=== PATIENT | male | born 1945 | race Caucasian/White ===

== ENCOUNTER → 2017-03-15 | Outpatient (CLI) | payer MEDICARE ==
--- NOTE | 2017-03-16 09:29 | XR ---
EXAMINATION TYPE: XR knee complete LT DATE OF EXAM: 03/15/2017 4:53 PM CLINICAL HISTORY: pain TECHNIQUE: Three views of the left knee are obtained. COMPARISON: None. FINDINGS: There is no acute fracture/dislocation. The tri-compartment joint spaces appear mildly na rrowed particularly at the medial tibiofemoral joint space. The overlying soft tissue appears unremar kable. Small suprapatellar joint effusion is noted. IMPRESSION: There is no acute fracture or dislocation ICD 10 NO FRACTURE, INITIAL EVALUATION
== END | disposition home or self-care (01) ==
LOC: RADXRYALE 16:40
PROVIDERS: ATTEND Family Medicine
DX: M25.562 Pain in left knee (principal)

== ENCOUNTER → 2018-03-17 | Outpatient (CLI) | payer MEDICARE ==
--- NOTE | 2018-03-18 10:58 | ECHOF ---
Referral Reason:R06.02 Shortness of breath, I48.2 Chronic Afib MEASUREMENTS -------- HEIGHT: 337.8 cm WEIGHT: 41.7 kg BP: 132/92 RVIDd: 3.0 cm (< 3.3) IVSd: 1.2 cm (0.6 - 1.1) LVIDd: 4.9 cm (3.9 - 5.3) LVPWd: 1.2 cm (0.6 - 1.1) IVSs: 1.4 cm LVIDs: 3.3 cm LVPWs: 1.9 cm LA Diam: 3.8 cm (2.7 - 3.8) LAESV Index (A-L): 29.66 ml/m Ao Diam: 3.5 cm (2.0 - 3.7) AV Cusp: 2.2 cm (1.5 - 2.6) MV EXCURSION: 16.312 mm (> 18.000) MV EF SLOPE: 104 mm/s (70 - 150) EPSS: 0.8 cm RAP: 5.00 mmHg RVSP: 25.10 mmHg FINDINGS -------- Atrial fibrillation. This was a technically difficult study with suboptimal apical views. The left ventricular size is normal. There is borderline concentric left ventricular hypertrophy. Overall left ventricular systolic function is mildly impaired with, an EF between 45 - 50 %. The right ventricle is normal in size. LA is midly dilated 29-33ml/m2. The right atrium is normal in size. 5 ml of Lumason was utilized for enhancement of images. There is mild aortic valve sclerosis. Mild mitral annular calcification present. Trace tricuspid regurgitation present. Right ventricular systolic pressure is normal at < 35 mmHg. The pulmonic valve was not well visualized. The aortic root size is normal. Normal inferior vena cava with normal inspiratory collapse consistent with estimated right atrial pre ssure of 5 mmHg. There is a trivial pericardial effusion present. CONCLUSIONS -------- 1. Atrial fibrillation. 2. This was a technically difficult study with suboptimal apical views. 3. The left ventricular size is normal. 4. There is borderline concentric left ventricular hypertrophy. 5. Overall left ventricular systolic function is mildly impaired with, an EF between 45 - 50 %. 6. The right ventricle is normal in size. 7. LA is midly dilated 29-33ml/m2. 8. The right atrium is normal in size. 9. 5 ml of Lumason was utilized for enhancement of images. 10. There is mild aortic valve sclerosis. 11. Mild mitral annular calcification present. 12. Trace tricuspid regurgitation present. 13. Right ventricular systolic pressure is normal at < 35 mmHg. 14. The pulmonic valve was not well visualized. 15. The aortic root size is normal. 16. Normal inferior vena cava with normal inspiratory collapse consistent with estimated right atrial pressure of 5 mmHg. 17. There is a trivial pericardial effusion present. EMAIL PRODUCTION CONSULTANT: Eliana York RDCS
== END | disposition home or self-care (01) ==
LOC: RADECHMAIN 14:14
PROVIDERS: ATTEND Family Medicine
DX: I48.2 Chronic atrial fibrillation (principal); I31.3 Pericardial effusion (noninflammatory); I51.7 Cardiomegaly; I35.8 Other nonrheumatic aortic valve disorders; I50.42 Chronic combined systolic (congestive) and diastolic (congestive) heart failure
CPT/HCPCS: C8929; Q9950; 93306

== ENCOUNTER → 2018-03-17 | Outpatient (CLI) | payer MEDICARE ==
[2018-03-17 14:02] LABS: HGB 14.9 gm/dL (13.0-17.5); Hypochromasia Slight; MCH 28.6 pg (25.0-35.0); MCHC 30.9 g/dL (31.0-37.0); MCV 92.3 fL (80.0-100.0); Mean Platelet Volume 7.1; Platelet Count 270 k/uL (150-450); WBC 11.4 k/uL (3.8-10.6)
[2018-03-17 14:19] LABS: Anion Gap 11 mmol/L; Blood Urea Nitrogen 21 mg/dL (9-20); Carbon Dioxide 35 mmol/L (22-30); Chloride 100 mmol/L (98-107); Potassium 4.3 mmol/L (3.5-5.1); Sodium 146 mmol/L (137-145)
--- NOTE | 2018-03-17 14:24 | XR ---
EXAMINATION TYPE: XR chest 2V DATE OF EXAM: 03/17/2018 COMPARISON: NONE HISTORY: Presurgical testing. TECHNIQUE: Frontal and lateral views of the chest are obtained. FINDINGS: Linear right basilar airspace disease is favored to represent atelectasis. There is no pulm onary vascular congestion, pleural effusion, or pneumothorax seen. The cardiac silhouette size is wi thin normal limits. The osseous structures are intact. There is slight pulmonary hyperinflation and biapical lucency. Heart is mildly enlarged. Minimal degenerative changes of the thoracic spine and o sseous demineralization are noted. IMPRESSION: Linear right basilar atelectasis is favored to represent atelectasis. Biapical lucency m ay be on the basis of COPD. Correlate with pulmonary function tests.
== END | disposition home or self-care (01) ==
LOC: LABWHC1 13:32
PROVIDERS: ATTEND Internal Medicine Cardiovascular Disease
DX: Z01.818 Encounter for other preprocedural examination (principal); Z01.812 Encounter for preprocedural laboratory examination; I48.2 Chronic atrial fibrillation
CPT/HCPCS: 36415; 71046; 80051; 82565; 83880; 84443; 84520; 85027

== ENCOUNTER → 2018-04-28 | Outpatient (CLI) | payer MEDICARE ==
[2018-04-28 17:32] LABS: HCT 48.6 % (39.0-53.0); HGB 15.5 gm/dL (13.0-17.5); Hypochromasia Slight; MCH 29.7 pg (25.0-35.0); MCHC 31.9 g/dL (31.0-37.0); MCV 93.1 fL (80.0-100.0); Mean Platelet Volume 6.7; Platelet Count 177 k/uL (150-450); RBC 5.21 m/uL (4.30-5.90); RDW 15.2 % (11.5-15.5)
[2018-04-28 17:37] LABS: Anion Gap 9 mmol/L; Blood Urea Nitrogen 24 mg/dL (9-20); Carbon Dioxide 33 mmol/L (22-30); Chloride 99 mmol/L (98-107); Potassium 4.5 mmol/L (3.5-5.1); Sodium 141 mmol/L (137-145)
== END | disposition home or self-care (01) ==
LOC: LABPAT 16:50
PROVIDERS: ATTEND Internal Medicine Cardiovascular Disease
DX: Z01.812 Encounter for preprocedural laboratory examination (principal); I48.1 Persistent atrial fibrillation
CPT/HCPCS: 80051; 82565; 84520; 85027

== ENCOUNTER → 2018-05-17 | Day surgery (SDC) | payer MEDICARE ==
[2018-05-11 14:23] VITALS: BMI 36.6
[~2018-05-17] MED LIST: PROPOFOL 10 MG/ML 20 ML VIAL IV ONE; SODIUM CHLORIDE 0.9% 1,000 ML IV SCH; SODIUM CHLORIDE 0.9% 500 ML IV ONE
[2018-05-17] MEDS: SODIUM CHLORIDE 0.9% 1,000 ML IV SCH ×2 (07:00→07:13)
[2018-05-17 07:12] VITALS: RESP 16
[2018-05-17 08:44] VITALS: TEMP 98
[2018-05-17 09:15] VITALS: BP 122/74; PULSE 68
--- NOTE | 2018-05-17 09:24 | ECHOT ---
TRANSESOPHAGEAL ECHOCARDIOGRAM INDICATION: Chronic atrial fibrillation to rule out intracardiac thrombus. PROCEDURE NOTE: After obtaining informed consent, transesophageal echocardiogram is performed in left lateral position using an Omniplane probe. Local and IV sedation were obtained by the woods superintendent. The patient tolerated the procedure well without any obvious immediate complications. FINDINGS: 1. There is a small echodense lesion within the left atrial appendage suggestive of left atrial appendage thrombus. There is spontaneous echo contrast throughout. 2. Left ventricle appears mildly enlarged with diffuse global hypokinesis with an ejection fraction of 50%. 3. Mitral valve appears anatomically normal. There is mild central mitral regurgitation noted. 4. Aortic valve is a 3-leaflet valve. There is no evidence of aortic stenosis or regurgitation. 5. There is mild tricuspid regurgitation. 6. Interatrial septum: There is no evidence of vtbl-zy-jpdwl shunt by color-flow Doppler, but there is evidence of osxmf-gu-kyll shunt by agitated saline contrast study. 7. Aorta shows mild atherosclerotic changes. CONCLUSIONS: 1. Small size thrombus within the left atrial appendage. 2. Mild diffuse global hypokinesis with mild left ventricular dysfunction. 3. Spontaneous echo contrast. 4. Evidence of pkgjr-ga-omny shunt by agitated saline contrast study across the interatrial septum. MMODL / IJN: [id number] /
== END | disposition home or self-care (01) ==
LOC: CATHCVL 06:27
PROVIDERS: ATTEND Internal Medicine Cardiovascular Disease
DX: I48.2 Chronic atrial fibrillation (principal); I70.0 Atherosclerosis of aorta; I50.22 Chronic systolic (congestive) heart failure; I08.1 Rheumatic disorders of both mitral and tricuspid valves; F17.210 Nicotine dependence, cigarettes, uncomplicated; Z79.82 Long term (current) use of aspirin; Z79.01 Long term (current) use of anticoagulants; Z79.899 Other long term (current) drug therapy; Z82.49 Family history of ischemic heart disease and other diseases of the circulatory system; Z79.51 Long term (current) use of inhaled steroids
CPT/HCPCS: 93312; 93320; 93325; J2704

== ENCOUNTER → 2018-09-07 | Outpatient (CLI) | payer MEDICARE ==
[2018-09-07 17:57] LABS: HCT 43.3 % (39.0-53.0); HGB 13.4 gm/dL (13.0-17.5); Hypochromasia Marked; MCHC 30.9 g/dL (31.0-37.0); MCV 93.9 fL (80.0-100.0); Mean Platelet Volume 7.4; Platelet Count 238 k/uL (150-450); RBC 4.61 m/uL (4.30-5.90); RDW 14.2 % (11.5-15.5)
[2018-09-07 18:43] LABS: Anion Gap 4 mmol/L; Blood Urea Nitrogen 15 mg/dL (9-20); Carbon Dioxide 36 mmol/L (22-30); Chloride 100 mmol/L (98-107); Potassium 4.2 mmol/L (3.5-5.1); Sodium 140 mmol/L (137-145)
== END ==
LOC: LABWHC1 16:57
PROVIDERS: ATTEND Internal Medicine Cardiovascular Disease
DX: Z01.812 Encounter for preprocedural laboratory examination (principal); I48.2 Chronic atrial fibrillation
CPT/HCPCS: 36415; 80051; 82565; 84520; 85027

== ENCOUNTER → 2018-09-20 | Day surgery (SDC) | payer MEDICARE ==
[2018-09-12 11:08] VITALS: BMI 39.7
[~2018-09-20] MED LIST changes: +LACTATED RINGERS 1,000 ML IV SCH; +SODIUM CHLORIDE 0.9% 500 ML 500 ML IV ONE; -SODIUM CHLORIDE 0.9% 500 ML IV ONE
[2018-09-20 08:36] VITALS: TEMP 97.7
[2018-09-20] MEDS: BENZOCAINE SPRAY 1 CAN MUCOUS MEM ONE ×2 (08:50→08:55)
[2018-09-20 08:52] VITALS: RESP 16
--- NOTE | 2018-09-20 10:22 | ECHOT ---
TRANSESOPHAGEAL ECHOCARDIOGRAM INDICATION: Chronic atrial fibrillation. PROCEDURE NOTE: After obtaining informed consent, transesophageal echocardiogram was performed in left lateral position using an Omni plane probe. Local and IV sedation were obtained by the mat making machine tender. Patient tolerated the procedure well without any obvious immediate complications. MIA is being performed to rule out intracardiac thrombus prior to cardioversion. FINDINGS: 1. Left atrial appendage, there is a small echodense lesion within the left atrial appendage, which looks better than it did last time, but there is still seems to be a thrombus. 2. Left ventricle has normal size, shows mild left ventricular dysfunction with an ejection fraction of 45%. 3. Mitral valve shows mild mitral regurgitation. 4. Tricuspid valve appears normal. 5. Left atrium appears enlarged. 6. Right atrium appears enlarged. 7. Interatrial septum, there is no evidence of valu-qv-wlcsd shunt by color-flow Doppler. There is evidence of mezng-ll-nqbm shunt by agitated saline contrast study. 8. There is prominent Chiair network within the right atrium. 9. Aorta shows mild atherosclerotic changes. Aortic valve is a 3-leaflet valve. CONCLUSION: 1. Intracardiac thrombus noted within the left atrial appendage. 2. There is evidence of yirue-na-jobv shunt, probably secondary to a patent foramen ovale. PLAN: Patient will continue with the anticoagulation, cardioversion is canceled. I will increase the dose of Toprol-XL for better heart rate control and continue the amiodarone. MMODL / IJN: [id number] /
[2018-09-20 10:40] VITALS: BP 112/59; PULSE 106
== END ==
LOC: CATHCVL 08:05
PROVIDERS: ATTEND Internal Medicine Cardiovascular Disease
DX: I51.3 Intracardiac thrombosis, not elsewhere classified (principal); I34.0 Nonrheumatic mitral (valve) insufficiency; I51.9 Heart disease, unspecified; I70.0 Atherosclerosis of aorta; I48.2 Chronic atrial fibrillation; E66.01 Morbid (severe) obesity due to excess calories; Z68.39 Body mass index [BMI] 39.0-39.9, adult; Z82.49 Family history of ischemic heart disease and other diseases of the circulatory system; Z72.0 Tobacco use; Z79.01 Long term (current) use of anticoagulants; Z79.82 Long term (current) use of aspirin; Z79.51 Long term (current) use of inhaled steroids; Z79.899 Other long term (current) drug therapy
CPT/HCPCS: 93312; 93320; 93325; J2704; 92960

== ENCOUNTER → 2019-01-04 | Day surgery (SDC) | payer MEDICARE ==
[2018-12-30 15:20] VITALS: BMI 35.2
[~2019-01-04] MED LIST changes: +ALBUTEROL NEBULIZED 2.5 MG/3 ML INHALATION PRN; +AMIODARONE 200 MG TAB PO SCH; +APIXABAN 5 MG TAB PO SCH; +ASPIRIN 81 MG PO SCH; +CALCIUM CARB-VIT D 500MG-200UN 1 EACH TAB PO SCH; +FUROSEMIDE 40 MG TAB PO SCH; +GARLIC PO SCH; +HYDROcodone/APAP 10-325MG 1 EACH TAB PO PRN; +IPRATROPIUM-ALBUTEROL 3 ML NEB INHALATION PRN; -LACTATED RINGERS 1,000 ML IV SCH; +LISINOPRIL 5 MG TAB PO SCH; +MIDAZOLAM 2 MG/2 ML VIAL ONE; +MULTIVITAMINS, THERA 1 EACH TAB PO SCH; +NON-FORMULARY DRUG (Fish Oil/Dha/Epa [Fish Oil 1,200 Mg Fish Oil] 1 EACH) PO SCH; +PANTOPRAZOLE 40 MG TABLET PO SCH; +POTASSIUM CHLORIDE ER 10 MEQ TAB.ER.PRT PO SCH; +SODIUM CHLORIDE 0.9% 1,000 ML IV ONE; -SODIUM CHLORIDE 0.9% 500 ML 500 ML IV ONE; +VITAMIN E (DL,TOCOPHERYL ACET) 400 UNIT CAP PO SCH; +fentaNYL (PF) 50 MCG/ML 2 ML AMP ONE
[2019-01-04 10:47] VITALS: TEMP 97.8
--- NOTE | 2019-01-04 11:25 | ECHOT ---
TRANSESOPHAGEAL ECHOCARDIOGRAM MIA INDICATION: Chronic atrial fibrillation to rule out intracardiac thrombus prior to cardioversion. PROCEDURE NOTE: After obtaining informed consent, transesophageal echocardiogram was performed in left lateral position using an Omniplane probe. Local and IV sedation were obtained by the corrugated box machine operator. The patient became somewhat hypoxic during the procedure, so I had to take the probe out, but we got the information we need. FINDINGS: 1. There is no intracardiac thrombus within the left atrial appendage, left atrium, right atrium, right ventricular or left ventricle. 2. Left ventricle has normal size and systolic function. 3. Left atrium is . 4. Right atrium, right ventricle is within normal limits. 5. There is a prominent eustachian valve within the right atrium. 6. Interatrial septum appears aneurysmally dilated. There is no evidence of left to right shunt by color-flow Doppler or iioxx-xn-czqg shunt by agitated saline contrast study. 7. Aortic valve is a 3-leaflet valve. There is no evidence of aortic stenosis. CONCLUSIONS: 1. No intracardiac thrombus. 2. Normal left ventricular systolic function. 3. Mild mitral regurgitation. PLAN: Patient will undergo cardioversion. MMODL / IJN: [id number] /
--- NOTE | 2019-01-04 11:37 | CE ---
CARDIAC ELECTROPHYSIOLOGY REPORT CARDIOVERSION NOTE INDICATION: Chronic atrial fibrillation. After obtaining informed consent and making sure that the patient does not have intracardiac thrombus and ensuring that the patient is taking long-term anticoagulation, the patient underwent electrical cardioversion with 200 joules of synchronized DC current. The patient was anesthetized by the breed to wean production technician. He converted to sinus rhythm following a single shock and will have a post-conversion EKG upon discharge. He will continue the amiodarone 200 b.i.d., Eliquis 5 mg b.i.d., Prinivil and Lasix. I am going to decrease the dose of Toprol to 25 mg daily. The patient is a smoker. I advised him to quit smoking. MMODL / IJN: [id number] /
[2019-01-04 13:58] VITALS: RESP 13
[2019-01-04 14:00] VITALS: BP 116/63; PULSE 74
== END ==
LOC: CATHCVL 09:00
PROVIDERS: ATTEND Internal Medicine Cardiovascular Disease
DX: I48.2 Chronic atrial fibrillation (principal); Z72.0 Tobacco use; Z82.49 Family history of ischemic heart disease and other diseases of the circulatory system; Z79.01 Long term (current) use of anticoagulants; Z79.82 Long term (current) use of aspirin; Z79.51 Long term (current) use of inhaled steroids; Z79.899 Other long term (current) drug therapy
CPT/HCPCS: 93312; 93320; 93325; 92960; J2250; J3010; J2704

== ENCOUNTER → 2019-08-18 | Outpatient (CLI) | payer MEDICARE ==
--- NOTE | 2019-08-20 13:20 | BD ---
EXAMINATION TYPE: Axial Bone Density DATE OF EXAM: 08/18/2019 COMPARISON: [id number] CLINICAL HISTORY: 74 YR OLD MALE....ICD-10 CODE: M89.9 DISORDER OF BONE Height: 67.5 Weight: 267 FRAX RISK QUESTIONS: 1Current Tobacco Use: STOPPED 2 MOS AGO RISK FACTORS HISTORY OF: Lost more than 2 inches in height since high school: [employer] IN [employer] 6 FOOT Hyperparathyroidism: NO Adrenal Insufficiency: NO MEDICATIONS: Prednisone or other steroids: STEROIDAL, PAC FOR PAIN Additional Medications: REFLUX MED, CALCIUM AND VIT D Additional History: NOTHING TO NOTE PER PATIENT, OSTEOARTHRITIS EXAM MEASUREMENTS: Bone mineral densitometry was performed using the Glooko System. Bone mineral density as measured about the Lumbar spine is: ----- L1-L4(G/cm2): 0.902 T Score Values are as follows: ----- L1: -2.0 ----- L2: -1.9 ----- L3: -3.6 ----- L4: -2.0 ----- L1-L4: -2.3 Bone mineral density has: Decreased -9.5% since study of: 07.11.2016 Bone mineral density about the R hip (g/cm2): 0.920 Bone mineral density about the L hip (g/cm2): 0.944 T Score values are as follows: -----R Neck: -0.5 -----L Neck: 0.0 -----R Total: -0.7 -----L Total: -0.5 Bone mineral density has: Increased 8.8% since study of: 07.11.2016 FRAX%s: THERE IS A 6.4% CHANCE FOR A MAJOR OSTEOPOROTIC FX AND A 1.8% FOR HIP.....PROBABILITY FOR FX IN 10 YRS TIME IMPRESSION: Osteopenia (T Score between -2.5 and -1). There is slightly increased risk of fracture and the patient may be considered for treatment. Re-Screen 2-5 years. NOTE: T-SCORE=SD OF THE YOUNG ADULT MEAN.
== END | disposition home or self-care (01) ==
LOC: RADBDWWP 13:30
PROVIDERS: ATTEND Family Medicine
DX: M85.80 Other specified disorders of bone density and structure, unspecified site (principal)
CPT/HCPCS: 77080

== ENCOUNTER → 2019-09-11 | Outpatient (CLI) | payer MEDICARE ==
--- NOTE | 2019-09-11 15:33 | XR ---
EXAMINATION TYPE: XR shoulder complete RT DATE OF EXAM: 09/11/2019 COMPARISON: NONE HISTORY: 74 year-old male right shoulder pain TECHNIQUE: 3 views FINDINGS: AC joint appears intact. Subacromial space is preserved. Overpenetration limits assessment of the sof t tissues. No acute fracture, subluxation, or dislocation seen. IMPRESSION: No acute osseous abnormality seen.
== END ==
LOC: RADXRYALE 11:46
PROVIDERS: ATTEND Family Medicine
DX: M25.511 Pain in right shoulder (principal)

== ENCOUNTER 2019-12-04 11:07 | Day surgery (SDC) | payer MEDICARE ==
[2019-11-27 16:01] VITALS: BMI 38.0
--- NOTE | 2019-12-03 11:21 | HP ---
HISTORY AND PHYSICAL REASON FOR ADMISSION: Surgery 12/04/2019 Yariel Hancock is a 74-year-old patient seen with progressive right shoulder pain. We discussed options for treatment. He elected to proceed with shoulder arthroscopy. Consent was obtained. Medical clearance was provided by Dr. Knapp. The cardiac clearance was provided by Dr. Langston. PAST MEDICAL HISTORY: Hypertension, atrial fibrillation. PAST SURGICAL HISTORY: Knee arthroscopy. DAILY MEDICATIONS: Aspirin, Lasix, [place], Eliquis, lisinopril, metoprolol, potassium. ALLERGIES: None. SOCIAL HISTORY: Smokes 1 pack cigarettes daily. PHYSICAL EXAMINATION: Evaluation right shoulder, flexion 50 degrees. Abduction is 40 degrees. External rotation 25 degrees. Tenderness along the anterolateral acromion and rotator cuff insertion site. Impingement sign is positive at 70 degrees. Drop-arm sign is positive. Distal neurovascular exam is intact. RADIOGRAPHS: Right shoulder radiographs revealed a type 2 anterior acromion, evidence for acromioclavicular joint osteoarthritis and cystic changes of the greater tuberosity. Right shoulder MRI revealed rotator cuff tendon tear, acromioclavicular joint osteoarthritis. IMPRESSION: 1. Right shoulder impingement with rotator cuff tear. 2. Right shoulder acromioclavicular osteoarthritis. 3. Hypertension. 4. Atrial fibrillation. 5. Tobacco use. PLAN: Right shoulder arthroscopy, subacromial decompression, arthroscopic rotator cuff repair, arthroscopic Heidy procedure and debridement. Surgery 12/04/2019. MMODL / IJN: [id number] /
[~2019-12-04 11:07] MED LIST changes: -ALBUTEROL NEBULIZED 2.5 MG/3 ML INHALATION PRN; -AMIODARONE 200 MG TAB PO SCH; -APIXABAN 5 MG TAB PO SCH; -ASPIRIN 81 MG PO SCH; -CALCIUM CARB-VIT D 500MG-200UN 1 EACH TAB PO SCH; +DEXAMETHASONE SOD PHOSPHATE 10 MG/ML 1 ML VIAL IV ONE; -FUROSEMIDE 40 MG TAB PO SCH; -GARLIC PO SCH; -HYDROcodone/APAP 10-325MG 1 EACH TAB PO PRN; +HYDROmorphone 0.5 MG/0.5 ML SYRINGE IVP PRN; -IPRATROPIUM-ALBUTEROL 3 ML NEB INHALATION PRN; +LIDOCAINE 1% 20 ML VIAL (10MG/ML) FOR IV START INTRADERMA PRN; -LISINOPRIL 5 MG TAB PO SCH; -MIDAZOLAM 2 MG/2 ML VIAL ONE; -MULTIVITAMINS, THERA 1 EACH TAB PO SCH; -NON-FORMULARY DRUG (Fish Oil/Dha/Epa [Fish Oil 1,200 Mg Fish Oil] 1 EACH) PO SCH; +ONDANSETRON 4 MG/2 ML VIAL IVP ONE; -PANTOPRAZOLE 40 MG TABLET PO SCH; -POTASSIUM CHLORIDE ER 10 MEQ TAB.ER.PRT PO SCH; -PROPOFOL 10 MG/ML 20 ML VIAL IV ONE; -SODIUM CHLORIDE 0.9% 1,000 ML IV ONE; -SODIUM CHLORIDE 0.9% 1,000 ML IV SCH; -VITAMIN E (DL,TOCOPHERYL ACET) 400 UNIT CAP PO SCH; +ceFAZolin 3 GM in SODIUM CHLORIDE 0.9% 100 ML IVPB ONE; +fentaNYL (PF) 50 MCG/ML 2 ML AMP IV PRN; -fentaNYL (PF) 50 MCG/ML 2 ML AMP ONE
[2019-12-04] MEDS: LACTATED RINGERS 1,000 ML IV SCH ×3 (11:49→16:38)
[2019-12-04] MEDS ORDERED: fentaNYL (PF) 50 MCG/ML 2 ML AMP IV ONE (12:03)
[2019-12-04] MEDS ORDERED: MIDAZOLAM 2 MG/2 ML VIAL IV ONE (12:03)
--- NOTE | 2019-12-04 12:22 | P.ANPRN ---
Procedure Note - Anesthesia - Nerve Block Performed Right Interscalene Single Time Out Performed: Yes Date of Procedure: 12/04/19 Procedure Start Time: 12:00 Procedure Stop Time: 12:10 Location of Patient: PreOp Indication: Acute Post-Operative Pain, Requested by Surgeon Specifically requested for management of pain by DrKamari: Jose Meng Sedation Type: Sedate with meaningful contact maintained Preparation: Sterile Prep Position: Supine Catheter: None Needle Types: Pajunk Needle Gauge: 21 Ultrasound used to visualize needle placement: Yes Ultrasound used to observe medication spread: Yes Injectate: 0.5% Ropivacaine (see comment for volume) (20 cc) Blood Aspirated: No Pain Paresthesia on Injection Noted: No Resistance on Injection: Normal Image Stored and Saved: Yes Events: Uneventful and Well Tolerated
[2019-12-04] MEDS ORDERED: NEOSTIGMINE 1 MG/ML 10 ML VIAL ONE (13:05)
[2019-12-04] MEDS ORDERED: ROCURONIUM BROMIDE 10 MG/ML 10 ML VIAL IV ONE (13:05)
[2019-12-04] MEDS ORDERED: MIDAZOLAM 2 MG/2 ML VIAL ONE (13:05)
[2019-12-04] MEDS ORDERED: ROPIVACAINE 5 MG/ML 30 ML VIAL ONE (13:05)
[2019-12-04] MEDS ORDERED: fentaNYL (PF) 50 MCG/ML 2 ML AMP ONE (13:05)
[2019-12-04] MEDS ORDERED: PROPOFOL 10 MG/ML 20 ML VIAL IV ONE (13:05)
[2019-12-04] MEDS ORDERED: SUCCINYLCHOLINE CHLORIDE 100 MG/5 ML SYR IV ONE (13:05)
[2019-12-04] MEDS ORDERED: GLYCOPYRROLATE 0.2 MG/ML 2 ML VIAL ONE (13:05)
[2019-12-04] MEDS ORDERED: LIDOCAINE 1% INJ 10MG/ML (20 ML MDV) ONE (13:05)
[2019-12-04 15:03] VITALS: TEMP 97
--- NOTE | 2019-12-04 15:03 | P.OP ---
Date of Procedure: 12/04/19 Preoperative Diagnosis: Right shoulder impingement Postoperative Diagnosis: 1. Right shoulder rotator cuff tear 2. Right shoulder impingement 3. Right shoulder acromioclavicular joint osteoarthritis 4. Right shoulder superior labral tear Procedure(s) Performed: 1. Right shoulder arthroscopic rotator cuff repair 2. Right shoulder arthroscopic subacromial decompression 3. Right shoulder arthroscopic Heidy procedure 4. Right shoulder arthroscopic debridement labral tear Implants: 44.75 Arthrex swivel lock anchors Anesthesia: GETA, regional (Interscalene block) Surgeon: Jose Meng Clasp Machine Operator #1: Pedro Luis Mays Estimated Blood Loss (ml): 10 Pathology: none sent Condition: stable Disposition: PACU Indications for Procedure: 74-year-old patient seen with progressive right shoulder pain. After having tr eatment options discussed, he elected to proceed with arthroscopy. Operative Findings: See description of procedure Description of Procedure: Patient underwent an interscalene block by department of anesthesia for postoperative pain management. The patient was then taken to the operative suite. The patient underwent a general anesthetic by the department of anesthesia. The patient was placed into a lateral position and secured. There was appropriate padding of the bony prominence. Right shoulder was then prepped and draped in normal sterile orthopedic fashion. We placed the extremity in 10 pounds of longitudinal traction. A posterior incision was now made for a posterior working portal site. The trocar and cannula were inserted into the glenohumeral joint. Arthroscopy was initiated. Spinal needle was now inserted anteriorly, to ascertain the anterior working portal site. An incision was now made in that area, a trocar was inserted followed by a probe. There was superficial tearing of the superior labrum. The biceps tendon appeared torn with a residual stump remaining. The glenohumeral joint revealed grade 1 chondromalacia mainly involving the anterior aspect of the glenoid fossa. The remainder labrum was stable. I debrided that superficial labral tear. I debrided the residual biceps stump. Residual labrum was stable. Instruments now removed from glenohumeral joint. Utilizing the posterior working portal site, the trocar and cannula were inserted into the subacromial space. Arthroscopy initiated. I made an incision 2 fingerbreadths lateral to the acromion. I introduced my trocar followed by my ArthroCare ablator. I now began ablating thick subacromial bursal tissue, which exposed the undersurface of the anterior acromion. There was diminished subacromial space. There was a very prominent anterior acromion. A motorized bur was introduced and a subacromial decompression was performed. I also excised some osteophytes off the inferior aspect of the distal clavicle. The AC joint was visualized and noted to be fairly arthritic. The motorized bur was introduced in the anterior portal site and a Heidy procedure was performed without difficulty, decompressing the AC joint nicely. I turned my attention to the rotator cuff. There was a 2.53 cm rotator cuff tear. I debrided the margins getting down to stable tendon tissue. I introduced my motorized bur and abraded the footprint area, getting some petechial bleeding. I now made an accessory portal site off the lateral aspect of the acromion. I punched 2 holes medial for medial row fixation with the assistance of John KOCH carefully tapping the punch with a mallet as I held the punch and the camera. I now introduced both anchors into the pre-punched holes and John KOCH tapped them with the mallet as I held anchors and the camera. John KOCH now screwed the anchors in place a while I held the anchor guide and camera. All 8 limbs of suture were now passed through good bites of rotator cuff tendon. I now punched 2 holes for lateral row fixation again I held the punch and camera while John KOCH used a mallet to tap in the punch. We now passed sutures through both anchors and individually I introduced the anchors into the pre- punch holes I held the anchor guide in position with one hand holding the camera with the other hand while John KOCH tensioned the sutures and screwed in the anchors one at a time. All residual suture limbs were now clipped. We had good compression of the tendon along the entire footprint. I injected 1 mL Renyte intra-articular. Instruments now removed from the portal sites. All portal sites were approximated with nylon suture. Sterile dressings were applied followed by a shoulder immobilizer. Pedro Luis KOCH assisted in this complex case. The patient was awakened, transferred to a bed, and taken to recovery in stable condition.
[2019-12-04 16:27] VITALS: BP 112/79; PULSE 75; RESP 20
== END 2019-12-04 16:50 | disposition home or self-care (01) ==
LOC: OR 11:07
PROVIDERS: ATTEND Orthopaedic Surgery
DX: M19.011 Primary osteoarthritis, right shoulder (principal); M75.41 Impingement syndrome of right shoulder; S43.431A Superior glenoid labrum lesion of right shoulder, initial encounter; M94.211 Chondromalacia, right shoulder; M75.101 Unspecified rotator cuff tear or rupture of right shoulder, not specified as traumatic; I11.0 Hypertensive heart disease with heart failure; I50.42 Chronic combined systolic (congestive) and diastolic (congestive) heart failure; I48.21 Permanent atrial fibrillation; G89.29 Other chronic pain; G47.00 Insomnia, unspecified; G47.33 Obstructive sleep apnea (adult) (pediatric); J44.9 Chronic obstructive pulmonary disease, unspecified; K21.9 Gastro-esophageal reflux disease without esophagitis; Z79.01 Long term (current) use of anticoagulants; Z79.82 Long term (current) use of aspirin; Z79.51 Long term (current) use of inhaled steroids; Z87.891 Personal history of nicotine dependence; Z82.49 Family history of ischemic heart disease and other diseases of the circulatory system; Z79.891 Long term (current) use of opiate analgesic; X58.XXXA Exposure to other specified factors, initial encounter
CPT/HCPCS: 64415; 76942; 29827; 29826; 29824; C1713 ×2; Q4212; J2250; J1100; J2710; J0690; J2405; J2001; J3010; J2795; J0330; J2704

== ENCOUNTER → 2020-10-09 | Outpatient (CLI) | payer MEDICARE ==
--- NOTE | 2020-10-09 12:50 | XR ---
EXAMINATION TYPE: XR Hip Complete LT DATE OF EXAM: 10/09/2020 CLINICAL HISTORY: pain TECHNIQUE: AP and frogleg views of the left hip are obtained. COMPARISON: None. FINDINGS: There is no acute fracture/dislocation evident. The joint space appears within normal li mits. The overlying soft tissue appears unremarkable. IMPRESSION: 1. There is no acute fracture or dislocation.ICD 10 NO FRACTURE, INITIAL EVALUATION
--- NOTE | 2020-10-09 12:51 | XR ---
EXAMINATION TYPE: XR lumbosacral spine min 4V DATE OF EXAM: 10/09/2020 CLINICAL HISTORY: pain COMPARISON: NONE TECHNIQUE: Frontal, lateral, and oblique images of the lumbar spine are obtained. FINDINGS: L4 and L5 anterolisthesis measuring 7.3 mm. Severe facet joint arthropathy. Mild scattered degenerative disc space narrowing and spondylosis. No evidence for compression fracture. IMPRESSION: No acute fracture or dislocation is seen in the lumbar spine.ICD 10 NO FRACTURE, INITIAL EVALUATION
== END | disposition home or self-care (01) ==
LOC: RADXRYALE 11:12
PROVIDERS: ATTEND Family Medicine
DX: M54.5 Low back pain (principal); M46.1 Sacroiliitis, not elsewhere classified; M25.552 Pain in left hip
CPT/HCPCS: 72110; 73502

== ENCOUNTER 2020-10-30 17:31 | Inpatient (IN) | payer MEDICARE ==
--- NOTE | 2020-10-30 18:13 | ED ---
General Adult HPI - General Chief complaint: Shortness of Breath Stated complaint: SOB/syncope Time Seen by Provider: 10/30/20 17:51 Source: patient Mode of arrival: ambulatory Limitations: no limitations - History of Present Illness Initial comments: Dictation was produced using [employer] dictation software. please excuse any grammatical, word or spelling errors. This patient was cared for during a federal and state declared state of emergency secondary to Covid 19 Chief Complaint: 74-year-old male past medical history of hypertension, H fibrillation presents with syncope and dyspnea History of Present Illness: 74-year-old male has multiple comorbidities presents today with syncope and dyspnea. Patient states that at 1 PM today he was in the kitchen making himself some coffee. He started to turn around and reports having an episode of syncope. He is unsure if he had palpitations prior to the episode of syncope. He was at home resting when his noted that he didn't look very well. She called EMS to bring patient to the emergency department. Patient states he feels weak. He states he sometimes has cough and myalgias. Denies any pain complaints. Does feel slightly weak. Patient does feel dyspneic. He wears breathing apparatus when sleeping but does not wear any oxygen throughout the daytime. The ROS documented in this emergency department record has been reviewed and confirmed by me. Those systems with pertinent positive or negative responses have been documented in the HPI. All other systems are other negative and/or noncontributory. PHYSICAL EXAM: General Impression: Alert and oriented x3, mildly dyspneic HEENT: Normocephalic atraumatic, extra-ocular movements intact, pupils equal and reactive to light bilaterally, mucous membranes moist. Cardiovascular: Heart regular rate and rhythm Chest: Able to complete full sentences, no retractions, no tachypnea, lungs clear to auscultation bilaterally Abdomen: abdomen soft, non-tender, non-distended, no organomegaly Musculoskeletal: Pulses present and equal in all extremities, no peripheral edema Motor: no focal deficits noted Neurological: CN II-XII grossly intact, no focal motor or sensory deficits noted Skin: Intact with no visualized rashes Psych: Normal affect and mood ED course: 75-year-old male with past medical history of A. fib, COPD, sleep apnea presents today with syncope and dyspnea. Vital signs upon arrival shows heart rate of 103, 91% on room air, temperature 97.1. Laboratory evaluation obtained. CBC does not show an acute processes. Coag panel is negative. Metabolic panel is findings within acceptable limits. CRP is 75.8. Troponin is negative. Coronavirus is not detected. Chest x-ray shows new masslike infiltrate at the left lung and the left pulmonary hilum. Given the suspicious chest x-ray computed tomography scan of the chest was ordered showing large left upper lobe mass with encasement of the left upper lobe bronchus and left bronchial adenopathy consistent with tumor. Patient reevaluated approximately 7:55 PM B stable medical condition. Agreeable discharge. Notified of his abnormal CT results and will be admitted with consultation to pulmonology and oncology. Case discussed with Dr. Car who is willing to accept patients care. EKG interpretation: Ventricular rate 107, A. fib with RVR, QRS 90, QTc 435. No RI prolongation, no QTC prolongation, no ST or T-wave changes noted. Overall, this EKG is unremarkable - Related Data Home Medications Medication Instructions Recorded Confirmed Fish Oil/Dha/Epa [Fish Oil 1,200 1 each PO DAILY 03/05/15 11/27/19 mg Fish Oil] Furosemide [Lasix] 40 mg PO DAILY 03/05/15 11/27/19 HYDROcodone/APAP 10-325MG [[place] 1 each PO Q6H PRN 03/05/15 11/27/19 10-325] Multivitamins, Thera [Multivitamin 1 each PO DAILY 03/05/15 11/27/19 (formulary)] Potassium Chloride [Klor-Con 10] 10 meq PO DAILY 03/05/15 11/27/19 Vitamin E (Dl,Tocopheryl Acet) 400 unit PO DAILY 03/05/15 11/27/19 [Vitamin E] Apixaban [Eliquis] 5 mg PO BID 05/11/18 12/04/19 Calcium Carbonate/Vitamin D3 1 each PO DAILY 05/11/18 11/27/19 [Calcium 600-Vit D3 200 Tablet] Garlic 1 each PO DAILY 05/11/18 11/27/19 Pantoprazole [Protonix] 40 mg PO DAILY 05/11/18 11/27/19 lisinopriL [Prinivil] 5 mg PO DAILY 05/11/18 11/27/19 Aspirin [Adult Low Dose Aspirin EC] 81 mg PO DAILY 12/30/18 11/27/19 Varenicline Tartrate [Chantix 1 mg PO 1500,2100 11/27/19 12/04/19 Continuing Pack] Previous Rx's Medication Instructions Recorded Metoprolol Succinate (ER) [Toprol 25 mg PO DAILY #90 tab 01/04/19 Xl] traMADol HCl [Ultram] 50 mg PO Q6H PRN #28 tab 12/04/19 Allergies Allergy/AdvReac Type Severity Reaction Status Date / Time No Known Allergies Allergy Verified 10/30/20 17:33 Review of Systems ROS Statement: Those systems with pertinent positive or pertinent negative responses have been documented in the HPI. ROS Other: All systems not noted in ROS Statement are negative. Past Medical History Past Medical History: COPD, GERD/Reflux, Musculoskeletal Disorder, Skin Disorder, Sleep Apnea/CPAP/BIPAP Additional Past Medical History / Comment(s): irregular heart rhythm,SOB,SWELLING IN [place]. ANKLES OFF & ON, SNORES ALOT. LOWER BACK PAIN,generalized sores on skin History of Any Multi-Drug Resistant Organisms: None Reported Past Surgical History: Orthopedic Surgery Additional Past Surgical History / Comment(s): ARTHROSCOPIC RT KNEE 2012 , CTR LEFT WRIST Past Anesthesia/Blood Transfusion Reactions: No Reported Reaction Past Psychological History: No Psychological Hx Reported Smoking Status: Light tobacco smoker Past Alcohol Use History: None Reported Past Drug Use History: None Reported - Past Family History Mother Family Medical History: Congestive Heart Failure (CHF) Father Family Medical History: Coronary Artery Disease (CAD) Additional Family Medical History / Comment(s): CABG Brother(s) Family Medical History: Coronary Artery Disease (CAD) Additional Family Medical History / Comment(s): CABG General Exam Limitations: no limitations Course Vital Signs 10/30/20 10/30/20 17:34 19:30 Temperature 97.1 F L Pulse Rate 103 H 97 Respiratory 20 20 Rate Blood Pressure 106/74 103/68 O2 Sat by Pulse 91 L 97 Oximetry Medical Decision Making - Lab Data Result diagrams: 10/30/20 18:20 10/30/20 18:20 Lab Results 10/30/20 10/30/20 10/30/20 Range/Units 18:20 18:20 18:20 WBC 10.3 (3.8-10.6) k/uL RBC 4.71 (4.30-5.90) m/uL Hgb 13.0 (13.0-17.5) gm/dL Hct 42.3 (39.0-53.0) % MCV 89.7 (80.0-100.0) fL MCH 27.6 (25.0-35.0) pg MCHC 30.8 L (31.0-37.0) g/dL RDW 14.3 (11.5-15.5) % Plt Count 286 (150-450) k/uL MPV 7.8 Neutrophils % 85 % Lymphocytes % 8 % Monocytes % 5 % Eosinophils % 1 % Basophils % 0 % Neutrophils # 8.8 H (1.3-7.7) k/uL Lymphocytes # 0.9 L (1.0-4.8) k/uL Monocytes # 0.5 (0-1.0) k/uL Eosinophils # 0.1 (0-0.7) k/uL Basophils # 0.0 (0-0.2) k/uL Hypochromasia Moderate PT 10.5 (9.0-12.0) sec INR 1.0 (<1.2) APTT 26.1 (22.0-30.0) sec Sodium (137-145) mmol/L Potassium (3.5-5.1) mmol/L Chloride (98-107) mmol/L Carbon Dioxide (22-30) mmol/L Anion Gap mmol/L BUN (9-20) mg/dL Creatinine (0.66-1.25) mg/dL Est GFR (CKD-EPI)AfAm (>60 ml/min/1.73 sqM) Est GFR (CKD-EPI)NonAf (>60 ml/min/1.73 sqM) Glucose (74-99) mg/dL Plasma Lactic Acid Vahe (0.7-2.0) mmol/L Calcium (8.4-10.2) mg/dL Magnesium (1.6-2.3) mg/dL Total Bilirubin (0.2-1.3) mg/dL AST (17-59) U/L ALT (4-49) U/L Alkaline Phosphatase (38-126) U/L Troponin I (0.000-0.034) ng/mL C-Reactive Protein (<10.0) mg/L NT-Pro-B Natriuret Pep pg/mL Total Protein (6.3-8.2) g/dL Albumin (3.5-5.0) g/dL Coronavirus (PCR) Not Detected (Not Detectd) 10/30/20 10/30/20 10/30/20 Range/Units 18:20 18:20 18:20 WBC (3.8-10.6) k/uL RBC (4.30-5.90) m/uL Hgb (13.0-17.5) gm/dL Hct (39.0-53.0) % MCV (80.0-100.0) fL MCH (25.0-35.0) pg MCHC (31.0-37.0) g/dL RDW (11.5-15.5) % Plt Count (150-450) k/uL MPV Neutrophils % % Lymphocytes % % Monocytes % % Eosinophils % % Basophils % % Neutrophils # (1.3-7.7) k/uL Lymphocytes # (1.0-4.8) k/uL Monocytes # (0-1.0) k/uL Eosinophils # (0-0.7) k/uL Basophils # (0-0.2) k/uL Hypochromasia PT (9.0-12.0) sec INR (<1.2) APTT (22.0-30.0) sec Sodium 137 (137-145) mmol/L Potassium 4.7 (3.5-5.1) mmol/L Chloride 99 (98-107) mmol/L Carbon Dioxide 34 H (22-30) mmol/L Anion Gap 4 mmol/L BUN 27 H (9-20) mg/dL Creatinine 0.81 (0.66-1.25) mg/dL Est GFR (CKD-EPI)AfAm >90 (>60 ml/min/1.73 sqM) Est GFR (CKD-EPI)NonAf 88 (>60 ml/min/1.73 sqM) Glucose 143 H (74-99) mg/dL Plasma Lactic Acid Vahe 1.5 (0.7-2.0) mmol/L Calcium 8.9 (8.4-10.2) mg/dL Magnesium 2.1 (1.6-2.3) mg/dL Total Bilirubin 0.6 (0.2-1.3) mg/dL AST 41 (17-59) U/L ALT 37 (4-49) U/L Alkaline Phosphatase 115 (38-126) U/L Troponin I <0.012 (0.000-0.034) ng/mL C-Reactive Protein 75.8 H (<10.0) mg/L NT-Pro-B Natriuret Pep pg/mL Total Protein 5.9 L (6.3-8.2) g/dL Albumin 3.1 L (3.5-5.0) g/dL Coronavirus (PCR) (Not Detectd) 10/30/20 Range/Units 18:20 WBC (3.8-10.6) k/uL RBC (4.30-5.90) m/uL Hgb (13.0-17.5) gm/dL Hct (39.0-53.0) % MCV (80.0-100.0) fL MCH (25.0-35.0) pg MCHC (31.0-37.0) g/dL RDW (11.5-15.5) % Plt Count (150-450) k/uL MPV Neutrophils % % Lymphocytes % % Monocytes % % Eosinophils % % Basophils % % Neutrophils # (1.3-7.7) k/uL Lymphocytes # (1.0-4.8) k/uL Monocytes # (0-1.0) k/uL Eosinophils # (0-0.7) k/uL Basophils # (0-0.2) k/uL Hypochromasia PT (9.0-12.0) sec INR (<1.2) APTT (22.0-30.0) sec Sodium (137-145) mmol/L Potassium (3.5-5.1) mmol/L Chloride (98-107) mmol/L Carbon Dioxide (22-30) mmol/L Anion Gap mmol/L BUN (9-20) mg/dL Creatinine (0.66-1.25) mg/dL Est GFR (CKD-EPI)AfAm (>60 ml/min/1.73 sqM) Est GFR (CKD-EPI)NonAf (>60 ml/min/1.73 sqM) Glucose (74-99) mg/dL Plasma Lactic Acid Vahe (0.7-2.0) mmol/L Calcium (8.4-10.2) mg/dL Magnesium (1.6-2.3) mg/dL Total Bilirubin (0.2-1.3) mg/dL AST (17-59) U/L ALT (4-49) U/L Alkaline Phosphatase (38-126) U/L Troponin I (0.000-0.034) ng/mL C-Reactive Protein (<10.0) mg/L NT-Pro-B Natriuret Pep 158 pg/mL Total Protein (6.3-8.2) g/dL Albumin (3.5-5.0) g/dL Coronavirus (PCR) (Not Detectd) Disposition Clinical Impression: Lung mass, Dyspnea Disposition: ADMITTED IP TO THIS HOSP Condition: Fair Referrals: Guille Knapp DO [Primary Care Provider] - 1-2 days Decision Time: 20:58
--- NOTE | 2020-10-30 18:47 | XR ---
EXAMINATION TYPE: XR chest 1V portable DATE OF EXAM: 10/30/2020 COMPARISON: NONE HISTORY: Short of breath. Syncope. TECHNIQUE: Single view FINDINGS: There is pulmonary interstitial edema. There is 7 cm area of masslike consolidation at the left perihilum. There is slight blunting of the costophrenic angles. There are chest leads. IMPRESSION: There is new masslike infiltrate in the left lung at the left pulmonary hilum. Pulmonary interstitial edema. Follow-up recommended. Mild heart failure is possible.
[2020-10-30 18:53] LABS: Basophils % (A) 0 %; Eosinophils # (A) 0.1 k/uL (0-0.7); Eosinophils % (A) 1 %; HCT 42.3 % (39.0-53.0); Hypochromasia Moderate; Lymphocytes # (A) 0.9 k/uL (1.0-4.8); Lymphocytes % (A) 8 %; MCH 27.6 pg (25.0-35.0); MCHC 30.8 g/dL (31.0-37.0); MCV 89.7 fL (80.0-100.0); Mean Platelet Volume 7.8; Monocytes # (A) 0.5 k/uL (0-1.0); Monocytes % (A) 5 %; Neutrophils # (A) 8.8 k/uL (1.3-7.7); Neutrophils % (A) 85 %; Platelet Count 286 k/uL (150-450); RBC 4.71 m/uL (4.30-5.90); RDW 14.3 % (11.5-15.5); WBC 10.3 k/uL (3.8-10.6)
[2020-10-30 19:03] LABS: Partial Thromboplastin Time 26.1 sec (22.0-30.0); Prothrombin Time 10.5 sec (9.0-12.0)
[2020-10-30 19:15] LABS: ALT 37 U/L (4-49); AST 41 U/L (17-59); African American GFR (CKD) >90 (>60 ml/min/1.73 sqM); Albumin 3.1 g/dL (3.5-5.0); Alkaline Phosphatase 115 U/L (38-126); Anion Gap 4 mmol/L; Blood Urea Nitrogen 27 mg/dL (9-20); C Reactive Protein 75.8 mg/L (<10.0); Calcium 8.9 mg/dL (8.4-10.2); Carbon Dioxide 34 mmol/L (22-30); Chloride 99 mmol/L (98-107); Glucose 143 mg/dL (74-99); Magnesium 2.1 mg/dL (1.6-2.3); Non-African American GFR(CKD) 88 (>60 ml/min/1.73 sqM); Potassium 4.7 mmol/L (3.5-5.1); Sodium 137 mmol/L (137-145); Total Bilirubin 0.6 mg/dL (0.2-1.3); Total Protein 5.9 g/dL (6.3-8.2)
[2020-10-30] MEDS ORDERED: HYDROcodone/APAP 5-325MG 1 EACH TAB PO STA (19:35)
[2020-10-30] MEDS ORDERED: RX INFO: IV CONTRAST WAS GIVEN 1 EACH MISC MISCELLANE PRN (19:38)
--- NOTE | 2020-10-30 20:31 | CT ---
EXAMINATION TYPE: CT chest w con DATE OF EXAM: 10/30/2020 COMPARISON: None HISTORY: Lung mass CT DLP: 854 mGycm Automated exposure control for dose reduction was used. CONTRAST: Performed with IV Contrast, patient injected with 100 ml mL of Isovue 300. Images were obtained from the thoracic inlet to the diaphragm with IV contrast. There is multilobulated 11 x 8 cm mass in the anterior aspect left upper lobe. This involves the left pulmonary hilum and anterior mediastinum. There is narrowing of the left upper lobe bronchus. There is encasement of the left upper lobe bronchus. There is small left pleural effusion. Thoracic aorta i s intact. There is no aneurysm or dissection. I see no filling defects in the pulmonary arteries. There is a 1 cm nodule in the medial aspect of th e right lower lobe superior segment. The right lung base is clear. There is no pleural effusion on th e right side. There are densely calcified granulomata at the posterior right side pericardium. There are a few hypodense foci in the liver with variable size measuring up to 3 cm. Thoracic vertebra show normal alignment. There is degenerative spurring of the endplates. Sternum is intact. There is old healed right sided rib fracture. IMPRESSION: Large left upper lobe mass with encasement of the left upper lobe bronchus and left bronchial adenopa thy consistent with tumor. Left pleural effusion. Mild atelectasis in the left lower lobe adjacent to the pleural fluid. Hypodense liver lesions suspicious for metastatic disease.
[2020-10-30] MEDS ORDERED: NALOXONE 0.4 MG/ML 1 ML VIAL IV PRN (20:55)
[2020-10-30] MEDS ORDERED: ONDANSETRON 4 MG/2 ML VIAL IVP PRN (20:55)
[2020-10-31] MEDS: HYDROcodone/APAP 5-325MG 1 EACH TAB PO PRN ×4 (01:28→21:11)
[2020-10-31] MEDS ORDERED: ALBUTEROL HFA INHALER INHALATION PRN ×2 (07:53→21:29)
[2020-10-31 08:37] LABS: Basophils % (A) 0 %; Eosinophils # (A) 0.1 k/uL (0-0.7); Eosinophils % (A) 1 %; HCT 41.1 % (39.0-53.0); Hypochromasia Moderate; Lymphocytes # (A) 1.4 k/uL (1.0-4.8); Lymphocytes % (A) 13 %; MCH 28.3 pg (25.0-35.0); MCHC 31.6 g/dL (31.0-37.0); MCV 89.6 fL (80.0-100.0); Mean Platelet Volume 7.1; Monocytes # (A) 0.6 k/uL (0-1.0); Monocytes % (A) 5 %; Neutrophils # (A) 8.5 k/uL (1.3-7.7); Neutrophils % (A) 79 %; Platelet Count 269 k/uL (150-450); RBC 4.59 m/uL (4.30-5.90); WBC 10.8 k/uL (3.8-10.6)
[2020-10-31 08:45] LABS: African American GFR (CKD) >90 (>60 ml/min/1.73 sqM); Anion Gap 2 mmol/L; Blood Urea Nitrogen 22 mg/dL (9-20); Calcium 9.1 mg/dL (8.4-10.2); Carbon Dioxide 36 mmol/L (22-30); Chloride 101 mmol/L (98-107); Glucose 137 mg/dL (74-99); Non-African American GFR(CKD) >90 (>60 ml/min/1.73 sqM); Potassium 4.2 mmol/L (3.5-5.1); Sodium 139 mmol/L (137-145)
[2020-10-31] MEDS: CHOLECALCIFEROL 1,000 UNIT TAB PO SCH (09:49)
[2020-10-31] MEDS: lisinopriL 5 MG TAB PO SCH (09:49)
[2020-10-31] MEDS: ASPIRIN 81 MG PO SCH (09:49)
--- NOTE | 2020-10-31 09:49 | US ---
EXAMINATION TYPE: US chest DATE OF EXAM: 10/31/2020 COMPARISON: CT 10/30/2020 CLINICAL HISTORY: Left pleural effusion. TECHNIQUE: Targeted ultrasound of the posterior lower left hemithorax EXAM MEASUREMENTS: Left Pleural Effusion pocket size: 8.8 cm Left skin surface to fluid distance: 4.3 cm Left side marked for possible thoracentesis outside the dept. Pulmonologists are able to review the images in the patient?s EMR. IMPRESSIONS: 1. Bilateral pleural effusions
[2020-10-31] MEDS: METOPROLOL SUCCINATE (ER) 100 MG TAB.ER.24H PO SCH (09:51)
[2020-10-31] MEDS ORDERED: IPRATROPIUM-ALBUTEROL 3 ML NEB INHALATION PRN (09:54)
[2020-10-31] MEDS: FUROSEMIDE 40 MG TAB PO SCH ×2 (09:55→16:32)
[2020-10-31] MEDS: PANTOPRAZOLE 40 MG TABLET PO SCH (09:55)
[2020-10-31] MEDS ORDERED: RX INFO: IV CONTRAST WAS GIVEN 1 EACH MISC MISCELLANE PRN (09:58)
--- NOTE | 2020-10-31 10:00 | P.CNPUL ---
History of Present Illness Consult date: 10/31/20 Reason for consult: lung mass History of present illness: 72-year-old male patient, known history of COPD and chronic atrial fibrillation, came into the hospital because of some increased dyspnea and syncope. Apparently was vacationing was fixing himself coffee. He had an episode of syncope. He came into the emergency department. He was feeling weak. He was having some cough and and myalgias. Further investigation was done in the emerg ency for further with the patient a chest x-ray that showed a masslike opacity in the left suprahilar area. A CAT scan of the chest was done and showed a lobulated mass 11 x 8 cm in the anterior aspect of the left upper lobe. This was involving the left hilum and the anterior mediastinum. There was narrowing of the left upper lobe bronchus. There was encasement of the left upper lobe bronchus. There was a small left-sided pleural effusion. No definite pulmonary embolism. A 1 cm nodule was seen in the right lower lobe superior segment. This is a right lung was clear. CAT scan of the brain has not been done. Review of Systems Constitutional: Reports poor appetite, Reports weakness Eyes: denies as per HPI, denies blurred vision, denies bulging eye, denies decreased vision, denies diplopia, denies discharge, denies dry eye, denies irritation, denies itching, denies pain, denies photophobia, denies loss of peripheral vision, denies loss of vision, denies tunnel vision/blind spots Ears: deny: decreased hearing, ear discharge, earache, tinnitus Ears, nose, mouth and throat: Denies headache, Denies sore throat Breasts: absent: as per HPI, gynecomastia Cardiovascular: Reports syncope Respiratory: Reports as per HPI, Reports cough, Reports dyspnea Gastrointestinal: Reports as per HPI Genitourinary: Reports as per HPI Musculoskeletal: Reports as per HPI Musculoskeletal: absent: ankle pain, ankle stiffness, ankle swelling Integumentary: Reports as per HPI Neurological: Reports syncope, Reports weakness Psychiatric: Reports as per HPI Endocrine: Reports as per HPI Hematologic/Lymphatic: Reports as per HPI Allergic/Immunologic: Reports as per HPI Past Medical History Past Medical History: Atrial Fibrillation, COPD, GERD/Reflux, Musculoskeletal Disorder, Skin Disorder, Sleep Apnea/CPAP/BIPAP Additional Past Medical History / Comment(s): LOWER BACK PAIN,generalized sores on skin History of Any Multi-Drug Resistant Organisms: None Reported Past Surgical History: Orthopedic Surgery Additional Past Surgical History / Comment(s): ARTHROSCOPIC RT KNEE 2013 , CTR LEFT WRIST Past Anesthesia/Blood Transfusion Reactions: No Reported Reaction Past Psychological History: No Psychological Hx Reported Smoking Status: Light tobacco smoker Past Alcohol Use History: None Reported Additional Past Alcohol Use History / Comment(s): SMOKER SINCE AGE 17(1959)- smokes 1-2 cigarettes per day Past Drug Use History: None Reported - Past Family History Mother Family Medical History: Congestive Heart Failure (CHF) Father Family Medical History: Coronary Artery Disease (CAD) Additional Family Medical History / Comment(s): CABG Brother(s) Family Medical History: Coronary Artery Disease (CAD) Additional Family Medical History / Comment(s): CABG Medications and Allergies Home Medications Medication Instructions Recorded Confirmed Type Fish Oil/Dha/Epa [Fish Oil 1,200 1 cap PO DAILY 03/05/15 10/30/20 History mg Fish Oil] Furosemide [Lasix] 40 mg PO BID 03/05/15 10/30/20 History HYDROcodone/APAP 10-325MG [[place] 1 tab PO Q6H PRN 03/05/15 10/30/20 History 10-325] Multivitamins, Thera [Multivitamin 1 tab PO DAILY 03/05/15 10/30/20 History (formulary)] Potassium Chloride [Klor-Con 10] 10 meq PO BID 03/05/15 10/30/20 History Vitamin E (Dl,Tocopheryl Acet) 400 unit PO DAILY 03/05/15 10/30/20 History [Vitamin E] Apixaban [Eliquis] 5 mg PO BID 05/11/18 10/30/20 History Calcium Carbonate/Vitamin D3 1 tab PO QID 05/11/18 10/30/20 History [Calcium 600-Vit D3 200 Tablet] Garlic 1 tab PO DAILY 05/11/18 10/30/20 History Pantoprazole [Protonix] 40 mg PO DAILY 05/11/18 10/30/20 History lisinopriL [Prinivil] 5 mg PO DAILY 05/11/18 10/30/20 History Aspirin [Adult Low Dose Aspirin EC] 81 mg PO DAILY 12/30/18 10/30/20 History Albuterol Sulfate [Ventolin HFA] 1 - 2 puff INHALATION RT-Q6H PRN 10/30/20 10/30/20 History Cholecalciferol [Vitamin D3 (25 1,000 unit PO DAILY 10/30/20 10/30/20 History Mcg = 1000 Iu)] Metoprolol Succinate [Toprol XL] 100 mg PO DAILY 10/30/20 10/30/20 History Allergies Allergy/AdvReac Type Severity Reaction Status Date / Time No Known Allergies Allergy Verified 10/30/20 21:41 Physical Exam Vitals: Vital Signs Temp Pulse Pulse Resp BP BP Pulse Ox 10/31/20 03:46 114 H 20 99/53 94 L 10/31/20 02:00 109 H 19 10/31/20 00:35 98.5 F 103 H 19 104/68 98 10/31/20 00:00 98.5 F 103 H 19 104/68 98 10/30/20 23:20 98.0 F 99 20 105/78 94 L 10/30/20 21:55 86 20 100/74 97 10/30/20 19:30 97 20 103/68 97 10/30/20 17:34 97.1 F L 103 H 20 106/74 91 L Intake and Output 10/30/20 10/31/20 10/31/20 22:59 06:59 14:59 Intake Total 420 Output Total 300 Balance -300 420 Intake: Oral 420 Output: Urine 300 Other: Voiding Method Urinal # Voids 1 Weight 131.542 kg 133.5 kg morbid obesity, comfortable nonacute distress Head exam was generally normal. There was no scleral icterus or corneal arcus. Mucous membranes were moist. Neck was supple and without jugular venous distension, thyromegaly, or carotid bruits. Carotids were easily palpable bilaterally. There was no adenopathy.1) 4 with significant crowding of posterior pharynx Examination of the lungs reveals diminished breath sounds in the left lung base consistent with underlying pleural effusion. Heart sounds are irregular consistent with atrial fibrillation, possible sinus stool. No significant murmurs appreciated. Abdominal exam revealed normal bowel sounds. The abdomen was soft, non-tender, and without masses, organomegaly, or appreciable enlargement of the abdominal aorta. Examination of the extremities revealed easily palpable radial, femoral and pedal pulses. There was no cyanosis, clubbing or edema. Abnormal skin Results - Laboratory Findings CBC and BMP: 10/31/20 07:56 10/31/20 07:56 PT/INR, D-dimer PT 10.5 sec (9.0-12.0) 10/30/20 18:20 INR 1.0 (<1.2) 10/30/20 18:20 Abnormal lab findings: Abnormal Labs 10/30/20 10/30/20 12 18:20 18:20 07:56 WBC 10.8 H MCHC 30.8 L Neutrophils # 8.8 H 8.5 H Lymphocytes # 0.9 L Carbon Dioxide 34 H BUN 27 H Glucose 143 H C-Reactive Protein 75.8 H Total Protein 5.9 L Albumin 3.1 L 10/31/20 07:56 WBC MCHC Neutrophils # Lymphocytes # Carbon Dioxide 36 H BUN 22 H Glucose 137 H C-Reactive Protein Total Protein Albumin - Diagnostic Findings Chest x-ray: image reviewed CT scan - chest: image reviewed Assessment and Plan Plan: 1. Left upper lobe mass measuring 11 x 8 cm in size encasement left upper lobe bronchus and causing some narrowing in addition to a small left-sided pleural effusion. Consider underlying primary bronchogenic carcinoma. There is also a smaller nodule in the right lower lobe. The patient also has a small left-sided pleural effusion probably related to the left upper lobe mass. 2 syncope, unexplained, consider [employer] metastases,, CAT scan of the brain needs to be done 3 generalized weakness 4 chronic atrial fibrillation maintained on Eliquis on outpatient basis which will be based on hold for now 5 obstructive sleep apnea maintained on CPAP therapy on outpatient basis 6 COPD 7 chronic back pain maintained on [place] 8 Obesity 9 60 py smoking Plan Proceed with a CAT scan of the brain, rule out metastases. Keep the patient off Eliquis for now nothing by mouth After midnight Schedule bronchoscopy for tomorrow left-sided pleural effusion is small. It's currently marked. I may consider doing a drainage procedure to later stage for staging purposes should the diagnosis of lung cancer confirmes Resume home medications with exception of Eliquis. neurologic consultation
--- NOTE | 2020-10-31 10:31 | P.HPIM ---
History of Present Illness This is a pleasant 75 years old male with past medical history of COPD, GERD, sleep apnea on CPAP/BiPAP, chronic back pain. He presents because of syncope, patient passed out after he took colposcopy going to his refrigerator, And suddenly with no oral, patient was awake on the floor, he denies seizure-like activity, no tongue biting, no urine or bowel incontinence. No chest pain. Patient to come tenderness to stand up and ask for help. Patient also was been complaining of from dyspnea and coughing for the last 2 days but no chest pain. No change in urine or bowel habits. He used to smoke a lot and he quit 1 year ago but his back using couple cigarettes here and there as per patient. He is been afebrile. Mildly tachycardic at 103, currently his heart rate in the 90s. Blood pressure is stable 105/78, he was saturating 91 on room air, currently at 94% on 4 L oxygen Labs showing WBC within the reference range at 10.3 K, hemoglobin and platelets were normal. INR is normal. BMP is unremarkable. Carbon dioxide is elevated at 34. Creatinine is normal 0.8, liver enzymes not elevated. Lactic acid is normal at 1.5, C-reactive protein is elevated at 75.8, coronavirus not detected Echocardiogram from 2018 showing ejection fraction of 45-50% EKG showing atrial fibrillation's with rapid ventricular rate at 107. CT of the chest with contrast showing large left upper lobe mass with encasement of the left upper lobe bronchus and left bronchial adenopathy consistent with tumor. Left pleural effusion. Mild atelectasis in the left lower lobe adjacent to the pleural effusion. Hypo-dense liver lesions suspicious for metastatic disease oncology and pulmonology teams were consulted from emergency room Review of Systems CONSTITUTIONAL: No fever, no malaise, no fatigue. HEENT: No recent visual problems or hearing problems. Denied any sore throat. CARDIOVASCULAR: No orthopnea, PND, no palpitations, no syncope. PULMONARY: No chest wall tenderness, no hemoptysis. GASTROINTESTINAL: No diarrhea, no nausea, no vomiting, no abdominal pain. Normoactive bowel sounds. NEUROLOGICAL: No headaches, no weakness, no numbness. HEMATOLOGICAL: Denies any bleeding or petechiae. GENITOURINARY: Denies any burning micturition, frequency, or urgency. MUSCULOSKELETAL/RHEUMATOLOGICAL: Denies any joint pain, swelling, or any muscle pain. ENDOCRINE: Denies any polyuria or polydipsia. Past Medical History Past Medical History: COPD, GERD/Reflux, Musculoskeletal Disorder, Skin Disorder, Sleep Apnea/CPAP/BIPAP Additional Past Medical History / Comment(s): irregular heart rhythm,SOB,SWELLING IN [place]. ANKLES OFF & ON, SNORES ALOT. LOWER BACK PAIN,generalized sores on skin History of Any Multi-Drug Resistant Organisms: None Reported Past Surgical History: Orthopedic Surgery Additional Past Surgical History / Comment(s): ARTHROSCOPIC RT KNEE 2012 , CTR LEFT WRIST Past Anesthesia/Blood Transfusion Reactions: No Reported Reaction Past Psychological History: No Psychological Hx Reported Smoking Status: Light tobacco smoker Past Alcohol Use History: None Reported Additional Past Alcohol Use History / Comment(s): SMOKER SINCE AGE 17(1959)- smokes 1-2 cigarettes per day Past Drug Use History: None Reported - Past Family History Mother Family Medical History: Congestive Heart Failure (CHF) Father Family Medical History: Coronary Artery Disease (CAD) Additional Family Medical History / Comment(s): CABG Brother(s) Family Medical History: Coronary Artery Disease (CAD) Additional Family Medical History / Comment(s): CABG Medications and Allergies Home Medications Medication Instructions Recorded Confirmed Type Fish Oil/Dha/Epa [Fish Oil 1,200 1 cap PO DAILY 03/05/15 10/30/20 History mg Fish Oil] Furosemide [Lasix] 40 mg PO BID 03/05/15 10/30/20 History HYDROcodone/APAP 10-325MG [[place] 1 tab PO Q6H PRN 03/05/15 10/30/20 History 10-325] Multivitamins, Thera [Multivitamin 1 tab PO DAILY 03/05/15 10/30/20 History (formulary)] Potassium Chloride [Klor-Con 10] 10 meq PO BID 03/05/15 10/30/20 History Vitamin E (Dl,Tocopheryl Acet) 400 unit PO DAILY 03/05/15 10/30/20 History [Vitamin E] Apixaban [Eliquis] 5 mg PO BID 05/11/18 10/30/20 History Calcium Carbonate/Vitamin D3 1 tab PO QID 05/11/18 10/30/20 History [Calcium 600-Vit D3 200 Tablet] Garlic 1 tab PO DAILY 05/11/18 10/30/20 History Pantoprazole [Protonix] 40 mg PO DAILY 05/11/18 10/30/20 History lisinopriL [Prinivil] 5 mg PO DAILY 05/11/18 10/30/20 History Aspirin [Adult Low Dose Aspirin EC] 81 mg PO DAILY 12/30/18 10/30/20 History Albuterol Sulfate [Ventolin HFA] 1 - 2 puff INHALATION RT-Q6H PRN 10/30/20 10/30/20 History Cholecalciferol [Vitamin D3 (25 1,000 unit PO DAILY 10/30/20 10/30/20 History Mcg = 1000 Iu)] Metoprolol Succinate [Toprol XL] 100 mg PO DAILY 10/30/20 10/30/20 History Allergies Allergy/AdvReac Type Severity Reaction Status Date / Time No Known Allergies Allergy Verified 10/30/20 21:41 Physical Exam Vitals: Vital Signs Temp Pulse Pulse Resp BP BP Pulse Ox 10/31/20 03:46 114 H 20 99/53 94 L 10/31/20 02:00 109 H 19 10/31/20 00:35 98.5 F 103 H 19 104/68 98 10/31/20 00:00 98.5 F 103 H 19 104/68 98 10/30/20 23:20 98.0 F 99 20 105/78 94 L 10/30/20 21:55 86 20 100/74 97 10/30/20 19:30 97 20 103/68 97 10/30/20 17:34 97.1 F L 103 H 20 106/74 91 L Intake and Output 10/30/20 10/31/20 10/31/20 22:59 06:59 14:59 Output Total 300 Balance -300 Output: Urine 300 Other: Voiding Method Urinal # Voids 1 Weight 131.542 kg 133.5 kg -GENERAL: The patient is alert and oriented x3, not in any acute distress. Obesity HEENT: Pupils are round and equally reacting to light. EOMI. No scleral icterus. No conjunctival pallor. Normocephalic, atraumatic. No pharyngeal erythema. No thyromegaly. CARDIOVASCULAR: S1 and S2 present. No murmurs, rubs, or gallops. PULMONARY: Chest is clear to auscultation, no wheezing or crackles. Tachypnea, with decreased breath sounds on the left side ABDOMEN: Soft, nontender, nondistended, normoactive bowel sounds. No palpable organomegaly. MUSCULOSKELETAL: No joint swelling or deformity. -EXTREMITIES: No cyanosis, clubbing, . Bilateral leg edema NEUROLOGICAL: Gross neurological examination did not reveal any focal deficits. SKIN: No rashes. No petechiae Results CBC & Chem 7: 10/31/20 07:56 10/31/20 07:56 Labs: Abnormal Lab Results - Last 24 Hours (Table) 10/30/20 10/30/20 Range/Units 18:20 18:20 MCHC 30.8 L (31.0-37.0) g/dL Neutrophils # 8.8 H (1.3-7.7) k/uL Lymphocytes # 0.9 L (1.0-4.8) k/uL Carbon Dioxide 34 H (22-30) mmol/L BUN 27 H (9-20) mg/dL Glucose 143 H (74-99) mg/dL C-Reactive Protein 75.8 H (<10.0) mg/L Total Protein 5.9 L (6.3-8.2) g/dL Albumin 3.1 L (3.5-5.0) g/dL Thrombosis Risk Factor Assmnt - Choose All That Apply Any of the Below Risk Factors Present?: Yes Each Factor Represents 1 point: Abnormal pulmonary function (COPD), Obesity (BMI >25) Each Risk Factor Represents 2 Points: Age 61-74 years Thrombosis Risk Factor Assessment Total Risk Factor Score: 4 Thrombosis Risk Factor Assessment Level: Moderate Risk Assessment and Plan Assessment: Left upper lobe lung mass with lymphadenopathy, suspicious for tumor. Associated with left pleural effusion Hypodense liver lesion suspicious for metastatic disease Syncope Atrial fibrillation with mild RVR, currently rate is controlled. On Eliquis Lung mass Chronic systolic heart failure with ejection fraction 45-50% COPD, no acute exacerbation History of Gastroesophageal reflux disease Sleep apnea on CPAP/BiPAP Chronic back pain Nicotine dependence Plan: This is a pleasant 75 years old male who presents with lung mass. Continue with breathing treatment and pain management. Monitor vitals closely. Follow- up recommendation by costumed character and oncologist. Check ultrasound of the chest labs and medication were reviewed.. Continue same treatment. Continue with symptomatic treatment. Resume home medication. Monitor lytes and vitals. DVT and GI prophylaxis. Further recommendations depends on the clinical course of the patient DVT prophylaxis: Eliquis, currently on hold for possible bronchoscopy GI Prophylaxis: Ppi Prognosis is guarded
--- NOTE | 2020-10-31 11:28 | P.CNNES ---
History of Present Illness Consult date: 10/31/20 Requesting physician: Gabriela Danielle Reason for Consult: syncope History of Present Illness: This is a 75-year-old gentleman with history of chronic atrial fibrillation, COPD, sleep apnea and tobacco use who presented emergency department on 10/30/2020 because an episode of syncope as well as the dyspnea. Dated that yesterday (10/30/2020) kitchen making his coffee then when he turned around that he passed out. Prior to the episode he did feel lightheaded but was not for sure. He denies any chest pain. The denies any cough or fever He does not know how long the episode lasted for. He stated upon waking up he denies any urinary bowel incontinence. He denies any tongue soreness. He denies any previous episodes similar to this in the past. Denies any history of seizures. Denies any family history of seizures. As a result of the patient's syncope and his along the the pulmonary team consulted neurology to rule out any intracranial process as a result of the syncope especially with a history of a mass. The pulmonary team ordered that CT of the head which is pending Regarding his history: He stated he is not exactly sure but he thinks he is a product of a normal gestation and that there is no complication. He's not sure if it was vaginal or . On the patient history of atrial fibrillation the patient is on Eliquis 5 mg twice a day and has not missed his medication. The patient is also on aspirin 81 mg daily at home. He smokes 1 pack per day. He stopped about 1 year ago but in last on month restarted smoking and 1 pack last 1 week. Workup in the hospital consisted of: Initial vital signs are pressure of 106/74, heart rate of 103, respiratory of 20, temperature of 97.1 Fahrenheit oral and pulse ox of 91 the percent at room air. Chest x-ray is reported as there is new masslike infiltrate in the left long at the left pulmonary hilum. Pulmonary interstitial edema. Follow-up recommended that. Mild heart failure is possible. CT of the chest was reported as a large left upper lobe mass with enhancement of the left upper lobe bronchus and left bronchial ad no path E consisted with the tumor. Left pleural effusion. Mild atelectasis in the left lower lobe adjacent to the pleura would. Hypodense liver lesions suspicious for metastatic disease. EKG is reported as atrial fibrillation with rapid ventricular response. Low voltage QRS. Abnormal EKG. Review of Systems Review of system: The 12 point system was reviewed and apparent positive and negative per HPI. Past Medical History Past Medical History: COPD, GERD/Reflux, Musculoskeletal Disorder, Skin Disorder, Sleep Apnea/CPAP/BIPAP Additional Past Medical History / Comment(s): irregular heart rhyth m,SOB,SWELLING IN [place]. ANKLES OFF & ON, SNORES ALOT. LOWER BACK PAIN,generalized sores on skin History of Any Multi-Drug Resistant Organisms: None Reported Past Surgical History: Orthopedic Surgery Additional Past Surgical History / Comment(s): ARTHROSCOPIC RT KNEE 2012 , CTR LEFT WRIST Past Anesthesia/Blood Transfusion Reactions: No Reported Reaction Past Psychological History: No Psychological Hx Reported Smoking Status: Light tobacco smoker Past Alcohol Use History: None Reported Additional Past Alcohol Use History / Comment(s): SMOKER SINCE AGE 17(1959)- smokes 1-2 cigarettes per day Past Drug Use History: None Reported - Past Family History Mother Family Medical History: Congestive Heart Failure (CHF) Father Family Medical History: Coronary Artery Disease (CAD) Additional Family Medical History / Comment(s): CABG Brother(s) Family Medical History: Coronary Artery Disease (CAD) Additional Family Medical History / Comment(s): CABG Medications and Allergies Home Medications Medication Instructions Recorded Confirmed Type Fish Oil/Dha/Epa [Fish Oil 1,200 1 cap PO DAILY 03/05/15 10/30/20 History mg Fish Oil] Furosemide [Lasix] 40 mg PO BID 03/05/15 10/30/20 History HYDROcodone/APAP 10-325MG [[place] 1 tab PO Q6H PRN 03/05/15 10/30/20 History 10-325] Multivitamins, Thera [Multivitamin 1 tab PO DAILY 03/05/15 10/30/20 History (formulary)] Potassium Chloride [Klor-Con 10] 10 meq PO BID 03/05/15 10/30/20 History Vitamin E (Dl,Tocopheryl Acet) 400 unit PO DAILY 03/05/15 10/30/20 History [Vitamin E] Apixaban [Eliquis] 5 mg PO BID 05/11/18 10/30/20 History Calcium Carbonate/Vitamin D3 1 tab PO QID 05/11/18 10/30/20 History [Calcium 600-Vit D3 200 Tablet] Garlic 1 tab PO DAILY 05/11/18 10/30/20 History Pantoprazole [Protonix] 40 mg PO DAILY 05/11/18 10/30/20 History lisinopriL [Prinivil] 5 mg PO DAILY 05/11/18 10/30/20 History Aspirin [Adult Low Dose Aspirin EC] 81 mg PO DAILY 12/30/18 10/30/20 History Albuterol Sulfate [Ventolin HFA] 1 - 2 puff INHALATION RT-Q6H PRN 10/30/20 10/30/20 History Cholecalciferol [Vitamin D3 (25 1,000 unit PO DAILY 10/30/20 10/30/20 History Mcg = 1000 Iu)] Metoprolol Succinate [Toprol XL] 100 mg PO DAILY 10/30/20 10/30/20 History Allergies Allergy/AdvReac Type Severity Reaction Status Date / Time No Known Allergies Allergy Verified 10/30/20 21:41 Physical Examination - Vital Signs Vital Signs: Vital Signs Temp Pulse Pulse Resp BP BP Pulse Ox 10/31/20 03:46 114 H 20 99/53 94 L 10/31/20 02:00 109 H 19 10/31/20 00:35 98.5 F 103 H 19 104/68 98 10/31/20 00:00 98.5 F 103 H 19 104/68 98 10/30/20 23:20 98.0 F 99 20 105/78 94 L 10/30/20 21:55 86 20 100/74 97 10/30/20 19:30 97 20 103/68 97 10/30/20 17:34 97.1 F L 103 H 20 106/74 91 L Intake and Output 10/30/20 10/31/20 10/31/20 22:59 06:59 14:59 Intake Total 420 Output Total 300 Balance -300 420 Intake: Oral 420 Output: Urine 300 Other: Voiding Method Urinal # Voids 1 Weight 131.542 kg 133.5 kg GENERAL: The patient is lying in bed and seems to be in mild respiratory distress. CHEST: The heart rate is regular rate rhythm. No murmurs to auscultation. LUNG: Clear to auscultation bilaterally no wheezing noted throughout. Not labored breathing. Seems to be somewhat tachypeic. ABDOMEN/GI: Bowel sounds present in all 4 quadrants. No tenderness to palpation throughout. NEUROLOGICAL: Higher mental function: The patient is awake, alert, oriented to self, place and time. Patient is following commands. No aphasia and no neglect. Cranial nerves: The pupils are round, equal and reactive to light and accommodation. Visual cota are full to confrontation throughout. Extraocular movement is intact no nystagmus is noted. Facial sensation is normal to touch throughout. The facial strength is normal throughout. Hearing is normal bilaterally to hand rub. Tongue is midline and moved [id number] without any difficulty. No dysarthria is noted. Shoulder shrug is normal bilaterally. Motor: The strength is 5 over 5 throughout. Normal tone and bulk. Cerebellum: Normal finger to nose bilaterally. Sensation: Sensation is normal to touch throughout. Reflexes (right/left): 2+ throughout. Plantars are downgoing bilaterally. Results Tello virus PCR is nondetected. Coagulation study: PT of 10.5, INR is 1.0 and PTT of 26.1. - Laboratory Findings CBC and BMP: 10/31/20 07:56 10/31/20 07:56 Abnormal Lab Findings: Abnormal Labs 10/30/20 10/30/20 10/31/20 18:20 18:20 07:56 WBC 10.8 H MCHC 30.8 L Neutrophils # 8.8 H 8.5 H Lymphocytes # 0.9 L Carbon Dioxide 34 H BUN 27 H Glucose 143 H C-Reactive Protein 75.8 H Total Protein 5.9 L Albumin 3.1 L 10/31/20 07:56 WBC MCHC Neutrophils # Lymphocytes # Carbon Dioxide 36 H BUN 22 H Glucose 137 H C-Reactive Protein Total Protein Albumin Assessment and Plan Assessment: This is a 75-year-old gentleman that presented to the emergency department on 10/30/2020 for an episode of the syncope Syncope: Because of the brain metastasis (involving the nirav, left occipital and left thalamus) I think this episode was likely a seizure. Brain metastasis (involving the nirav, left occipital and left thalamus CT of the head) Left upper lobe mass with a small left pleural effusion. Consider underlying primary bronchogenic carcinoma. There is a small nodule in the right lower lobe. Chronic atrial fibrillation ---Eliquis on hold. Obstructive sleep apnea on CPAP COPD Tobacco use Plan: I recommend MRI of the brain but I'm not sure if the patient will fit the MRI machine we will try if not then we'll get a CT of the head with and without contrast. Ordered routine EEG. Because this episode was suspicious for seizure especially with the metastasis to multiple regions in the brain I started the patient on Keppra 750 mg twice a day and the reason I started him on a higher dose than 500 is because of his body weight. I am also loading the patient with Keppra 1 g once. I started the patient on 4 mg 4 times a day. If the patient does not have significant vasogenic edema then we can't taper it down to 3 times or even twice a day. I recommend the patient to be evaluated by neurosurgery which we don't have at this facility. Recommend transferring the patient to another facility for neurosurgerical evaluation. Regarding the the patient that chronic atrial fibrillation, HAS been held because a lung mass. He's currently on aspirin 81 mg daily. Regarding the lung mass will defer the management to the pulmonary team and oncology team. Patient is counseled on tobacco cessation. The plan was discussed with the patient's nurse. Thank you for the consultation. Jason Haddad MD Neuro-hospitalist Time with Patient: Greater than 30
--- NOTE | 2020-10-31 12:17 | CT ---
EXAMINATION TYPE: CT brain w con DATE OF EXAM: 10/31/2020 COMPARISON: None HISTORY: Lung mass, syncope CT DLP: 1127.4 mGycm Automated exposure control for dose reduction was used. CONTRAST: CT scan of the head is performed with IV Contrast, patient injected with 100 mL of Isovue 300. FINDINGS: There is a ring-enhancing lesion involving the nirav anteriorly on the right measuring 7.7 mm. There i s a ring in enhancing lesion involving the left occipital lobe measuring 6 mm. There is adjacent vaso genic edema. Within the thalamus on the left there is a 1 cm ring-enhancing lesion. [id number] generalized degenerative change. Periventricular low attenuation on subsequent most typical of remote microvascular ischemia. Punctate enhancement involving the cerebellar vermis noted. Calvarium intact. IMPRESSION: 1.Multiple ring-enhancing lesions compatible with metastases including the involvement of the nirav, l eft occipital lobe and left thalamus. Recommend MRI. 2. Degenerative and nonspecific white matter changes most difficult remote ischemic change.
[2020-10-31] MEDS ORDERED: levETIRAcetam IV 1,000 MG in SALINE 1 100ML.BAG IVPB STA (13:39)
--- NOTE | 2020-10-31 15:05 | EEG ---
ELECTROENCEPHALOGRAM REPORT DATE OF SERVICE: 10/31/2020 CLINICAL HISTORY: This is a 75-year-old gentleman that presented to the Emergency Department on 10/30/2020 for an episode of syncope. The video EEG was obtained to evaluate for seizure and epileptiform activity. RELEVANT MEDICATION: Patient is not on any antiepileptic drug. EEG TYPE: A routine 21 channel EEG was performed with video using the 10-20 electrode placement system. DESCRIPTION: Wakefulness, drowsiness and stage 2 sleep are obtained. During wakefulness, there is a posterior dominant rhythm of low to moderate voltage, reactive, well modulated, of 9-10 hertz activity over the bilateral hemisphere. During drowsiness, there is slowing in attenuation of the background activity. During stage 2 sleep, there are sleep spindles and K complexes. INTERICTAL AND ICTAL: None. ACTIVATION PROCEDURE: Photic stimulation and hyperventilation was not performed. CLINICAL INTERPRETATION: This is a normal routine EEG. There are no focal slowing, epileptiform discharges or seizure seen throughout the study. Clinical correlation is recommended. JUDSON / LADYN: [id number] / LIBRA
[2020-10-31] MEDS: dexAMETHasone 4 MG TAB PO SCH ×3 (16:29→21:14)
[2020-10-31] MEDS: IPRATROPIUM-ALBUTEROL 3 ML NEB INHALATION SCH ×2 (17:04→22:02)
--- NOTE | 2020-10-31 20:15 | P.CONS ---
History of Present Illness - Reason for Consult Consult date: 10/31/20 Lung Mass Requesting physician: Ricci Hollis - Chief Complaint SOB, COugh - History of Present Illness Mr. Hancock is a very pleasant 75 year male patient who presented to the emergency department on 10/30/20 with complaints of shortness of breath, persistent fatigue, and syncopal episode. He has a known history of chronic a- fib, COPD, Sleep Apnea, Tobacco Dependence. It is unknown if he loss consciousness or had seizure. Per his he has had periods of disorientation and confusion, but seems to easily re-orient. Denying any loss of bladder or bowel. On arrival to ER a Chest xreay revealed a Large RUL opacity worrisome for malignancy. CT CHest with contrast ordered and revealed 11x8cm RUL mass. Brain CT performed and unfortunetly reveals picture consistent with metastatic disease in brain. Pulmonology is following, Neurology is following. Anti-epileptics are on board, as well as, Dexamethasone 4mg q6 hours (with PPI). PLan for Bronchoscopy with tissue biopsy is planned for am 11/01/20 MRI of the Brain is scheduled for further detail on metastatic brain lesions, Dr. Sim from radiation oncology has also been notified CT scan abdomen and pelvis and bone scan for full staging. I had a long discussion with patients Angelica and daughter Rosi, they recently loss their son to illness (not cancer) last year and were quite distraught at the news. We reviewed next diagnostics and treatment options after results of path and further imaging. Review of Systems All systems: negative Constitutional: Reports as per HPI Past Medical History Past Medical History: COPD, GERD/Reflux, Musculoskeletal Disorder, Skin Disorder, Sleep Apnea/CPAP/BIPAP Additional Past Medical History / Comment(s): irregular heart rhyt hm,SOB,SWELLING IN [place]. ANKLES OFF & ON, SNORES ALOT. LOWER BACK PAIN,generalized sores on skin History of Any Multi-Drug Resistant Organisms: None Reported Past Surgical History: Orthopedic Surgery Additional Past Surgical History / Comment(s): ARTHROSCOPIC RT KNEE 2012 , CTR LEFT WRIST Past Anesthesia/Blood Transfusion Reactions: No Reported Reaction Past Psychological History: No Psychological Hx Reported Smoking Status: Light tobacco smoker Past Alcohol Use History: None Reported Additional Past Alcohol Use History / Comment(s): SMOKER SINCE AGE 17(1960)- smokes 1-2 cigarettes per day Past Drug Use History: None Reported - Past Family History Mother Family Medical History: Congestive Heart Failure (CHF) Father Family Medical History: Coronary Artery Disease (CAD) Additional Family Medical History / Comment(s): CABG Brother(s) Family Medical History: Coronary Artery Disease (CAD) Additional Family Medical History / Comment(s): CABG Medications and Allergies Home Medications Medication Instructions Recorded Confirmed Type Fish Oil/Dha/Epa [Fish Oil 1,200 1 cap PO DAILY 03/05/15 10/30/20 History mg Fish Oil] Furosemide [Lasix] 40 mg PO BID 03/05/15 10/30/20 History HYDROcodone/APAP 10-325MG [[place] 1 tab PO Q6H PRN 03/05/15 10/30/20 History 10-325] Multivitamins, Thera [Multivitamin 1 tab PO DAILY 03/05/15 10/30/20 History (formulary)] Potassium Chloride [Klor-Con 10] 10 meq PO BID 03/05/15 10/30/20 History Vitamin E (Dl,Tocopheryl Acet) 400 unit PO DAILY 03/05/15 10/30/20 History [Vitamin E] Apixaban [Eliquis] 5 mg PO BID 05/11/18 10/30/20 History Calcium Carbonate/Vitamin D3 1 tab PO QID 05/11/18 10/30/20 History [Calcium 600-Vit D3 200 Tablet] Garlic 1 tab PO DAILY 05/11/18 10/30/20 History Pantoprazole [Protonix] 40 mg PO DAILY 05/11/18 10/30/20 History lisinopriL [Prinivil] 5 mg PO DAILY 05/11/18 10/30/20 History Aspirin [Adult Low Dose Aspirin EC] 81 mg PO DAILY 12/30/18 10/30/20 History Albuterol Sulfate [Ventolin HFA] 1 - 2 puff INHALATION RT-Q6H PRN 10/30/2010/30 History Cholecalciferol [Vitamin D3 (25 1,000 unit PO DAILY 10/30/20 10/30/20 History Mcg = 1000 Iu)] Metoprolol Succinate [Toprol XL] 100 mg PO DAILY 10/30/20 10/30/20 History Allergies Allergy/AdvReac Type Severity Reaction Status Date / Time No Known Allergies Allergy Verified 10/30/20 21:41 Physical Exam Vitals: Vital Signs Temp Pulse Pulse Resp BP BP Pulse Ox 10/31/20 08:00 123 H 20 121/57 94 L 10/31/20 03:46 114 H 20 99/53 94 L 10/31/20 02:00 109 H 19 10/31/20 00:35 98.5 F 103 H 19 104/68 98 10/31/20 00:00 98.5 F 103 H 19 104/68 98 10/30/20 23:20 98.0 F 99 20 105/78 94 L 10/30/20 21:55 86 20 100/74 97 10/30/20 19:30 97 20 103/68 97 10/30/20 17:34 97.1 F L 103 H 20 106/74 91 L Intake and Output 10/30/20 10/31/20 10/31/20 22:59 06:59 14:59 Intake Total 900 Output Total 300 Balance -300 900 Intake: Oral 900 Output: Urine 300 Other: Voiding Method Urinal # Voids 1 1 Weight 131.542 kg 133.5 kg - Constitutional General appearance: cooperative, no acute distress - EENT Eyes: EOMI ENT: hard of hearing, NA/AT - Neck Neck: normal ROM Results CBC & Chem 7: 10/31/20 07:56 10/31/20 07:56 Labs: Abnormal Lab Results - Last 24 Hours (Table) 10/30/20 10/30/20 10/31/20 Range/Units 18:20 18:20 07:56 WBC 10.8 H (3.8-10.6) k/uL MCHC 30.8 L (31.0-37.0) g/dL Neutrophils # 8.8 H 8.5 H (1.3-7.7) k/uL Lymphocytes # 0.9 L (1.0-4.8) k/uL Carbon Dioxide 34 H (22-30) mmol/L BUN 27 H (9-20) mg/dL Glucose 143 H (74-99) mg/dL C-Reactive Protein 75.8 H (<10.0) mg/L Total Protein 5.9 L (6.3-8.2) g/dL Albumin 3.1 L (3.5-5.0) g/dL 10/31/20 Range/Units 07:56 WBC (3.8-10.6) k/uL MCHC (31.0-37.0) g/dL Neutrophils # (1.3-7.7) k/uL Lymphocytes # (1.0-4.8) k/uL Carbon Dioxide 36 H (22-30) mmol/L BUN 22 H (9-20) mg/dL Glucose 137 H (74-99) mg/dL C-Reactive Protein (<10.0) mg/L Total Protein (6.3-8.2) g/dL Albumin (3.5-5.0) g/dL CT scan - chest: report reviewed MRI - head: report reviewed Assessment and Plan (1) Brain metastases Current Visit: Yes Status: Acute Code(s): C79.31 - SECONDARY MALIGNANT NEOPLASM OF BRAIN SNOMED Code(s): 64620961 (2) Lung mass Current Visit: Yes Status: Acute Code(s): R91.8 - OTHER NONSPECIFIC ABNORMAL FINDING OF LUNG FIELD SNOMED Code(s): 923749554 (3) Atrial fibrillation Current Visit: No Status: Acute Code(s): I48.91 - UNSPECIFIED ATRIAL FIBRILLATION SNOMED Code(s): 54813328 Plan: Details within HPI PLan: - MRI of the Brain - Continue dex and PPI - CT abdomen and pelvis/Bone scan - Bronchoscopy and tissue biopsy in am. Family understands next steps and agree, but would like him home and to follow- up as outpatient as soon as reasonable and safe.
[2020-10-31] MEDS ORDERED: APIXABAN 5 MG TAB PO SCH (21:00)
[2020-11-01] MEDS: dexAMETHasone 4 MG TAB PO SCH ×4 (07:55→13:14)
[2020-11-01] MEDS: CHOLECALCIFEROL 1,000 UNIT TAB PO SCH (07:56)
[2020-11-01] MEDS: lisinopriL 5 MG TAB PO SCH (07:57)
[2020-11-01] MEDS: FUROSEMIDE 40 MG TAB PO SCH ×3 (08:01→17:56)
[2020-11-01] MEDS: ASPIRIN 81 MG PO SCH (08:01)
[2020-11-01] MEDS: PANTOPRAZOLE 40 MG TABLET PO SCH (08:06)
[2020-11-01] MEDS: METOPROLOL SUCCINATE (ER) 100 MG TAB.ER.24H PO SCH (08:08)
[2020-11-01] MEDS: HYDROcodone/APAP 5-325MG 1 EACH TAB PO PRN (08:14)
[2020-11-01] MEDS: ALBUTEROL HFA INHALER INHALATION SCH ×4 (10:34→20:37)
[2020-11-01] MEDS: TIOTROPIUM 2.5 MCG INHALER INHALATION SCH (10:36)
[2020-11-01] MEDS ORDERED: fentaNYL (PF) 50 MCG/ML 2 ML AMP ONE (12:06)
[2020-11-01] MEDS ORDERED: SUCCINYLCHOLINE CHLORIDE VIAL 200 MG/10 ML VIAL IV ONE (12:06)
[2020-11-01] MEDS ORDERED: MIDAZOLAM 2 MG/2 ML VIAL ONE (12:06)
[2020-11-01] MEDS ORDERED: PROPOFOL 10 MG/ML 20 ML VIAL IV ONE (12:06)
[2020-11-01] MEDS ORDERED: LIDOCAINE 1% INJ 10MG/ML (20 ML MDV) ONE (12:06)
--- NOTE | 2020-11-01 12:16 | P.PN ---
Subjective Progress Note Date: 11/01/20 On today's evaluation of 11/01/2020, the patient is in the endoscopy suite and the plan is to proceed with a bronchoscopy and transbronchial biopsy of the left upper lobe. Note that the patient had an CAT scan of the brain and the findings were consistent with metastatic lesion to the brain. The patient was found to have multiple ring enhancing lesions compatible with metastases involving the nirav, left occipital lobe and thalamus and the patient was started on Decadron. The EEG of the brain showed no acute abnormalities and there was no evidence of any seizure Objective - Vital Signs Vital signs: Vital Signs Temp 97.4 F L 11/01/20 10:54 Pulse 113 H 11/01/20 10:54 Resp 20 11/01/20 10:54 BP 131/72 11/01/20 10:54 Pulse Ox 94 L 11/01/20 02:55 Intake & Output 10/31/20 11/01/20 11/01/20 18:59 06:59 18:59 Intake Total 900 240 Output Total 650 Balance 900 -410 Weight 135.5 kg Intake: Oral 900 240 Output: Urine 650 Other: Voiding Method Toilet Urinal # Voids 1 1 - Exam morbid obesity, comfortable nonacute distress Head exam was generally normal. There was no scleral icterus or corneal arcus. Mucous membranes were moist. Neck was supple and without jugular venous distension, thyromegaly, or carotid bruits. Carotids were easily palpable bilaterally. There was no adenopathy. Mallampati class IV with significant crowding of the posterior oropharynx Examination of the lungs reveals diminished breath sounds in the left lung base consistent with underlying pleural effusion. Heart sounds are irregular consistent with atrial fibrillation, possible sinus stool. No significant murmurs appreciated. Abdominal exam revealed normal bowel sounds. The abdomen was soft, non-tender, and without masses, organomegaly, or appreciable enlargement of the abdominal aorta. Examination of the extremities revealed easily palpable radial, femoral and pedal pulses. There was no cyanosis, clubbing or edema. Examination of the skin revealed no evidence of significant rashes, suspicious appearing nevi or other concerning lesions. - Labs CBC & Chem 7: 10/31/20 07:56 10/31/20 07:56 Assessment and Plan Plan: 1. Left upper lobe mass measuring 11 x 8 cm in size encasement left upper lobe bronchus and causing some narrowing in addition to a small left-sided pleural effusion. Consider underlying primary bronchogenic carcinoma. There is also a smaller nodule in the right lower lobe. The patient also has a small left-sided pleural effusion probably related to the left upper lobe mass. Consistent with PRESS SUPERVISOR metastases. 2 syncope, unexplained, consider PRESS SUPERVISOR metastases,, CAT scan of the brain noted 3 generalized weakness 4 chronic atrial fibrillation maintained on Eliquis on outpatient basis which will be based on hold for now 5 obstructive sleep apnea maintained on CPAP therapy on outpatient basis 6 COPD 7 chronic back pain maintained on [place] 8 Obesity 9 60 py smoking Plan Bronchoscopy today Keep the patient off Eliquis for now left-sided pleural effusion is small. It's currently marked. I may consider doing a drainage procedure to later stage for staging purposes should the diagnosis of lung cancer confirmes Continue Decadron Radiation oncology and medical oncology consultation Will follow
[2020-11-01] MEDS ORDERED: SODIUM CHLORIDE 0.9% 500 ML 500 ML IV ONE ×2 (12:24→12:47)
--- NOTE | 2020-11-01 12:45 | P.PCN ---
Date of Procedure: 11/01/20 Preoperative Diagnosis: ROBERT mass Postoperative Diagnosis: ROBERT mass Procedure(s) Performed: Flexible bronchoscopy, left upper lobe endobronchial biopsy, and the bronchial brushings and the bronchioloalveolar lavage Anesthesia: MAC Surgeon: Addy Wilson Estimated Blood Loss (ml): 5 Pathology: other Condition: stable Disposition: same day Operative Findings: Flexible bronchoscopy was done and the endoscopist the under general anesthesia. The patient was sedated and then intubated and following that the procedure was not when the patient was being adequately oxygenated and mechanically ventilated. Intubation process was done by [employer] anesthesia service in the bedside. After intubation, and after achieving adequate sedation, the flexible bronchoscope was introduced through the oral tracheal tube was advanced into the lower trachea. Examination of the tracheal bronchial tree was done. Distal trachea was within normal limits. Examination the right side including the right upper lobe bronchus, right mainstem bronchus, right middle lobe bronchus, bronchus intermedius and all of these airways were within normal limits. The bronchoscope was moved to the left side. Left mainstem bronchus was within normal limits. The nikki between the left upper and left lower lobe was seen. The bronchoscope was moved to the left upper lobe and immediately a fungating mass that had a cauliflower appearance was originating in the anterior segment of the left upper lobe and was infiltrating into the left upper lobe bronchus causing some mass effect on the lingular segment. The anterior and apical posterior segments were not visualized because of this fungating tumor. The surface of the tumor was quite vascular. Examination of left lower lobe was within normal limits. Following this, and the bronchial biopsies of the left upper lobe mass was done under direct visualization. A total of 6 biopsies were obtained. There was some minimal amount of bleeding encountered post biopsy that stopped spontaneously. In the bronchial brushings was done. A bro nchioloalveolar lavage of the left upper lobe mass was done with the mass was infused and irrigated by 60 mL of saline and it was suctioned back approximately 18-20 mL in volume. The aspirate was bloody. At the completion of the procedure, typically was suctioning was done. All secretions were removed. Bronchoscope was removed and the patient was left up to anesthesia for extubation. Postextubation, the patient will be sent for recovery. The findings are consistent with CAT scan findings of metastatic bronchogenic carcinoma. Endobronchial biopsies of the left upper lobe mass in addition to brushings and lavage was done.
--- NOTE | 2020-11-01 16:11 | MR ---
EXAMINATION TYPE: MR brain wo/w con DATE OF EXAM: 11/01/2020 COMPARISON: CT brain 10/31/2020 HISTORY: CT brain 10/31/2020 TECHNIQUE: Multiplanar, multisequence images of the brain and brainstem is performed without and with IV contras t, utilizing 11.5 mL intravenous Gadavist . FINDINGS: Diffusion weighted images demonstrate no evidence of a recent infarct. Multiple foci of sig nal abnormality are present to include the left occipital lobe, right cerebellar hemisphere, nirav, th alamus and right frontal lobe towards the convexity as well as left frontal lobe at the convexity. Th wade lesions show ring enhancement, corresponding signal abnormality and inversion recovery T2-weighte d sequences. Largest lesion within the region of the thalamus on the left measures approximately 16 m m in size, right nirav lesion measures 15 mm in size. Too numerous to count areas of scattered and co nfluent hyperintensity are present on inversion recovery T2-weighted sequences within the deep white matter, periventricular and pericallosal white matter subcortical white matter. There are normal vasc ular flow voids. The ventricular system and cisternal spaces are normal in size and appearance. The brain volume is age appropriate number there is cortical atrophy. The craniocervical junction appears within normal limits. The dural venous sinuses appear patent. The visualized sinuses are clear and the globes are intact. IMPRESSION: Metastatic disease. Age-related atrophy and chronic small vessel ischemia.
--- NOTE | 2020-11-01 16:32 | NM ---
EXAMINATION TYPE: NM bone scan whole body DATE OF EXAM: 11/01/2020 COMPARISON: CT 10/30/2020 HISTORY: 75-year-old male initial staging metastatic cancer, low back pain TECHNIQUE: Delayed whole-body scanning was performed following the injection of 25.2 mCi Tc 99m MDP. Images acquired 6 hours post injection. FINDINGS: Foci of increased activity along the right lateral sixth and seventh ribs correspond to bony irregula rity and apparent subacute or chronic incompletely united fracture deformities. This requires clinica l correlation for history of prior injury. Increased activity along the posterior elements of the T6 level on both sides have no apparent CT cor relate. Possible small foci of activity within the left scapula also have no CT correlate. Asymmetric increased activity along the medial left iliac bone. Degenerative tracer activity at the right greater than left knees. IMPRESSION: 1. Equivocal for osseous metastatic disease at this time. 2 foci along the right lateral sixth and se venth ribs correspond to bony irregularity on CT with apparent subacute to chronic incompletely unite d fractures. This requires clinical correlation for history of prior injury and pain here. 2. Activity involving the posterior elements in the mid thoracic spine without CT correlate. Small fo ci within the left scapula also have no clear CT correlate. Early osseous metastatic disease is not e xcluded at this time. 3. Recommend attention on the patient's pending CT abdomen and pelvis to assess the medial left iliac bone for potential osseous metastases as there is asymmetric activity here as well. PET/CT can be co nsidered if findings remain equivocal.
[2020-11-01] MEDS: IOPAMIDOL CONTRAST (ORAL USE) VIAL PO PRN ×2 (17:13→17:59)
[2020-11-01] MEDS: SODIUM CHLORIDE 0.9% 1,000 ML IV SCH (17:33)
--- NOTE | 2020-11-01 18:50 | P.PN ---
Subjective Progress Note Date: 11/01/20 The patient was seen at bedside and he feels about the same today compared to yesterday. He denies any further episodes of passing out. No further seizure- like episodes. Patient denies of any focal weakness, difficulty swallowing, any double vision, any difficulty swallowing, any difficulty getting his words out Per the patient nurse he refuses to tell his about his condition that he has lung mass with the brain metastasis. He said that all this is happening too fast. Objective - Vital Signs Vital signs: Vital Signs Temp 98.7 F 11/01/20 13:00 Pulse 104 H 11/01/20 16:29 Resp 20 11/01/20 16:29 BP 110/71 11/01/20 16:29 Pulse Ox 94 L 11/01/20 16:29 Intake & Output 10/31/20 11/01/20 11/01/20 18:59 06:59 18:59 Intake Total 687 833 0734 Output Total 650 300 Balance 900 -410 1400 Weight 135.5 kg Intake: IV 600 Oral 225 793 5472 Output: Urine 650 300 Other: Voiding Method Toilet Urinal # Voids 1 1 3 - Exam GENERAL: The patient is lying in bed and not in acute respiratory distress. NEUROLOGICAL: Higher mental function: The patient is awake, alert, oriented to self, place and time. Patient is following commands. No aphasia and no neglect. Cranial nerves: The pupils are round, equal and reactive to light and accommodation. Visual cota are full to confrontation throughout. Extraocular movement is intact no nystagmus is noted. Facial sensation is normal to touch throughout. The facial strength is normal throughout. Hearing is normal bilaterally to hand rub. Tongue is midline and moved [id number] without any difficulty. No dysarthria is noted. Shoulder shrug is normal bilaterally. Motor: Gait is deferred. The strength is 5 over 5 throughout. Normal tone and bulk. Cerebellum: Normal finger to nose bilaterally. Sensation: Sensation is normal to touch throughout. Reflexes (right/left): 2+ throughout. Plantars are downgoing bilaterally. - Labs CBC & Chem 7: 10/31/20 07:56 10/31/20 07:56 Assessment and Plan Assessment: This is a 75-year-old gentleman that presented to the emergency department on 10/30/2020 for an episode of the syncope Syncope: Because of the brain metastasis (involving the nirav, left occipital and left thalamus) I think this episode was likely a seizure. Brain metastasis (involving the nirav, left occipital and left thalamus CT of the head) Left upper lobe mass with a small left pleural effusion. Consider underlying primary bronchogenic carcinoma. There is a small nodule in the right lower lobe. Chronic atrial fibrillation ---Eliquis on hold. Obstructive sleep apnea on CPAP COPD Tobacco use Plan: I recommend MRI of the brain w/ and w/o: Which is reported as metastatic disease. Age related atrophy and chronic small vessel ischemia. Personally reviewed that MRI the brain and the patient has scattered the lesion throughout the the brain. One of the lesions is obstructing the ventricular system (lateral and 3rd) with mild hydrocpehalus seen over the posterior horn of lateral ventricles. There is also a lesion over the right nirav. Routine EEG 10/31/2020: Normal study. There are no focal slowing, epileptiform discharges or seizure seen throughout the study. Because this episode was suspicious for seizure especially with metastasis to multiple regions in the brain I started the patient on Keppra 750 mg twice a day (on 10/31/2020). I started the patient on Decadron 4 mg 1 tab 4 times a day. By accident the patient's nurse gave the patient the Decadron 4 mg 4 tablets at one time and that was in the morning. She notified me of the incident. I notified her not to give the remaining a dose for today. If the patient does not have significant vasogenic edema then we can't taper it down to 3 times or even twice a day. I recommend the patient to be evaluated by neurosurgery which we don't have at this facility. Reason for the transfer is patient has some lesions over the ventricular system which is felt causing mild hydrocephalus. The patient is scheduled for bronchoscopy. Regarding the the patient that chronic atrial fibrillation, HAS been held because a lung mass. He's currently on aspirin 81 mg daily. Regarding the lung mass will defer the management to the pulmonary team and oncology team. Patient is counseled on tobacco cessation. The plan was discussed with the patient's nurse and primary team. Jason Haddad MD Neuro-hospitalist Time with Patient: Greater than 30
--- NOTE | 2020-11-01 19:13 | CT ---
EXAMINATION TYPE: CT abdomen pelvis w con DATE OF EXAM: 11/01/2020 COMPARISON: None HISTORY: Initial staging for mets. History of lung cancer. CT DLP: 2423.5 mGycm Automated exposure control for dose reduction was used. CONTRAST: Performed with IV Contrast, patient injected with 100ml mL of Isovue 300. Images were obtained from the diaphragm to the floor the pelvis with oral and IV contrast. There is mild to moderate left pleural effusion. There is left lower lobe airspace consolidation. The re is densely calcified retrocardiac lymph nodes. There is no pericardial effusion. Right lung base i s clear. Stomach is intact. There are at least 3 hypodense lesions in the liver. These measure approximately 2 .5 cm. Margins are indistinct and these are suspicious for metastatic lesions. Spleen is intact. There is no pancreatic mass. The bile ducts are not dilated. Gallbladder appears no rmal. There is no adrenal mass. Kidneys show satisfactory contrast opacification. There is no hydronephrosi s. Ureters are not dilated. There is 3.5 cm cortical cyst lower pole right kidney. There is no eviden ce of solid renal mass. Abdominal aorta is atheromatous. There is no retroperitoneal adenopathy. Bladder is almost empty. There are numerous sigmoid diverticula. There is no sign of diverticulitis. There is no inguinal hernia. There is no free fluid in the pelvis. The appendix is posterior and appe ars normal. There is no mesenteric edema. There is no ascites or free air. There is no sign of a vladimir l obstruction. The lumbar vertebra show mild subluxation deformity at L4-5. There is no spondylolysis. There is no l umbar compression fracture. The bony pelvis is intact. IMPRESSION: Hypodense liver lesions are suspicious for metastatic disease. Left pleural effusion and left lower lobe infiltrate and atelectasis. Sigmoid diverticulosis without diverticulitis.
--- NOTE | 2020-11-01 20:50 | P.PN ---
Subjective Progress Note Date: 11/01/20 Principal diagnosis: Lung mass with Metastatic disease Long discussion with patient's family, neurology, primary team, and radiation oncology. Re-review of the MRI images by neurology and radiation oncology. Neurology feels there is presence of left ventricle mild hydrocephalus and reasonable to refer to neurosurgery at this time. Long discussion with patients family regarding the recommendation for transfer. Tonight we will continue supportive care on steroids, and further discuss with family Wednesday regarding decision. Patient is currently stable, comfortable. No nausea, vomting, vitals stable. Pain continues in left hip. Review of bone scan cannot rule out metastatic disease to this area, he also has pain in right scapula where he complains of pain. CT abdomen and pelvis does reveal likelihood of metastatic disease to liver. Patient and family aware that the current picture is not curative, we will need path to further describe options and goals. Status Post Bronch today Objective - Vital Signs Vital signs: Vital Signs Temp 98.7 F 11/01/20 13:00 Pulse 104 H 11/01/20 16:29 Resp 20 11/01/20 16:29 BP 110/71 11/01/20 16:29 Pulse Ox 94 L 11/01/20 16:29 Intake & Output 11/01/20 11/01/20 11/02/20 06:59 18:59 06:59 Intake Total 240 1700 Output Total 650 300 Balance -410 1400 Weight 135.5 kg Intake: IV 600 Oral 240 1100 Output: Urine 650 300 Other: Voiding Method Toilet Urinal # Voids 1 3 - Constitutional General appearance: Present: cooperative, obese - EENT Eyes: Present: EOMI, dentition normal ENT: Present: NA/AT, normal oropharynx - Respiratory Respiratory: right: wheezing, bilateral: diminished - Cardiovascular Rhythm: irregularly irregular - Gastrointestinal General gastrointestinal: Present: distended, soft - Integumentary Integumentary: Present: pale - Neurologic Neurologic: Present: CNII-XII intact - Musculoskeletal Musculoskeletal: Present: generalized weakness, strength equal bilaterally - Psychiatric Psychiatric: Present: A&O x's 3, appropriate affect, intact judgment & insight - Labs CBC & Chem 7: 10/31/20 07:56 10/31/20 07:56 Assessment and Plan (1) Brain metastases Narrative/Plan: - See HPI - Continue on Dex and PPI - Await family and patient decision regarding transfer to tertiary hospital for neurosurgery evaluation - If they decide to forego recommended transfer, will aim to initiate whole brain radiation on Sunday 11/04 Current Visit: Yes Status: Acute Code(s): C79.31 - SECONDARY MALIGNANT NEOPLASM OF BRAIN SNOMED Code(s): 59264762 (2) Lung mass Narrative/Plan: Suspicious for underlying pulmonary cancer with metastatic disease to brain, liver, and probable bones Current Visit: Yes Status: Acute Code(s): R91.8 - OTHER NONSPECIFIC ABNORMAL FINDING OF LUNG FIELD SNOMED Code(s): 656995548 (3) Atrial fibrillation Narrative/Plan: Patient has been on eliquis, however at this time on hold secondary to diffuse brain masses Current Visit: No Status: Acute Code(s): I48.91 - UNSPECIFIED ATRIAL FIBRILLATION SNOMED Code(s): 66582097 Plan: Details within HPI Review of CT scan and Bone scan with patient and family All questions answered Will hold transfer until family makes a decision as they are overwhelmed and do not want to make a decision till after they discuss further with patient tomorrow. Time with Patient: Greater than 30 (Counseling and cordinating care with other medical teams: Neurology, radiation oncology and primary team)
[2020-11-01 21:36] LABS: Appearance,BF Bloody; Color,BF Red; Nucleated Cells, Body Fluid 689 /uL
[2020-11-01 21:37] LABS: RBC, Body Fluid 41300 /uL
--- NOTE | 2020-11-01 23:18 | P.PN ---
Subjective This is a pleasant 75 years old male with past medical history of COPD, GERD, sleep apnea on CPAP/BiPAP, chronic back pain. He presents because of syncope, patient passed out after he took colposcopy going to his refrigerator, And suddenly with no oral, patient was awake on the floor, he denies seizure-like activity, no tongue biting, no urine or bowel incontinence. No chest pain. Patient to come tenderness to stand up and ask for help. Patient also was been complaining of from dyspnea and coughing for the last 2 days but no chest pain. No change in urine or bowel habits. He used to smoke a lot and he quit 1 year ago but his back using couple cigarettes here and there as per patient. He is been afebrile. Mildly tachycardic at 103, currently his heart rate in the 90s. Blood pressure is stable 105/78, he was saturating 91 on room air, currently at 94% on 4 L oxygen Labs showing WBC within the reference range at 10.3 K, hemoglobin and platelets were normal. INR is normal. BMP is unremarkable. Carbon dioxide is elevated at 34. Creatinine is normal 0.8, liver enzymes not elevated. Lactic acid is normal at 1.5, C-reactive protein is elevated at 75.8, coronavirus not detected Echocardiogram from 2018 showing ejection fraction of 45-50% EKG showing atrial fibrillation's with rapid ventricular rate at 107. CT of the chest with contrast showing large left upper lobe mass with encasement of the left upper lobe bronchus and left bronchial adenopathy consistent with tumor. Left pleural effusion. Mild atelectasis in the left lower lobe adjacent to the pleural effusion. Hypo-dense liver lesions suspicious for metastatic disease oncology and pulmonology teams were consulted from emergency room 11/01/2020 Patient has been evaluated by palpatory team for his left upper lobe mass and he underwent Flexible bronchoscopy, left upper lobe endobronchial biopsy, and the bronchial brushings and the bronchioloalveolar lavage today on 11/01, biopsy result is pending Also neurologist evaluated the patient and CT of the brain showing multiple ring enhancing lesions compatible with metastasis including involvement of the nirav, left occipital lobe, and left thalamus. Recommend MRI. EEG is unremarkable for epileptic discharge. However patient was started on Keppra 750 mg twice daily and dexamethasone. Neurologist recommended the patient to transfer to tertiary care center as he will need evaluation by neurosurgery service Radiation oncology also might be consulted. Oncologist recommended further workup for staging including CT of the abdomen and pelvis and bone scan. Also MRI of the brain. Bone scan was scheduled today. Vital showing mild tachycardia at 106-113, rest of vitals are stable including a stable blood pressure 106/64 and patient is afebrile. Patient is saturating 98% on 4-8 L after the procedure, on admission he has saturation of 91% on room air Labs today showing mild leukocytosis of 10.8 K, so CBC and BMP is unremarkable. Coronavirus not detected. Patient Alexais kept on hold, as he has recent procedure and also has a relative contraindication because of the metastasis to the brain Neurologist Dr. Robles recommended to transfer the patient to tertiary care center where neurosurgery service available because he has metastasis to the brain including the nirav and one of them is close to the fourth or lateral ventricle, I spoke with Kinsey from oncology team and they prefer to keep the patient and continue with radiation therapy as he is not a surgical candidate I talked to the daughter Mrs. Aranda upon patient request as well as with his and told him with recommendation with extensive explanation including risks and benefits are explained, they haven't reached a decision yet and he wanted to discuss it tomorrow with the patient whether to keep the patient and [facility] and continue with radiotherapy or transfer to tertiary center for possible neurosurgical evaluation Before that they were discussed with the transfer center at [place] however Dr. Jameson rejected the case and recommended to keep the patient at [facility] in [place] with radiotherapy Review of Systems CONSTITUTIONAL: No fever, no malaise, no fatigue. HEENT: No recent visual problems or hearing problems. Denied any sore throat. CARDIOVASCULAR: No orthopnea, PND, no palpitations, no syncope. PULMONARY: No chest wall tenderness, no hemoptysis. GASTROINTESTINAL: No diarrhea, no nausea, no vomiting, no abdominal pain. Normoactive bowel sounds. NEUROLOGICAL: No headaches, no weakness, no numbness. Active Medications Generic Name Dose Route Start Last Admin Trade Name Freq PRN Reason Stop Dose Admin Hydrocodone Bitart/Acetaminophen 1 each 10/30/20 20:55 11/01/20 08:14 Hydrocodone/Apap 5-325mg 1 Each Tab PO 1 each Q4HR PRN Administration Moderate Pain Albuterol Sulfate 2 puff 11/01/20 08:00 11/01/20 20:37 Albuterol Hfa Inhaler INHALATION Not Given RT-QID LION Albuterol Sulfate 2 puff 10/31/20 21:29 Albuterol Hfa Inhaler INHALATION RT-Q2H PRN Shortness Of Breath Or Wheezing Aspirin 81 mg 10/31/20 09:00 11/01/20 08:01 Aspirin 81 Mg PO Not Given DAILY LION Cholecalciferol 1,000 unit 10/31/20 09:00 10/31/20 09:49 Cholecalciferol 1,000 Unit Tab PO 1,000 unit DAILY LION Administration Dexamethasone 4 mg 10/31/20 14:00 11/01/20 13:14 Dexamethasone 4 Mg Tab PO Not Given QID LION Furosemide 40 mg 10/31/20 09:00 11/01/20 17:56 Furosemide 40 Mg Tab PO 40 mg BID@0800,1600 LION Administration Sodium Chloride 1,000 mls @ 100 mls/hr 11/01/20 17:30 11/01/20 17:33 Saline 0.9% IV 100 mls/hr .Q10H LION Administration Levetiracetam 750 mg 10/31/20 21:00 11/01/20 21:12 Levetiracetam 750 Mg Tab PO 750 mg Q12HR LION Administration Lisinopril 5 mg 10/31/20 09:00 11/01/20 07:57 Lisinopril 5 Mg Tab PO Not Given DAILY LION Metoprolol Succinate 100 mg 10/31/20 09:00 11/01/20 08:08 Metoprolol Succinate (Er) 100 Mg Tab.Er.24h PO 100 mg DAILY LION Administration Miscellaneous Information 1 each 10/31/20 09:58 Rx Info: Iv Contrast Was Given 1 Each Misc MISCELLANE 11/02/20 09:58 DAILY PRN Per Protocol Naloxone HCl 0.2 mg 10/30/20 20:55 Naloxone 0.4 Mg/Ml 1 Ml Vial IV Q2M PRN Opioid Reversal Ondansetron HCl 4 mg 10/30/20 20:55 Ondansetron 4 Mg/2 Ml Vial IVP Q8HR PRN Nausea And Vomiting Pantoprazole Sodium 40 mg 10/31/20 09:00 11/01/20 08:06 Pantoprazole 40 Mg Tablet PO 40 mg DAILY@0730 LION Administration Tiotropium [place] 2 puff 11/01/20 08:00 11/01/20 10:36 Tiotropium 2.5 Mcg Inhaler INHALATION Not Given RT-DAILY LION Objective - Vital Signs Vital signs: Vital Signs Temp 98.7 F 11/01/20 13:00 Pulse 106 H 11/01/20 13:15 Resp 18 11/01/20 13:15 BP 106/64 11/01/20 13:15 Pulse Ox 98 11/01/20 13:15 Intake & Output 10/31/20 11/01/20 11/01/20 18:59 06:59 18:59 Intake Total 900 240 500 Output Total 650 Balance 900 -410 500 Weight 135.5 kg Intake: IV 500 Oral 900 240 Output: Urine 650 Other: Voiding Method Toilet Urinal # Voids 1 1 - Exam GENERAL: The patient is alert and oriented x3, not in any acute distress. Well developed, well nourished. HEENT: Pupils are round and equally reacting to light. EOMI. No scleral icterus. No conjunctival pallor. Normocephalic, atraumatic. No pharyngeal erythema. No thyromegaly. CARDIOVASCULAR: S1 and S2 present. No murmurs, rubs, or gallops. PULMONARY: Chest is clear to auscultation, no wheezing or crackles. ABDOMEN: Soft, nontender, nondistended, normoactive bowel sounds. No palpable organomegaly. MUSCULOSKELETAL: No joint swelling or deformity. EXTREMITIES: No cyanosis, clubbing, or pedal edema. NEUROLOGICAL: Gross neurological examination did not reveal any focal deficits. SKIN: No rashes. no petechiae. - Labs CBC & Chem 7: 10/31/20 07:56 10/31/20 07:56 Assessment and Plan Assessment: Left upper lobe lung mass with lymphadenopathy, suspicious for tumor. Associated with left pleural effusion. Status post bronchoscopy and results pending Hypodense liver lesion suspicious for metastatic disease multiple metastasis to the brain one of them is in the nirav and close to the fourth and lateral ventricle Syncope, on admission secondary to above Atrial fibrillation with mild RVR, currently rate is controlled. On Eliquis (on hold ) Lung mass Chronic systolic heart failure with ejection fraction 45-50% COPD, no acute exacerbation History of Gastroesophageal reflux disease Sleep apnea on CPAP/BiPAP Chronic back pain Nicotine dependence Plan: This is a pleasant 75 years old male who presents with lung mass. With metastasis to the brain and liver. Status post bronchoscopy and biopsy is pending. Neurologist recommended to transfer the patient for neurosurgery evaluation, discussed with patient and family and they haven't decided to transfer the patient Oncology team on the case and the recommended workup like bone scan and MRI of the brain as well as radiation oncology evaluation labs and medication were reviewed.. Continue same treatment. Continue with symptomatic treatment. Resume home medication. Monitor lytes and vitals. DVT and GI prophylaxis. Further recommendations depends on the clinical course of the patient DVT prophylaxis: Eliquis, currently on hold for possible bronchoscopy and relative contraindication for his brain lesion GI Prophylaxis: Ppi Prognosis is guarded
[2020-11-02] MEDS: HYDROcodone/APAP 5-325MG 1 EACH TAB PO PRN (06:42)
[2020-11-02 07:58] LABS: Basophils % (A) 0 %; Eosinophils % (A) 0 %; HCT 44.2 % (39.0-53.0); HGB 13.3 gm/dL (13.0-17.5); Hypochromasia Moderate; Lymphocytes # (A) 1.4 k/uL (1.0-4.8); Lymphocytes % (A) 11 %; MCH 27.3 pg (25.0-35.0); MCHC 30.1 g/dL (31.0-37.0); MCV 90.9 fL (80.0-100.0); Mean Platelet Volume 7.1; Monocytes # (A) 0.6 k/uL (0-1.0); Monocytes % (A) 5 %; Neutrophils % (A) 83 %; Platelet Count 307 k/uL (150-450); RBC 4.87 m/uL (4.30-5.90); RDW 14.3 % (11.5-15.5); WBC 12.1 k/uL (3.8-10.6)
[2020-11-02] MEDS: ALBUTEROL HFA INHALER INHALATION SCH ×3 (08:27→15:51)
[2020-11-02] MEDS: TIOTROPIUM 2.5 MCG INHALER INHALATION SCH (08:27)
[2020-11-02] MEDS: PANTOPRAZOLE 40 MG TABLET PO SCH (08:52)
[2020-11-02] MEDS: METOPROLOL SUCCINATE (ER) 100 MG TAB.ER.24H PO SCH (08:52)
[2020-11-02] MEDS: FUROSEMIDE 40 MG TAB PO SCH (08:53)
[2020-11-02] MEDS: CHOLECALCIFEROL 1,000 UNIT TAB PO SCH (08:53)
[2020-11-02] MEDS: lisinopriL 5 MG TAB PO SCH (08:53)
[2020-11-02] MEDS: ASPIRIN 81 MG PO SCH (08:53)
[2020-11-02] MEDS: dexAMETHasone 4 MG TAB PO SCH ×2 (08:54→12:43)
--- NOTE | 2020-11-02 10:28 | P.CONS ---
History of Present Illness - Reason for Consult Consult date: 11/01/20 new lung cancer diagnosis, brain mets Requesting physician: Benito Mcintosh - Chief Complaint syncopal episode, dyspnea - History of Present Illness 75 year old male with history of a newly diagnosed likely lung cancer (biopsy pending) with metastatic disease to brain and liver. He has a 60 pack year smoking history having quit recently. He presented on 10/30/20 following a sy ncopal episode. The patient reports that he had been feeling poorly for a few weeks prior to the syncopal episode. He admitted to increased dyspnea and also has had some left sided hip pain for which he was undergoing outpatient work-up. He states that the syncopal episode occurred just after he pushed a button on his racquet maker. He was taken to the ER for evaluation. CT Chest from 10/30/20 showed an 11 cm mass in the left upper lung with involvment of the hilum and mediastinal invasion. A CT of the brain was worrisome for metastatic disease. Subsequently an MRI on 11/01/20 revealed multiple small ring-enhancing lesions - the largest in the thalamus (1.6 cm) and the nirav (1.5 cm). He went for bronchoscopy on 11/01/20 with biopsy. The left upper lobe bronchus revealed a large fungating lesion for which biopsies were performed (Pathology pending). A CT of the abdomen/pelvis revealed 3 hypodense liver lesions suspicious for metastases. Bone scan performed also showed some left iliac uptake and 2 right sided rib lesions (could be chronic fractures based on CT). The patient reports that he has had no recent complaints with headaches, nausea/vomiting, weakness, numbness or tingling of the extremities. No significant bladder or bowel changes (outside of some mild constipation). Review of Systems Constitutional: Denies chills, Denies fever Eyes: denies blurred vision Ears: deny: decreased hearing Ears, nose, mouth and throat: Denies headache Cardiovascular: Reports dyspnea on exertion, Denies chest pain, Denies lightheadedness Respiratory: Reports cough, Reports dyspnea Gastrointestinal: Denies abdominal pain, Denies change in bowel habits Genitourinary: Denies dysuria Musculoskeletal: Denies frequent falls, Denies muscle weakness Integumentary: Denies rash Neurological: Reports syncope, Denies aphasia, Denies ataxia, Denies balance difficulties, Denies confusion, Denies weakness Psychiatric: Denies anxiety Past Medical History Past Medical History: COPD, GERD/Reflux, Musculoskeletal Disorder, Skin Di sorder, Sleep Apnea/CPAP/BIPAP Additional Past Medical History / Comment(s): irregular heart rhythm,SOB,SWELLING IN [place]. ANKLES OFF & ON, SNORES ALOT. LOWER BACK PAIN,generalized sores on skin History of Any Multi-Drug Resistant Organisms: None Reported Past Surgical History: Orthopedic Surgery Additional Past Surgical History / Comment(s): ARTHROSCOPIC RT KNEE 2013 , CTR LEFT WRIST Past Anesthesia/Blood Transfusion Reactions: No Reported Reaction Past Psychological History: No Psychological Hx Reported Smoking Status: Light tobacco smoker Past Alcohol Use History: None Reported Additional Past Alcohol Use History / Comment(s): SMOKER SINCE AGE 17(1959)- smokes 1-2 cigarettes per day Past Drug Use History: None Reported - Past Family History Mother Family Medical History: Congestive Heart Failure (CHF) Father Family Medical History: Coronary Artery Disease (CAD) Additional Family Medical History / Comment(s): CABG Brother(s) Family Medical History: Coronary Artery Disease (CAD) Additional Family Medical History / Comment(s): CABG Medications and Allergies Home Medications Medication Instructions Recorded Confirmed Type Fish Oil/Dha/Epa [Fish Oil 1,200 1 cap PO DAILY 03/05/15 10/30/20 History mg Fish Oil] Furosemide [Lasix] 40 mg PO BID 03/05/15 10/30/20 History HYDROcodone/APAP 10-325MG [[place] 1 tab PO Q6H PRN 03/05/15 10/30/20 History 10-325] Multivitamins, Thera [Multivitamin 1 tab PO DAILY 03/05/15 10/30/20 History (formulary)] Potassium Chloride [Klor-Con 10] 10 meq PO BID 03/05/15 10/30/20 History Vitamin E (Dl,Tocopheryl Acet) 400 unit PO DAILY 03/05/15 10/30/20 History [Vitamin E] Apixaban [Eliquis] 5 mg PO BID 05/11/18 10/30/20 History Calcium Carbonate/Vitamin D3 1 tab PO QID 05/11/18 10/30/20 History [Calcium 600-Vit D3 200 Tablet] Garlic 1 tab PO DAILY 05/11/18 10/30/20 History Pantoprazole [Protonix] 40 mg PO DAILY 05/11/18 10/30/20 History lisinopriL [Prinivil] 5 mg PO DAILY 05/11/18 10/30/20 History Aspirin [Adult Low Dose Aspirin EC] 81 mg PO DAILY 12/30/18 10/30/20 History Albuterol Sulfate [Ventolin HFA] 1 - 2 puff INHALATION RT-Q6H PRN 10/30/20 10/30/20 History Cholecalciferol [Vitamin D3 (25 1,000 unit PO DAILY 10/30/20 10/30/20 History Mcg = 1000 Iu)] Metoprolol Succinate [Toprol XL] 100 mg PO DAILY 10/30/20 10/30/20 History Allergies Allergy/AdvReac Type Severity Reaction Status Date / Time No Known Allergies Allergy Verified 10/30/20 21:41 Physical Exam Vitals: Vital Signs Temp Pulse Resp BP Pulse Ox 11/02/20 08:00 97.7 F 107 H 17 99/60 92 L 11/02/20 01:45 97.4 F L 97 16 102/66 92 L 11/01/20 20:00 100 16 11/01/20 19:05 97.4 F L 81 18 108/67 95 11/01/20 16:29 104 H 20 110/71 94 L 11/01/20 14:25 97 20 120/83 94 L 11/01/20 14:10 91 20 112/78 95 11/01/20 13:45 96 18 103/69 98 11/01/20 13:30 99 18 102/65 98 11/01/20 13:15 106 H 18 106/64 98 11/01/20 13:00 98.7 F 100 18 106/68 98 11/01/20 10:54 97.4 F L 113 H 20 131/72 Intake and Output 11/01/20 11/02/20 11/02/20 22:59 06:59 14:59 Intake Total 1100 1200 Output Total 700 Balance 400 1200 Intake: Intake, IV Titration 1200 Amount Sodium Chloride 0.9% 1, 1200 000 ml @ 100 mls/hr IV . Q10H LION Rx#:[id number] Oral 1100 Output: Urine 700 Other: Voiding Method Toilet Urinal # Voids 3 3 # Bowel Movements 0 Weight 131.4 kg - Constitutional General appearance: no acute distress, obese - EENT Eyes: EOMI, PERRLA ENT: hard of hearing - Neck Neck: no lymphadenopathy - Respiratory Respiratory: right: CTA, left: diminished - Cardiovascular Rhythm: regular - Gastrointestinal General gastrointestinal: no distended - Integumentary Integumentary: no cellulitis, no jaundiced - Neurologic Neurologic: CNII-XII intact - Musculoskeletal Musculoskeletal: strength equal bilaterally - Psychiatric Psychiatric: A&O x's 3, appropriate affect Results CBC & Chem 7: 11/02/20 07:10 10/31/20 07:56 Labs: Abnormal Lab Results - Last 24 Hours (Table) 11/02/20 Range/Units 07:10 WBC 12.1 H (3.8-10.6) k/uL MCHC 30.1 L (31.0-37.0) g/dL Neutrophils # 10.0 H (1.3-7.7) k/uL Microbiology - Last 24 Hours (Table) 11/01/20 12:30 Gram Stain - Preliminary Bronchoalviolar Lavage - Left Bronchial Washings Culture - Preliminary CT scan - abdomen: report reviewed, image reviewed CT scan - chest: report reviewed, image reviewed CT Scan - head: report reviewed, image reviewed MRI - head: report reviewed, image reviewed Assessment and Plan Assessment: 75 year old male with history of a newly diagnosed likely lung cancer (biopsy pending) with metastatic disease to brain and liver. He has a 60 pack year smoking history having quit recently. He presented on 10/30/20 following a syncopal episode. Plan: 1. Brain metastases: Multiple small ring enhancing lesions with mild vasogenic edema. Agree with decadron and GI PPX. Neurology expressed concern regarding a lesion along the thalamus with narrowing of the 3rd ventricle possibly causing left ventricle hydrocephalus. On my review if there is any involving the left lateral ventricle this is mild - radiology did dictate normal ventricular size and morphology in report. Patient not having clear symptoms of hydrocephalus and I feel would be reasonable to treat with steroids conservatively. I am skeptical of any benefit to neurosurgical evaluation. Especially if this turns out to be a radiosensitive pathology such as small-cell lung cancer - would expect fast improvement in any mass effect after therapy initiation. 2. Likely lung cancer: Biopsy pending - very likely lung primary based on imaging. Will await results before final recommendations are done. Prefer pathology be confirmed prior to possible initiation of radiation. 3. Left hip pain: BS suggestive of small left iliac lesion - this may be origin of his recent pain. Certainly would be feasible to do a short course of palliative RT for this. Time with Patient: Greater than 30
[2020-11-02] MEDS: SODIUM CHLORIDE 0.9% 1,000 ML IV SCH ×2 (12:00→12:43)
--- NOTE | 2020-11-02 12:44 | P.PN ---
Subjective Progress Note Date: 11/02/20 On 11/02/2020, the patient is post bronchoscopy. Doing well. No respiratory difficulties. No hemoptysis. No altered mentation. He is on Decadron. The input from radiation oncology has been appreciated. The patient will be starting radiation therapy hopefully by Wednesday. No seizure activity. No loss of consciousness. I think it's reasonable to that this patient be discharged home to be followed up immediately within the next 24-48 hours with radiation oncology. Biopsies were done successfully and got awaiting the final pathology results. Objective - Vital Signs Vital signs: Vital Signs Temp 97.7 F 11/02/20 08:00 Pulse 107 H 11/02/20 08:00 Resp 17 11/02/20 08:00 BP 99/60 11/02/20 08:00 Pulse Ox 92 L 11/02/20 08:00 Intake & Output 11/01/20 11/02/20 11/02/20 18:59 06:59 18:59 Intake Total 1700 1200 Output Total 300 400 Balance 1400 800 Weight 131.4 kg Intake: IV 600 Intake, IV Titration 1200 Amount Sodium Chloride 0.9% 1, 1200 000 ml @ 100 mls/hr IV . Q10H LION Rx#:[id number] Oral 1100 Output: Urine 300 400 Other: Voiding Method Toilet Urinal # Voids 3 3 # Bowel Movements 0 - Exam morbid obesity, comfortable nonacute distress Head exam was generally normal. There was no scleral icterus or corneal arcus. Mucous membranes were moist. Neck was supple and without jugular venous distension, thyromegaly, or carotid bruits. Carotids were easily palpable bilaterally. There was no adenopathy. Mallampati class IV with significant crowding of the posterior oropharynx Examination of the lungs reveals diminished breath sounds in the left lung base consistent with underlying pleural effusion. Heart sounds are irregular consistent with atrial fibrillation, possible sinus stool. No significant murmurs appreciated. Abdominal exam revealed normal bowel sounds. The abdomen was soft, non-tender, and without masses, organomegaly, or appreciable enlargement of the abdominal aorta. Examination of the extremities revealed easily palpable radial, femoral and pedal pulses. There was no cyanosis, clubbing or edema. Examination of the skin revealed no evidence of significant rashes, suspicious appearing nevi or other concerning lesions. - Labs CBC & Chem 7: 11/02/20 07:10 10/31/20 07:56 Labs: Abnormal Lab Results - Last 24 Hours (Table) 11/02/20 Range/Units 07:10 WBC 12.1 H (3.8-10.6) k/uL MCHC 30.1 L (31.0-37.0) g/dL Neutrophils # 10.0 H (1.3-7.7) k/uL Microbiology - Last 24 Hours (Table) 11/01/20 12:30 Gram Stain - Preliminary Bronchoalviolar Lavage - Left Bronchial Washings Culture - Preliminary Assessment and Plan Plan: 1. Left upper lobe mass measuring 11 x 8 cm in size encasement left upper lobe bronchus and causing some narrowing in addition to a small left-sided pleural effusion. Consider underlying primary bronchogenic carcinoma. There is also a smaller nodule in the right lower lobe. The patient also has a small left-sided pleural effusion probably related to the left upper lobe mass. Consistent with ELIGIBILITY MANAGER metastases. Bronchoscopy was done and awaiting final pathologic report. The patient is currently on Decadron. 2 syncope, unexplained, consider ELIGIBILITY MANAGER metastases,, CAT scan of the brain noted 3 generalized weakness 4 chronic atrial fibrillation maintained on Eliquis on outpatient basis which will be based on hold for now 5 obstructive sleep apnea maintained on CPAP therapy on outpatient basis 6 COPD 7 chronic back pain maintained on Seltzer 8 Obesity 9 60 py smoking Plan Bronchoscopy Keep the patient off Eliquis for now left-sided pleural effusion is small. No plans for thoracentesis at this point in time Continue Decadron Radiation oncology and medical oncology consultation has been done. The patient will be starting radiation therapy to his brain by Wednesday. The patient can be discharged home today as long as the other specialists are in agreement including radiation oncology and medical oncology. He'll be maintaine d on Decadron for now. Will follow the patient in the office regarding the results.
[2020-11-02 12:53] LABS: African American GFR (CKD) 108.5 (60.0-200.0); Albumin 3.7 g/dL (3.80-4.90); Albumin/Globulin Ratio 1.85 (1.60-3.17); Anion Gap 7.3 mmol/L (4.00-12.00); Calcium 9.4 mg/dL (8.7-10.3); Carbon Dioxide 31.7 mmol/L (21.6-31.8); Non-African American GFR(CKD) 93.6 (60.0-200.0); Potassium 4.6 mmol/L (3.5-5.5); Total Bilirubin 0.3 mg/dL (0.2-1.2); Total Protein 5.7 g/dL (6.2-8.2)
[2020-11-02 14:09] VITALS: BP 107/74; PULSE 113; RESP 19; TEMP 97.4
--- NOTE | 2020-11-02 15:47 | P.PN ---
Subjective Progress Note Date: 11/02/20 Principal diagnosis: Lung mass with Metastatic disease We have reviewed images with neurosurgery, Dr. Yariel Henry. And at this time he feels that transfer will only delay adjuvant therapies, he will follow along with us as outpatient given serial brain images show any concerns for increased pressure. We will set up outpatient follow-up with Dr. Henry as well. Patient has been cleared by pulmonary and radiation oncology to be discharged today and follow-up Wednesday with radiation oncology to initiate radiotherapy. Objective - Vital Signs Vital signs: Vital Signs Temp 97.4 F L 11/02/20 14:00 Pulse 113 H 11/02/20 14:00 Resp 19 11/02/20 14:00 BP 107/74 11/02/20 14:00 Pulse Ox 91 L 11/02/20 14:00 Intake & Output 11/01/20 11/02/20 11/02/20 18:59 06:59 18:59 Intake Total 1700 1200 Output Total 300 400 Balance 1400 800 Weight 131.4 kg Intake: IV 600 Intake, IV Titration 1200 Amount Sodium Chloride 0.9% 1, 1200 000 ml @ 100 mls/hr IV . Q10H LION Rx#:[id number] Oral 1100 Output: Urine 300 400 Other: Voiding Method Toilet Urinal # Voids 3 3 # Bowel Movements 0 - Constitutional General appearance: Present: cooperative, obese - EENT Eyes: Present: EOMI, PERRLA ENT: Present: hard of hearing, NA/AT, normal oropharynx - Neck Neck: Present: normal ROM - Respiratory Respiratory: right: wheezing - Cardiovascular Rhythm: irregularly irregular - Gastrointestinal General gastrointestinal: Present: distended, normal bowel sounds, soft - Integumentary Integumentary: Present: pale - Neurologic Neurologic: Present: CNII-XII intact - Musculoskeletal Musculoskeletal: Present: gait normal, generalized weakness - Psychiatric Psychiatric: Present: A&O x's 3, appropriate affect, intact judgment & insight - Allied health notes Allied health notes reviewed: PT - Labs CBC & Chem 7: 11/02/20 07:10 11/02/20 07:10 Labs: Abnormal Lab Results - Last 24 Hours (Table) 11/02/20 11/02/20 Range/Units 07:10 07:10 WBC 12.1 H (3.8-10.6) k/uL MCHC 30.1 L (31.0-37.0) g/dL Neutrophils # 10.0 H (1.3-7.7) k/uL BUN/Creatinine Ratio 30.00 H (12.00-20.00) Ratio AST 53 H (14-35) U/L ALT 79 H (10-49) U/L Alkaline Phosphatase 152 H (41-126) U/L Total Protein 5.7 L (6.2-8.2) g/dL Albumin 3.70 L (3.80-4.90) g/dL Microbiology - Last 24 Hours (Table) 11/01/20 12:30 Gram Stain - Preliminary Bronchoalviolar Lavage - Left Bronchial Washings Culture - Preliminary Assessment and Plan (1) Brain metastases Narrative/Plan: Status: Acute Code(s): C79.31 - SECONDARY MALIGNANT NEOPLASM OF BRAIN SNOMED Code(s): 88441999 (2) Lung mass Status: Acute Code(s): R91.8 - OTHER NONSPECIFIC ABNORMAL FINDING OF LUNG FIELD SNOMED Code(s): 696731897 (3) Atrial fibrillation Status: Acute Code(s): I48.91 - UNSPECIFIED ATRIAL FIBRILLATION SNOMED Code(s): 83576124 Plan: Assessment and Plan Brain metastases - Diffuse metastatic disease evident through brain, edema minimal. - There is question of left ventricular hydrocephalus when images further reviewed by neurology, therefore neurosurgery evaluation has been requested. I have discussed case personally with Dr. Yariel Henry (Neurosurgery at [facility]), we reviewed images together as well and at this time he does not feel transfer is needed, as it will delay adjuvant therapy. He will follow along as outpatient given the risk of increased pressures as radiation starts, recommending to remain on dexamethasone and anti-epileptics. - Patient's daughter lives close to [facility] and if transferred is needed this is their preferred hospital. Lung mass, possible liver and bone lesions - Suspicious for underlying pulmonary cancer with metastatic disease to brain, liver, and probable bones Atrial fibrillation - Patient has been on eliquis, however at this time on hold secondary to diffuse brain masses - Continues on Beta leah - Patient and family fully aware of risks of being off or on Eliquis with the extensive presentation of brain mets Plan: Recommend walking pulse ox read for home oxygen and to obtain prior to discharge Review of CT scan and Bone scan with patient and family Review of MRI brain with Neuro-surgery - hold off on tertiary transfer at this time Patient will follow up with Dr. Henry next week with Telemedicine visit. All questions answered Ok for discharge from oncology and neurosurgery standpoint, will follow-up wednesday with radiation oncology. Time with Patient: Greater than 30 (Counseling and cordinating care with other medical teams: Neurosurgery, radiation oncology and primary
--- NOTE | 2020-11-03 02:57 | P.DS ---
Providers Date of admission: 10/30/20 20:55 Attending physician: Danny Car MD Consults: 10/30/20 20:56 Consult Physician Routine Consulting Provider: Addy Wilson Consult Reason/Comments: lung mass Do you want consulting provider notified?: Yes Consult Physician Routine Consulting Provider: Benito Mcintosh Consult Reason/Comments: lung mass Do you want consulting provider notified?: Yes 10/31/20 09:59 Consult Physician Routine Consulting Provider: Jason Haddad Consult Reason/Comments: syncope Do you want consulting provider notified?: Yes Primary care physician: [facility] Course: Diagnoses Left upper lobe lung mass with lymphadenopathy, suspicious for tumor. Associated with left pleural effusion. Status post bronchoscopy and results of biopsy pending Hypodense liver lesion suspicious for metastatic disease multiple metastasis to the brain one of them is in the nirav and close to the third ventricle Syncope, on admission secondary to above Atrial fibrillation with mild RVR, currently rate is controlled. On Eliquis (on hold upon discharge and patient informed) Chronic systolic heart failure with ejection fraction 45-50% COPD, no acute exacerbation History of Gastroesophageal reflux disease Sleep apnea on CPAP/BiPAP Chronic back pain Nicotine dependence Hospital course: This is a pleasant 75 years old male with past medical history of COPD, GERD, sleep apnea on CPAP/BiPAP, chronic back pain. He presents because of syncope, on admission chest x-ray which showed left upper lung tumor,CT of the ch. est with contrast showing large left upper lobe mass with encasement of the left upper lobe bronchus and left bronchial adenopathy consistent with tumor. Left pleural effusion. Mild atelectasis in the left lower lobe adjacent to the pleural effusion. Hypo-dense liver lesions suspicious for metastatic disease CT of the brain showing multiple ring enhancing lesions compatible with metastasis including involvement of the nirav, left occipital lobe, and left thalamus. Brain MRI showing similar metastatic disease involving the left occipital lobe, right cerebellar hemisphere, troponins, thalamus and right frontal lobe . Because these lesions are very close to the third ventricle and what cause obstructive hydrocephalus neurologist recommended transfer the patient to a tertiary care center for neurosurgical evaluation however patient and both of them told me today they don't want to do at surgery the don't want to be transferred and actually wants to go home. Risk, benefits and alternatives are explained Pulmonary team did bronchoscopy for the patient with biopsy of the left upper lung mass is still pending, patient was instructed to follow up with pulmonary and oncology upon discharge for biopsy result and he agrees Oncology team were involved with the case, they recommended to keep the patient and not transfer him for neurosurgery evaluation, because placement of mesh once may delay his cancer treatment for about 3-4 weeks which is critical especially if it is turned out to be small cell lung cancer, or even if any other type of cancer Oncology team and Kinsey discussed the case with neurosurgeon home she knows that this Dr. Henry at [facility] and review the images with him, and has Kinsey told me he recommends not to hold his therapy, and he can follow-up as an outpatient with him in 1 week after he cut radiotherapy Dr. Sim from radiation oncology evaluated the patient and recommended radiotherapy for him As per Kinsey who was in contact with me, the neurosurgeon and the radiotherapist informed me that the patient has an appointment with Dr. Sim on this coming Wednesday however she will try to get him a sooner appointment on Wednesday, patient informed about this and he is aware of this appointment and he is willing to go on one stay or on Wednesday if sooner appointment obtained to get his therapy as instructed Patient had extensive discussion of the case and the plan with the patient, his and his daughter Miss stringer as well as Kinsey from oncology team who is going to follow-up with the patient and he'll be contacted with him and his family this coming Wednesday On the day of discharge patient was fully awake and oriented and he is asymptomatic, he denies headache, no weakness or numbness, no chest pain, no dyspnea, no abdominal pain, no change in urine or bowel habits. No fever. He was slightly tachycardic secondary to hypoxia, home oxygen evaluation is done and his oxygen saturation was dropping to 85% with exertion, prescription for home oxygen is provided to the bedside nurse Vickie prior to discharge and she is aware he will need oxygen on going home that she's going to call to make that arrangement neurologist start him on Keppra prophylactically for protection from seizure, also he was discharged on dexamethasone per recommendation Also per recommendation of the neurologist and oncology team and Kinsey, Eliquis should be kept on hold, patient informed and he agrees. Also he is aware of the risk of holding Eliquis (he states that he takes Eliquis a due to cardiac thrombosis) Problems and management plan were discussed with the patient and he verbalized understanding and acceptance Patient was found stable and can be discharged home however he needs follow-up as an outpatient. Patient was instructed to follow up with PCP within one week and patient agrees. Patient was instructed to follow up with Dr. Sim on this coming Wednesday and to call and confirm the time of appointment. On follow-up with Dr. Millan/Kinsey in one week course going to arrange for his follow-up with his neurosurgeon. Also patient was instructed to follow up with Dr. Wilson the pyrometer operator in 1-2 weeks and he agrees to call and make his appointments Gen: patient is a AAOx3, no distress CVS: S1-S2, RRR, no murmur Lungs: B/L CTA, no wheezing Abdomen: soft, no distention, no tenderness, positive bowel sounds Extremity: no leg edema or induration Time spent more than 35 minutes Patient Condition at Discharge: Fair Plan - Discharge Summary Discharge Rx Participant: Yes New Discharge Prescriptions: New dexAMETHasone [Hexadrol] 4 mg PO QID #120 tab levETIRAcetam [Keppra] 750 mg PO Q12HR #60 tab Continue Vitamin E (Dl,Tocopheryl Acet) [Vitamin E] 400 unit PO DAILY Multivitamins, Thera [Multivitamin (formulary)] 1 tab PO DAILY Fish Oil/Dha/Epa [Fish Oil 1,200 mg Fish Oil] 1 cap PO DAILY Potassium Chloride [Klor-Con 10] 10 meq PO BID Furosemide [Lasix] 40 mg PO BID HYDROcodone/APAP 10-325MG [[place] 10-325] 1 tab PO Q6H PRN PRN Reason: Pain Calcium Carbonate/Vitamin D3 [Calcium 600-Vit D3 200 Tablet] 1 tab PO QID lisinopriL [Prinivil] 5 mg PO DAILY Garlic 1 tab PO DAILY Aspirin [Adult Low Dose Aspirin EC] 81 mg PO DAILY Albuterol Sulfate [Ventolin HFA] 1 - 2 puff INHALATION RT-Q6H PRN PRN Reason: Shortness Of Breath Cholecalciferol [Vitamin D3 (25 Mcg = 1000 Iu)] 1,000 unit PO DAILY Metoprolol Succinate [Toprol XL] 100 mg PO DAILY Pantoprazole [Protonix] 40 mg PO DAILY #30 tab Discontinued Apixaban [Eliquis] 5 mg PO BID Discharge Medication List Fish Oil/Dha/Epa [Fish Oil 1,200 mg Fish Oil] 1 cap PO DAILY 03/05/15 [History] Furosemide [Lasix] 40 mg PO BID 03/05/15 [History] HYDROcodone/APAP 10-325MG [[place] 10-325] 1 tab PO Q6H PRN 03/05/15 [History] Multivitamins, Thera [Multivitamin (formulary)] 1 tab PO DAILY 03/05/15 [History] Potassium Chloride [Klor-Con 10] 10 meq PO BID 03/05/15 [History] Vitamin E (Dl,Tocopheryl Acet) [Vitamin E] 400 unit PO DAILY 03/05/15 [History] Calcium Carbonate/Vitamin D3 [Calcium 600-Vit D3 200 Tablet] 1 tab PO QID 05/11/18 [History] Garlic 1 tab PO DAILY 05/11/18 [History] lisinopriL [Prinivil] 5 mg PO DAILY 05/11/18 [History] Aspirin [Adult Low Dose Aspirin EC] 81 mg PO DAILY 12/30/18 [History] Albuterol Sulfate [Ventolin HFA] 1 - 2 puff INHALATION RT-Q6H PRN 10/30/20 [History] Cholecalciferol [Vitamin D3 (25 Mcg = 1000 Iu)] 1,000 unit PO DAILY 10/30/20 [History] Metoprolol Succinate [Toprol XL] 100 mg PO DAILY 10/30/20 [History] Pantoprazole [Protonix] 40 mg PO DAILY #30 tab 11/02/20 [Rx] dexAMETHasone [Hexadrol] 4 mg PO QID #120 tab 11/02/20 [Rx] levETIRAcetam [Keppra] 750 mg PO Q12HR #60 tab 11/02/20 [Rx] Follow up Appointment(s)/Referral(s): David Sim MD [STAFF PHYSICIAN] - 1 Week (follow up on this coming wednesday for radiotherapy evaluation As per Kinsey from oncology team, you have appointment on this coming Tuesday 11/06, please call to confirm appointment date and time or go at 8:00 in the morning (Oncology team will try to get a sooner appointment on this coming Wednesday)) Kermit Millan MD [STAFF PHYSICIAN] - 1 Week (with INTERNAL COMBUSTION ENGINE SUBASSEMBLER- Kinsey Falukner ) Guille Knapp DO [Primary Care Provider] - 1-2 days Addy Wilson MD [STAFF PHYSICIAN] - 2 Weeks Patient Instructions/Handouts: Lung Cancer (DC) Activity/Diet/Wound Care/Special Instructions: Resume previous diet Activity is restricted until you see your doctors Discharge Disposition: HOME SELF-CARE
[2020-11-03 14:32] LABS: Mononuclear WBC,Body Fluid 13 %; Polynuclear WBC,Body Fluid 87 %
--- NOTE | 2020-11-07 09:58 | CDI ---
Documentation Clarification Form Date: 11/07/2020 09:56:00 AM From: Malika Claudio Phone: Admit Date: 10/30/2020 08:55:00 PM Patient Name: Yariel Hancock Visit Number: [id number] Discharge Date: 11/02/2020 06:20:00 PM ATTENTION: The Clinical Documentation Specialists (CDI) and [facility] Coding Staff appreciate your assistance in clarifying documentation. Please respond to the clarification below the line at the bottom and electronically sign. The CDI & [facility] Coding staff will review the response and follow-up if needed. Please note: Queries are made part of the Legal Health Record. If you have any questions, please contact the author of this message via ITS. Dr. Danny Car, The final diagnosis of the pathology report states: LUNG, LEFT UPPER LOBE, TRANSBRONCHIAL BIOPSY: Small cell carcinoma. Documentation states: ROBERT mass Patient history/risk factors: COPD, GERD, sleep apnea, chronic back pain Clinical Indicators: He had an episode of syncope. He came into the emergency department.He was feeling weak. He was having some cough and and myalgias. Further investigation was done in the emergency for further with the patient a chest x-ray that showed a masslike opacity in the left suprahilar area. Treatment: Flexible bronchoscopy, left upper lobe endobronchial biopsy, and the bronchial brushings and the bronchioloalveolar lavage In your professional opinion, do you agree with the pathology report specifying left upper lobe of lung as small cell carcinoma? Yes No Other (please specify) Unable to determine TRANSBRONCHIAL BIOPSY: Small cell carcinoma pt and family were aware pt mostly had cancer and he has close follow up appointment with radiotherapy and oncology team ( i discussed the case with Kinsey, who was going to follow up with the pt and family , regarding his cancer therapy and regarding insurance coverage for his oxygen) i called daughter Ms Dyson at [phone] twice over 2 days after discharge who confirmed to me oxygen was available at bed side but insurance not covering it , per catalytic case operator pt need to document oxygen at rest and with excersize so insurance can cover it , Kinsey and Daughter Rosi informed and they were going to arrange for such documentation with [facility] and with her primary care doctor ) LIBRA
--- NOTE | 2020-11-18 09:53 | CDI ---
Documentation Clarification Form Date: 11/18/20 From: Malika Claudio Phone: If you have a question about this query, please contact Marily Price Sitecore Developer at [phone] between 8am and 5pm Admit Date: 10/30/2020 08:55:00 PM Patient Name: Yariel Hancock Visit Number: [id number] Discharge Date: 11/02/2020 06:20:00 PM ATTENTION: The Clinical Documentation Specialists (CDI) and [facility] Coding Staff appreciate your assistance in clarifying documentation. Please respond to the clarification below the line at the bottom and electronically sign. The CDI & [facility] Coding staff will review the response and follow-up if needed. Please note: Queries are made part of the Legal Health Record. If you have any questions, please contact the author of this message via ITS. Dr. Addy Wilson, Documentation in the Operative Report included: Flexible bronchoscopy, left upper lobe endobronchial biopsy, and the bronchial brushings and the bronchioloalveolar lavage. History/Risk factors: Left upper lobe lung mass with lymphadenopathy, suspicious for tumor Pre-Operative Diagnosis: ROBERT mass Postoperative Diagnosis: ROBERT mass Clinical Indicators: 11/01 PN states transbronchial biopsy of left upper lobe Treatment: Flexible bronchoscopy, left upper lobe endobronchial biopsy, and the bronchial brushings and the bronchioloalveolar lavage. In order to capture the severity of condition, please specify the following: Transbronchial biopsy of left upper lobe No transbronchial biopsy of left upper lobe Transbronchial biopsy of left upper lobe MTDD
== END 2020-11-02 18:20 | disposition home or self-care (01) | DRG 180 ==
LOC: EC 17:31 → 3SCARD 20:55 → 5NMEDONC 10-31 23:25
PROVIDERS: ADMIT Internal Medicine; ATTEND Internal Medicine
PROC: 0BDG8ZX Extraction of Left Upper Lung Lobe, Via Natural or Artificial Opening Endoscopic, Diagnostic (ICD-10-PCS; principal; 2020-11-01 12:00)
PROC: 0BD88ZX Extraction of Left Upper Lobe Bronchus, Via Natural or Artificial Opening Endoscopic, Diagnostic (ICD-10-PCS; principal; 2020-11-01 12:00)
PROC: 0B988ZX Drainage of Left Upper Lobe Bronchus, Via Natural or Artificial Opening Endoscopic, Diagnostic (ICD-10-PCS; principal; 2020-11-01 12:00)
DX: C34.12 Malignant neoplasm of upper lobe, left bronchus or lung (principal); G93.6 Cerebral edema; G91.1 Obstructive hydrocephalus; I48.20 Chronic atrial fibrillation, unspecified; I50.22 Chronic systolic (congestive) heart failure; C79.31 Secondary malignant neoplasm of brain; C78.7 Secondary malignant neoplasm of liver and intrahepatic bile duct; J98.11 Atelectasis; I11.0 Hypertensive heart disease with heart failure; R56.9 Unspecified convulsions; J44.9 Chronic obstructive pulmonary disease, unspecified; E66.01 Morbid (severe) obesity due to excess calories; Z20.828 Contact with and (suspected) exposure to other viral communicable diseases; G47.33 Obstructive sleep apnea (adult) (pediatric); R59.1 Generalized enlarged lymph nodes; K21.9 Gastro-esophageal reflux disease without esophagitis; G89.29 Other chronic pain; M54.5 Low back pain; M25.552 Pain in left hip; Z68.39 Body mass index [BMI] 39.0-39.9, adult; H91.90 Unspecified hearing loss, unspecified ear; F17.210 Nicotine dependence, cigarettes, uncomplicated; Z71.6 Tobacco abuse counseling; Z79.01 Long term (current) use of anticoagulants; Z79.82 Long term (current) use of aspirin; Z79.899 Other long term (current) drug therapy; Z87.39 Personal history of other diseases of the musculoskeletal system and connective tissue; Z87.2 Personal history of diseases of the skin and subcutaneous tissue; Z98.890 Other specified postprocedural states; Z82.49 Family history of ischemic heart disease and other diseases of the circulatory system
CPT/HCPCS: 31623; 31625; 31628; 36415; 70460; 70553; 71045; 71260; 74177; 76604; 78306; 80048; 80053; 83605; 83735; 83880; 84484; 85025; 85610; 85730; 86140; 87070; 87205; 87635; 88104; 88108; 88305; 88341; 88342; 89050; 93005; 94640; 95819; 99285

== ENCOUNTER 2020-11-30 15:14 | Inpatient (IN) | payer MEDICARE ==
--- NOTE | 2020-11-30 15:26 | ED ---
General Adult HPI - General Chief complaint: Shortness of Breath Stated complaint: BISI Time Seen by Provider: 11/30/20 15:16 Source: patient, EMS Mode of arrival: EMS Limitations: no limitations - History of Present Illness Initial comments: Patient presents the ED by ambulance for evaluation. Patient states that he has had increasing dyspnea over the past 2 days. Patient also states that he feels very weak today. Patient also states that he has been coughing up blood for the past few days. Patient was recently diagnosed with a lung tumor and metastatic disease with brain metastases. Patient states that he has undergone radiation therapy. Patient has a history of atrial fibrillation, and he was recently taken off of his Eliquis secondary to his metastatic disease. Patient admits to having left hip pain, which he states is chronic and unchanged. Patient denies having any other site of pain. Patient denies fever or chills, trauma or i njury, headache, focal numbness/weakness/neuro deficit, visual changes, neck/back pain, chest pain, palpitations, syncope, abdominal pain, nausea/vomiting/diarrhea, bloody or melanotic stool, dysuria or urinary symptoms, decreased urine output, leg or calf swelling or pain, or any other symptoms or complaints. - Related Data Home Medications Medication Instructions Recorded Confirmed Fish Oil/Dha/Epa [Fish Oil 1,200 1 cap PO DAILY 03/05/15 11/30/20 mg Fish Oil] Furosemide [Lasix] 40 mg PO BID 03/05/15 11/30/20 HYDROcodone/APAP 10-325MG [[place] 1 tab PO Q6H PRN 03/05/15 11/30/20 10-325] Multivitamins, Thera [Multivitamin 1 tab PO DAILY 03/05/15 11/30/20 (formulary)] Potassium Chloride [Klor-Con 10] 10 meq PO BID 03/05/15 11/30/20 Vitamin E (Dl,Tocopheryl Acet) 400 unit PO DAILY 03/05/15 11/30/20 [Vitamin E] Calcium Carbonate/Vitamin D3 1 tab PO QID 05/11/18 11/30/20 [Calcium 600-Vit D3 200 Tablet] Garlic 1 tab PO DAILY 05/11/18 11/30/20 lisinopriL [Prinivil] 5 mg PO DAILY 05/11/18 11/30/20 Aspirin [Adult Low Dose Aspirin EC] 81 mg PO DAILY 12/30/18 11/30/20 Albuterol Sulfate [Ventolin HFA] 1 - 2 puff INHALATION RT-Q6H PRN 10/30/20 11/30/20 Cholecalciferol [Vitamin D3 (25 1,000 unit PO DAILY 10/30/20 11/30/20 Mcg = 1000 Iu)] Metoprolol Succinate [Toprol XL] 100 mg PO DAILY 10/30/20 11/30/20 Acetaminophen Tab [Tylenol Tab] 1,000 mg PO Q6HR PRN 11/30/20 11/30/20 Fluticasone Nasal [place] [Flonase 1 spray EA NOSTRIL DAILY PRN 11/30/20 11/30/20 Nasal Silt] LORazepam [Ativan] 0.5 mg PO TID PRN 11/30/20 11/30/20 Nystatin 100,000 Unit/ml Susp 5 ml PO TID PRN 11/30/20 11/30/20 [Mycostatin Oral Susp] Ondansetron HCl [Zofran] 4 - 8 mg PO Q8H PRN 11/30/20 11/30/20 Sucralfate [Carafate] 1 gm PO ACHS 11/30/20 11/30/20 Previous Rx's Medication Instructions Recorded Pantoprazole [Protonix] 40 mg PO DAILY #30 tab 11/02/20 levETIRAcetam [Keppra] 750 mg PO Q12HR #60 tab 11/02/20 Allergies Allergy/AdvReac Type Severity Reaction Status Date / Time No Known Allergies Allergy Verified 10/30/20 21:41 Review of Systems ROS Statement: Those systems with pertinent positive or pertinent negative responses have been documented in the HPI. ROS Other: All systems not noted in ROS Statement are negative. Past Medical History Past Medical History: Cancer, COPD, GERD/Reflux, Musculoskeletal Disorder, Skin Disorder, Sleep Apnea/CPAP/BIPAP Additional Past Medical History / Comment(s): irregular heart rhythm,SOB,SWELLING IN [place]. ANKLES OFF & ON, SNORES ALOT. LOWER BACK PAIN,generalized sores on skin, cancer of the brain History of Any Multi-Drug Resistant Organisms: None Reported Past Surgical History: Orthopedic Surgery Additional Past Surgical History / Comment(s): ARTHROSCOPIC RT KNEE 2012 , CTR LEFT WRIST Past Anesthesia/Blood Transfusion Reactions: No Reported Reaction Past Psychological History: No Psychological Hx Reported Smoking Status: Former smoker Past Alcohol Use History: None Reported Past Drug Use History: None Reported - Past Family History Mother Family Medical History: Congestive Heart Failure (CHF) Father Family Medical History: Coronary Artery Disease (CAD) Additional Family Medical History / Comment(s): CABG Brother(s) Family Medical History: Coronary Artery Disease (CAD) Additional Family Medical History / Comment(s): CABG General Exam Limitations: no limitations General appearance: alert, in no apparent distress Head exam: Present: atraumatic, normocephalic Eye exam: Present: normal appearance, PERRL, EOMI ENT exam: Present: mucous membranes moist Neck exam: Present: other (Trachea is in midline). Absent: tenderness Respiratory exam: Present: normal lung sounds bilaterally. Absent: respiratory distress, wheezes, rales, rhonchi, stridor Cardiovascular Exam: Present: tachycardia, irregular rhythm, normal heart sounds, other (Normal radial pulses bilaterally) GI/Abdominal exam: Present: soft. Absent: tenderness, guarding Extremities exam: Present: other (Negative Homans sign bilaterally). Absent: tenderness, pedal edema, calf tenderness Neurological exam: Present: alert, oriented X3. Absent: motor sensory deficit Psychiatric exam: Present: anxious, other (Tearful) Skin exam: Present: warm, dry, intact, normal color Course Vital Signs 11/30/20 11/30/20 11/30/20 15:16 15:17 15:22 Temperature 98 F Pulse Rate 142 H Respiratory 20 20 Rate Blood Pressure 78/65 O2 Sat by Pulse 89 L 90 L Oximetry 11/30/20 11/30/20 11/30/20 15:30 15:42 16:00 Temperature Pulse Rate 124 H 99 130 H Respiratory 18 18 Rate Blood Pressure 75/49 93/43 90/57 O2 Sat by Pulse 95 96 Oximetry 11/30/20 11/30/20 11/30/20 16:18 16:30 16:36 Temperature Pulse Rate 120 H 67 101 H Respiratory 19 18 Rate Blood Pressure 95/58 95/58 110/65 O2 Sat by Pulse 94 L 95 Oximetry 11/30/20 11/30/20 17:00 17:30 Temperature Pulse Rate 100 106 H Respiratory 20 16 Rate Blood Pressure 97/62 104/61 O2 Sat by Pulse 99 97 Oximetry - Reevaluation(s) Reevaluation #1: 11/30/20 16:46 Patient remains in atrial fibrillation on the telemetry monitor, but his heart rate has now improved to the 90s - 100s. Patient's blood pressure has now improved as well. 11/30/20 17:13 Patient remains in atrial fibrillation the telemetry monitor, and his heart rate remains in the 90s to 100s. Patient remains alert and breathing comfortably. Patient denies development of any new symptoms while in the ED. Patient and are aware the patient's test results, and they both agree with hospital admission at this time. 11/30/20 17:52 Case, H&P, test results and ED management thus far were discussed with Dr. Chen. He accepts hospital admission. He asks to place consultations for cardiology, as well as for Dr. Amos of pulmonology. He has no further recommendations at this time. EKG Findings - EKG Comments: EKG Findings:: Atrial fibrillation with rapid ventricular response, ventricular rate of 127 bpm, normal QRS duration, normal QT interval, normal axis, no ST or T-wave abnormality Medical Decision Making - Medical Decision Making Patient is afebrile and without leukocytosis. Patient has a normal lactic acid level. Patient's chest x-ray shows improvement from prior. Patient's cardiac enzymes are negative. I suspect that the patient's symptoms are likely secondary to rapid atrial fibrillation. Patient's heart rate has improved with ED treatment, and his blood pressure has improved as well. Given the patient's metastatic disease, patient and have agreed with discontinuing the patient's anticoagulation despite his ongoing atrial fibrillation. Will admit the patient to the hospital for cardiac monitoring and further evaluation. - Lab Data Result diagrams: 11/30/20 15:37 11/30/20 15:37 Lab Results 11/30/20 11/30/20 11/30/20 Range/Units 15:37 15:37 15:37 WBC 5.9 (3.8-10.6) k/uL RBC 4.89 (4.30-5.90) m/uL Hgb 13.3 (13.0-17.5) gm/dL Hct 42.8 (39.0-53.0) % MCV 87.5 (80.0-100.0) fL MCH 27.1 (25.0-35.0) pg MCHC 31.0 (31.0-37.0) g/dL RDW 15.0 (11.5-15.5) % Plt Count 212 (150-450) k/uL MPV 7.3 Neutrophils % (Manual) 59 % Band Neuts % (Manual) 7 % Lymphocytes % (Manual) 19 % Monocytes % (Manual) 5 % Eosinophils % (Manual) 1 % Metamyelocytes % 8 % Myelocytes % 3 % Neutrophils # (Manual) 3.80 (1.3-7.7) k/uL Lymphocytes # (Manual) 1.12 (1.0-4.8) k/uL Monocytes # (Manual) 0.30 (0-1.0) k/uL Eosinophils # (Manual) 0.06 (0-0.7) k/uL Metamyelocytes # (Man) 0.47 H (0) k/uL Myelocytes # (Manual) 0.18 H (0) k/uL Nucleated RBCs 0 (0-0) /100 WBC Manual Slide Review Performed Hypochromasia Slight PT (9.0-12.0) sec INR (<1.2) APTT (22.0-30.0) sec Sodium 138 (137-145) mmol/L Potassium 4.0 (3.5-5.1) mmol/L Chloride 97 L (98-107) mmol/L Carbon Dioxide 39 H (22-30) mmol/L Anion Gap 2 mmol/L BUN 23 H (9-20) mg/dL Creatinine 0.86 (0.66-1.25) mg/dL Est GFR (CKD-EPI)AfAm >90 (>60 ml/min/1.73 sqM) Est GFR (CKD-EPI)NonAf 86 (>60 ml/min/1.73 sqM) Glucose 121 H (74-99) mg/dL Plasma Lactic Acid Vahe 1.0 (0.7-2.0) mmol/L Calcium 8.9 (8.4-10.2) mg/dL Magnesium 1.9 (1.6-2.3) mg/dL Total Bilirubin 0.4 (0.2-1.3) mg/dL AST 26 (17-59) U/L ALT 40 (4-49) U/L Alkaline Phosphatase 282 H (38-126) U/L Troponin I (0.000-0.034) ng/mL NT-Pro-B Natriuret Pep pg/mL Total Protein 5.7 L (6.3-8.2) g/dL Albumin 3.2 L (3.5-5.0) g/dL Coronavirus (PCR) (Not Detectd) 11/30/20 11/30/20 11/30/20 Range/Units 15:37 15:37 15:44 WBC (3.8-10.6) k/uL RBC (4.30-5.90) m/uL Hgb (13.0-17.5) gm/dL Hct (39.0-53.0) % MCV (80.0-100.0) fL MCH (25.0-35.0) pg MCHC (31.0-37.0) g/dL RDW (11.5-15.5) % Plt Count (150-450) k/uL MPV Neutrophils % (Manual) % Band Neuts % (Manual) % Lymphocytes % (Manual) % Monocytes % (Manual) % Eosinophils % (Manual) % Metamyelocytes % % Myelocytes % % Neutrophils # (Manual) (1.3-7.7) k/uL Lymphocytes # (Manual) (1.0-4.8) k/uL Monocytes # (Manual) (0-1.0) k/uL Eosinophils # (Manual) (0-0.7) k/uL Metamyelocytes # (Man) (0) k/uL Myelocytes # (Manual) (0) k/uL Nucleated RBCs (0-0) /100 WBC Manual Slide Review Hypochromasia PT (9.0-12.0) sec INR (<1.2) APTT (22.0-30.0) sec Sodium (137-145) mmol/L Potassium (3.5-5.1) mmol/L Chloride (98-107) mmol/L Carbon Dioxide (22-30) mmol/L Anion Gap mmol/L BUN (9-20) mg/dL Creatinine (0.66-1.25) mg/dL Est GFR (CKD-EPI)AfAm (>60 ml/min/1.73 sqM) Est GFR (CKD-EPI)NonAf (>60 ml/min/1.73 sqM) Glucose (74-99) mg/dL Plasma Lactic Acid [place] (0.7-2.0) mmol/L Calcium (8.4-10.2) mg/dL Magnesium (1.6-2.3) mg/dL Total Bilirubin (0.2-1.3) mg/dL AST (17-59) U/L ALT (4-49) U/L Alkaline Phosphatase (38-126) U/L Troponin I <0.012 (0.000-0.034) ng/mL NT-Pro-B Natriuret Pep 369 pg/mL Total Protein (6.3-8.2) g/dL Albumin (3.5-5.0) g/dL Coronavirus (PCR) Not Detected (Not Detectd) 11/30/20 Range/Units 15:58 WBC (3.8-10.6) k/uL RBC (4.30-5.90) m/uL Hgb (13.0-17.5) gm/dL Hct (39.0-53.0) % MCV (80.0-100.0) fL MCH (25.0-35.0) pg MCHC (31.0-37.0) g/dL RDW (11.5-15.5) % Plt Count (150-450) k/uL MPV Neutrophils % (Manual) % Band Neuts % (Manual) % Lymphocytes % (Manual) % Monocytes % (Manual) % Eosinophils % (Manual) % Metamyelocytes % % Myelocytes % % Neutrophils # (Manual) (1.3-7.7) k/uL Lymphocytes # (Manual) (1.0-4.8) k/uL Monocytes # (Manual) (0-1.0) k/uL Eosinophils # (Manual) (0-0.7) k/uL Metamyelocytes # (Man) (0) k/uL Myelocytes # (Manual) (0) k/uL Nucleated RBCs (0-0) /100 WBC Manual Slide Review Hypochromasia PT 10.2 (9.0-12.0) sec INR 0.9 (<1.2) APTT 21.0 L (22.0-30.0) sec Sodium (137-145) mmol/L Potassium (3.5-5.1) mmol/L Chloride (98-107) mmol/L Carbon Dioxide (22-30) mmol/L Anion Gap mmol/L BUN (9-20) mg/dL Creatinine (0.66-1.25) mg/dL Est GFR (CKD-EPI)AfAm (>60 ml/min/1.73 sqM) Est GFR (CKD-EPI)NonAf (>60 ml/min/1.73 sqM) Glucose (74-99) mg/dL Plasma Lactic Acid [place]he (0.7-2.0) mmol/L Calcium (8.4-10.2) mg/dL Magnesium (1.6-2.3) mg/dL Total Bilirubin (0.2-1.3) mg/dL AST (17-59) U/L ALT (4-49) U/L Alkaline Phosphatase (38-126) U/L Troponin I (0.000-0.034) ng/mL NT-Pro-B Natriuret Pep pg/mL Total Protein (6.3-8.2) g/dL Albumin (3.5-5.0) g/dL Coronavirus (PCR) (Not Detectd) - Radiology Data Radiology results: report reviewed (Chest x-ray shows pulmonary fibrotic changes and cardiomegaly, left-sided perihilar infiltrate and consolidation have improved compared to last exam) Disposition Clinical Impression: Atrial fibrillation with rapid ventricular response, Dyspnea Disposition: ADMITTED IP TO THIS HOSP Condition: Stable Is patient prescribed a controlled substance at d/c from ED?: No Referrals: Guille Knapp DO [Primary Care Provider] - 1-2 days Time of Disposition: 17:53
[2020-11-30] MEDS ORDERED: SODIUM CHLORIDE 0.9% 500 ML 500 ML IV STA (15:30)
[2020-11-30] MEDS ORDERED: DILTIAZEM 5 MG/ML 5 ML VIAL IVP STA ×2 (15:34→16:20)
[2020-11-30 16:02] LABS: ALT 40 U/L (4-49); AST 26 U/L (17-59); African American GFR (CKD) >90 (>60 ml/min/1.73 sqM); Albumin 3.2 g/dL (3.5-5.0); Alkaline Phosphatase 282 U/L (38-126); Anion Gap 2 mmol/L; Blood Urea Nitrogen 23 mg/dL (9-20); Calcium 8.9 mg/dL (8.4-10.2); Carbon Dioxide 39 mmol/L (22-30); Chloride 97 mmol/L (98-107); Glucose 121 mg/dL (74-99); Magnesium 1.9 mg/dL (1.6-2.3); Non-African American GFR(CKD) 86 (>60 ml/min/1.73 sqM); Sodium 138 mmol/L (137-145); Total Bilirubin 0.4 mg/dL (0.2-1.3); Total Protein 5.7 g/dL (6.3-8.2)
[2020-11-30 16:09] LABS: HCT 42.8 % (39.0-53.0); HGB 13.3 gm/dL (13.0-17.5); Hypochromasia Slight; MCH 27.1 pg (25.0-35.0); MCV 87.5 fL (80.0-100.0); Mean Platelet Volume 7.3; Platelet Count 212 k/uL (150-450); RBC 4.89 m/uL (4.30-5.90); WBC 5.9 k/uL (3.8-10.6)
--- NOTE | 2020-11-30 16:16 | XR ---
EXAMINATION TYPE: XR chest 1V portable DATE OF EXAM: 11/30/2020 COMPARISON: 10/30/2020 HISTORY: Short of breath. TECHNIQUE: Theresa view FINDINGS: Heart is enlarged. There is some infiltrate and atelectasis around the left pulmonary hilum . This is improved compared to old exam. There is no gross heart failure. There is coarsening of the interstitial markings. There are chest leads. IMPRESSION: Pulmonary fibrotic changes. Cardiomegaly. Left side perihilar infiltrate and consolidatio n improved compared to last exam.
[2020-11-30 16:24] LABS: INR 0.9 (<1.2); Prothrombin Time 10.2 sec (9.0-12.0)
[2020-11-30 16:37] LABS: Band Neutrophils % 7 %; Eosinophils # (M) 0.06 k/uL (0-0.7); Lymphocytes # (M) 1.12 k/uL (1.0-4.8); Metamyelocytes # (M) 0.47 k/uL (0); Metamyelocytes % 8 %; Myelocytes # (M) 0.18 k/uL (0); Myelocytes % 3 %; Neutrophils % (M) 59 %; Nucleated Red Blood Cells 0 /100 WBC (0-0); Total Cells Counted 200
[2020-11-30 18:22] LABS: Appearance,Urine Clear (Clear); Bilirubin,Urine Negative (Negative); Blood,Urine Negative (Negative); Color,Urine Yellow; Glucose,Urine (UA) Negative (Negative); Ketones,Urine Negative (Negative); Leukocyte Esterase,Urine Negative (Negative); Nitrite,Urine Negative (Negative); PH, Urine 7.5 (5.0-8.0); Protein,Urine Negative (Negative); Specific Gravity,Urine 1.012 (1.001-1.035); Urobilinogen,Urine <2.0 mg/dL (<2.0)
[2020-11-30] MEDS ORDERED: ACETAMINOPHEN TAB 500 MG TAB PO PRN (20:42)
[2020-11-30] MEDS: DILTIAZEM 125 MG in SODIUM CHLORIDE 0.9% 100 ML IV SCH (21:21)
[2020-11-30] MEDS: POTASSIUM CHLORIDE ER 10 MEQ TAB.ER.PRT PO SCH (21:31)
[2020-11-30] MEDS: CALCIUM CARB-VIT D 500 MG-5 MCG TAB PO SCH (21:31)
[2020-11-30] MEDS: HYDROcodone/APAP 10-325MG 1 EACH TAB PO PRN (21:32)
[2020-11-30] MEDS: SUCRALFATE 1 GM TAB PO SCH (21:32)
[2020-11-30] MEDS ORDERED: ALBUTEROL NEBULIZED 2.5 MG/3 ML INHALATION PRN (22:00)
[2020-11-30] MEDS ORDERED: ONDANSETRON 4 MG TAB PO PRN (22:00)
[2020-11-30] MEDS: LORazepam 0.5 MG TAB PO PRN (23:42)
[2020-12-01] MEDS: HYDROcodone/APAP 10-325MG 1 EACH TAB PO PRN ×4 (03:28→21:32)
[2020-12-01] MEDS: LORazepam 0.5 MG TAB PO PRN ×2 (05:41→16:16)
[2020-12-01] MEDS: SUCRALFATE 1 GM TAB PO SCH ×4 (06:38→21:09)
[2020-12-01 07:40] LABS: ALT 37 U/L (4-49); African American GFR (CKD) >90 (>60 ml/min/1.73 sqM); Albumin 2.9 g/dL (3.5-5.0); Anion Gap -1 mmol/L; Blood Urea Nitrogen 16 mg/dL (9-20); Calcium 8.6 mg/dL (8.4-10.2); Carbon Dioxide 36 mmol/L (22-30); Chloride 101 mmol/L (98-107); Glucose 112 mg/dL (74-99); Non-African American GFR(CKD) >90 (>60 ml/min/1.73 sqM); Sodium 136 mmol/L (137-145); Total Bilirubin 0.5 mg/dL (0.2-1.3); Total Protein 5.5 g/dL (6.3-8.2)
[2020-12-01 07:48] LABS: HCT 40.2 % (39.0-53.0); HGB 12.7 gm/dL (13.0-17.5); Hypochromasia Slight; MCH 27.6 pg (25.0-35.0); MCHC 31.6 g/dL (31.0-37.0); MCV 87.5 fL (80.0-100.0); Mean Platelet Volume 7.1; Platelet Count 194 k/uL (150-450); RBC 4.59 m/uL (4.30-5.90)
[2020-12-01 08:00] LABS: AST 30 U/L (17-59); Alkaline Phosphatase 264 U/L (38-126); Potassium 4.5 mmol/L (3.5-5.1)
[2020-12-01] MEDS: METOPROLOL SUCCINATE (ER) 100 MG TAB.ER.24H PO SCH (08:56)
[2020-12-01] MEDS: DILTIAZEM 125 MG in SODIUM CHLORIDE 0.9% 100 ML IV SCH ×2 (08:57→19:08)
[2020-12-01] MEDS ORDERED: NON FORMULARY DRUG (Garlic [Garlic] 1 EACH Tablet) PO SCH (09:00)
[2020-12-01] MEDS ORDERED: FLUTICASONE 50MCG/SPRAY NASAL 16GM EA NOSTRIL PRN (09:00)
[2020-12-01] MEDS ORDERED: NON FORMULARY DRUG (Fish Oil/Dha/Epa [Fish Oil 1,200 Mg Fish Oil] 1 EACH Capsule) PO SCH (09:00)
--- NOTE | 2020-12-01 09:02 | CT ---
EXAMINATION TYPE: CT angio chest DATE OF EXAM: 12/01/2020 8:49 AM COMPARISON: 10/30/2020 HISTORY: SOB CT DLP: 840.8 mGycm Automated exposure control for dose reduction was used. CONTRAST: CTA scan of the thorax is performed with IV Contrast, patient injected with 69 mL of Isovue 370, pulm onary embolism protocol. . FINDINGS: LUNGS: There is multilobulated 11 x 8 cm mass in the anterior aspect left upper lobe. This involves t he left pulmonary hilum and anterior mediastinum. There is narrowing of the left upper lobe bronchus. There is encasement of the left upper lobe bronchus. There is small left pleural effusion. MEDIASTINUM: There is satisfactory enhancement of the pulmonary artery and its branches, there is no CT evidence for pulmonary embolism. There are no greater than 1 cm hilar or mediastinal lymph nodes. Tiny pericardial effusion is seen. The heart is enlarged. OTHER: There is multiple chronic appearing rib deformities. Hypertrophic and degenerative changes sp ine.. IMPRESSION: 1. Large left upper lobe mass with encasement of the left upper lobe bronchus and left bronchial lionel opathy consistent with tumor. There are 2 small left pleural effusion. 3. No diagnostic evidence of pulmonary embolism 4. Previously described hepatic lesions are not included in the [id number] on today's exam.
[2020-12-01 10:03] LABS: Band Neutrophils % 7 %; Basophils # (M) 0.06 k/uL (0-0.2); Lymphocytes # (M) 0.96 k/uL (1.0-4.8); Metamyelocytes # (M) 0.12 k/uL (0); Metamyelocytes % 2 %; Monocytes # (M) 0.18 k/uL (0-1.0); Myelocytes # (M) 0.24 k/uL (0); Myelocytes % 4 %; Neutrophils % (M) 69 %; Nucleated Red Blood Cells 0 /100 WBC (0-0); Total Cells Counted 200
[2020-12-01 10:04] LABS: Poikilocytosis (M) Present
[2020-12-01] MEDS ORDERED: MORPHINE SULFATE 4 MG/ML SYRINGE IVP PRN (10:28)
[2020-12-01] MEDS: IPRATROPIUM-ALBUTEROL 3 ML NEB INHALATION SCH ×3 (11:01→19:24)
--- NOTE | 2020-12-01 11:07 | P.HPIM ---
History of Present Illness Patient came in with complaints palpitations or shortness of breath and chest pressure like sensation. Patient states that he has had increasing dyspnea over the past 2 days. Patient also states that he feels very weak today. Patient also states that he has been coughing up blood for the past few days. Patient was recently diagnosed with a lung tumor and metastatic disease with brain metastases. Patient states that he has undergone radiation therapy. Patient has a history of atrial fibrillation, and he was recently taken off of his Eliquis secondary to his metastatic disease. Patient admits to having left hip pain, which he states is chronic and unchanged. Patient denies having any other site of pain. Patient denies fever or chills, trauma or injury, headache, focal numbness/weakness/neuro deficit, visual changes, neck/back pain, chest pain, palpitations, syncope, abdominal pain, nausea/vomiting/diarrhea, bloody or melanotic stool, dysuria or urinary symptoms, decreased urine output, leg or calf swelling or pain, or any other symptoms or complaints. Patient had a mildly decreased EF of around 45%. Patient is presently on Cardizem patient with heart rate came down from 140s to 106 patient continues to be in atrial fibrillation will be evaluated by cardiology. Patient is presently not in heart failure exacerbation of COPD exacerbation patient is presently insisting steroids as well on an oral Lasix at this time. Review of Systems REVIEW OF SYSTEMS: CONSTITUTIONAL: No fever, no malaise, no fatigue. HEENT: No recent visual problems or hearing problems. Denied any sore throat. CARDIOVASCULAR: no syncope. PULMONARY: no cough, no hemoptysis. GASTROINTESTINAL: No diarrhea, no nausea, no vomiting, no abdominal pain. NEUROLOGICAL: No headaches, no weakness, no numbness. HEMATOLOGICAL: Denies any bleeding or petechiae. GENITOURINARY: Denies any burning micturition, frequency, or urgency. MUSCULOSKELETAL/RHEUMATOLOGICAL: Denies any joint pain, swelling, or any muscle pain. ENDOCRINE: Denies any polyuria or polydipsia. The rest of the 14-point review of systems is negative. Past Medical History Past Medical History: Cancer, COPD, GERD/Reflux, Musculoskeletal Disorder, Skin Disorder, Sleep Apnea/CPAP/BIPAP Additional Past Medical History / Comment(s): irregular heart rhythm,SOB,SWEL LING IN [place]. ANKLES OFF & ON, SNORES ALOT. LOWER BACK PAIN,generalized sores on skin, cancer of the brain History of Any Multi-Drug Resistant Organisms: None Reported Past Surgical History: Orthopedic Surgery Additional Past Surgical History / Comment(s): ARTHROSCOPIC RT KNEE 2013 , CTR LEFT WRIST Past Anesthesia/Blood Transfusion Reactions: No Reported Reaction Past Psychological History: No Psychological Hx Reported Smoking Status: Former smoker Past Alcohol Use History: None Reported Additional Past Alcohol Use History / Comment(s): SMOKER SINCE AGE 17(1962)- Past Drug Use History: None Reported - Past Family History Mother Family Medical History: Congestive Heart Failure (CHF) Father Family Medical History: Coronary Artery Disease (CAD) Additional Family Medical History / Comment(s): CABG Brother(s) Family Medical History: Coronary Artery Disease (CAD) Additional Family Medical History / Comment(s): CABG Medications and Allergies Home Medications Medication Instructions Recorded Confirmed Type Fish Oil/Dha/Epa [Fish Oil 1,200 1 cap PO DAILY 03/05/15 11/30/20 History mg Fish Oil] Furosemide [Lasix] 40 mg PO BID 03/05/15 11/30/20 History HYDROcodone/APAP 10-325MG [[place] 1 tab PO Q6H PRN 03/05/15 11/30/20 History 10-325] Multivitamins, Thera [Multivitamin 1 tab PO DAILY 03/05/15 11/30/20 History (formulary)] Potassium Chloride [Klor-Con 10] 10 meq PO BID 03/05/15 11/30/20 History Vitamin E (Dl,Tocopheryl Acet) 400 unit PO DAILY 03/05/15 11/30/20 History [Vitamin E] Calcium Carbonate/Vitamin D3 1 tab PO QID 05/11/18 11/30/20 History [Calcium 600-Vit D3 200 Tablet] Garlic 1 tab PO DAILY 05/11/18 11/30/20 History lisinopriL [Prinivil] 5 mg PO DAILY 05/11/18 11/30/20 History Aspirin [Adult Low Dose Aspirin EC] 81 mg PO DAILY 12/30/18 11/30/20 History Albuterol Sulfate [Ventolin HFA] 1 - 2 puff INHALATION RT-Q6H PRN 10/30/20 11/30/20 History Cholecalciferol [Vitamin D3 (25 1,000 unit PO DAILY 10/30/20 11/30/20 History Mcg = 1000 Iu)] Metoprolol Succinate [Toprol XL] 100 mg PO DAILY 10/30/20 11/30/20 History Pantoprazole [Protonix] 40 mg PO DAILY #30 tab 11/02/20 11/30/20 Rx levETIRAcetam [Keppra] 750 mg PO Q12HR #60 tab 11/02/20 11/30/20 Rx Acetaminophen Tab [Tylenol Tab] 1,000 mg PO Q6HR PRN 11/30/20 11/30/20 History Fluticasone Nasal [place] [Flonase 1 spray EA NOSTRIL DAILY PRN 11/30/20 11/30/20 History Nasal [place]] LORazepam [Ativan] 0.5 mg PO TID PRN 11/30/20 11/30/20 History Nystatin 100,000 Unit/ml Susp 5 ml PO TID PRN 11/30/20 11/30/20 History [Mycostatin Oral Susp] Ondansetron HCl [Zofran] 4 - 8 mg PO Q8H PRN 11/30/20 11/30/20 History Sucralfate [Carafate] 1 gm PO ACHS 11/30/20 11/30/20 History Allergies Allergy/AdvReac Type Severity Reaction Status Date / Time No Known Allergies Allergy Verified 10/30/20 21:41 Physical Exam Vitals: Vital Signs Temp Pulse Pulse Resp BP BP BP 12/01/20 09:00 121 H 22 12/01/20 07:56 98.2 F 121 H 22 117/73 12/01/20 04:15 98.3 F 105 H 24 113/70 12/01/20 03:46 106/79 11/30/20 21:36 97.5 F L 151 H 30 H 110/72 11/30/20 19:01 97.8 F 103 H 16 114/67 11/30/20 18:36 98 F 116 H 16 96/62 11/30/20 17:30 106 H 16 104/61 11/30/20 17:00 100 20 97/62 11/30/20 16:36 101 H 18 110/65 11/30/20 16:30 67 19 95/58 11/30/20 16:18 120 H 95/58 11/30/20 16:00 130 H 18 90/57 11/30/20 15:42 99 93/43 11/30/20 15:30 124 H 18 75/49 11/30/20 15:22 20 11/30/20 15:17 11/30/20 15:16 98 F 142 H 20 78/65 Pulse Ox 12/01/20 09:00 12/01/20 07:56 93 L 12/01/20 04:15 96 12/01/20 03:46 11/30/20 21:36 95 11/30/20 19:01 96 11/30/20 18:36 97 11/30/20 17:30 97 11/30/20 17:00 99 11/30/20 16:36 95 11/30/20 16:30 94 L 11/30/20 16:18 11/30/20 16:00 96 11/30/20 15:42 11/30/20 15:30 95 11/30/20 15:22 11/30/20 15:17 90 L 11/30/20 15:16 89 L Intake and Output 11/30/20 12/01/20 12/01/20 22:59 06:59 14:59 Intake Total 116 Balance 116 Intake: Intake, IV Titration 116 Amount Diltiazem 125 mg In 116 Sodium Chloride 0.9% 100 ml @ 10 MG/HR 10 mls/hr IV .[id number] [facility] Rx#: [id number] Other: Voiding Method Toilet Toilet Toilet # Voids 2 1 Weight 129.274 kg PHYSICAL EXAMINATION: GENERAL: The patient is alert and oriented x3, not in any acute distress. Obese HEENT: Pupils are round and equally reacting to light. EOMI. No scleral icterus. No conjunctival pallor. Normocephalic, atraumatic. No pharyngeal erythema. No thyromegaly. CARDIOVASCULAR: S1 and S2 present. No murmurs, rubs, or gallops. Tachycardic irregularly irregular rhythm PULMONARY: Chest is clear to auscultation, no wheezing or crackles. ABDOMEN: Soft, nontender, nondistended, normoactive bowel sounds. No palpable organomegaly. MUSCULOSKELETAL: No joint swelling or deformity. EXTREMITIES: No cyanosis, clubbing, or pedal edema. NEUROLOGICAL: Gross neurological examination did not reveal any focal deficits. SKIN: No rashes. Results CBC & Chem 7: 12/01/20 07:08 12/01/20 07:08 Labs: Abnormal Lab Results - Last 24 Hours (Table) 11/30/20 11/30/20 11/30/20 Range/Units 15:37 15:37 15:58 Hgb (13.0-17.5) gm/dL Lymphocytes # (Manual) (1.0-4.8) k/uL Metamyelocytes # (Man) 0.47 H (0) k/uL Myelocytes # (Manual) 0.18 H (0) k/uL APTT 21.0 L (22.0-30.0) sec Sodium (137-145) mmol/L Chloride 97 L (98-107) mmol/L Carbon Dioxide 39 H (22-30) mmol/L BUN 23 H (9-20) mg/dL Creatinine (0.66-1.25) mg/dL Glucose 121 H (74-99) mg/dL Alkaline Phosphatase 282 H (38-126) U/L Total Protein 5.7 L (6.3-8.2) g/dL Albumin 3.2 L (3.5-5.0) g/dL 12/01/20 12/01/20 Range/Units 07:08 07:08 Hgb 12.7 L (13.0-17.5) gm/dL Lymphocytes # (Manual) 0.96 L (1.0-4.8) k/uL Metamyelocytes # (Man) 0.12 H (0) k/uL Myelocytes # (Manual) 0.24 H (0) k/uL APTT (22.0-30.0) sec Sodium 136 L (137-145) mmol/L Chloride (98-107) mmol/L Carbon Dioxide 36 H (22-30) mmol/L BUN (9-20) mg/dL Creatinine 0.54 L (0.66-1.25) mg/dL Glucose 112 H (74-99) mg/dL Alkaline Phosphatase 264 H (38-126) U/L Total Protein 5.5 L (6.3-8.2) g/dL Albumin 2.9 L (3.5-5.0) g/dL Thrombosis Risk Factor Assmnt - Choose All That Apply Each Factor Represents 1 point: Obesity (BMI >25) Each Risk Factor Represents 2 Points: Age 61-74 years Thrombosis Risk Factor Assessment Total Risk Factor Score: 3 Thrombosis Risk Factor Assessment Level: Moderate Risk Assessment and Plan Plan: -Atrial fibrillation with rapid ventricular rate: Patient is a is on Cardizem, cardiology will evaluate the patient further management as per them patient is off Eliquis because of brain metastases and the concern for bleeding into the metastases. If diarrhea not using any anticoagulation patient was started on DVT prophylaxis. -Shortness of breath due to atrial fibrillation and 10-COPD without any acute exacerbation -Congestive heart failure chronic systolic dysfunction EF of around 45-50% patient is presently euvolemic at this time -Metastatic lung cancer metastases to brain patient is undergoing every week therapy and radiation that. -Gastroesophageal of his disease next line-sleep apnea obesity uses CPAP machine which she will continue here -Chronic low back pain -Nicotine dependence -Hypertension patient is presently on the hypotensive side because of which I'll hold off on LAI inhibitor next and-mild acute renal failure: Hold off on LAI inhibitor as mentioned above although we'll continue with Lasix monitor kidney function today. -DVT prophylaxis with Lovenox
[2020-12-01] MEDS: CHOLECALCIFEROL 1,000 UNIT TAB PO SCH (11:18)
[2020-12-01] MEDS: ASPIRIN 81 MG PO SCH (11:18)
[2020-12-01] MEDS: VITAMIN E (DL,TOCOPHERYL ACET) 400 UNIT CAP PO SCH (11:18)
[2020-12-01] MEDS: CALCIUM CARB-VIT D 500 MG-5 MCG TAB PO SCH ×4 (11:19→21:09)
[2020-12-01] MEDS: methylPREDNISolone SOD SUCCI 40 MG/ML 1 ML VIAL IV SCH ×2 (11:19→21:10)
[2020-12-01] MEDS: MULTIVITAMINS, THERA 1 EACH TAB PO SCH (11:19)
[2020-12-01] MEDS: POTASSIUM CHLORIDE ER 10 MEQ TAB.ER.PRT PO SCH ×2 (11:19→21:09)
[2020-12-01] MEDS: ENOXAPARIN 40 MG/0.4 ML SYRINGE SQ SCH (11:19)
[2020-12-01] MEDS: FUROSEMIDE 40 MG TAB PO SCH ×2 (11:20→18:21)
[2020-12-01] MEDS: PANTOPRAZOLE 40 MG TABLET PO SCH (11:20)
[2020-12-01] MEDS: lisinopriL 5 MG TAB PO SCH (11:20)
--- NOTE | 2020-12-01 11:37 | P.CRDCN ---
History of Present Illness Consult date: 12/01/20 History of present illness: CHIEF COMPLAINT: A. xi with RVR HISTORY OF PRESENT ILLNESS: This is a 75-year-old male with a past medical history significant for atrial fibrillation, COPD, nicotine dependence, and GERD. Patient follows in the office with Dr. Langston. Patient was recently diagnosed with lung cancer with metastasis to the brain about 3 weeks ago. Patient states he has finished his course of radiation and is currently getting chemotherapy. We have been asked to see the patient in consultation for A. fib with RVR. Patient states he was taking Eliquis but Dr. Sim discontinued it due to his brain mets and risk for bleeding. Patient was started on a Cardizem drip in the emergency room. It is currently infusing at 10 mg an hour. Patient's heart rate currently in the 120s. Patient reports shortness of breath with frequent coughing. DIAGNOSTICS: EKG reveals atrial fibrillation with RVR Chest xray pulmonary fibrotic changes. Cardiomegaly. Left side perihilar infiltrate and consolidation improved compared to last exam. CTA chest: Large left upper lobe mass with encasement of the left upper lobe bronchus and left bronchial adenopathy consistent with tumor. No evidence for pulmonary embolism. Laboratory data: WBC 6.0. Hemoglobin 12.7. Platelet count 194. Sodium 136. Potassium 4.5. BUN 16. Troponin negative 3 Current home cardiac medications include lisinopril 5 mg daily, metoprolol succinate 100 mg daily, Lasix 40 mg twice a day, aspirin 81 mg daily Echocardiogram completed in 2018 revealed ejection fraction 45-50% Patient underwent a MIA with cardioversion with Dr. Langston in 2019 REVIEW OF SYSTEMS: At the time of my exam: CONSTITUTIONAL: Denies fever or chills. HEENT: Denies blurred vision, vision changes, or eye pain. Denies hemoptysis CARDIOVASCULAR: Denies chest pain, orthopnea, PND or palpitations RESPIRATORY: Reports shortness of breath. GASTROINTESTINAL: Denies abdominal pain. Denies nausea or vomiting. HEMATOLOGIC: Denies bleeding disorders. GENITOURINARY: Denies any blood in urine. SKIN: Denies pruitis. Denies rash. PHYSICAL EXAM: VITAL SIGNS: Reviewed. GENERAL: Well-developed in no acute distress. HEENT: Head is normocephalic. Pupils are equal, round. Sclerae anicteric. Mucous membranes of the mouth are moist. Neck supple. No JVD or thyromegaly LUNGS: Respirations even and unlabored. Lungs diminished. HEART: Tachycardic. Irregular rate and rhythm. S1 and S2 heard. ABDOMEN: Soft. Nondistended. Nontender. EXTREMITIES: Normal range of motion. No clubbing or cyanosis. Peripheral pulses intact. No lower extremity edema NEUROLOGIC: Awake and alert. Oriented x 3. ASSESSMENT: Chronic persistent atrial fibrillation with RVR, not on anticoagulation due to brain metastasis and risk of bleeding Metastatic lung cancer Chronic systolic heart failure, EF 45%, currently euvolemic Hypertension GERD Nicotine dependence PLAN: Resume home cardiac medications Continue current dose of metoprolol Continue IV Cardizem Obtain 2-D echo to assess cardiac structure and function Further recommendations pending patient's course Nurse practitioner note has been reviewed by physician. Signing provider agrees with the documented findings, assessment, and plan of care. Past Medical History Past Medical History: Cancer, COPD, GERD/Reflux, Musculoskeletal Disorder, Skin Disorder, Sleep Apnea/CPAP/BIPAP Additional Past Medical History / Comment(s): irregular heart rhythm,SOB,SWELLING IN [place]. ANKLES OFF & ON, SNORES ALOT. LOWER BACK PAIN,generalized sores on skin, cancer of the brain History of Any Multi-Drug Resistant Organisms: None Reported Past Surgical History: Orthopedic Surgery Additional Past Surgical History / Comment(s): ARTHROSCOPIC RT KNEE 2012 , CTR LEFT WRIST Past Anesthesia/Blood Transfusion Reactions: No Reported Reaction Past Psychological History: No Psychological Hx Reported Smoking Status: Former smoker Past Alcohol Use History: None Reported Additional Past Alcohol Use History / Comment(s): SMOKER SINCE AGE 17(1962)- Past Drug Use History: None Reported - Past Family History Mother Family Medical History: Congestive Heart Failure (CHF) Father Family Medical History: Coronary Artery Disease (CAD) Additional Family Medical History / Comment(s): CABG Brother(s) Family Medical History: Coronary Artery Disease (CAD) Additional Family Medical History / Comment(s): CABG Medications and Allergies Home Medications Medication Instructions Recorded Confirmed Type Fish Oil/Dha/Epa [Fish Oil 1,200 1 cap PO DAILY 03/05/15 11/30/20 History mg Fish Oil] Furosemide [Lasix] 40 mg PO BID 03/05/15 11/30/20 History HYDROcodone/APAP 10-325MG [[place] 1 tab PO Q6H PRN 03/05/15 11/30/20 History 10-325] Multivitamins, Thera [Multivitamin 1 tab PO DAILY 03/05/15 11/30/20 History (formulary)] Potassium Chloride [Klor-Con 10] 10 meq PO BID 03/05/15 11/30/20 History Vitamin E (Dl,Tocopheryl Acet) 400 unit PO DAILY 03/05/15 11/30/20 History [Vitamin E] Calcium Carbonate/Vitamin D3 1 tab PO QID 05/11/18 11/30/20 History [Calcium 600-Vit D3 200 Tablet] Garlic 1 tab PO DAILY 05/11/18 11/30/20 History lisinopriL [Prinivil] 5 mg PO DAILY 05/11/18 11/30/20 History Aspirin [Adult Low Dose Aspirin EC] 81 mg PO DAILY 12/30/18 11/30/20 History Albuterol Sulfate [Ventolin HFA] 1 - 2 puff INHALATION RT-Q6H PRN 10/30/20 11/30/20 History Cholecalciferol [Vitamin D3 (25 1,000 unit PO DAILY 10/30/20 11/30/20 History Mcg = 1000 Iu)] Metoprolol Succinate [Toprol XL] 100 mg PO DAILY 10/30/20 11/30/20 History Pantoprazole [Protonix] 40 mg PO DAILY #30 tab 11/02/20 11/30/20 Rx levETIRAcetam [Keppra] 750 mg PO Q12HR #60 tab 11/02/20 11/30/20 Rx Acetaminophen Tab [Tylenol Tab] 1,000 mg PO Q6HR PRN 11/30/20 11/30/20 History Fluticasone Nasal [place] [Flonase 1 spray EA NOSTRIL DAILY PRN 11/30/20 11/30/20 History Nasal [place]] LORazepam [Ativan] 0.5 mg PO TID PRN 11/30/20 11/30/20 History Nystatin 100,000 Unit/ml Susp 5 ml PO TID PRN 11/30/20 11/30/20 History [Mycostatin Oral Susp] Ondansetron HCl [Zofran] 4 - 8 mg PO Q8H PRN 11/30/20 11/30/20 History Sucralfate [Carafate] 1 gm PO ACHS 11/30/20 11/30/20 History Allergies Allergy/AdvReac Type Severity Reaction Status Date / Time No Known Allergies Allergy Verified 10/30/20 21:41 Physical Exam Vitals: Vital Signs Temp Pulse Pulse Resp BP BP BP 12/01/20 11:20 124 H 12/01/20 11:10 124 H 12/01/20 09:00 121 H 22 12/01/20 07:56 98.2 F 121 H 22 117/73 12/01/20 04:15 98.3 F 105 H 24 113/70 12/01/20 03:46 106/79 11/30/20 21:36 97.5 F L 151 H 30 H 110/72 11/30/20 19:01 97.8 F 103 H 16 114/67 11/30/20 18:36 98 F 116 H 16 96/62 11/30/20 17:30 106 H 16 104/61 11/30/20 17:00 100 20 97/62 11/30/20 16:36 101 H 18 110/65 11/30/20 16:30 67 19 95/58 11/30/20 16:18 120 H 95/58 11/30/20 16:00 130 H 18 90/57 11/30/20 15:42 99 93/43 11/30/20 15:30 124 H 18 75/49 11/30/20 15:22 20 11/30/20 15:17 11/30/20 15:16 98 F 142 H 20 78/65 Pulse Ox 12/01/20 11:20 12/01/20 11:10 12/01/20 09:00 12/01/20 07:56 93 L 12/01/20 04:15 96 12/01/20 03:46 11/30/20 21:36 95 11/30/20 19:01 96 11/30/20 18:36 97 11/30/20 17:30 97 11/30/20 17:00 99 11/30/20 16:36 95 11/30/20 16:30 94 L 11/30/20 16:18 11/30/20 16:00 96 11/30/20 15:42 11/30/20 15:30 95 11/30/20 15:22 11/30/20 15:17 90 L 11/30/20 15:16 89 L Intake and Output 11/30/20 12/01/20 12/01/20 22:59 06:59 14:59 Intake Total 116 Balance 116 Intake: Intake, IV Titration 116 Amount Diltiazem 125 mg In 116 Sodium Chloride 0.9% 100 ml @ 10 MG/HR 10 mls/hr IV .[id number] [facility] Rx#: [id number] Other: Voiding Method Toilet Toilet Toilet # Voids 2 1 Weight 129.274 kg Results 12/01/20 07:08 12/01/20 07:08 Cardiac Enzymes 11/30/20 11/30/20 11/30/20 Range/Units 15:37 15:37 18:34 AST 26 (17-59) U/L Troponin I <0.012 <0.012 (0.000-0.034) ng/mL 11/30/20 12/01/20 Range/Units 21:12 07:08 AST 30 (17-59) U/L Troponin I <0.012 (0.000-0.034) ng/mL Coagulation 11/30/20 Range/Units 15:58 PT 10.2 (9.0-12.0) sec APTT 21.0 L (22.0-30.0) sec CBC 11/30/20 12/01/20 Range/Units 15:37 07:08 WBC 5.9 6.0 (3.8-10.6) k/uL RBC 4.89 4.59 (4.30-5.90) m/uL Hgb 13.3 12.7 L (13.0-17.5) gm/dL Hct 42.8 40.2 (39.0-53.0) % Plt Count 212 194 (150-450) k/uL Comprehensive Metabolic Panel 11/30/20 12/01/20 Range/Units 15:37 07:08 Sodium 138 136 L (137-145) mmol/L Potassium 4.0 4.5 (3.5-5.1) mmol/L Chloride 97 L 101 (98-107) mmol/L Carbon Dioxide 39 H 36 H (22-30) mmol/L BUN 23 H 16 (9-20) mg/dL Creatinine 0.86 0.54 L (0.66-1.25) mg/dL Glucose 121 H 112 H (74-99) mg/dL Calcium 8.9 8.6 (8.4-10.2) mg/dL AST 26 30 (17-59) U/L ALT 40 37 (4-49) U/L Alkaline Phosphatase 282 H 264 H (38-126) U/L Total Protein 5.7 L 5.5 L (6.3-8.2) g/dL Albumin 3.2 L 2.9 L (3.5-5.0) g/dL Current Medications Generic Name Dose Route Start Last Admin Trade Name Freq PRN Reason Stop Dose Admin Acetaminophen 1,000 mg 11/30/20 20:42 Acetaminophen Tab 500 Mg Tab PO Q6HR PRN Pain or Fever > 100.5 Hydrocodone Bitart/Acetaminophen 1 each 11/30/20 20:42 12/01/20 07:59 Hydrocodone/Apap 10-325mg 1 Each Tab PO 1 each Q6H PRN Administration Pain Albuterol Sulfate 2.5 mg 11/30/20 22:00 Albuterol Nebulized 2.5 Mg/3 Ml INHALATION RT-Q6H PRN Shortness Of Breath Albuterol/Ipratropium 3 ml 12/01/20 12:00 12/01/20 11:01 Ipratropium-Albuterol 3 Ml Neb INHALATION 3 ml RT-QID LION Administration Aspirin 81 mg 12/01/20 09:00 12/01/20 11:18 Aspirin 81 Mg PO 81 mg DAILY LION Administration Calcium Carbonate 1 each 11/30/20 22:00 12/01/20 11:19 Calcium Carb-Vit D 500mg-200un 1 Each Tab PO 1 each QID LION Administration Cholecalciferol 1,000 unit 12/01/20 09:00 12/01/20 11:18 Cholecalciferol 1,000 Unit Tab PO 1,000 unit DAILY LION Administration Enoxaparin Sodium 40 mg 12/01/20 10:30 12/01/20 11:19 Enoxaparin 40 Mg/0.4 Ml Syringe SQ 40 mg DAILY LION Administration Fluticasone Propionate 1 spray 12/01/20 09:00 Fluticasone 50mcg/[place] Nasal 16gm EA NOSTRIL DAILY PRN Allergy Symptoms Furosemide 40 mg 12/01/20 09:00 12/01/20 11:20 Furosemide 40 Mg Tab PO 40 mg BID@0900,1600 LION Administration Diltiazem HCl 125 mg/ Sodium 125 mls @ 10 mls/hr 11/30/20 21:30 12/01/20 08:57 Chloride IV 10 mg/hr .[id number] LION 10 mls/hr Administration 10 MG/HR Levetiracetam 750 mg 11/30/20 21:00 12/01/20 08:56 Levetiracetam 750 Mg Tab PO 750 mg Q12HR LION Administration Lisinopril 5 mg 12/01/20 09:00 12/01/20 11:20 Lisinopril 5 Mg Tab PO 5 mg DAILY LION Administration Lorazepam 0.5 mg 11/30/20 20:42 12/01/20 05:41 Lorazepam 0.5 Mg Tab PO 0.5 mg TID PRN Administration Anxiety Methylprednisolone Sodium Succinate 40 mg 12/01/20 10:00 12/01/20 11:19 Methylprednisolone Sod Succi 40 Mg/Ml 1 Ml Vial IV 40 mg Q12HR LION Administration Metoprolol Succinate 100 mg 12/01/20 09:00 12/01/20 08:56 Metoprolol Succinate (Er) 100 Mg Tab.Er.24h PO 100 mg DAILY LION Administration Morphine Sulfate 4 mg 12/01/20 10:28 Morphine Sulfate 4 Mg/Ml Syringe IVP Q4HR PRN Pain Multivitamins 1 each 12/01/20 09:00 12/01/20 11:19 Multivitamins, Thera 1 Each Tab PO 1 each DAILY LION Administration Nystatin 500,000 unit 11/30/20 22:00 Nystatin 100,000 Unit/Ml Susp 500,000 Unit/5 Ml Cup PO TID PRN THRUSH Ondansetron HCl 4 mg 11/30/20 22:00 Ondansetron 4 Mg Tab PO Q8H PRN Nausea And Vomiting Pantoprazole Sodium 40 mg 12/01/20 09:00 12/01/20 11:20 Pantoprazole 40 Mg Tablet PO 40 mg DAILY LION Administration Potassium Chloride 10 meq 11/30/20 21:00 12/01/20 11:19 Potassium Chloride Er 10 Meq Tab.Er.Prt PO 10 meq BID LION Administration Sucralfate 1 gm 11/30/20 21:00 12/01/20 11:20 Sucralfate 1 Gm Tab PO 1 gm ACHS LION Administration Vitamin E 400 unit 12/01/20 09:00 12/01/20 11:18 Vitamin E (Dl,Tocopheryl Acet) 400 Unit Cap PO 400 unit DAILY LION Administration Intake and Output 11/30/20 12/01/20 12/01/20 22:59 06:59 14:59 Intake Total 116 Balance 116 Intake: Intake, IV Titration 116 Amount Diltiazem 125 mg In 116 Sodium Chloride 0.9% 100 ml @ 10 MG/HR 10 mls/hr IV .[id number] [facility] Rx#: [id number] Other: Voiding Method Toilet Toilet Toilet # Voids 2 1 Weight 129.274 kg 12/01/20 07:08 12/01/20 07:08
--- NOTE | 2020-12-01 12:02 | P.CNPUL ---
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 Patient was seen by radiation oncology, he was given radiation therapy for his brain metastasis, and he is now receiving chemotherapy by oncology. Patient was diagnosed with small cell lung cancer on 11/01/20, patient had bronchoscopy and endobronchial biopsies done by Dr. Wilson. Considering his presentation of shortness of breath, patient had a CT angiogram of the chest, there was no evidence of pulmonary embolism, however there was evidence of a large left upper lobe mass encasing the left upper lobe bronchus and left bronchial adenopathy consistent with tumor. He was also noted to have small pleural effusion. At any rate patient was found to have atrial fibrillation with RVR on this presentation, and he was admitted for worsening shortness of breath, cough, intermittent blood-tinged sputum, and this consult was initiated. In the meantime the patient is receiving treatment for his atrial fibrillation with RVR, and I went ahead and recommended bronchodilators for his underlying COPD. His shortness of breath is obviously multifactorial, related to his underlying small cell lung cancer, it is involving a significant area of the left lung, underlying COPD, and atrial fibrillation with RVR, all are contributing factors to his shortness of breath. Again no evidence of pulmonary embolism on this admission. Review of Systems Constitutional: Poor appetite and significant weight loss over the last few months. No fever no chills. Eyes: Negative. Ears: Negative. Ears, nose, mouth and throat: Negative Cardiovascular: As noted in HPI. Respiratory: As noted in HPI. Gastrointestinal: Negative. Poor appetite. Genitourinary: Negative. Musculoskeletal: Generalized weakness otherwise negative. Integumentary: Negative Neurological: Negative. Psychiatric: Negative Endocrine: Negative Hematologic/Lymphatic: Negative Allergic/Immunologic: Negative Past Medical History Past Medical History: Cancer, COPD, GERD/Reflux, Musculoskeletal Disorder, Skin Disorder, Sleep Apnea/CPAP/BIPAP Additional Past Medical History / Comment(s): irregular heart rhythm,SOB,SWELLING IN [place]. ANKLES OFF & ON, SNORES ALOT. LOWER BACK PAIN,generalized sores on skin, cancer of the brain History of Any Multi-Drug Resistant Organisms: None Reported Past Surgical History: Orthopedic Surgery Additional Past Surgical History / Comment(s): ARTHROSCOPIC RT KNEE 2013 , CTR LEFT WRIST Past Anesthesia/Blood Transfusion Reactions: No Reported Reaction Past Psychological History: No Psychological Hx Reported Smoking Status: Former smoker Past Alcohol Use History: None Reported Additional Past Alcohol Use History / Comment(s): SMOKER SINCE AGE 17(1962)- Past Drug Use History: None Reported - Past Family History Mother Family Medical History: Congestive Heart Failure (CHF) Father Family Medical History: Coronary Artery Disease (CAD) Additional Family Medical History / Comment(s): CABG Brother(s) Family Medical History: Coronary Artery Disease (CAD) Additional Family Medical History / Comment(s): CABG Medications and Allergies Home Medications Medication Instructions Recorded Confirmed Type Fish Oil/Dha/Epa [Fish Oil 1,200 1 cap PO DAILY 03/05/15 11/30/20 History mg Fish Oil] Furosemide [Lasix] 40 mg PO BID 03/05/15 11/30/20 History HYDROcodone/APAP 10-325MG [[place] 1 tab PO Q6H PRN 03/05/15 11/30/20 History 10-325] Multivitamins, Thera [Multivitamin 1 tab PO DAILY 03/05/15 11/30/20 History (formulary)] Potassium Chloride [Klor-Con 10] 10 meq PO BID 03/05/15 11/30/20 History Vitamin E (Dl,Tocopheryl Acet) 400 unit PO DAILY 03/05/15 11/30/20 History [Vitamin E] Calcium Carbonate/Vitamin D3 1 tab PO QID 05/11/18 11/30/20 History [Calcium 600-Vit D3 200 Tablet] Garlic 1 tab PO DAILY 05/11/18 11/30/20 History lisinopriL [Prinivil] 5 mg PO DAILY 05/11/18 11/30/20 History Aspirin [Adult Low Dose Aspirin EC] 81 mg PO DAILY 12/30/18 11/30/20 History Albuterol Sulfate [Ventolin HFA] 1 - 2 puff INHALATION RT-Q6H PRN 10/30/20 11/30/20 History Cholecalciferol [Vitamin D3 (25 1,000 unit PO DAILY 10/30/20 11/30/20 History Mcg = 1000 Iu)] Metoprolol Succinate [Toprol XL] 100 mg PO DAILY 10/30/20 11/30/20 History Pantoprazole [Protonix] 40 mg PO DAILY #30 tab 11/02/20 11/30/20 Rx levETIRAcetam [Keppra] 750 mg PO Q12HR #60 tab 11/02/20 11/30/20 Rx Acetaminophen Tab [Tylenol Tab] 1,000 mg PO Q6HR PRN 11/30/20 11/30/20 History Fluticasone Nasal [place] [Flonase 1 spray EA NOSTRIL DAILY PRN 11/30/20 11/30/20 History Nasal [place]] LORazepam [Ativan] 0.5 mg PO TID PRN 11/30/20 11/30/20 History Nystatin 100,000 Unit/ml Susp 5 ml PO TID PRN 11/30/20 11/30/20 History [Mycostatin Oral Susp] Ondansetron HCl [Zofran] 4 - 8 mg PO Q8H PRN 11/30/20 11/30/20 History Sucralfate [Carafate] 1 gm PO ACHS 11/30/20 11/30/20 History Allergies Allergy/AdvReac Type Severity Reaction Status Date / Time No Known Allergies Allergy Verified 10/30/20 21:41 Physical Exam Vitals: Vital Signs Temp Pulse Pulse Resp BP BP BP 12/01/20 11:20 124 H 12/01/20 11:10 124 H 12/01/20 09:00 121 H 22 12/01/20 07:56 98.2 F 121 H 22 117/73 12/01/20 04:15 98.3 F 105 H 24 113/70 12/01/20 03:46 106/79 11/30/20 21:36 97.5 F L 151 H 30 H 110/72 11/30/20 19:01 97.8 F 103 H 16 114/67 11/30/20 18:36 98 F 116 H 16 96/62 11/30/20 17:30 106 H 16 104/61 11/30/20 17:00 100 20 97/62 11/30/20 16:36 101 H 18 110/65 11/30/20 16:30 67 19 95/58 11/30/20 16:18 120 H 95/58 11/30/20 16:00 130 H 18 90/57 11/30/20 15:42 99 93/43 11/30/20 15:30 124 H 18 75/49 11/30/20 15:22 20 11/30/20 15:17 11/30/20 15:16 98 F 142 H 20 78/65 Pulse Ox 12/01/20 11:20 12/01/20 11:10 12/01/20 09:00 12/01/20 07:56 93 L 12/01/20 04:15 96 12/01/20 03:46 11/30/20 21:36 95 11/30/20 19:01 96 11/30/20 18:36 97 11/30/20 17:30 97 11/30/20 17:00 99 11/30/20 16:36 95 11/30/20 16:30 94 L 11/30/20 16:18 11/30/20 16:00 96 11/30/20 15:42 11/30/20 15:30 95 11/30/20 15:22 11/30/20 15:17 90 L 11/30/20 15:16 89 L Intake and Output 11/30/20 12/01/20 12/01/20 22:59 06:59 14:59 Intake Total 116 Balance 116 Intake: Intake, IV Titration 116 Amount Diltiazem 125 mg In 116 Sodium Chloride 0.9% 100 ml @ 10 MG/HR 10 mls/hr IV .[id number] [facility] Rx#: [id number] Other: Voiding Method Toilet Toilet Toilet # Voids 2 1 Weight 129.274 kg GENERAL: Revealed a 75-year-old white male, obese, slow, in no distress. HEENT: PERRLA, EOMI, anicteric sclerae, Mallampati class IV. CARDIOVASCULAR: Normal S1 and S2, no S3 gallop, irregular rhythm.. PULMONARY: Diminished breath sounds at the bases crackles at the left base, no rhonchi and no wheezes. ABDOMEN: Obese, soft, nontender, no megaly, no rebound. MUSCULOSKELETAL: No joint swelling or deformity. EXTREMITIES: Trace of bipedal edema. Good pulses bilaterally. NEUROLOGICAL: Alert and oriented 3 focal neurologic deficits. Psychiatric: Normal mood affect and normal mental status examination. SKIN: No rashes. No petechiae Results - Laboratory Findings CBC and BMP: 12/01/20 07:08 12/01/20 07:08 PT/INR, D-dimer PT 10.2 sec (9.0-12.0) 11/30/20 15:58 INR 0.9 (<1.2) 11/30/20 15:58 Abnormal lab findings: Abnormal Labs 11/30/20 11/30/20 11/30/20 15:37 15:37 15:58 Hgb Lymphocytes # (Manual) Metamyelocytes # (Man) 0.47 H Myelocytes # (Manual) 0.18 H APTT 21.0 L Sodium Chloride 97 L Carbon Dioxide 39 H BUN 23 H Creatinine Glucose 121 H Alkaline Phosphatase 282 H Total Protein 5.7 L Albumin 3.2 L 12/01/20 12/01/20 07:08 07:08 Hgb 12.7 L Lymphocytes # (Manual) 0.96 L Metamyelocytes # (Man) 0.12 H Myelocytes # (Manual) 0.24 H APTT Sodium 136 L Chloride Carbon Dioxide 36 H BUN Creatinine 0.54 L Glucose 112 H Alkaline Phosphatase 264 H Total Protein 5.5 L Albumin 2.9 L - Diagnostic Findings CT scan - chest: image reviewed (As noted in HPI.) Assessment and Plan Assessment: Impression: Acute hypoxic respiratory failure and shortness of breath secondary to small cell lung cancer involving significant area of the left lung/left upper lobe and left upper lobe bronchus. Also suspect underlying COPD with acute exacerbation, and secondary to atrial fibrillation with RVR. With small left pleural effusion felt to be malignant unless for otherwise. Atrial fibrillation with RVR. Metastatic small cell lung cancer. Morbid obesity. Nicotine dependence. [id number] smoking history. Benign essential hypertension. Suspect some component of chronic systolic congestive heart failure ejection fraction is 45%. History of obstructive sleep apnea syndrome, on CPAP on outpatient basis. Recommendation: Continue present supportive care measures. Continue management of atrial fibrillation with RVR as per cardiology. Continue bronchodilators. IV Solu-Medrol. Oncology to evaluate the patient and possible radiation oncology to evaluate the patient for his small cell lung cancer. Prognosis is definitely poor and guarded. We'll continue to follow. Time with Patient: Greater than 30
[2020-12-02] MEDS: SUCRALFATE 1 GM TAB PO SCH ×4 (07:09→20:34)
[2020-12-02] MEDS: IPRATROPIUM-ALBUTEROL 3 ML NEB INHALATION SCH ×4 (07:50→20:08)
[2020-12-02 08:03] LABS: Basophils # (A) 0.1 k/uL (0-0.2); Basophils % (A) 1 %; Eosinophils % (A) 0 %; HCT 41.1 % (39.0-53.0); HGB 13.2 gm/dL (13.0-17.5); Hypochromasia Slight; Lymphocytes # (A) 0.6 k/uL (1.0-4.8); Lymphocytes % (A) 7 %; MCH 28.2 pg (25.0-35.0); MCHC 32.1 g/dL (31.0-37.0); Mean Platelet Volume 7.3; Monocytes # (A) 0.2 k/uL (0-1.0); Monocytes % (A) 2 %; Neutrophils # (A) 7.6 k/uL (1.3-7.7); Neutrophils % (A) 89 %; Platelet Count 245 k/uL (150-450); RBC 4.67 m/uL (4.30-5.90); RDW 14.9 % (11.5-15.5); WBC 8.6 k/uL (3.8-10.6)
[2020-12-02 08:20] LABS: African American GFR (CKD) >90 (>60 ml/min/1.73 sqM); Anion Gap 5 mmol/L; Blood Urea Nitrogen 25 mg/dL (9-20); Calcium 9.2 mg/dL (8.4-10.2); Carbon Dioxide 35 mmol/L (22-30); Chloride 97 mmol/L (98-107); Glucose 207 mg/dL (74-99); Non-African American GFR(CKD) >90 (>60 ml/min/1.73 sqM); Potassium 4.7 mmol/L (3.5-5.1); Sodium 137 mmol/L (137-145)
[2020-12-02] MEDS: methylPREDNISolone SOD SUCCI 40 MG/ML 1 ML VIAL IV SCH ×2 (08:28→20:34)
[2020-12-02] MEDS: MULTIVITAMINS, THERA 1 EACH TAB PO SCH (08:29)
[2020-12-02] MEDS: METOPROLOL SUCCINATE (ER) 100 MG TAB.ER.24H PO SCH (08:29)
[2020-12-02] MEDS: FUROSEMIDE 40 MG TAB PO SCH ×2 (08:29→17:22)
[2020-12-02] MEDS: CALCIUM CARB-VIT D 500 MG-5 MCG TAB PO SCH ×4 (08:29→20:34)
[2020-12-02] MEDS: lisinopriL 5 MG TAB PO SCH (08:29)
[2020-12-02] MEDS: ASPIRIN 81 MG PO SCH (08:29)
[2020-12-02] MEDS: PANTOPRAZOLE 40 MG TABLET PO SCH (08:29)
[2020-12-02] MEDS: HYDROcodone/APAP 10-325MG 1 EACH TAB PO PRN ×2 (08:29→23:36)
[2020-12-02] MEDS: CHOLECALCIFEROL 1,000 UNIT TAB PO SCH (08:29)
[2020-12-02] MEDS: VITAMIN E (DL,TOCOPHERYL ACET) 400 UNIT CAP PO SCH (08:30)
[2020-12-02] MEDS: POTASSIUM CHLORIDE ER 10 MEQ TAB.ER.PRT PO SCH ×2 (08:30→20:34)
[2020-12-02] MEDS: ENOXAPARIN 40 MG/0.4 ML SYRINGE SQ SCH (08:30)
--- NOTE | 2020-12-02 08:47 | PN ---
PROGRESS NOTE PULMONARY/CRITICAL CARE PROGRESS NOTE: DATE OF SERVICE: December 02, 2020 This is a 75-year-old male who apparently sees my partner, Dr. Wilson. 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 The patient has undergone some radiation treatments with Dr. David Sim. Also seen one of the oncologists I believe Dr. Millan. He does have a history of chronic atrial fibrillation and COPD and was admitted to the hospital on the 30 of November with a diagnosis of increasing shortness of breath. The shortness of breath according to my partner, Dr. Amos, was multifactorial in part related to underlying atrial fibrillation with RVR, lung cancer, and COPD. A CT angiogram did show significant tumor encasing the left upper lobe bronchus, but there was no pulmonary embolism. The patient seems to be resting relatively comfortably. The patient is on a Cardizem drip at 10 mg an hour. PHYSICAL EXAMINATION: VITAL SIGNS: Current vital signs include a temperature 98, heart rate 83, respiratory rate 20, blood pressure 95/62 with mean 73 and saturation 94%. He is sitting at the bedside. HEENT: Examination is grossly unremarkable. NECK: Supple. CARDIOVASCULAR: Examination reveals irregular rhythm and rate. He is in atrial fibrillation. Heart rate is right around 100 beats per minute, maybe a bit less than that. LUNGS: Reveal mostly clear breath sounds. A few scattered mild rhonchi. No wheezes or crackles. ABDOMEN: Soft. EXTREMITIES: Are intact. No cyanosis, clubbing, or edema. SKIN: Without rash. NEUROLOGIC: Examination is nonfocal. White count 6.0, hemoglobin 12.7, hematocrit 40.2, platelet count 194,000. Sodium 136, potassium 4.5, chloride 101, CO2 of 36. BUN and creatinine were 16 and 0.54. These labs are all from yesterday. TSH 0.606. Urine was negative. Microbiology is negative. Chest x-ray and CT scan are reviewed. CURRENT MEDICATIONS: Current medications include Tylenol, albuterol updrafts, aspirin, calcium with vitamin D, Cardizem drip, vitamin D3, Lovenox, Flonase nasal spray, Lasix, [place], DuoNeb, Keppra, lisinopril, Ativan, Solu-Medrol, metoprolol, morphine, multivitamins, nystatin, Zofran, Protonix, potassium replacement, Carafate vitamin E. ASSESSMENT: 1. Shortness of breath, multifactorial, related to underlying atrial fibrillation with rapid ventricular response, currently on a Cardizem drip, chronic obstructive pulmonary disease exacerbation, and small cell lung cancer with metastasis to the brain. 2. Small left pleural effusion. 3. Atrial fibrillation with rapid ventricular response. 4. Metastatic small-cell lung cancer, currently undergoing chemotherapy and radiation therapy. 5. Morbid obesity. 6. Chronic tobacco use. 7. Benign essential hypertension. 8. Chronic systolic congestive heart failure with ejection fraction of 45%. 9. History of obstructive sleep apnea syndrome, currently on CPAP. PLAN: Currently, he is on appropriate medications. Because he is on DuoNeb, I will discontinue the albuterol updrafts. We will continue to follow along. The patient is currently still in atrial fibrillation. Looking at his outpatient medications, I do not see that he was on any anticoagulants. No additional recommendations are made. Prognosis is guarded. We will continue to follow. MMODL / IJN: [id number] /
--- NOTE | 2020-12-02 11:00 | ECHOF ---
Referral Reason: MEASUREMENTS -------- HEIGHT: 177.8 cm WEIGHT: 129.3 kg BP: RVIDd: 3.0 cm (< 3.3) Ao Diam: 3.0 cm (2.0 - 3.7) AV Cusp: 2.3 cm (1.5 - 2.6) LA Diam: 3.2 cm (2.7 - 3.8) MV EXCURSION: 14.837 mm (> 18.000) MV EF SLOPE: 88 mm/s (70 - 150) EPSS: 0.8 cm MV E Ricardo: 0.95 m/s MV DecT: 183 ms MV A Ricardo: 0.55 m/s MV E/A Ratio: 1.73 RAP: 5.00 mmHg RVSP: 11.95 mmHg FINDINGS -------- This was a technically difficult study with suboptimal views. Unable to comment on EF. The RV was not well visualized. The left atrial size is normal. The right atrium was not well visualized. Lumason used The aortic valve was not well visualized. The mitral valve is normal. There is trace mitral regurgitation. Trace tricuspid regurgitation present. Right ventricular systolic pressure is normal at < 35 mmHg. The pulmonic valve was not well visualized. The aortic root size is normal. IVC Not well visulized. There is no pericardial effusion. CONCLUSIONS -------- 1. This was a technically difficult study with suboptimal views. 2. Unable to comment on EF. 3. There is trace mitral regurgitation. 4. Trace tricuspid regurgitation present. 5. There is no pericardial effusion. REPAIRER MAINTENA[employer]CE BUILDING: Sue Huerta RDCS
[2020-12-02 11:27] LABS: Glucose,Whole Blood 279 mg/dL (75-99)
[2020-12-02] MEDS: INSULIN ASPART (NovoLOG) 100 UNIT/ML VIAL SQ SCH ×3 (12:10→20:33)
--- NOTE | 2020-12-02 14:25 | P.PN ---
Subjective This is a pleasant 75-year-old male past medical history significant for small cell lung cancer with metastasis to the brain status post radiation currently receiving chemotherapy, chronic persistent atrial fibrillation not on skilled nursing anticoagulation secondary to brain metastasis and risk of bleeding s/p cardioversion 04/2019, chronic systolic heart failure, hypertension, COPD and former nicotine dependence. He follows in the office with Dr. Langston. He is seen and examined sitting up in the chair in no acute distress. He states he has been coughing but is unable to clear his sputum for the previous 5 days. He feels as though his breathing is baseline. He denies chest pain, dizziness or palpitations. Current blood pressure 107/65 heart rate fluctuating between 80 and 102. Currently maintained on Cardizem infusion along with Toprol 100 mg daily. He is also on lisinopril 5 mg daily and Lasix 40 mg twice a day. Laboratory data reviewed, CBC unremarkable, sodium 137, potassium 4.7, creatinine 0.74. GENERAL: Well-appearing, well-nourished and in no acute distress. NECK: Supple without JVD or thyromegaly. LUNGS: Scattered rhonchi. Respirations equal and unlabored. No wheezes or rales. HEART: Irregular rate and rhythm without murmurs, rubs or gallops. S1 and S2 heard. EXTREMITIES: Normal range of motion, no edema. No clubbing or cyanosis. Peripheral pulses intact. ASSESSMENT Chronic persistent atrial fibrillation with rapid ventricular rate, improving Acute exacerbation of COPD Small cell lung cancer with brain mets Hypertension Former nicotine dependence PLAN Echocardiogram has been obtained and will be reviewed. Discontinue Cardizem infusion and continue oral beta blockers. Long-term anticoagulation has been discontinued per his radiation/oncology team secondary to risk of bleeding with recent diagnosis of brain metastasis. Continue IV steroids and updraft treatments per pulmonology. Nurse Practitioner note has been reviewed, I agree with a documented findings and plan of care. Patient was seen and examined. Objective - Vital Signs Vital signs: Vital Signs Temp 98.0 F 12/02/20 08:22 Pulse 102 H 12/02/20 08:22 Resp 20 12/02/20 08:22 BP 107/65 12/02/20 08:22 Pulse Ox 94 L 12/02/20 08:22 Intake & Output 12/01/20 12/02/20 12/02/20 18:59 06:59 18:59 Intake Total 816 101.833 Balance 816 101.833 Intake: Intake, IV Titration 116 101.833 Amount Diltiazem 125 mg In 116 101.833 Sodium Chloride 0.9% 100 ml @ 10 MG/HR 10 mls/hr IV .[id number] [facility] Rx#: [id number] Oral 700 Other: Voiding Method Toilet Toilet Toilet # Voids 1 1 - Labs CBC & Chem 7: 12/02/20 07:32 12/02/20 07:32 Labs: Abnormal Lab Results - Last 24 Hours (Table) 12/02/20 12/02/20 Range/Units 07:32 07:32 Lymphocytes # 0.6 L (1.0-4.8) k/uL Chloride 97 L (98-107) mmol/L Carbon Dioxide 35 H (22-30) mmol/L BUN 25 H (9-20) mg/dL Glucose 207 H (74-99) mg/dL
--- NOTE | 2020-12-02 15:59 | P.PN ---
Subjective Progress Note Date: 12/02/20 Principal diagnosis: Chest pain Atrial fibrillation with controlled ventricular rate Acute COPD exacerbation Patient came in with complaints palpitations or shortness of breath and chest pressure like sensation. Patient states that he has had increasing dyspnea over the past 2 days. Patient also states that he feels very weak today. Patient also states that he has been coughing up blood for the past few days. Patient was recently diagnosed with a lung tumor and metastatic disease with brain metastases. Patient states that he has undergone radiation therapy. Patient has a history of atrial fibrillation, and he was recently taken off of his Eliquis secondary to his metastatic disease. Patient admits to having left hip pain, which he states is chronic and unchanged. Patient denies having any other site of pain. Patient denies fever or chills, trauma or injury, headache, focal numbness/weakness/neuro deficit, visual changes, neck/back pain, chest pain, palpitations, syncope, abdominal pain, nausea/vomiting/diarrhea, bloody or melanotic stool, dysuria or urinary symptoms, decreased urine output, leg or calf swelling or pain, or any other symptoms or complaints. Patient had a mildly decreased EF of around 45%. Patient is presently on Cardizem patient w ith heart rate came down from 140s to 106 patient continues to be in atrial fibrillation will be evaluated by cardiology. Patient is presently not in heart failure exacerbation of COPD exacerbation patient is presently insisting steroids as well on an oral Lasix at this time. 12/02/2020 Patient is currently sitting in the chair. Shortness of breath is getting better. Exertional dyspnea. Patient is being continued on IV steroids and breathing treatments. Heart rate is controlled patient remained in atrial fibrillation. 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 2-D echocardiogram showed trace MR and trace TR and no pericardial effusion. Technically difficult study with suboptimal views. Unable [place] ejection fraction. Otherwise patient is afebrile. Tolerating oral diet. No cough or sputum production. Patient is being continued on Lasix 40 mg twice daily Current medications reviewed. Objective - Vital Signs Vital signs: Vital Signs Temp 98.0 F 12/02/20 08:22 Pulse 76 12/02/20 12:00 Resp 20 12/02/20 08:22 BP 107/65 12/02/20 08:22 Pulse Ox 94 L 12/02/20 08:22 Intake & Output 12/01/20 12/02/20 12/02/20 18:59 06:59 18:59 Intake Total 816 101.833 Balance 816 101.833 Intake: Intake, IV Titration 116 101.833 Amount Diltiazem 125 mg In 116 101.833 Sodium Chloride 0.9% 100 ml @ 10 MG/HR 10 mls/hr IV .[id number] [facility] Rx#: [id number] Oral 700 Other: Voiding Method Toilet Toilet Toilet # Voids 1 1 1 - Exam PHYSICAL EXAMINATION: Patient is lying in the bed comfortably, no acute distress, awake alert and oriented. Obese.. HEENT: Normocephalic. Neck is supple. Pupils reactive. Nostrils clear. Oral cavity is moist. Ears reveal no drainage. Neck reveals no JVD, carotid bruits, or thyromegaly. CHEST EXAMINATION: Trachea is central. Symmetrical expansion. Bibasilar diminished air entry and minimal expiratory wheeze.. CARDIAC: Normal S1, S2 with no gallops. No murmurs , irregularly irregular rhythm. ABDOMEN: Soft. Bowel sounds normal. No organomegaly. No abdominal bruits. Extremities: Trace bilateral lower extremity edema. No clubbing or cyanosis Neurologically awake, alert, oriented x3 with well-coordinated movements. No focal deficits noted Skin: No rash or skin lesions. Psychiatric: Coperative. Nonsuicidal Musculoskeletal: No joint swelling or deformity. Normal range of motion. - Labs CBC & Chem 7: 12/02/20 07:32 12/02/20 07:32 Labs: Abnormal Lab Results - Last 24 Hours (Table) 12/02/20 12/02/20 12/02/20 Range/Units 07:32 07:32 11:26 Lymphocytes # 0.6 L (1.0-4.8) k/uL Chloride 97 L (98-107) mmol/L Carbon Dioxide 35 H (22-30) mmol/L BUN 25 H (9-20) mg/dL Glucose 207 H (74-99) mg/dL POC Glucose (mg/dL) 279 H (75-99) mg/dL Assessment and Plan Assessment: Atrial fibrillation with rapid ventricular rate. Off Cardizem drip. Heart rate is controlled now. Chronic persistent atrial fibrillation long-term anticoagulation has been discontinued due to risk of bleeding with brain metastases Acute COPD exacerbation. 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 DVT prophylaxis with Lovenox. Plan: Patient will be continued on methylprednisolone 40 mg every 12 and duo nebs. Continue with metoprolol XL 100 mg daily and Lasix 40 mg twice daily. 2-D echocardiogram was done. Long-term anticoagulation has been held due to risk of bleeding with brain metastases. Pulmonary and cardiology is on board. Continued with pain management with [place] 5 GI and DVT prophylaxis. Further recommendations based on the clinical course. Time with Patient: Greater than 30
[2020-12-02 17:13] LABS: Glucose,Whole Blood 217 mg/dL (75-99)
[2020-12-02 20:26] LABS: Glucose,Whole Blood 217 mg/dL (75-99)
[2020-12-03 06:27] LABS: Glucose,Whole Blood 134 mg/dL (75-99)
[2020-12-03] MEDS: HYDROcodone/APAP 10-325MG 1 EACH TAB PO PRN ×4 (06:30→23:59)
--- NOTE | 2020-12-03 06:30 | P.PN ---
Subjective Progress Note Date: 12/03/20 Principal diagnosis: Permanent atrial fibrillation This is a pleasant 75-year-old gentleman with a past medical history significant for permanent atrial fibrillation as well as small cell lung cancer as well as COPD who was admitted to the hospital with increasing shortness of breath and he was diagnosed with COPD exacerbation as well as uncontrolled atrial fibrillation. The patient was seen this morning. The heart rate is between 100-110 beats per minutes. The pressure has been marginally low. With that being said I'm going to DC the lesser pulled and continue metoprolol and also add digoxin to the current medical regimen. On examination he does have bilateral lower extremities edema mainly in the feet, he is on Lasix by mouth. The edema is mainly because he is sitting in the chair and not getting up and around. From the cardiovascular standpoint of view, the patient possibly can be discharged home later on today. Objective - Vital Signs Vital signs: Vital Signs Temp 97.5 F L 12/03/20 03:20 Pulse 116 H 12/03/20 03:20 Resp 18 12/03/20 03:20 BP 93/65 12/03/20 03:20 Pulse Ox 95 12/03/20 03:20 Intake & Output 12/02/20 12/02/20 12/03/20 06:59 18:59 06:59 Intake Total 101.833 Balance 101.833 Intake: Intake, IV Titration 101.833 Amount Diltiazem 125 mg In 101.833 Sodium Chloride 0.9% 100 ml @ 10 MG/HR 10 mls/hr IV .[id number] [facility] Rx#: [id number] Other: Voiding Method Toilet Toilet Toilet # Voids 1 1 2 # Bowel Movements 1 - Constitutional General appearance: Present: no acute distress - Respiratory Respiratory: bilateral: diminished - Cardiovascular Rhythm: irregularly irregular - Labs CBC & Chem 7: 12/02/20 07:32 12/02/20 07:32 Labs: Abnormal Lab Results - Last 24 Hours (Table) 12/02/20 12/02/20 12/02/20 Range/Units 07:32 07:32 11:26 Lymphocytes # 0.6 L (1.0-4.8) k/uL Chloride 97 L (98-107) mmol/L Carbon Dioxide 35 H (22-30) mmol/L BUN 25 H (9-20) mg/dL Glucose 207 H (74-99) mg/dL POC Glucose (mg/dL) 279 H (75-99) mg/dL 12/02/20 12/02/20 12/03/20 Range/Units 17:09 20:24 06:24 Lymphocytes # (1.0-4.8) k/uL Chloride (98-107) mmol/L Carbon Dioxide (22-30) mmol/L BUN (9-20) mg/dL Glucose (74-99) mg/dL POC Glucose (mg/dL) 217 H 217 H 134 H (75-99) mg/dL Assessment and Plan Assessment: Assessment #1 permanent atrial fibrillation with slightly uncontrolled heart rate #2 history of lung cancer #3 chronic obstructive pulmonary disease #4 marginal a low blood pressure Plan #1 DC lisinopril #2 continue the current dose of metoprolol #3 add digoxin to the current medical regimen #4 the patient can be discharged home
[2020-12-03] MEDS: INSULIN ASPART (NovoLOG) 100 UNIT/ML VIAL SQ SCH ×4 (06:37→20:32)
[2020-12-03] MEDS: SUCRALFATE 1 GM TAB PO SCH ×4 (06:37→20:31)
[2020-12-03] MEDS: SYMBICORT 160-4.5 MCG INHALER INHALATION SCH ×2 (07:56→19:55)
[2020-12-03] MEDS: IPRATROPIUM-ALBUTEROL 3 ML NEB INHALATION SCH ×4 (07:58→19:55)
[2020-12-03] MEDS: POTASSIUM CHLORIDE ER 10 MEQ TAB.ER.PRT PO SCH ×2 (08:38→20:31)
[2020-12-03] MEDS: VITAMIN E (DL,TOCOPHERYL ACET) 400 UNIT CAP PO SCH (08:38)
[2020-12-03] MEDS: CALCIUM CARB-VIT D 500 MG-5 MCG TAB PO SCH ×4 (08:38→20:31)
[2020-12-03] MEDS: MULTIVITAMINS, THERA 1 EACH TAB PO SCH (08:38)
[2020-12-03] MEDS: ENOXAPARIN 40 MG/0.4 ML SYRINGE SQ SCH (08:38)
[2020-12-03] MEDS: METOPROLOL SUCCINATE (ER) 100 MG TAB.ER.24H PO SCH (08:38)
[2020-12-03] MEDS: ASPIRIN 81 MG PO SCH (08:39)
[2020-12-03] MEDS: FUROSEMIDE 40 MG TAB PO SCH ×2 (08:39→16:27)
[2020-12-03] MEDS: CHOLECALCIFEROL 1,000 UNIT TAB PO SCH (08:39)
[2020-12-03] MEDS: PANTOPRAZOLE 40 MG TABLET PO SCH (08:39)
[2020-12-03] MEDS: DIGOXIN 125 MCG TAB PO SCH (08:41)
--- NOTE | 2020-12-03 11:17 | P.PN ---
Subjective Progress Note Date: 12/03/20 Principal diagnosis: Shortness of breath 75-year-old male, admitted on 11/30/2020. The patient has a recent diagnosis of small cell lung cancer, with metastasis to the brain. The patient has had radiation treatments with Dr. David Sim. He is also seen one of the oncologists. In addition, he has a history of chronic atrial fibrillation and COPD. He was admitted with a diagnosis of increasing shortness of breath and lower extremity edema. My partner saw the patient first on Wednesday. The CT angiogram did show a significant tumor encasing the left upper lobe bronchus but there was no pulmonary embolism. From the pulmonary standpoint, the patient is feeling better today. He is on 4 L nasal cannula. Not receiving any IV fluids. He still in atrial fibrillation. His biggest complaint is that his feet are painful and swollen. Objective - Vital Signs Vital signs: Vital Signs Temp 97.7 F 12/03/20 07:59 Pulse 107 H 12/03/20 08:08 Resp 16 12/03/20 08:08 BP 101/64 12/03/20 07:59 Pulse Ox 97 12/03/20 07:59 Intake & Output 12/02/20 12/03/20 12/03/20 18:59 06:59 18:59 Weight 132.27 kg Other: Voiding Method Toilet Toilet Toilet # Voids 1 2 # Bowel Movements 1 - Exam No acute distress, oriented 3. Nasal O2 in place at 4 L. HEENT examination is grossly unremarkable. Mucous membranes are moist. No oral lesions. Neck supple. Full range of motion. No adenopathy thyromegaly or neck vein distention. Cardiovascular examination reveals an irregular rhythm and rate. No murmur is noted. Heart rate about 115-120 bpm. He is clearly in atrial fibrillation. Lungs reveal mild bibasilar crackles. No wheezes. A few scattered rhonchi. Breath sounds are equal bilaterally. Breath sounds are improved. Abdomen soft bowel sounds are heard. No masses or tenderness. Extremities reveal bilateral lower extremity edema. No cyanosis or clubbing. Skin is without rash or lesion. Neurologic examination is brief but nonfocal. - Labs CBC & Chem 7: 12/02/20 07:32 12/02/20 07:32 Labs: Abnormal Lab Results - Last 24 Hours (Table) 01/10/1212/02/20 12/02/20 Range/Units 11:26 17:09 20:24 POC Glucose (mg/dL) 279 H 217 H 217 H (75-99) mg/dL 12/03/20 Range/Units 06:24 POC Glucose (mg/dL) 134 H (75-99) mg/dL Assessment and Plan Assessment: Shortness of breath, multifactorial, related to underlying atrial fibrillation with rapid ventricular response, chronic obstructive pulmonary disease exacerbation, and small cell lung cancer with metastasis to the brain. Small left pleural effusion. Atrial fibrillation with rapid ventricular response. Metastatic small cell lung cancer, currently undergoing chemotherapy and radiati on therapy. Morbid obesity. History of chronic tobacco use. Benign essential hypertension. Chronic systolic congestive heart failure, with an ejection fraction of 45%. History of obstructive sleep apnea syndrome, currently on CPAP. Plan: Plan dated 12/03/2020. We will discontinue the corticosteroids. The patient is improved from the pulmonary standpoint. There was some talk from cardiology apparently discharging the patient today. The patient's atrial fibrillation is still not well controlled. The patient will follow-up with my partner post discharge. He sees Dr. Wilson and my office. Additional recommendations and suggestions are forthcoming. Prognosis is guarded given his diagnosis of metastatic small cell lung cancer. Time with Patient: Less than 30
[2020-12-03 11:32] LABS: Glucose,Whole Blood 125 mg/dL (75-99)
[2020-12-03 17:04] LABS: Glucose,Whole Blood 141 mg/dL (75-99)
[2020-12-03] MEDS: NYSTATIN 100,000 UNIT/ML SUSP 500,000 UNIT/5 ML CUP PO PRN (17:34)
[2020-12-03 20:13] LABS: Glucose,Whole Blood 130 mg/dL (75-99)
[2020-12-03] MEDS: MELATONIN 3 MG TABLET PO SCH (20:31)
[2020-12-03] MEDS: DILTIAZEM 125 MG in SODIUM CHLORIDE 0.9% 100 ML IV SCH (23:02)
[2020-12-04 06:08] LABS: Glucose,Whole Blood 107 mg/dL (75-99)
[2020-12-04] MEDS: INSULIN ASPART (NovoLOG) 100 UNIT/ML VIAL SQ SCH ×4 (06:37→21:15)
[2020-12-04] MEDS: HYDROcodone/APAP 10-325MG 1 EACH TAB PO PRN ×4 (06:42→23:48)
[2020-12-04] MEDS: SUCRALFATE 1 GM TAB PO SCH ×4 (06:43→19:55)
[2020-12-04] MEDS: SYMBICORT 160-4.5 MCG INHALER INHALATION SCH ×2 (08:33→20:01)
[2020-12-04] MEDS: IPRATROPIUM-ALBUTEROL 3 ML NEB INHALATION SCH ×4 (08:33→20:01)
[2020-12-04] MEDS: DIGOXIN 125 MCG TAB PO SCH (08:59)
[2020-12-04] MEDS: CHOLECALCIFEROL 1,000 UNIT TAB PO SCH (08:59)
[2020-12-04] MEDS: FUROSEMIDE 40 MG TAB PO SCH (08:59)
[2020-12-04] MEDS: CALCIUM CARB-VIT D 500 MG-5 MCG TAB PO SCH ×4 (08:59→21:16)
[2020-12-04] MEDS: ASPIRIN 81 MG PO SCH (08:59)
[2020-12-04] MEDS: ENOXAPARIN 40 MG/0.4 ML SYRINGE SQ SCH (08:59)
[2020-12-04] MEDS: METOPROLOL SUCCINATE (ER) 100 MG TAB.ER.24H PO SCH (09:00)
[2020-12-04] MEDS: PANTOPRAZOLE 40 MG TABLET PO SCH (09:00)
[2020-12-04] MEDS: VITAMIN E (DL,TOCOPHERYL ACET) 400 UNIT CAP PO SCH (09:00)
[2020-12-04] MEDS: MULTIVITAMINS, THERA 1 EACH TAB PO SCH (09:00)
[2020-12-04] MEDS: POTASSIUM CHLORIDE ER 10 MEQ TAB.ER.PRT PO SCH ×2 (09:00→19:55)
--- NOTE | 2020-12-04 11:06 | P.PN ---
Subjective Progress Note Date: 12/03/20 Principal diagnosis: Chest pain Atrial fibrillation with controlled ventricular rate Acute COPD exacerbation Patient came in with complaints palpitations or shortness of breath and chest pressure like sensation. Patient states that he has had increasing dyspnea over the past 2 days. Patient also states that he feels very weak today. Patient also states that he has been coughing up blood for the past few days. Patient was recently diagnosed with a lung tumor and metastatic disease with brain metastases. Patient states that he has undergone radiation therapy. Patient has a history of atrial fibrillation, and he was recently taken off of his Eliquis secondary to his metastatic disease. Patient admits to having left hip pain, which he states is chronic and unchanged. Patient denies having any other site of pain. Patient denies fever or chills, trauma or injury, headache, focal numbness/weakness/neuro deficit, visual changes, neck/back pain, chest pain, palpitations, syncope, abdominal pain, nausea/vomiting/diarrhea, bloody or melanotic stool, dysuria or urinary symptoms, decreased urine output, leg or calf swelling or pain, or any other symptoms or complaints. Patient had a mildly decreased EF of around 45%. Patient is presently on Cardizem patient w ith heart rate came down from 140s to 106 patient continues to be in atrial fibrillation will be evaluated by cardiology. Patient is presently not in heart failure exacerbation of COPD exacerbation patient is presently insisting steroids as well on an oral Lasix at this time. 12/02/2020 Patient is currently sitting in the chair. Shortness of breath is getting better. Exertional dyspnea. Patient is being continued on IV steroids and breathing treatments. Heart rate is controlled patient remained in atrial fibrillation. 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 2-D echocardiogram showed trace MR and trace TR and no pericardial effusion. Technically difficult study with suboptimal views. Unable [place] ejection fraction. Otherwise patient is afebrile. Tolerating oral diet. No cough or sputum production. Patient is being continued on Lasix 40 mg twice daily 12/03/2020 Patient is currently sitting the chair comfortably. Breathing status is better. Otherwise heart rate is still elevated. Cardiology has seen the patient and was started on digoxin. IV status will be changed to by mouth. Continue with breathing treatments and follow closely. Anticipate discharge in next 24 hours with better heart rate control. Current medications reviewed. Objective - Vital Signs Vital signs: Vital Signs Temp 97.7 F 12/03/20 07:59 Pulse 108 H 12/03/20 11:48 Resp 18 12/03/20 11:48 BP 101/64 12/03/20 07:59 Pulse Ox 97 12/03/20 07:59 Intake & Output 12/02/20 12/03/20 12/03/20 18:59 06:59 18:59 Weight 132.27 kg Other: Voiding Method Toilet Toilet Toilet # Voids 1 2 # Bowel Movements 1 - Exam PHYSICAL EXAMINATION: Patient is lying in the bed comfortably, no acute distress, awake alert and oriented. Obese.. HEENT: Normocephalic. Neck is supple. Pupils reactive. Nostrils clear. Oral cavity is moist. Ears reveal no drainage. Neck reveals no JVD, carotid bruits, or thyromegaly. CHEST EXAMINATION: Trachea is central. Symmetrical expansion. Bibasilar diminished air entry and minimal expiratory wheeze.. CARDIAC: Normal S1, S2 with no gallops. No murmurs , irregularly irregular rhythm. ABDOMEN: Soft. Bowel sounds normal. No organomegaly. No abdominal bruits. Extremities: Trace bilateral lower extremity edema. No clubbing or cyanosis Neurologically awake, alert, oriented x3 with well-coordinated movements. No focal deficits noted Skin: No rash or skin lesions. Psychiatric: Coperative. Nonsuicidal Musculoskeletal: No joint swelling or deformity. Normal range of motion. - Labs CBC & Chem 7: 12/02/20 07:32 12/02/20 07:32 Labs: Abnormal Lab Results - Last 24 Hours (Table) 12/02/20 12/02/20 12/03/20 Range/Units 17:09 20:24 06:24 POC Glucose (mg/dL) 217 H 217 H 134 H (75-99) mg/dL 12/03/20 Range/Units 11:31 POC Glucose (mg/dL) 125 H (75-99) mg/dL Assessment and Plan Assessment: Atrial fibrillation with rapid ventricular rate. Off Cardizem drip. Heart rate is elevated. Added digoxin. Chronic persistent atrial fibrillation long-term anticoagulation has been discontinued due to risk of bleeding with brain metastases Acute COPD exacerbation. 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 DVT prophylaxis with Lovenox. Plan: Patient will be continued on breathing treatments. Continue with metoprolol XL 100 mg daily and Lasix 40 mg twice daily. 2-D echocardiogram was done. Long-term anticoagulation has been held due to risk of bleeding with brain metastases. Pulmonary and cardiology is on board. Continued with pain management with [place] 5 GI and DVT prophylaxis. Further recommendations based on the clinical course. Time with Patient: Greater than 30
[2020-12-04 11:54] LABS: Glucose,Whole Blood 124 mg/dL (75-99)
[2020-12-04] MEDS ORDERED: DILTIAZEM DRIP BOLUS FROM BAG 1 MG SOLN IV ONE (12:40)
[2020-12-04] MEDS: DILTIAZEM 125 MG in SODIUM CHLORIDE 0.9% 100 ML IV SCH ×2 (12:45→21:16)
[2020-12-04] MEDS: FUROSEMIDE 10 MG/ML 4 ML VIAL IV SCH ×2 (13:26→19:55)
--- NOTE | 2020-12-04 15:06 | P.PN ---
<Latha Davalos Jaquelin - Last Filed: 12/04/20 14:58> Subjective Progress Note Date: 12/04/20 HISTORY OF PRESENT ILLNESS: Patient examined at the bedside. He denies chest pain or pressure. He denies shortness of breath. He denies palpitations. He remains in atrial fibrillation with uncontrolled ventricular rate. Currently on a Cardizem drip at 5 mg an hour. He is also receiving metoprolol and Digoxin. Patient's blood pressure is borderline with a systolic in the 90s. PHYSICAL EXAM: VITAL SIGNS: Reviewed. GENERAL: Well-developed in no acute distress. NECK: Supple. No JVD or thyromegaly LUNGS: Respirations even and unlabored. Lungs diminished. Patient on 3 L nasal cannula HEART: Tachycardic. Irregular rate and rhythm. S1 and S2 heard. EXTREMITIES: Normal range of motion. No clubbing or cyanosis. Peripheral pulses intact. 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 Increase Cardizem drip to 15 mg. Hopefully can transition to oral medications tomorrowPRN Begin IV Lasix 40 mg every 12 hours Daily weight Accurate I&O Monitor kidney function Further recommendations pending patient's course Nurse practitioner note has been reviewed by physician. Signing provider agrees with the documented findings, assessment, and plan of care. Objective - Vital Signs Vital signs: Vital Signs Temp 98.6 F 12/04/20 08:54 Pulse 107 H 12/04/20 13:25 Resp 18 12/04/20 13:08 BP 98/66 12/04/20 13:25 Pulse Ox 95 12/04/20 11:40 Intake & Output 12/03/20 12/04/20 12/04/20 18:59 06:59 18:59 Intake Total 193.583 Output Total 500 Balance -306.417 Weight 132.27 kg 131.7 kg Intake: Intake, IV Titration 68.583 Amount Diltiazem 125 mg In 68.583 Sodium Chloride 0.9% 100 ml @ 15 MG/HR 15 mls/hr IV .Q8H20M [facility] Rx#: [id number] Oral 125 Output: Urine 500 Other: Voiding Method Toilet Toilet Toilet # Voids 1 2 - Labs CBC & Chem 7: 12/02/20 07:32 12/02/20 07:32 Labs: Abnormal Lab Results - Last 24 Hours (Table) 12/03/20 12/03/20 12/04/20 Range/Units 17:02 20:12 06:06 POC Glucose (mg/dL) 141 H 130 H 107 H (75-99) mg/dL 12/04/20 Range/Units 11:52 POC Glucose (mg/dL) 124 H (75-99) mg/dL <Basilio Gar - Last Filed: 12/04/20 16:51> Subjective Patient appears to have significant lower extremity edema which he admits is worse over the last month or so. Although this may be a component of venous in sufficiency and dependent edema, he additionally has some orthopnea and appears volume overloaded. We will attempt IV diuretics and more aggressive Cardizme drip, increase to 15 and monitor BP. Hopeful to change to PO tomorrow if HR's better controlled with hopeful DC next 24-48 hrs. Hold anticoagulation given brain mets. Objective - Vital Signs Vital signs: Vital Signs Temp 97.7 F 12/04/20 16:00 Pulse 100 12/04/20 16:00 Resp 18 12/04/20 16:00 BP 95/67 12/04/20 16:00 Pulse Ox 95 12/04/20 16:00 Intake & Output 12/03/20 12/04/20 12/04/20 18:59 06:59 18:59 Intake Total 193.583 Output Total 500 Balance -306.417 Weight 132.27 kg 131.7 kg 130.3 kg Intake: Intake, IV Titration 68.583 Amount Diltiazem 125 mg In 68.583 Sodium Chloride 0.9% 100 ml @ 15 MG/HR 15 mls/hr IV .Q8H20M [facility] Rx#: [id number] Oral 125 Output: Urine 500 Other: Voiding Method Toilet Toilet Toilet # Voids 1 2 - Labs CBC & Chem 7: 12/02/20 07:32 12/02/20 07:32 Labs: Abnormal Lab Results - Last 24 Hours (Table) 12/03/20 12/03/20 12/04/20 Range/Units 17:02 20:12 06:06 POC Glucose (mg/dL) 141 H 130 H 107 H (75-99) mg/dL 12/04/20 Range/Units 11:52 POC Glucose (mg/dL) 124 H (75-99) mg/dL
--- NOTE | 2020-12-04 15:43 | P.PN ---
Subjective Progress Note Date: 12/04/20 Principal diagnosis: Chest pain, A. fib with RVR, acute COPD exacerbation 75-year-old male, admitted on 11/30/2020. The patient has a recent diagnosis of small cell lung cancer, with metastasis to the brain. The patient has had radiation treatments with Dr. David Sim. He is also seen one of the oncologists. In addition, he has a history of chronic atrial fibrillation and COPD. He was admitted with a diagnosis of increasing shortness of breath and lower extremity edema. My partner saw the patient first on Wednesday. The CT angiogram did show a significant tumor encasing the left upper lobe bronchus but there was no pulmonary embolism. From the pulmonary standpoint, the patient is feeling better today. He is on 4 L nasal cannula. Not receiving any IV fluids. He still in atrial fibrillation. His biggest complaint is that his feet are painful and swollen. On 12/04/2020 patient seen in follow-up on selective care unit, awake and alert, in no acute distress, still remains in A. fib with RVR, with a heart rate between 107-125 BPM. Is on 3 L of oxygen a pulse ox of 95%. Systolic blood pressure between 80s to 90s, and diastolic in 60s, patient has been afebrile. No new chest x-ray today, no, with chest pain, breath sounds are diminished, with no significant wheezing. He is on nebulized bronchodilators, he is on Cardizem infusion for heart rate control, he is on prophylactic dose of Lovenox, is on IV Lasix 40 mg every 12 hours, he is in negative fluid balance over the last 24 hours Objective - Vital Signs Vital signs: Vital Signs Temp 98.6 F 12/04/20 08:54 Pulse 107 H 12/04/20 13:25 Resp 18 12/04/20 13:08 BP 98/66 12/04/20 13:25 Pulse Ox 95 12/04/20 11:40 Intake & Output 12/03/20 12/04/20 12/04/20 18:59 06:59 18:59 Intake Total 193.583 Output Total 500 Balance -306.417 Weight 132.27 kg 131.7 kg Intake: Intake, IV Titration 68.583 Amount Diltiazem 125 mg In 68.583 Sodium Chloride 0.9% 100 ml @ 15 MG/HR 15 mls/hr IV .Q8H20M [facility] Rx#: [id number] Oral 125 Output: Urine 500 Other: Voiding Method Toilet Toilet Toilet # Voids 1 2 - Exam GENERAL EXAM: Alert, very pleasant, 75-year-old white male, sitting up in the recliner, currently in no acute distress, on 3 L of oxygen with a pulse ox 95% comfortable in no apparent distress. HEAD: Normocephalic/atraumatic. EYES: Normal reaction of pupils, equal size. Conjunctiva pink, sclera white. NOSE: Clear with pink turbinates. THROAT: No erythema or exudates. NECK: No masses, no JVD, no thyroid enlargement, no adenopathy. CHEST: No chest wall deformity. Symmetrical expansion. LUNGS: [place] air entry with no crackles, wheeze, rhonchi or dullness. CVS: Irregular rate and rhythm, normal S1 and S2, no gallops, no murmurs, no rubs ABDOMEN: Soft, nontender. No hepatosplenomegaly, normal bowel sounds, no guarding or rigidity. EXTREMITIES: No clubbing, no edema, no cyanosis, 2+ pulses and upper and lower extremities. MUSCULOSKELETAL: Muscle strength and tone normal. SPINE: No scoliosis or deformity SKIN: No rashes CENTRAL NERVOUS SYSTEM: Alert and oriented -3. No focal deficits, tone is normal in all 4 extremities. PSYCHIATRIC: Alert and oriented -3. Appropriate affect. Intact judgment and insight. - Labs CBC & Chem 7: 12/02/20 07:32 12/02/20 07:32 Labs: Abnormal Lab Results - Last 24 Hours (Table) 12/03/20 12/03/20 12/04/20 Range/Units 17:02 20:12 06:06 POC Glucose (mg/dL) 141 H 130 H 107 H (75-99) mg/dL 12/04/20 Range/Units 11:52 POC Glucose (mg/dL) 124 H (75-99) mg/dL Assessment and Plan Plan: Assessment: #1. Shortness of breath, multifactorial, related to underlying atrial fibrilla tion with rapid ventricular response, chronic obstructive pulmonary disease exacerbation, and small cell lung cancer with metastasis to the brain. #2. Small left pleural effusion. #3. Atrial fibrillation with rapid ventricular response. #4. Metastatic small cell lung cancer, currently undergoing chemotherapy and radiation therapy. #5. Morbid obesity. #6. History of chronic tobacco use. #7. Benign essential hypertension. #8. Chronic systolic congestive heart failure, with an ejection fraction of 45%. #9. History of obstructive sleep apnea syndrome, currently on CPAP. Plan: Continue current medical treatment, continue the diuretics, continue bronchodilators, no significant wheezing, his heart rate is still poorly controlled, cardiology is following and adjusting rate control medications, anticoagulation per cardiology. We'll obtain follow-up chest x-ray tomorrow morning. Overall prognosis is extremely guarded. I performed a history & physical examination of the patient and discussed their management with my nurse practitioner, Estefany Calle. I reviewed the nurse practitioner's note and agree with the documented findings and plan of care. Lung sounds are positive for diminished breath sounds. The findings and the impression was discussed with the patient. I attest to the documentation by the nurse practitioner. Time with Patient: Less than 30
[2020-12-04 17:15] LABS: Glucose,Whole Blood 134 mg/dL (75-99)
[2020-12-04] MEDS: MELATONIN 3 MG TABLET PO SCH (19:55)
[2020-12-04 21:03] LABS: Glucose,Whole Blood 175 mg/dL (75-99)
[2020-12-05] MEDS: DILTIAZEM 125 MG in SODIUM CHLORIDE 0.9% 100 ML IV SCH ×2 (05:29→12:31)
[2020-12-05 06:16] LABS: Glucose,Whole Blood 126 mg/dL (75-99)
[2020-12-05] MEDS: SUCRALFATE 1 GM TAB PO SCH ×4 (06:35→20:05)
[2020-12-05] MEDS: HYDROcodone/APAP 10-325MG 1 EACH TAB PO PRN ×3 (06:36→18:00)
--- NOTE | 2020-12-05 06:48 | XR ---
EXAMINATION TYPE: XR chest 1V portable DATE OF EXAM: 12/05/2020 CLINICAL HISTORY: Difficulty breathing progress study. History of lung cancer. TECHNIQUE: Single AP portable frontal view of the chest is obtained. COMPARISON: Chest x-ray from 5 days earlier. CTA chest 4 days earlier. FINDINGS: Background chronic emphysematous change with persistent left suprahilar mass or neoplasm. Persistent small left pleural effusion. Right lung remains clear. Persistent underlying cardiomegaly. Osseous structures are intact. IMPRESSION: Chronic emphysematous change and cardiomegaly with small left pleural effusion, left supr ahilar neoplasm. No significant change from most recent studies.
[2020-12-05 08:30] LABS: African American GFR (CKD) >90 (>60 ml/min/1.73 sqM); Anion Gap 2 mmol/L; Blood Urea Nitrogen 30 mg/dL (9-20); Calcium 8.8 mg/dL (8.4-10.2); Chloride 92 mmol/L (98-107); Glucose 114 mg/dL (74-99); Non-African American GFR(CKD) 90 (>60 ml/min/1.73 sqM); Potassium 4.3 mmol/L (3.5-5.1); Sodium 134 mmol/L (137-145)
[2020-12-05 08:39] LABS: Carbon Dioxide 40 mmol/L (22-30)
[2020-12-05] MEDS: IPRATROPIUM-ALBUTEROL 3 ML NEB INHALATION SCH ×4 (08:59→19:47)
[2020-12-05] MEDS: SYMBICORT 160-4.5 MCG INHALER INHALATION SCH ×2 (08:59→19:47)
[2020-12-05] MEDS: INSULIN ASPART (NovoLOG) 100 UNIT/ML VIAL SQ SCH ×4 (09:31→21:16)
[2020-12-05] MEDS: VITAMIN E (DL,TOCOPHERYL ACET) 400 UNIT CAP PO SCH (09:49)
[2020-12-05] MEDS: CALCIUM CARB-VIT D 500 MG-5 MCG TAB PO SCH ×4 (09:49→21:16)
[2020-12-05] MEDS: ASPIRIN 81 MG PO SCH (09:49)
[2020-12-05] MEDS: METOPROLOL SUCCINATE (ER) 100 MG TAB.ER.24H PO SCH (09:49)
[2020-12-05] MEDS: ENOXAPARIN 40 MG/0.4 ML SYRINGE SQ SCH (09:50)
[2020-12-05] MEDS: CHOLECALCIFEROL 1,000 UNIT TAB PO SCH (09:50)
[2020-12-05] MEDS: FUROSEMIDE 10 MG/ML 4 ML VIAL IV SCH ×2 (09:50→20:04)
[2020-12-05] MEDS: PANTOPRAZOLE 40 MG TABLET PO SCH (09:50)
[2020-12-05] MEDS: DIGOXIN 125 MCG TAB PO SCH (09:50)
[2020-12-05] MEDS: MULTIVITAMINS, THERA 1 EACH TAB PO SCH (09:50)
[2020-12-05] MEDS: POTASSIUM CHLORIDE ER 10 MEQ TAB.ER.PRT PO SCH ×2 (09:50→20:05)
--- NOTE | 2020-12-05 11:06 | P.PN ---
Subjective Progress Note Date: 12/04/20 Principal diagnosis: Chest pain Atrial fibrillation with controlled ventricular rate Acute COPD exacerbation Patient came in with complaints palpitations or shortness of breath and chest pressure like sensation. Patient states that he has had increasing dyspnea over the past 2 days. Patient also states that he feels very weak today. Patient also states that he has been coughing up blood for the past few days. Patient was recently diagnosed with a lung tumor and metastatic disease with brain metastases. Patient states that he has undergone radiation therapy. Patient has a history of atrial fibrillation, and he was recently taken off of his Eliquis secondary to his metastatic disease. Patient admits to having left hip pain, which he states is chronic and unchanged. Patient denies having any other site of pain. Patient denies fever or chills, trauma or injury, headache, focal numbness/weakness/neuro deficit, visual changes, neck/back pain, chest pain, palpitations, syncope, abdominal pain, nausea/vomiting/diarrhea, bloody or melanotic stool, dysuria or urinary symptoms, decreased urine output, leg or calf swelling or pain, or any other symptoms or complaints. Patient had a mildly decreased EF of around 45%. Patient is presently on Cardizem patient w ith heart rate came down from 140s to 106 patient continues to be in atrial fibrillation will be evaluated by cardiology. Patient is presently not in heart failure exacerbation of COPD exacerbation patient is presently insisting steroids as well on an oral Lasix at this time. 12/02/2020 Patient is currently sitting in the chair. Shortness of breath is getting better. Exertional dyspnea. Patient is being continued on IV steroids and breathing treatments. Heart rate is controlled patient remained in atrial fibrillation. 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 2-D echocardiogram showed trace MR and trace TR and no pericardial effusion. Technically difficult study with suboptimal views. Unable [place] ejection fraction. Otherwise patient is afebrile. Tolerating oral diet. No cough or sputum production. Patient is being continued on Lasix 40 mg twice daily 12/03/2020 Patient is currently sitting the chair comfortably. Breathing status is better. Otherwise heart rate is still elevated. Cardiology has seen the patient and was started on digoxin. IV status will be changed to by mouth. Continue with breathing treatments and follow closely. Anticipate discharge in next 24 hours with better heart rate control. 12/04/20 Patient is currently sitting up in the states. Patient otherwise remains in atrial fibrillation with rapid ventricular rate. Cardizem drip has been restarted. Heart rate is in 120s and the patient is also hypotensive. Patient otherwise denied any chest pain or worsening shortness of breath. Continued on bronchodilators. Patient also IV Lasix. Monitor blood pressure closely. Patient has been afebrile. No nausea vomiting. Denied any lightheadedness. Pulmonary and cardiology is on board. Current medications reviewed. Objective - Vital Signs Vital signs: Vital Signs Temp 97.7 F 12/04/20 16:00 Pulse 100 12/04/20 16:00 Resp 18 12/04/20 16:00 BP 95/67 12/04/20 16:00 Pulse Ox 95 12/04/20 16:00 Intake & Output 12/03/20 12/04/20 12/04/20 18:59 06:59 18:59 Intake Total 193.583 Output Total 500 Balance -306.417 Weight 132.27 kg 131.7 kg 130.3 kg Intake: Intake, IV Titration 68.583 Amount Diltiazem 125 mg In 68.583 Sodium Chloride 0.9% 100 ml @ 15 MG/HR 15 mls/hr IV .Q8H20M [facility] Rx#: [id number] Oral 125 Output: Urine 500 Other: Voiding Method Toilet Toilet Toilet # Voids 1 2 - Exam PHYSICAL EXAMINATION: Patient is lying in the bed comfortably, no acute distress, awake alert and oriented. Obese.. HEENT: Normocephalic. Neck is supple. Pupils reactive. Nostrils clear. Oral cavity is moist. Ears reveal no drainage. Neck reveals no JVD, carotid bruits, or thyromegaly. CHEST EXAMINATION: Trachea is central. Symmetrical expansion. Bibasilar diminished air entry and scattere crackles.. CARDIAC: Normal S1, S2 with no gallops. No murmurs , irregularly irregular rhythm. ABDOMEN: Soft. Bowel sounds normal. No organomegaly. No abdominal bruits. Extremities: Trace bilateral lower extremity edema. No clubbing or cyanosis Neurologically awake, alert, oriented x3 with well-coordinated movements. No focal deficits noted Skin: No rash or skin lesions. Psychiatric: Coperative. Nonsuicidal Musculoskeletal: No joint swelling or deformity. Normal range of motion. - Labs CBC & Chem 7: 12/02/20 07:32 12/05/20 07:29 Labs: Abnormal Lab Results - Last 24 Hours (Table) 12/03/20 12/04/20 12/04/20 Range/Units 20:12 06:06 11:52 POC Glucose (mg/dL) 130 H 107 H 124 H (75-99) mg/dL 12/04/20 Range/Units 16:57 POC Glucose (mg/dL) 134 H (75-99) mg/dL Assessment and Plan Assessment: Atrial fibrillation with rapid ventricular rate. Started back on Cardizem drip. Heart rate is elevated. Added digoxin. Chronic persistent atrial fibrillation long-term anticoagulation has been discontinued due to risk of bleeding with brain metastases Acute COPD exacerbation. 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 DVT prophylaxis with Lovenox. Plan: Patient will be continued on breathing treatments. Started back on Cardizem drip. Continue with metoprolol XL 100 mg daily and Lasix 40 mg twice daily. 2-D echocardiogram was done. Long-term anticoagulation has been held due to risk of bleeding with brain metastases. Pulmonary and cardiology is on board. Continued with pain management with [place] 5 GI and DVT prophylaxis. Further recommendations based on the clinical course. Time with Patient: Greater than 30
[2020-12-05 12:17] LABS: Glucose,Whole Blood 162 mg/dL (75-99)
[2020-12-05] MEDS: DILTIAZEM ORAL 30 MG TAB PO SCH ×3 (12:27→21:16)
--- NOTE | 2020-12-05 14:37 | P.PN ---
Subjective Progress Note Date: 12/05/20 HISTORY OF PRESENT ILLNESS: 12/04/2020 Patient examined at the bedside. He denies chest pain or pressure. He denies shortness of breath. He denies palpitations. He remains in atrial fibrillation with uncontrolled ventricular rate. Currently on a Cardizem drip at 5 mg an hour. He is also receiving metoprolol and Digoxin. Patient's blood pressure is borderline with a systolic in the 90s. 12/05/2020 Patient examined this morning at the bedside. Patient remains in afib with u ncontrolled ventricular rate. He is on a cardizem drip at 15mg/hr. he denies shortness of breath or chest pain. He remains on IV Lasix. Patient states he is urinating frequently. Blood pressure 98/55. PHYSICAL EXAM: VITAL SIGNS: Reviewed. GENERAL: Well-developed in no acute distress. NECK: Supple. No JVD or thyromegaly LUNGS: Respirations even and unlabored. Lungs diminished. Patient on 3 L nasal cannula HEART: Tachycardic. Irregular rate and rhythm. S1 and S2 heard. EXTREMITIES: Normal range of motion. No clubbing or cyanosis. Peripheral pulses intact. 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 Wean Cardizem drip as tolerated Continue IV Lasix Daily weight Accurate I&O Monitor kidney function Further recommendations pending patient's course Nurse practitioner note has been reviewed by physician. Signing provider agrees with the documented findings, assessment, and plan of care. Objective - Vital Signs Vital signs: Vital Signs Temp 98.6 F 12/05/20 12:21 Pulse 105 H 12/05/20 12:55 Resp 16 12/05/20 12:21 BP 98/55 12/05/20 12:21 Pulse Ox 93 L 12/05/20 12:21 Intake & Output 12/04/20 12/05/20 12/05/20 18:59 06:59 18:59 Intake Total 193.583 248.25 315.5 Output Total 500 400 Balance -306.417 248.25 -84.5 Weight 130.3 kg 130 kg Intake: IV 10 Invasive Line 3 10 Intake, IV Titration 68.583 248.25 105.5 Amount Diltiazem 125 mg In 68.583 248.25 105.5 Sodium Chloride 0.9% 100 ml @ 15 MG/HR 15 mls/hr IV .Q8H20M [facility] Rx#: [id number] Oral 125 200 Output: Urine 500 400 Other: Voiding Method Toilet Toilet # Voids 1 - Labs CBC & Chem 7: 12/02/20 07:32 12/05/20 07:29 Labs: Abnormal Lab Results - Last 24 Hours (Table) 12/04/20 12/04/20 12/05/20 Range/Units 16:57 21:01 06:15 Sodium (137-145) mmol/L Chloride (98-107) mmol/L Carbon Dioxide (22-30) mmol/L BUN (9-20) mg/dL Glucose (74-99) mg/dL POC Glucose (mg/dL) 134 H 175 H 126 H (75-99) mg/dL 12/05/20 12/05/20 Range/Units 07:29 12:01 Sodium 134 L (137-145) mmol/L Chloride 92 L (98-107) mmol/L Carbon Dioxide 40 H (22-30) mmol/L BUN 30 H (9-20) mg/dL Glucose 114 H (74-99) mg/dL POC Glucose (mg/dL) 162 H (75-99) mg/dL
--- NOTE | 2020-12-05 16:08 | P.PN ---
Subjective Progress Note Date: 12/05/20 Principal diagnosis: Chest pain, A. fib with RVR, acute COPD exacerbation 75-year-old male, admitted on 11/30/2020. The patient has a recent diagnosis of small cell lung cancer, with metastasis to the brain. The patient has had radiation treatments with Dr. David Sim. He is also seen one of the oncologists. In addition, he has a history of chronic atrial fibrillation and COPD. He was admitted with a diagnosis of increasing shortness of breath and lower extremity edema. My partner saw the patient first on Wednesday. The CT angiogram did show a significant tumor encasing the left upper lobe bronchus but there was no pulmonary embolism. From the pulmonary standpoint, the patient is feeling better today. He is on 4 L nasal cannula. Not receiving any IV fluids. He still in atrial fibrillation. His biggest complaint is that his feet are painful and swollen. On 12/04/2020 patient seen in follow-up on selective care unit, awake and alert, in no acute distress, still remains in A. fib with RVR, with a heart rate between 107-125 BPM. Is on 3 L of oxygen a pulse ox of 95%. Systolic blood pressure between 80s to 90s, and diastolic in 60s, patient has been afebrile. No new chest x-ray today, no, with chest pain, breath sounds are diminished, with no significant wheezing. He is on nebulized bronchodilators, he is on Cardizem infusion for heart rate control, he is on prophylactic dose of Lovenox, is on IV Lasix 40 mg every 12 hours, he is in negative fluid balance over the last 24 hours The patient is seen today 12/05/2020 in follow-up on the selective care unit. He is awake and alert in no acute distress. Currently sitting up in a chair at the bedside. States he is breathing easier today compared to yesterday. Denies any chest pain or palpitations currently. Maintaining O2 saturations in the 90s on 3 L/m per nasal cannula. Heart rate 100-111. He remains on a Cardizem drip at 5 mg per hour. He is afebrile. No tachypnea. Blood pressure stable. Sodium 134. Potassium 4.3. Creatinine 0.78. Chest x-ray reveals chronic emphysematous changes and cardiomegaly with small left pleural effusion, left suprahilar neoplasm. No significant change compared to previous. He remains on Symbicort, DuoNeb inhalations, IV diuretics. Lovenox for DVT prophylaxis. Objective - Vital Signs Vital signs: Vital Signs Temp 98.6 F 12/05/20 12:21 Pulse 100 12/05/20 15:54 Resp 16 12/05/20 14:30 BP 98/55 12/05/20 12:21 Pulse Ox 93 L 12/05/20 12:21 Intake & Output 12/04/20 12/05/20 12/05/20 18:59 06:59 18:59 Intake Total 193.583 248.25 471.333 Output Total 500 400 Balance -306.417 248.25 71.333 Weight 130.3 kg 130 kg Intake: IV 20 Invasive Line 3 20 Intake, IV Titration 68.583 248.25 126.333 Amount Diltiazem 125 mg In 68.583 248.25 126.333 Sodium Chloride 0.9% 100 ml @ 15 MG/HR 15 mls/hr IV .Q8H20M [facility] Rx#: [id number] Oral 125 325 Output: Urine 500 400 Other: Voiding Method Toilet Toilet # Voids 1 - Exam GENERAL EXAM: Alert, very pleasant, 75-year-old male patient, sitting up in the recliner, currently in no acute distress, on 3 L of oxygen with a pulse ox 93% comfortable in no apparent distress. HEAD: Normocephalic/atraumatic. EYES: Normal reaction of pupils, equal size. Conjunctiva pink, sclera white. NOSE: Clear with pink turbinates. THROAT: No erythema or exudates. NECK: No masses, no JVD, no thyroid enlargement, no adenopathy. CHEST: No chest wall deformity. Symmetrical expansion. LUNGS: Irrqual air entry with bibasilar crackles CVS: Irregular rate and rhythm, normal S1 and S2, no gallops, no murmurs, no rubs ABDOMEN: Soft, nontender. No hepatosplenomegaly, normal bowel sounds, no guarding or rigidity. EXTREMITIES: No clubbing, no edema, no cyanosis, 2+ pulses and upper and lower extremities. MUSCULOSKELETAL: Muscle strength and tone normal. SPINE: No scoliosis or deformity SKIN: No rashes CENTRAL NERVOUS SYSTEM: No focal deficits, tone is normal in all 4 extremities. PSYCHIATRIC: Alert and oriented -3. Appropriate affect. Intact judgment and insight. - Labs CBC & Chem 7: 12/02/20 07:32 12/05/20 07:29 Labs: Abnormal Lab Results - Last 24 Hours (Table) 12/04/20 12/04/20 12/05/20 Range/Units 16:57 21:01 06:15 Sodium (137-145) mmol/L Chloride (98-107) mmol/L Carbon Dioxide (22-30) mmol/L BUN (9-20) mg/dL Glucose (74-99) mg/dL POC Glucose (mg/dL) 134 H 175 H 126 H (75-99) mg/dL 12/05/20 12/05/20 Range/Units 07:29 12:01 Sodium 134 L (137-145) mmol/L Chloride 92 L (98-107) mmol/L Carbon Dioxide 40 H (22-30) mmol/L BUN 30 H (9-20) mg/dL Glucose 114 H (74-99) mg/dL POC Glucose (mg/dL) 162 H (75-99) mg/dL Assessment and Plan Assessment: 1. Acute on chronic hypoxic respiratory failure secondary to underlying atrial fibrillation with rapid ventricular response, chronic obstructive pulmonary disease exacerbation, and small cell lung cancer with metastasis to the brain. 2. Small left pleural effusion. 3. Atrial fibrillation with rapid ventricular response. Currently on a Cardizem drip at 5 mg per hour 4. Metastatic small cell lung cancer, currently undergoing chemotherapy and radiation therapy. 5. Morbid obesity. 6. History of chronic tobacco use. 7. Benign essential hypertension. 8. Chronic systolic congestive heart failure, with an ejection fraction of 45%. 9. History of obstructive sleep apnea syndrome, currently on CPAP. Plan: The patient was seen and evaluated by Dr. Haddad Chest x-ray and labs reviewed We will continue the current treatment plan The prognosis remains guarded We'll continue to follow and make further recommendations based on his clinical status I, the cosigning physician, performed a history & physical examination of the patient. Lungs sounds with bibasilar crackles, diminished. Maintaining good O2 saturations in the 90s on 3 L/m per nasal cannula. I discussed the assessment a nd plan of care with my nurse practitioner, Gabriela Danielle. I attest to the above note as dictated by her.
[2020-12-05 17:12] LABS: Glucose,Whole Blood 114 mg/dL (75-99)
[2020-12-05] MEDS: MELATONIN 3 MG TABLET PO SCH (20:04)
[2020-12-05 21:02] LABS: Glucose,Whole Blood 200 mg/dL (75-99)
[2020-12-06] MEDS: HYDROcodone/APAP 10-325MG 1 EACH TAB PO PRN ×5 (00:12→23:32)
[2020-12-06] MEDS: DILTIAZEM 125 MG in SODIUM CHLORIDE 0.9% 100 ML IV SCH (05:18)
[2020-12-06 06:35] LABS: Glucose,Whole Blood 111 mg/dL (75-99)
[2020-12-06] MEDS: SUCRALFATE 1 GM TAB PO SCH ×4 (06:35→21:04)
[2020-12-06] MEDS: INSULIN ASPART (NovoLOG) 100 UNIT/ML VIAL SQ SCH ×4 (06:53→21:04)
[2020-12-06] MEDS: POTASSIUM CHLORIDE ER 10 MEQ TAB.ER.PRT PO SCH ×2 (08:29→21:04)
[2020-12-06] MEDS: ASPIRIN 81 MG PO SCH (08:29)
[2020-12-06] MEDS: MULTIVITAMINS, THERA 1 EACH TAB PO SCH (08:29)
[2020-12-06] MEDS: CHOLECALCIFEROL 1,000 UNIT TAB PO SCH (08:29)
[2020-12-06] MEDS: DIGOXIN 125 MCG TAB PO SCH (08:29)
[2020-12-06] MEDS: PANTOPRAZOLE 40 MG TABLET PO SCH (08:29)
[2020-12-06] MEDS: CALCIUM CARB-VIT D 500 MG-5 MCG TAB PO SCH ×4 (08:29→21:04)
[2020-12-06] MEDS: FUROSEMIDE 10 MG/ML 4 ML VIAL IV SCH ×2 (08:29→21:04)
[2020-12-06] MEDS: DILTIAZEM ORAL 30 MG TAB PO SCH ×2 (08:29→12:29)
[2020-12-06] MEDS: VITAMIN E (DL,TOCOPHERYL ACET) 400 UNIT CAP PO SCH (08:29)
[2020-12-06] MEDS: METOPROLOL SUCCINATE (ER) 100 MG TAB.ER.24H PO SCH (08:29)
[2020-12-06] MEDS: ENOXAPARIN 40 MG/0.4 ML SYRINGE SQ SCH (08:30)
[2020-12-06 09:12] LABS: African American GFR (CKD) >90 (>60 ml/min/1.73 sqM); Anion Gap 3 mmol/L; Blood Urea Nitrogen 24 mg/dL (9-20); Calcium 8.8 mg/dL (8.4-10.2); Carbon Dioxide 39 mmol/L (22-30); Chloride 91 mmol/L (98-107); Glucose 131 mg/dL (74-99); Non-African American GFR(CKD) >90 (>60 ml/min/1.73 sqM); Potassium 3.6 mmol/L (3.5-5.1); Sodium 133 mmol/L (137-145)
[2020-12-06] MEDS: IPRATROPIUM-ALBUTEROL 3 ML NEB INHALATION SCH ×4 (09:57→20:17)
[2020-12-06] MEDS: SYMBICORT 160-4.5 MCG INHALER INHALATION SCH ×2 (09:57→20:16)
[2020-12-06 12:35] LABS: Glucose,Whole Blood 129 mg/dL (75-99)
--- NOTE | 2020-12-06 15:16 | P.PN ---
Subjective Progress Note Date: 12/06/20 Principal diagnosis: Chest pain, A. fib with RVR, acute COPD exacerbation 75-year-old male, admitted on 11/30/2020. The patient has a recent diagnosis of small cell lung cancer, with metastasis to the brain. The patient has had radiation treatments with Dr. David Sim. He is also seen one of the oncologists. In addition, he has a history of chronic atrial fibrillation and COPD. He was admitted with a diagnosis of increasing shortness of breath and lower extremity edema. My partner saw the patient first on Wednesday. The CT angiogram did show a significant tumor encasing the left upper lobe bronchus but there was no pulmonary embolism. From the pulmonary standpoint, the patient is feeling better today. He is on 4 L nasal cannula. Not receiving any IV fluids. He still in atrial fibrillation. His biggest complaint is that his feet are painful and swollen. On 12/04/2020 patient seen in follow-up on selective care unit, awake and alert, in no acute distress, still remains in A. fib with RVR, with a heart rate between 107-125 BPM. Is on 3 L of oxygen a pulse ox of 95%. Systolic blood pressure between 80s to 90s, and diastolic in 60s, patient has been afebrile. No new chest x-ray today, no, with chest pain, breath sounds are diminished, with no significant wheezing. He is on nebulized bronchodilators, he is on Cardizem infusion for heart rate control, he is on prophylactic dose of Lovenox, is on IV Lasix 40 mg every 12 hours, he is in negative fluid balance over the last 24 hours On 12/06/2020 patient seen in follow-up on selective care unit, he is calm and comfortable, sitting up in the recliner, he states he is breathing much easier, lung sounds significantly improved since admission, revealing just minimal crackles at bilateral bases, no rhonchi no wheezing, no crackles or chest pain, no hemoptysis, he states overall she is feeling much better since admission, he isn't currently on 3 L of oxygen with a pulse ox of 94%, his last chest x-ray yesterday showing chronic emphysematous changes and cardiomegaly with small left pleural effusion, and left suprahilar neoplasm. He remains in A. fib with a rate of 104 BPM, Cardizem drip has been discontinued but she has been transitioned over to oral Cardizem. Remains on IV Lasix 40 mg every 12 hours he is in -1.1 L net fluid balance over the last 24 hours. Objective - Vital Signs Vital signs: Vital Signs Temp 97.6 F 12/06/20 15:00 Pulse 104 H 12/06/20 15:00 Resp 18 12/06/20 15:00 BP 93/62 12/06/20 15:00 Pulse Ox 94 L 12/06/20 15:00 Intake & Output 12/05/20 12/06/20 12/06/20 18:59 06:59 18:59 Intake Total 711.333 794.667 320 Output Total 900 1750 1275 Balance -188.667 -955.333 -955 Weight 129.8 kg Intake: IV 20 20 20 Invasive Line 3 20 20 20 Intake, IV Titration 126.333 24.667 Amount Diltiazem 125 mg In 126.333 24.667 Sodium Chloride 0.9% 100 ml @ 5 MG/HR 5 mls/hr IV .Q24H [facility] Rx#:[id number] Oral 565 750 300 Output: Urine 900 1750 1275 Other: Voiding Method Toilet # Voids 1 - Exam GENERAL EXAM: Alert, very pleasant, 75-year-old white male, sitting up in the recliner, currently in no acute distress, on 3 L of oxygen with a pulse ox 94% comfortable in no apparent distress. HEAD: Normocephalic/atraumatic. EYES: Normal reaction of pupils, equal size. Conjunctiva pink, sclera white. NOSE: Clear with pink turbinates. THROAT: No erythema or exudates. NECK: No masses, no JVD, no thyroid enlargement, no adenopathy. CHEST: No chest wall deformity. Symmetrical expansion. LUNGS: Irrqual air entry with no crackles, wheeze, rhonchi or dullness. CVS: Irregular rate and rhythm, normal S1 and S2, no gallops, no murmurs, no rubs ABDOMEN: Soft, nontender. No hepatosplenomegaly, normal bowel sounds, no guarding or rigidity. EXTREMITIES: No clubbing, no edema, no cyanosis, 2+ pulses and upper and lower extremities. MUSCULOSKELETAL: Muscle strength and tone normal. SPINE: No scoliosis or deformity SKIN: No rashes CENTRAL NERVOUS SYSTEM: Alert and oriented -3. No focal deficits, tone is normal in all 4 extremities. PSYCHIATRIC: Alert and oriented -3. Appropriate affect. Intact judgment and insight. - Labs CBC & Chem 7: 12/02/20 07:32 12/06/20 08:13 Labs: Abnormal Lab Results - Last 24 Hours (Table) 12/05/20 12/05/20 12/06/20 Range/Units 16:58 20:54 06:12 Sodium (137-145) mmol/L Chloride (98-107) mmol/L Carbon Dioxide (22-30) mmol/L BUN (9-20) mg/dL Glucose (74-99) mg/dL POC Glucose (mg/dL) 114 H 200 H 111 H (75-99) mg/dL 12/06/20 12/06/20 Range/Units 08:13 12:16 Sodium 133 L (137-145) mmol/L Chloride 91 L (98-107) mmol/L Carbon Dioxide 39 H (22-30) mmol/L BUN 24 H (9-20) mg/dL Glucose 131 H (74-99) mg/dL POC Glucose (mg/dL) 129 H (75-99) mg/dL Assessment and Plan Plan: Assessment: #1. Shortness of breath, multifactorial, related to underlying atrial fibrillation with rapid ventricular response, chronic obstructive pulmonary disease exacerbation, and small cell lung cancer with metastasis to the brain. #2. Small left pleural effusion. #3. Atrial fibrillation with rapid ventricular response. #4. Metastatic small cell lung cancer, currently undergoing chemotherapy and radiation therapy. #5. Morbid obesity. #6. History of chronic tobacco use. #7. Benign essential hypertension. #8. Chronic systolic congestive heart failure, with an ejection fraction of 45%. #9. History of obstructive sleep apnea syndrome, currently on CPAP. Plan: Obtain follow-up chest x-ray today, patient is maintaining negative balance, he is breathing easier, no acute distress, wean FiO2, continue diuretics, antico agulation and rate control medications per cardiology, continue nebulized bronchodilators, continue to follow, from pulmonary perspective patient could probably be considered for discharge home within the next day or 2 as long as his been cleared by cardiology I performed a history & physical examination of the patient and discussed their management with my nurse practitioner, Estefany Calle. I reviewed the nurse practitioner's note and agree with the documented findings and plan of care. Maria Del Rosario ng sounds are positive for diminished breath sounds. The findings and the impression was discussed with the patient. I attest to the documentation by the nurse practitioner. Time with Patient: Less than 30
--- NOTE | 2020-12-06 15:44 | P.PN ---
<Latha Davalos Jaquelin - Last Filed: 12/06/20 15:41> Subjective Progress Note Date: 12/06/20 HISTORY OF PRESENT ILLNESS: 12/04/2020 Patient examined at the bedside. He denies chest pain or pressure. He denies shortness of breath. He denies palpitations. He remains in atrial fibrillation with uncontrolled ventricular rate. Currently on a Cardizem drip at 5 mg an hour. He is also receiving metoprolol and Digoxin. Patient's blood pressure is borderline with a systolic in the 90s. 12/05/2020 Patient examined this morning at the bedside. Patient remains in afib with uncontrolled ventricular rate. He is on a cardizem drip at 15mg/hr. he denies shortness of breath or chest pain. He remains on IV Lasix. Patient states he is urinating frequently. Blood pressure 98/55. 12/06/2020 Patient examined at the bedside. Patient currently denies shortness of breath. He continues to report a cough. He denies chest pain or pressure. His Cardizem drip has been weaned off. He remains in atrial fibrillation with controlled ventricular rate. He continues to have lower extremity edema, although it appears improved from yesterday. Patient sitting in the chair with his legs down. Encouraged patient to elevate lower extremities while in the chair. PHYSICAL EXAM: VITAL SIGNS: Reviewed. GENERAL: Well-developed in no acute distress. NECK: Supple. No JVD or thyromegaly LUNGS: Respirations even and unlabored. Lungs diminished. Patient on 3 L nasal cannula HEART: Tachycardic. Irregular rate and rhythm. S1 and S2 heard. EXTREMITIES: Normal range of motion. No clubbing or cyanosis. Peripheral pulses intact. 2-3+ bilateral lower extremity edema ASSESSMENT: Chronic persistent atrial fibrillation with rapid ventricular rate, not on anticoagulation due to brain metastasis and risk of bleeding Borderline hypotension, improving Acute exacerbation of chronic systolic congestive heart failure, ejection fraction 45% Small cell lung cancer with brain metastases Chronic obstructive pulmonary disease Hypertension Former nicotine dependence PLAN: Continue current cardiac medications Continue IV Lasix Daily weight Accurate I&O Monitor kidney function Further recommendations pending patient's course Possible discharge in the next 24-48 hours Nurse practitioner note has been reviewed by physician. Signing provider agrees with the documented findings, assessment, and plan of care. Objective - Vital Signs Vital signs: Vital Signs Temp 97.6 F 12/06/20 15:00 Pulse 104 H 12/06/20 15:00 Resp 18 12/06/20 15:00 BP 93/62 12/06/20 15:00 Pulse Ox 94 L 12/06/20 15:00 Intake & Output 12/05/20 12/06/20 12/06/20 18:59 06:59 18:59 Intake Total 711.333 794.667 320 Output Total 900 1750 1275 Balance -188.667 -955.333 -955 Weight 129.8 kg Intake: IV 20 20 20 Invasive Line 3 20 20 20 Intake, IV Titration 126.333 24.667 Amount Diltiazem 125 mg In 126.333 24.667 Sodium Chloride 0.9% 100 ml @ 5 MG/HR 5 mls/hr IV .Q24H [facility] Rx#:[id number] Oral 565 750 300 Output: Urine 900 1750 1275 Other: Voiding Method Toilet # Voids 1 - Labs CBC & Chem 7: 12/02/20 07:32 12/06/20 08:13 Labs: Abnormal Lab Results - Last 24 Hours (Table) 12/05/20 12/05/20 12/06/20 Range/Units 16:58 20:54 06:12 Sodium (137-145) mmol/L Chloride (98-107) mmol/L Carbon Dioxide (22-30) mmol/L BUN (9-20) mg/dL Glucose (74-99) mg/dL POC Glucose (mg/dL) 114 H 200 H 111 H (75-99) mg/dL 12/06/20 12/06/20 Range/Units 08:13 12:16 Sodium 133 L (137-145) mmol/L Chloride 91 L (98-107) mmol/L Carbon Dioxide 39 H (22-30) mmol/L BUN 24 H (9-20) mg/dL Glucose 131 H (74-99) mg/dL POC Glucose (mg/dL) 129 H (75-99) mg/dL <Basilio Gar - Last Filed: 12/06/20 16:34> Subjective Pt's HR's are better controlled with addition of Cardizem. We will transition to longer acting Cardizem. Continue with IV diuresis, patient admits his SOB and LE edema mildly improved. Suspect LE edema multifactorial from chronic venous insufficiency but also heart failure and he has been having some improvement. Likely discharge home tomorrow on home oral lasix. Basilio Gar DO Objective - Vital Signs Vital signs: Vital Signs Temp 97.6 F 12/06/20 15:00 Pulse 104 H 12/06/20 15:00 Resp 18 12/06/20 15:00 BP 93/62 12/06/20 15:00 Pulse Ox 94 L 12/06/20 15:00 Intake & Output 12/05/20 12/06/20 12/06/20 18:59 06:59 18:59 Intake Total 711.333 794.667 320 Output Total 900 1750 1275 Balance -188.667 -955.333 -955 Weight 129.8 kg Intake: IV 20 20 20 Invasive Line 3 20 20 20 Intake, IV Titration 126.333 24.667 Amount Diltiazem 125 mg In 126.333 24.667 Sodium Chloride 0.9% 100 ml @ 5 MG/HR 5 mls/hr IV .Q24H [facility] Rx#:[id number] Oral 565 750 300 Output: Urine 900 1750 1275 Other: Voiding Method Toilet # Voids 1 - Labs CBC & Chem 7: 12/02/20 07:32 12/06/20 08:13 Labs: Abnormal Lab Results - Last 24 Hours (Table) 12/05/20 12/05/20 12/06/20 Range/Units 16:58 20:54 06:12 Sodium (137-145) mmol/L Chloride (98-107) mmol/L Carbon Dioxide (22-30) mmol/L BUN (9-20) mg/dL Glucose (74-99) mg/dL POC Glucose (mg/dL) 114 H 200 H 111 H (75-99) mg/dL 12/06/20 12/06/20 Range/Units 08:13 12:16 Sodium 133 L (137-145) mmol/L Chloride 91 L (98-107) mmol/L Carbon Dioxide 39 H (22-30) mmol/L BUN 24 H (9-20) mg/dL Glucose 131 H (74-99) mg/dL POC Glucose (mg/dL) 129 H (75-99) mg/dL
[2020-12-06 17:03] LABS: Glucose,Whole Blood 160 mg/dL (75-99)
[2020-12-06] MEDS: DILTIAZEM CD 180 MG CAP.ER.24H PO SCH (17:25)
--- NOTE | 2020-12-06 17:35 | XR ---
EXAMINATION TYPE: XR chest 1V portable DATE OF EXAM: 12/06/2020 COMPARISON: NONE HISTORY: Shortness of breath. TECHNIQUE: Single frontal view of the chest is obtained. FINDINGS: There is moderate left perihilar opacity. There are additional bibasilar opacities with sm all left pleural effusion. No pneumothorax seen. The cardiac silhouette size is enlarged. The osse ous structures are intact. IMPRESSION: Left perihilar and bibasilar opacities may relate to dependent edema/atelectasis. Superimposed infilt rate is not excluded. Small left pleural effusion.
[2020-12-06 20:58] LABS: Glucose,Whole Blood 161 mg/dL (75-99)
[2020-12-06] MEDS: MELATONIN 3 MG TABLET PO SCH (21:04)
[2020-12-07] MEDS: LORazepam 0.5 MG TAB PO PRN (05:32)
[2020-12-07] MEDS: HYDROcodone/APAP 10-325MG 1 EACH TAB PO PRN ×3 (05:32→19:43)
[2020-12-07 06:11] LABS: Glucose,Whole Blood 144 mg/dL (75-99)
[2020-12-07] MEDS: INSULIN ASPART (NovoLOG) 100 UNIT/ML VIAL SQ SCH ×4 (06:26→21:24)
[2020-12-07] MEDS: SUCRALFATE 1 GM TAB PO SCH ×4 (06:26→19:44)
[2020-12-07] MEDS: IPRATROPIUM-ALBUTEROL 3 ML NEB INHALATION SCH ×4 (07:58→21:15)
[2020-12-07] MEDS: SYMBICORT 160-4.5 MCG INHALER INHALATION SCH ×2 (07:58→21:15)
[2020-12-07 08:30] LABS: African American GFR (CKD) >90 (>60 ml/min/1.73 sqM); Blood Urea Nitrogen 22 mg/dL (9-20); Calcium 8.7 mg/dL (8.4-10.2); Chloride 89 mmol/L (98-107); Glucose 125 mg/dL (74-99); Non-African American GFR(CKD) >90 (>60 ml/min/1.73 sqM); Potassium 3.5 mmol/L (3.5-5.1); Sodium 132 mmol/L (137-145)
[2020-12-07 08:36] LABS: Anion Gap 4 mmol/L; Basophils # (A) 0.1 k/uL (0-0.2); Basophils % (A) 0 %; Carbon Dioxide 39 mmol/L (22-30); Eosinophils % (A) 0 %; HGB 12.5 gm/dL (13.0-17.5); Lymphocytes % (A) 7 %; MCH 27.8 pg (25.0-35.0); MCHC 32.1 g/dL (31.0-37.0); MCV 86.7 fL (80.0-100.0); Mean Platelet Volume 7.8; Monocytes # (A) 0.6 k/uL (0-1.0); Monocytes % (A) 4 %; Neutrophils % (A) 87 %; Platelet Count 238 k/uL (150-450); RBC 4.49 m/uL (4.30-5.90); RDW 15.3 % (11.5-15.5); WBC 13.7 k/uL (3.8-10.6)
[2020-12-07] MEDS: DILTIAZEM CD 180 MG CAP.ER.24H PO SCH (08:42)
[2020-12-07] MEDS: VITAMIN E (DL,TOCOPHERYL ACET) 400 UNIT CAP PO SCH (08:42)
[2020-12-07] MEDS: ASPIRIN 81 MG PO SCH (08:42)
[2020-12-07] MEDS: MULTIVITAMINS, THERA 1 EACH TAB PO SCH (08:42)
[2020-12-07] MEDS: METOPROLOL SUCCINATE (ER) 100 MG TAB.ER.24H PO SCH (08:42)
[2020-12-07] MEDS: POTASSIUM CHLORIDE ER 10 MEQ TAB.ER.PRT PO SCH ×2 (08:43→19:44)
[2020-12-07] MEDS: DIGOXIN 125 MCG TAB PO SCH (08:43)
[2020-12-07] MEDS: CALCIUM CARB-VIT D 500 MG-5 MCG TAB PO SCH ×4 (08:43→21:24)
[2020-12-07] MEDS: ENOXAPARIN 40 MG/0.4 ML SYRINGE SQ SCH (08:45)
[2020-12-07] MEDS: PANTOPRAZOLE 40 MG TABLET PO SCH (08:45)
[2020-12-07] MEDS: CHOLECALCIFEROL 1,000 UNIT TAB PO SCH (08:53)
--- NOTE | 2020-12-07 10:21 | P.PN ---
Subjective Progress Note Date: 12/05/20 Principal diagnosis: Chest pain Atrial fibrillation with controlled ventricular rate Acute COPD exacerbation Patient came in with complaints palpitations or shortness of breath and chest pressure like sensation. Patient states that he has had increasing dyspnea over the past 2 days. Patient also states that he feels very weak today. Patient also states that he has been coughing up blood for the past few days. Patient was recently diagnosed with a lung tumor and metastatic disease with brain metastases. Patient states that he has undergone radiation therapy. Patient has a history of atrial fibrillation, and he was recently taken off of his Eliquis secondary to his metastatic disease. Patient admits to having left hip pain, which he states is chronic and unchanged. Patient denies having any other site of pain. Patient denies fever or chills, trauma or injury, headache, focal numbness/weakness/neuro deficit, visual changes, neck/back pain, chest pain, palpitations, syncope, abdominal pain, nausea/vomiting/diarrhea, bloody or melanotic stool, dysuria or urinary symptoms, decreased urine output, leg or calf swelling or pain, or any other symptoms or complaints. Patient had a mildly decreased EF of around 45%. Patient is presently on Cardizem patient w ith heart rate came down from 140s to 106 patient continues to be in atrial fibrillation will be evaluated by cardiology. Patient is presently not in heart failure exacerbation of COPD exacerbation patient is presently insisting steroids as well on an oral Lasix at this time. 12/02/2020 Patient is currently sitting in the chair. Shortness of breath is getting better. Exertional dyspnea. Patient is being continued on IV steroids and breathing treatments. Heart rate is controlled patient remained in atrial fibrillation. 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 2-D echocardiogram showed trace MR and trace TR and no pericardial effusion. Technically difficult study with suboptimal views. Unable [place] ejection fraction. Otherwise patient is afebrile. Tolerating oral diet. No cough or sputum production. Patient is being continued on Lasix 40 mg twice daily 12/03/2020 Patient is currently sitting the chair comfortably. Breathing status is better. Otherwise heart rate is still elevated. Cardiology has seen the patient and was started on digoxin. IV status will be changed to by mouth. Continue with breathing treatments and follow closely. Anticipate discharge in next 24 hours with better heart rate control. 12/04/20 Patient is currently sitting up in the states. Patient otherwise remains in atrial fibrillation with rapid ventricular rate. Cardizem drip has been restarted. Heart rate is in 120s and the patient is also hypotensive. Patient otherwise denied any chest pain or worsening shortness of breath. Continued on bronchodilators. Patient also IV Lasix. Monitor blood pressure closely. Patient has been afebrile. No nausea vomiting. Denied any lightheadedness. Pulmonary and cardiology is on board. 12/05/2020 Patient currently sitting in the chair. Still complaining of shortness of breath. Also heart rate is elevated and is on Cardizem drip. Which is being titrated down. Patient is also having bilateral lower activity swelling and we continued on IV Lasix as blood pressure tolerates. No nausea vomiting or abdominal pain. No fever no chills. Pulmonary and cardiology is on board. Current medications reviewed. Objective - Vital Signs Vital signs: Vital Signs Temp 98.7 F 12/05/20 16:42 Pulse 100 12/05/20 16:42 Resp 16 12/05/20 16:42 BP 89/56 12/05/20 16:42 Pulse Ox 92 L 12/05/20 16:42 Intake & Output 12/04/20 12/05/20 12/05/20 18:59 06:59 18:59 Intake Total 193.583 248.25 471.333 Output Total 500 400 Balance -306.417 248.25 71.333 Weight 130.3 kg 130 kg Intake: IV 20 Invasive Line 3 20 Intake, IV Titration 68.583 248.25 126.333 Amount Diltiazem 125 mg In 68.583 248.25 126.333 Sodium Chloride 0.9% 100 ml @ 15 MG/HR 15 mls/hr IV .[id number] [facility] Rx#: [id number] Oral 125 325 Output: Urine 500 400 Other: Voiding Method Toilet Toilet # Voids 1 - Exam PHYSICAL EXAMINATION: Patient is lying in the bed comfortably, no acute distress, awake alert and oriented. Obese.. HEENT: Normocephalic. Neck is supple. Pupils reactive. Nostrils clear. Oral cavity is moist. Ears reveal no drainage. Neck reveals no JVD, carotid bruits, or thyromegaly. CHEST EXAMINATION: Trachea is central. Symmetrical expansion. Bibasilar diminished air entry and scattere crackles.. CARDIAC: Normal S1, S2 with no gallops. No murmurs , irregularly irregular rhythm. ABDOMEN: Soft. Bowel sounds normal. No organomegaly. No abdominal bruits. Extremities: 2+ bilateral lower extremity edema. No clubbing or cyanosis Neurologically awake, alert, oriented x3 with well-coordinated movements. No focal deficits noted Skin: No rash or skin lesions. Psychiatric: Coperative. Nonsuicidal Musculoskeletal: No joint swelling or deformity. Normal range of motion. - Labs CBC & Chem 7: 12/07/20 07:22 12/07/20 07:22 Labs: Abnormal Lab Results - Last 24 Hours (Table) 12/04/20 12/05/20 12/05/20 Range/Units 21:01 06:15 07:29 Sodium 134 L (137-145) mmol/L Chloride 92 L (98-107) mmol/L Carbon Dioxide 40 H (22-30) mmol/L BUN 30 H (9-20) mg/dL Glucose 114 H (74-99) mg/dL POC Glucose (mg/dL) 175 H 126 H (75-99) mg/dL 12/05/20 12/05/20 Range/Units 12:01 16:58 Sodium (137-145) mmol/L Chloride (98-107) mmol/L Carbon Dioxide (22-30) mmol/L BUN (9-20) mg/dL Glucose (74-99) mg/dL POC Glucose (mg/dL) 162 H 114 H (75-99) mg/dL Assessment and Plan Assessment: Atrial fibrillation with rapid ventricular rate. Started back on Cardizem drip. Heart rate is elevated. Added digoxin. Chronic persistent atrial fibrillation long-term anticoagulation has been discontinued due to risk of bleeding with brain metastases Acute COPD exacerbation. 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 DVT prophylaxis with Lovenox. Plan: Patient will be continued on breathing treatments. Started back on Cardizem drip. Continue with metoprolol XL 100 mg daily and Lasix 40 mg twice daily. 2-D echocardiogram was done. Long-term anticoagulation has been held due to risk of bleeding with brain metastases. Pulmonary and cardiology is on board. Continued with pain management with [place] [facility] and DVT prophylaxis. Further recommendations based on the clinical course. Time with Patient: Greater than 30
[2020-12-07] MEDS: FUROSEMIDE 10 MG/ML 4 ML VIAL IV SCH ×2 (10:28→19:43)
[2020-12-07 11:53] LABS: Glucose,Whole Blood 152 mg/dL (75-99)
[2020-12-07] MEDS: NYSTATIN 100,000 UNIT/ML SUSP 500,000 UNIT/5 ML CUP PO PRN (13:07)
[2020-12-07] MEDS: NYSTATIN 100,000 UNIT/ML SUSP 500,000 UNIT/5 ML CUP PO SCH ×2 (16:03→21:24)
--- NOTE | 2020-12-07 16:16 | P.PN ---
Subjective Progress Note Date: 12/07/20 Principal diagnosis: Shortness of breath 75-year-old male, admitted on 11/30/2020. The patient has a recent diagnosis of small cell lung cancer, with metastasis to the brain. The patient has had radiation treatments with Dr. David Sim. He is also seen one of the oncologists. In addition, he has a history of chronic atrial fibrillation and COPD. He was admitted with a diagnosis of increasing shortness of breath and lower extremity edema. My partner saw the patient first on Wednesday. The CT angiogram did show a significant tumor encasing the left upper lobe bronchus but there was no pulmonary embolism. From the pulmonary standpoint, the patient is feeling better today. He is on 4 L nasal cannula. Not receiving any IV fluids. He still in atrial fibrillation. His biggest complaint is that his feet are painful and swollen. On 12/04/2020 patient seen in follow-up on selective care unit, awake and alert, in no acute distress, still remains in A. fib with RVR, with a heart rate between 107-125 BPM. Is on 3 L of oxygen a pulse ox of 95%. Systolic blood pressure between 80s to 90s, and diastolic in 60s, patient has been afebrile. No new chest x-ray today, no, with chest pain, breath sounds are diminished, with no significant wheezing. He is on nebulized bronchodilators, he is on Cardizem infusion for heart rate control, he is on prophylactic dose of Lovenox, is on IV Lasix 40 mg every 12 hours, he is in negative fluid balance over the last 24 hours On 12/06/2020 patient seen in follow-up on selective care unit, he is calm and comfortable, sitting up in the recliner, he states he is breathing much easier, lung sounds significantly improved since admission, revealing just minimal crackles at bilateral bases, no rhonchi no wheezing, no crackles or chest pain, no hemoptysis, he states overall she is feeling much better since admission, he isn't currently on 3 L of oxygen with a pulse ox of 94%, his last chest x-ray yesterday showing chronic emphysematous changes and cardiomegaly with small left pleural effusion, and left suprahilar neoplasm. He remains in A. fib with a rate of 104 BPM, Cardizem drip has been discontinued but she has been transitioned over to oral Cardizem. Remains on IV Lasix 40 mg every 12 hours he is in -1.1 L net fluid balance over the last 24 hours. Progress note dated 12/07/2020. Currently, the patient seemed be doing a bit better. His primary issue is shortness of breath initially, that has improved. More recently he complaining of swelling of the legs and pain in the feet. The patient was initially admitted with atrial fibrillation and RVR, as well as CHF. He also has a history of recent diagnosis of small cell lung cancer, with metastasis to the brain. He has started radiation treatments with Dr. David Sim. He is also seen with the medical oncologist. In addition to the above, he has a history of COPD. Currently, he is on 3 L nasal cannula. His saturations are 93%. Blood pressure is 96/51. Temperature is 98.6. Lab data includes a white count of 13.7, hemoglobin 12.5, sodium 132, potassium 3.5, chloride 89, CO2 39, anion gap 4, BUN 22, and a creatinine of 0.73. Objective - Vital Signs Vital signs: Vital Signs Temp 98.6 F 12/07/20 13:10 Pulse 108 H 12/07/20 15:23 Resp 18 12/07/20 14:30 BP 96/51 12/07/20 13:10 Pulse Ox 93 L 12/07/20 13:10 Intake & Output 12/06/20 12/07/20 12/07/20 18:59 06:59 18:59 Intake Total 520 520 350 Output Total 1924 1949 1224 Balance -1405 -1430 -875 Weight 128.9 kg Intake: IV 20 20 20 Invasive Line 3 20 20 20 Oral 500 500 330 Output: Urine 1924 1949 122 Other: Voiding Method Toilet # Voids 1 - Exam No acute distress, oriented 3. Nasal O2 in place at 3 L. HEENT examination is grossly unremarkable. Mucous membranes are moist. No oral lesions. Neck supple. Full range of motion. No adenopathy thyromegaly or neck vein dist ention. Cardiovascular examination reveals an irregular rhythm and rate. No murmur is noted. Heart rate about 95 bpm. He is clearly in atrial fibrillation. Lungs reveal mild bibasilar crackles. No wheezes. A few scattered rhonchi. Breath sounds are equal bilaterally. Breath sounds are improved. Abdomen soft bowel sounds are heard. No masses or tenderness. Extremities reveal bilateral lower extremity edema. No cyanosis or clubbing. Skin is without rash or lesion. Neurologic examination is brief but nonfocal. - Labs CBC & Chem 7: 12/07/20 07:22 12/07/20 07:22 Labs: Abnormal Lab Results - Last 24 Hours (Table) 12/06/20 12/06/20 12/07/20 Range/Units 17:01 20:56 06:09 WBC (3.8-10.6) k/uL Hgb (13.0-17.5) gm/dL Neutrophils # (1.3-7.7) k/uL Sodium (137-145) mmol/L Chloride (98-107) mmol/L Carbon Dioxide (22-30) mmol/L BUN (9-20) mg/dL Glucose (74-99) mg/dL POC Glucose (mg/dL) 160 H 161 H 144 H (75-99) mg/dL 12/07/20 12/07/20 12/07/20 Range/Units 07:22 07:22 11:52 WBC 13.7 H (3.8-10.6) k/uL Hgb 12.5 L (13.0-17.5) gm/dL Neutrophils # 12.0 H (1.3-7.7) k/uL Sodium 132 L (137-145) mmol/L Chloride 89 L (98-107) mmol/L Carbon Dioxide 39 H (22-30) mmol/L BUN 22 H (9-20) mg/dL Glucose 125 H (74-99) mg/dL POC Glucose (mg/dL) 152 H (75-99) mg/dL Assessment and Plan Assessment: Shortness of breath, multifactorial, related to underlying atrial fibrillation with rapid ventricular response, chronic obstructive pulmonary disease exacerbation, and small cell lung cancer with metastasis to the brain. Small left pleural effusion. Atrial fibrillation with rapid ventricular response. Metastatic small cell lung cancer, currently undergoing chemotherapy and radiation therapy. Morbid obesity. History of chronic tobacco use. Benign essential hypertension. Chronic systolic congestive heart failure, with an ejection fraction of 45%. History of obstructive sleep apnea syndrome, currently on CPAP. Plan: Plan dated 12/07/2020. Currently, the patient appears to be much more stable. He's down to 3 L nasal cannula. The patient is still in atrial fibrillation. His heart rates right around 100 bpm. He still has significant lower extremity edema with pitting. His breathing is much improved. His laboratory data is reviewed. Chest x-ray shows bibasilar opacities, and a small left-sided pleural effusion. The patient remains on Tylenol, [place], DuoNeb, aspirin, Symbicort, Os-Den[place], vitamin D3, Lanoxin, Cardizem, Lovenox, Flonase, Lasix, insulin, Keppra, Ativan, melatonin, Toprol-XL, morphine sulfate, vitamins, Mycostatin oral suspension, Zofran, Protonix, potassium chloride, Carafate, and vitamin E. We will continue to follow. Prognosis is guarded especially in lieu of his recent diagnosis of metastatic small cell lung cancer. Time with Patient: Less than 30
[2020-12-07 16:42] LABS: Glucose,Whole Blood 150 mg/dL (75-99)
--- NOTE | 2020-12-07 18:59 | P.PN ---
Subjective HISTORY OF PRESENT ILLNESS: 12/04/2020 Patient examined at the bedside. He denies chest pain or pressure. He denies shortness of breath. He denies palpitations. He remains in atrial fibrillation with uncontrolled ventricular rate. Currently on a Cardizem drip at 5 mg an hour. He is also receiving metoprolol and Digoxin. Patient's blood pressure is borderline with a systolic in the 90s. 12/05/2020 Patient examined this morning at the bedside. Patient remains in afib with uncontrolled ventricular rate. He is on a cardizem drip at 15mg/hr. he denies shortness of breath or chest pain. He remains on IV Lasix. Patient states he is urinating frequently. Blood pressure 98/55. 12/06/2020 Patient examined at the bedside. Patient currently denies shortness of breath. He continues to report a cough. He denies chest pain or pressure. His Cardizem drip has been weaned off. He remains in atrial fibrillation with controlled ventricular rate. He continues to have lower extremity edema, although it appears improved from yesterday. Patient sitting in the chair with his legs down. Encouraged patient to elevate lower extremities while in the chair. 12/07/20 Patient seen and examined. Patient has been diuresing well however still a nxious to go home. He believes his lower extremity edema has somewhat improved. Despite this his sodium is decreasing. PHYSICAL EXAM: VITAL SIGNS: Reviewed. GENERAL: Well-developed in no acute distress. NECK: Supple. No JVD or thyromegaly LUNGS: Respirations even and unlabored. Lungs diminished. Patient on 3 L nasal cannula HEART: Tachycardic. Irregular rate and rhythm. S1 and S2 heard. EXTREMITIES: Normal range of motion. No clubbing or cyanosis. Peripheral pulses intact. 2-3+ bilateral lower extremity edema ASSESSMENT: Chronic persistent atrial fibrillation with rapid ventricular rate, not on anticoagulation due to brain metastasis and risk of bleeding Borderline hypotension, improving Acute exacerbation of chronic systolic congestive heart failure, ejection fraction 45% Small cell lung cancer with brain metastases Chronic obstructive pulmonary disease Hypertension Former nicotine dependence Hyponatremia PLAN: Continue current cardiac medications Continue IV Lasix Daily weight Accurate I&O Fluid restriction For full discharge home in the next 24-48 hours. Suspect a component of his lower extremity edema is related to chronic venous insufficiency. Objective - Vital Signs Vital signs: Vital Signs Temp 98.2 F 12/07/20 15:00 Pulse 108 H 12/07/20 15:23 Resp 18 12/07/20 15:00 BP 106/71 12/07/20 15:00 Pulse Ox 92 L 12/07/20 15:00 Intake & Output 12/06/20 12/07/20 12/07/20 18:59 06:59 18:59 Intake Total 520 520 590 Output Total 192 1950 1225 Balance -1405 -1430 -635 Weight 128.9 kg Intake: IV 20 20 20 Invasive Line 3 20 20 20 Oral 500 500 570 Output: Urine 1924 1950 1225 Other: Voiding Method Toilet # Voids 1 - Labs CBC & Chem 7: 12/07/20 07:22 12/07/20 07:22 Labs: Abnormal Lab Results - Last 24 Hours (Table) 12/06/20 12/07/20 12/07/20 Range/Units 20:56 06:09 07:22 WBC (3.8-10.6) k/uL Hgb (13.0-17.5) gm/dL Neutrophils # (1.3-7.7) k/uL Sodium 132 L (137-145) mmol/L Chloride 89 L (98-107) mmol/L Carbon Dioxide 39 H (22-30) mmol/L BUN 22 H (9-20) mg/dL Glucose 125 H (74-99) mg/dL POC Glucose (mg/dL) 161 H 144 H (75-99) mg/dL 12/07/20 12/07/20 12/07/20 Range/Units 07:22 11:52 16:41 WBC 13.7 H (3.8-10.6) k/uL Hgb 12.5 L (13.0-17.5) gm/dL Neutrophils # 12.0 H (1.3-7.7) k/uL Sodium (137-145) mmol/L Chloride (98-107) mmol/L Carbon Dioxide (22-30) mmol/L BUN (9-20) mg/dL Glucose (74-99) mg/dL POC Glucose (mg/dL) 152 H 150 H (75-99) mg/dL
[2020-12-07] MEDS: MELATONIN 3 MG TABLET PO SCH (19:43)
[2020-12-07 20:49] LABS: Glucose,Whole Blood 176 mg/dL (75-99)
[2020-12-08 06:24] LABS: Glucose,Whole Blood 109 mg/dL (75-99)
[2020-12-08] MEDS: SUCRALFATE 1 GM TAB PO SCH ×4 (06:35→20:39)
[2020-12-08] MEDS: HYDROcodone/APAP 10-325MG 1 EACH TAB PO PRN ×4 (06:37→23:44)
[2020-12-08] MEDS: SYMBICORT 160-4.5 MCG INHALER INHALATION SCH ×2 (07:46→20:04)
[2020-12-08] MEDS: IPRATROPIUM-ALBUTEROL 3 ML NEB INHALATION SCH ×4 (07:46→20:04)
[2020-12-08 09:13] LABS: Basophils # (A) 0.1 k/uL (0-0.2); Basophils % (A) 1 %; Eosinophils % (A) 0 %; HCT 38.6 % (39.0-53.0); HGB 12.2 gm/dL (13.0-17.5); Hypochromasia Slight; Lymphocytes # (A) 1.1 k/uL (1.0-4.8); Lymphocytes % (A) 7 %; MCH 27.4 pg (25.0-35.0); MCHC 31.5 g/dL (31.0-37.0); MCV 86.8 fL (80.0-100.0); Mean Platelet Volume 7.6; Monocytes # (A) 0.7 k/uL (0-1.0); Monocytes % (A) 5 %; Neutrophils # (A) 12.9 k/uL (1.3-7.7); Neutrophils % (A) 86 %; Platelet Count 253 k/uL (150-450); RBC 4.45 m/uL (4.30-5.90); RDW 15.5 % (11.5-15.5)
[2020-12-08] MEDS: POTASSIUM CHLORIDE ER 10 MEQ TAB.ER.PRT PO SCH ×2 (09:13→20:40)
[2020-12-08] MEDS: ENOXAPARIN 40 MG/0.4 ML SYRINGE SQ SCH (09:13)
[2020-12-08] MEDS: INSULIN ASPART (NovoLOG) 100 UNIT/ML VIAL SQ SCH ×4 (09:13→20:40)
[2020-12-08] MEDS: MULTIVITAMINS, THERA 1 EACH TAB PO SCH (09:14)
[2020-12-08] MEDS: VITAMIN E (DL,TOCOPHERYL ACET) 400 UNIT CAP PO SCH (09:14)
[2020-12-08] MEDS: FUROSEMIDE 10 MG/ML 4 ML VIAL IV SCH ×2 (09:14→20:40)
[2020-12-08] MEDS: METOPROLOL SUCCINATE (ER) 100 MG TAB.ER.24H PO SCH (09:14)
[2020-12-08] MEDS: PANTOPRAZOLE 40 MG TABLET PO SCH (09:14)
[2020-12-08] MEDS: CALCIUM CARB-VIT D 500 MG-5 MCG TAB PO SCH ×4 (09:14→20:39)
[2020-12-08] MEDS: DIGOXIN 125 MCG TAB PO SCH (09:14)
[2020-12-08] MEDS: NYSTATIN 100,000 UNIT/ML SUSP 500,000 UNIT/5 ML CUP PO SCH ×3 (09:14→20:39)
[2020-12-08] MEDS: CHOLECALCIFEROL 1,000 UNIT TAB PO SCH (09:14)
[2020-12-08] MEDS: ASPIRIN 81 MG PO SCH (09:14)
[2020-12-08] MEDS: DILTIAZEM CD 180 MG CAP.ER.24H PO SCH (09:14)
[2020-12-08] MEDS: guaiFENesin 600 MG TABLET.ER PO SCH ×2 (09:16→20:39)
[2020-12-08 09:23] LABS: African American GFR (CKD) >90 (>60 ml/min/1.73 sqM); Blood Urea Nitrogen 25 mg/dL (9-20); Calcium 8.9 mg/dL (8.4-10.2); Chloride 89 mmol/L (98-107); Glucose 161 mg/dL (74-99); Non-African American GFR(CKD) 88 (>60 ml/min/1.73 sqM); Potassium 3.9 mmol/L (3.5-5.1); Sodium 134 mmol/L (137-145)
[2020-12-08 09:29] LABS: Anion Gap 3 mmol/L
[2020-12-08 09:38] LABS: Carbon Dioxide 42 mmol/L (22-30)
[2020-12-08] MEDS ORDERED: DIGOXIN 125 MCG TAB PO ONE (12:01)
[2020-12-08 12:03] LABS: Glucose,Whole Blood 124 mg/dL (75-99)
[2020-12-08] MEDS: acetaZOLAMIDE 250 MG TAB PO SCH (12:13)
[2020-12-08] MEDS ORDERED: DILTIAZEM CD 120 MG CAP.ER.24H PO STA (12:17)
--- NOTE | 2020-12-08 12:54 | P.PN ---
Subjective This is a pleasant 75-year-old male past medical history significant for small cell lung cancer with metastasis to the brain status post radiation currently receiving chemotherapy, chronic persistent atrial fibrillation not on snf anticoagulation secondary to brain metastasis and risk of bleeding s/p cardioversion 04/2019, chronic systolic heart failure, hypertension, COPD and former nicotine dependence. He follows in the office with Dr. Langston. He is seen and examined sitting up in the chair. Unfortunately his heart rates co ntinued to be uncontrolled on current regimen. He has ongoing lower extremity edema. Blood pressure 111/67 heart rate between 100-130 maintaining oxygen saturation on nasal cannula and afebrile. Laboratory data reviewed, WBC 15, hemoglobin 12.2, platelets 253, sodium 134, potassium 3.9, creatinine 0.81. Currently maintained on aspirin 81 mg daily, digoxin 125 g daily, Cardizem 180 mg daily, Lasix 40 mg IV twice a day, Toprol 100 mg daily and daily potassium supplementation. 24 hour urine output 2000 mL. GENERAL: In no acute distress. NECK: Supple without JVD or thyromegaly. LUNGS: Scattered rhonchi. Respirations equal and unlabored. No wheezes or rales. HEART: Irregular rate and rhythm without murmurs, rubs or gallops. S1 and S2 heard. EXTREMITIES: Normal range of motion, no edema. No clubbing or cyanosis. Peripheral pulses intact. ASSESSMENT Chronic persistent atrial fibrillation with variable ventricular rate Acute exacerbation of COPD Acute on chronic systolic heart failure Small cell lung cancer with brain mets Hypertension with episodes of hypotension. Former nicotine dependence PLAN Increase digoxin to 250 mcg daily and cardizem to 300 mg daily. Give diamox 10 mg today and tomorrow. Repeat BMP in the morning. Nurse Practitioner note has been reviewed, I agree with a documented findings and plan of care. Patient was seen and examined. Objective - Vital Signs Vital signs: Vital Signs Temp 97.2 F L 12/08/20 08:00 Pulse 110 H 12/08/20 11:18 Resp 20 12/08/20 08:00 BP 111/67 12/08/20 08:00 Pulse Ox 93 L 12/08/20 08:00 Intake & Output 12/07/20 12/08/20 12/08/20 18:59 06:59 18:59 Intake Total 590 20 190 Output Total 1225 775 500 Balance -724 -482 -310 Weight 123.3 kg Intake: IV 20 20 10 Invasive Line 3 20 20 10 Oral 570 180 Output: Urine 1225 775 500 Other: Voiding Method Toilet Urinal - Labs CBC & Chem 7: 12/08/20 08:35 12/08/20 08:35 Labs: Abnormal Lab Results - Last 24 Hours (Table) 12/07/20 12/07/20 12/07/20 Range/Units 11:52 16:41 20:47 WBC (3.8-10.6) k/uL Hgb (13.0-17.5) gm/dL Hct (39.0-53.0) % Neutrophils # (1.3-7.7) k/uL Sodium (137-145) mmol/L Chloride (98-107) mmol/L Carbon Dioxide (22-30) mmol/L BUN (9-20) mg/dL Glucose (74-99) mg/dL POC Glucose (mg/dL) 152 H 150 H 176 H (75-99) mg/dL 12/08/20 12/08/20 12/08/20 Range/Units 06:22 08:35 08:35 WBC 15.0 H (3.8-10.6) k/uL Hgb 12.2 L (13.0-17.5) gm/dL Hct 38.6 L (39.0-53.0) % Neutrophils # 12.9 H (1.3-7.7) k/uL Sodium 134 L (137-145) mmol/L Chloride 89 L (98-107) mmol/L Carbon Dioxide 42 H* (22-30) mmol/L BUN 25 H (9-20) mg/dL Glucose 161 H (74-99) mg/dL POC Glucose (mg/dL) 109 H (75-99) mg/dL
--- NOTE | 2020-12-08 15:09 | P.PN ---
Subjective Progress Note Date: 12/08/20 Principal diagnosis: Shortness of breath 75-year-old male, admitted on 11/30/2020. The patient has a recent diagnosis of small cell lung cancer, with metastasis to the brain. The patient has had radiation treatments with Dr. David Sim. He is also seen one of the oncologists. In addition, he has a history of chronic atrial fibrillation and COPD. He was admitted with a diagnosis of increasing shortness of breath and lower extremity edema. My partner saw the patient first on Wednesday. The CT angiogram did show a significant tumor encasing the left upper lobe bronchus but there was no pulmonary embolism. From the pulmonary standpoint, the patient is feeling better today. He is on 4 L nasal cannula. Not receiving any IV fluids. He still in atrial fibrillation. His biggest complaint is that his feet are painful and swollen. On 12/04/2020 patient seen in follow-up on selective care unit, awake and alert, in no acute distress, still remains in A. fib with RVR, with a heart rate between 107-125 BPM. Is on 3 L of oxygen a pulse ox of 95%. Systolic blood pressure between 80s to 90s, and diastolic in 60s, patient has been afebrile. No new chest x-ray today, no, with chest pain, breath sounds are diminished, with no significant wheezing. He is on nebulized bronchodilators, he is on Cardizem infusion for heart rate control, he is on prophylactic dose of Lovenox, is on IV Lasix 40 mg every 12 hours, he is in negative fluid balance over the last 24 hours On 12/06/2020 patient seen in follow-up on selective care unit, he is calm and comfortable, sitting up in the recliner, he states he is breathing much easier, lung sounds significantly improved since admission, revealing just minimal crackles at bilateral bases, no rhonchi no wheezing, no crackles or chest pain, no hemoptysis, he states overall she is feeling much better since admission, he isn't currently on 3 L of oxygen with a pulse ox of 94%, his last chest x-ray yesterday showing chronic emphysematous changes and cardiomegaly with small left pleural effusion, and left suprahilar neoplasm. He remains in A. fib with a rate of 104 BPM, Cardizem drip has been discontinued but she has been transitioned over to oral Cardizem. Remains on IV Lasix 40 mg every 12 hours he is in -1.1 L net fluid balance over the last 24 hours. Progress note dated 12/07/2020. Currently, the patient seemed be doing a bit better. His primary issue is shortness of breath initially, that has improved. More recently he complaining of swelling of the legs and pain in the feet. The patient was initially admitted with atrial fibrillation and RVR, as well as CHF. He also has a history of recent diagnosis of small cell lung cancer, with metastasis to the brain. He has started radiation treatments with Dr. David Sim. He is also seen with the medical oncologist. In addition to the above, he has a history of COPD. Currently, he is on 3 L nasal cannula. His saturations are 93%. Blood pressure is 96/51. Temperature is 98.6. Lab data includes a white count of 13.7, hemoglobin 12.5, sodium 132, potassium 3.5, chloride 89, CO2 39, anion gap 4, BUN 22, and a creatinine of 0.73. Progress note dated 12/08/2020. Currently, the patient seems to be doing better. The patient has been weaned down to 3 L by nasal cannula. Saturations are 93%. Temperature is 98.4. Respiratory rate 20 and blood pressure is 102/62. The patient has a recent diagnosis of metastatic small cell lung cancer, with metastasis to the brain. He has started radiation treatments with Dr. David Sim. He was initially admitted with a diagnosis of atrial fibrillation and rapid ventricular response, as well as congestive heart failure. Laboratory data today includes a white count of 15, hemoglobin 12.2, hematocrit 38.6, and platelet count 253,000. Sodium 134, potassium 3.9, chlorides 89, CO2 42, anion gap 3, BUN 25, and creatinine 0.81. Objective - Vital Signs Vital signs: Vital Signs Temp 98.4 F 12/08/20 12:11 Pulse 102 H 12/08/20 12:11 Resp 20 12/08/20 12:11 BP 102/62 12/08/20 12:11 Pulse Ox 93 L 12/08/20 12:11 Intake & Output 12/07/20 12/08/20 12/08/20 18:59 06:59 18:59 Intake Total 590 20 430 Output Total 1225 775 500 Balance -635 -755 -70 Weight 123.3 kg Intake: IV 20 20 10 Invasive Line 3 20 20 10 Oral 570 420 Output: Urine 1225 775 500 Other: Voiding Method Toilet Urinal - Exam No acute distress, oriented 3. Nasal O2 in place at 3 L. HEENT examination is grossly unremarkable. Mucous membranes are moist. No oral lesions. Neck supple. Full range of motion. No adenopathy thyromegaly or neck vein distention. Cardiovascular examination reveals an irregular rhythm and rate. No murmur is noted. Heart rate about 109 bpm. He is clearly in atrial fibrillation. Lungs reveal mild bibasilar crackles. No wheezes. A few scattered rhonchi. Breath sounds are equal bilaterally. Breath sounds are improved. Abdomen soft bowel sounds are heard. No masses or tenderness. Extremities reveal bilateral lower extremity edema. No cyanosis or clubbing. Skin is without rash or lesion. Neurologic examination is brief but nonfocal. - Labs CBC & Chem 7: 12/08/20 08:35 12/08/20 08:35 Labs: Abnormal Lab Results - Last 24 Hours (Table) 12/07/20 12/07/20 12/08/20 Range/Units 16:41 20:47 06:22 WBC (3.8-10.6) k/uL Hgb (13.0-17.5) gm/dL Hct (39.0-53.0) % Neutrophils # (1.3-7.7) k/uL Sodium (137-145) mmol/L Chloride (98-107) mmol/L Carbon Dioxide (22-30) mmol/L BUN (9-20) mg/dL Glucose (74-99) mg/dL POC Glucose (mg/dL) 150 H 176 H 109 H (75-99) mg/dL 12/08/20 12/08/20 12/08/20 Range/Units 08:35 08:35 12:02 WBC 15.0 H (3.8-10.6) k/uL Hgb 12.2 L (13.0-17.5) gm/dL Hct 38.6 L (39.0-53.0) % Neutrophils # 12.9 H (1.3-7.7) k/uL Sodium 134 L (137-145) mmol/L Chloride 89 L (98-107) mmol/L Carbon Dioxide 42 H* (22-30) mmol/L BUN 25 H (9-20) mg/dL Glucose 161 H (74-99) mg/dL POC Glucose (mg/dL) 124 H (75-99) mg/dL Assessment and Plan Assessment: Shortness of breath, multifactorial, related to underlying atrial fibrillation with rapid ventricular response, chronic obstructive pulmonary disease exacerbation, and small cell lung cancer with metastasis to the brain. Small left pleural effusion. Atrial fibrillation with rapid ventricular response. Metastatic small cell lung cancer, currently undergoing chemotherapy and radiation therapy. Morbid obesity. History of chronic tobacco use. Benign essential hypertension. Chronic systolic congestive heart failure, with an ejection fraction of 45%. History of obstructive sleep apnea syndrome, currently on CPAP. Plan: Plan dated 12/08/2020. Currently, the patient remains in atrial fibrillation. His heart rates were around 100 or so. The patient still has significant lower extremity edema. From the pulmonary standpoint, the patient appears to be much more stable. He is on 3 L nasal cannula. The patient's overall prognosis remains guarded given his recent diagnosis of metastatic small cell lung cancer. Additional recommendations and suggestions are forthcoming. We will continue to follow. Time with Patient: Less than 30
[2020-12-08 16:59] LABS: Glucose,Whole Blood 148 mg/dL (75-99)
[2020-12-08 20:03] LABS: Glucose,Whole Blood 170 mg/dL (75-99)
[2020-12-08] MEDS: MELATONIN 3 MG TABLET PO SCH (20:39)
--- NOTE | 2020-12-08 21:33 | P.PN ---
Subjective Progress Note Date: 12/06/20 Principal diagnosis: Chest pain Atrial fibrillation with controlled ventricular rate Acute COPD exacerbation Patient came in with complaints palpitations or shortness of breath and chest pressure like sensation. Patient states that he has had increasing dyspnea over the past 2 days. Patient also states that he feels very weak today. Patient also states that he has been coughing up blood for the past few days. Patient was recently diagnosed with a lung tumor and metastatic disease with brain metastases. Patient states that he has undergone radiation therapy. Patient has a history of atrial fibrillation, and he was recently taken off of his Eliquis secondary to his metastatic disease. Patient admits to having left hip pain, which he states is chronic and unchanged. Patient denies having any other site of pain. Patient denies fever or chills, trauma or injury, headache, focal numbness/weakness/neuro deficit, visual changes, neck/back pain, chest pain, palpitations, syncope, abdominal pain, nausea/vomiting/diarrhea, bloody or melanotic stool, dysuria or urinary symptoms, decreased urine output, leg or calf swelling or pain, or any other symptoms or complaints. Patient had a mildly decreased EF of around 45%. Patient is presently on Cardizem patient w ith heart rate came down from 140s to 106 patient continues to be in atrial fibrillation will be evaluated by cardiology. Patient is presently not in heart failure exacerbation of COPD exacerbation patient is presently insisting steroids as well on an oral Lasix at this time. 12/02/2020 Patient is currently sitting in the chair. Shortness of breath is getting better. Exertional dyspnea. Patient is being continued on IV steroids and breathing treatments. Heart rate is controlled patient remained in atrial fibrillation. 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 2-D echocardiogram showed trace MR and trace TR and no pericardial effusion. Technically difficult study with suboptimal views. Unable [place] ejection fraction. Otherwise patient is afebrile. Tolerating oral diet. No cough or sputum production. Patient is being continued on Lasix 40 mg twice daily 12/03/2020 Patient is currently sitting the chair comfortably. Breathing status is better. Otherwise heart rate is still elevated. Cardiology has seen the patient and was started on digoxin. IV status will be changed to by mouth. Continue with breathing treatments and follow closely. Anticipate discharge in next 24 hours with better heart rate control. 12/04/20 Patient is currently sitting up in the states. Patient otherwise remains in atrial fibrillation with rapid ventricular rate. Cardizem drip has been restarted. Heart rate is in 120s and the patient is also hypotensive. Patient otherwise denied any chest pain or worsening shortness of breath. Continued on bronchodilators. Patient also IV Lasix. Monitor blood pressure closely. Patient has been afebrile. No nausea vomiting. Denied any lightheadedness. Pulmonary and cardiology is on board. 12/05/2020 Patient currently sitting in the chair. Still complaining of shortness of breath. Also heart rate is elevated and is on Cardizem drip. Which is being titrated down. Patient is also having bilateral lower activity swelling and we continued on IV Lasix as blood pressure tolerates. No nausea vomiting or abdominal pain. No fever no chills. Pulmonary and cardiology is on board. 12/06/2020 Patient is currently sitting in a chair still having exertional dyspnea and bilateral lower extremity swelling. Chest x-ray showed chronic emphysematous changes and cardiomegaly with small left pleural effusion. And left suprahilar neoplasm. Patient continues to be on A. fib but rate is improving. Cardizem drip has been discontinued and patient was started on oral Cardizem. Otherwise patient is being continued on IV Lasix. Will Juan C wrap bilateral lower extremities due to significant edema and oozing fluid. Patient remains afebrile. No complaints of chest pain. No nausea vomiting or abdominal pain or diarrhea. No dysuria or hematuria.. Current medications reviewed. Objective - Vital Signs Vital signs: Vital Signs Temp 97.6 F 12/06/20 15:00 Pulse 104 H 12/06/20 15:00 Resp 18 12/06/20 15:00 BP 93/62 12/06/20 15:00 Pulse Ox 94 L 12/06/20 15:00 Intake & Output 12/05/20 12/06/20 12/06/20 18:59 06:59 18:59 Intake Total 711.333 794.667 320 Output Total 900 1750 1275 Balance -188.667 -955.333 -955 Weight 129.8 kg Intake: IV 20 20 20 Invasive Line 3 20 20 20 Intake, IV Titration 126.333 24.667 Amount Diltiazem 125 mg In 126.333 24.667 Sodium Chloride 0.9% 100 ml @ 5 MG/HR 5 mls/hr IV .Q24H ON LICENSE OF [facility] Rx#:[id number] Oral 565 750 300 Output: Urine 900 1750 1275 Other: Voiding Method Toilet # Voids 1 - Exam PHYSICAL EXAMINATION: Patient is lying in the bed comfortably, no acute distress, awake alert and oriented. Obese.. HEENT: Normocephalic. Neck is supple. Pupils reactive. Nostrils clear. Oral cavity is moist. Ears reveal no drainage. Neck reveals no JVD, carotid bruits, or thyromegaly. CHEST EXAMINATION: Trachea is central. Symmetrical expansion. Bibasilar diminished air entry and scattere crackles.. CARDIAC: Normal S1, S2 with no gallops. No murmurs , irregularly irregular rhyth m. ABDOMEN: Soft. Bowel sounds normal. No organomegaly. No abdominal bruits. Extremities: 2+ bilateral lower extremity edema. No clubbing or cyanosis Neurologically awake, alert, oriented x3 with well-coordinated movements. No focal deficits noted Skin: No rash or skin lesions. Psychiatric: Coperative. Nonsuicidal Musculoskeletal: No joint swelling or deformity. Normal range of motion. - Labs CBC & Chem 7: 12/08/20 08:35 12/08/20 08:35 Labs: Abnormal Lab Results - Last 24 Hours (Table) 12/05/20 12/05/20 12/06/20 Range/Units 16:58 20:54 06:12 Sodium (137-145) mmol/L Chloride (98-107) mmol/L Carbon Dioxide (22-30) mmol/L BUN (9-20) mg/dL Glucose (74-99) mg/dL POC Glucose (mg/dL) 114 H 200 H 111 H (75-99) mg/dL 12/06/20 12/06/20 Range/Units 08:13 12:16 Sodium 133 L (137-145) mmol/L Chloride 91 L (98-107) mmol/L Carbon Dioxide 39 H (22-30) mmol/L BUN 24 H (9-20) mg/dL Glucose 131 H (74-99) mg/dL POC Glucose (mg/dL) 129 H (75-99) mg/dL Assessment and Plan Assessment: Atrial fibrillation with rapid ventricular rate. Started back on Cardizem drip. changed to PO ,Heart rate is elevated. Added digoxin. Chronic persistent atrial fibrillation long-term anticoagulation has been discontinued due to risk of bleeding with brain metastases Acute on chronic CHF with diastolic dysfunction. Acute COPD exacerbation. improved. 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 DVT prophylaxis with Lovenox. Plan: Patient will be continued on breathing treatments. Started back on Cardizem drip. Changed to po. Continue with metoprolol XL 100 mg daily and Lasix 40 mg twice daily. 2-D echocardiogram was done. Long-term anticoagulation has been held due to risk of bleeding with brain metastases. Pulmonary and cardiology is on board. Continued with pain management with [place] 5 GI and DVT prophylaxis. Further recommendations based on the clinical course. Time with Patient: Greater than 30
--- NOTE | 2020-12-08 21:35 | P.PN ---
Subjective Progress Note Date: 12/07/20 Principal diagnosis: Chest pain Atrial fibrillation with controlled ventricular rate Acute COPD exacerbation Patient came in with complaints palpitations or shortness of breath and chest pressure like sensation. Patient states that he has had increasing dyspnea over the past 2 days. Patient also states that he feels very weak today. Patient also states that he has been coughing up blood for the past few days. Patient was recently diagnosed with a lung tumor and metastatic disease with brain metastases. Patient states that he has undergone radiation therapy. Patient has a history of atrial fibrillation, and he was recently taken off of his Eliquis secondary to his metastatic disease. Patient admits to having left hip pain, which he states is chronic and unchanged. Patient denies having any other site of pain. Patient denies fever or chills, trauma or injury, headache, focal numbness/weakness/neuro deficit, visual changes, neck/back pain, chest pain, palpitations, syncope, abdominal pain, nausea/vomiting/diarrhea, bloody or melanotic stool, dysuria or urinary symptoms, decreased urine output, leg or calf swelling or pain, or any other symptoms or complaints. Patient had a mildly decreased EF of around 45%. Patient is presently on Cardizem patient w ith heart rate came down from 140s to 106 patient continues to be in atrial fibrillation will be evaluated by cardiology. Patient is presently not in heart failure exacerbation of COPD exacerbation patient is presently insisting steroids as well on an oral Lasix at this time. 12/02/2020 Patient is currently sitting in the chair. Shortness of breath is getting better. Exertional dyspnea. Patient is being continued on IV steroids and breathing treatments. Heart rate is controlled patient remained in atrial fibrillation. 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 2-D echocardiogram showed trace MR and trace TR and no pericardial effusion. Technically difficult study with suboptimal views. Unable [place] ejection fraction. Otherwise patient is afebrile. Tolerating oral diet. No cough or sputum production. Patient is being continued on Lasix 40 mg twice daily 12/03/2020 Patient is currently sitting the chair comfortably. Breathing status is better. Otherwise heart rate is still elevated. Cardiology has seen the patient and was started on digoxin. IV status will be changed to by mouth. Continue with breathing treatments and follow closely. Anticipate discharge in next 24 hours with better heart rate control. 12/04/20 Patient is currently sitting up in the states. Patient otherwise remains in atrial fibrillation with rapid ventricular rate. Cardizem drip has been restarted. Heart rate is in 120s and the patient is also hypotensive. Patient otherwise denied any chest pain or worsening shortness of breath. Continued on bronchodilators. Patient also IV Lasix. Monitor blood pressure closely. Patient has been afebrile. No nausea vomiting. Denied any lightheadedness. Pulmonary and cardiology is on board. 12/05/2020 Patient currently sitting in the chair. Still complaining of shortness of breath. Also heart rate is elevated and is on Cardizem drip. Which is being titrated down. Patient is also having bilateral lower activity swelling and we continued on IV Lasix as blood pressure tolerates. No nausea vomiting or abdominal pain. No fever no chills. Pulmonary and cardiology is on board. 12/06/2020 Patient is currently sitting in a chair still having exertional dyspnea and bilateral lower extremity swelling. Chest x-ray showed chronic emphysematous changes and cardiomegaly with small left pleural effusion. And left suprahilar neoplasm. Patient continues to be on A. fib but rate is improving. Cardizem drip has been discontinued and patient was started on oral Cardizem. Otherwise patient is being continued on IV Lasix. Will Juan C wrap bilateral lower extremities due to significant edema and oozing fluid. Patient remains afebrile. No complaints of chest pain. No nausea vomiting or abdominal pain or diarrhea. No dysuria or hematuria.. 12/07/2020 Patient is currently sitting in the chair. Breathing status is better today compared to yesterday. Leg swelling is still present but improved. Remains on A. fib with RVR. Currently on 3 L oxygen via nasal cannula. Laboratory data showed WBC 13.7, hemoglobin 12.4 and platelets 238 Sodium 132, potassium 3.5, bicarbonate 39, BUN 22 and creatinine 0.73 Patient is being cannula Lasix and p.o. Cardizem. Current medications reviewed. Objective - Vital Signs Vital signs: Vital Signs Temp 98.2 F 12/07/20 15:00 Pulse 104 H 12/07/20 21:27 Resp 18 12/07/20 15:00 BP 106/71 12/07/20 15:00 Pulse Ox 92 L 12/07/20 15:00 Intake & Output 12/07/20 12/07/20 12/08/20 06:59 18:59 06:59 Intake Total 520 590 Output Total 1950 1225 Balance -1430 -635 Weight 128.9 kg Intake: IV 20 20 Invasive Line 3 20 20 Oral 500 570 Output: Urine 1950 1225 Other: Voiding Method Toilet # Voids 1 - Exam PHYSICAL EXAMINATION: Patient is lying in the bed comfortably, no acute distress, awake alert and prabha ented. Obese.. HEENT: Normocephalic. Neck is supple. Pupils reactive. Nostrils clear. Oral cavity is moist. Ears reveal no drainage. Neck reveals no JVD, carotid bruits, or thyromegaly. CHEST EXAMINATION: Trachea is central. Symmetrical expansion. Bibasilar diminished air entry and scattere crackles.. CARDIAC: Normal S1, S2 with no gallops. No murmurs , irregularly irregular rhythm. ABDOMEN: Soft. Bowel sounds normal. No organomegaly. No abdominal bruits. Extremities: 2+ bilateral lower extremity edema. No clubbing or cyanosis Neurologically awake, alert, oriented x3 with well-coordinated movements. No focal deficits noted Skin: No rash or skin lesions. Psychiatric: Coperative. Nonsuicidal Musculoskeletal: No joint swelling or deformity. Normal range of motion. - Labs CBC & Chem 7: 12/08/20 08:35 12/08/20 08:35 Labs: Abnormal Lab Results - Last 24 Hours (Table) 12/07/20 12/07/20 12/07/20 Range/Units 06:09 07:22 07:22 WBC 13.7 H (3.8-10.6) k/uL Hgb 12.5 L (13.0-17.5) gm/dL Neutrophils # 12.0 H (1.3-7.7) k/uL Sodium 132 L (137-145) mmol/L Chloride 89 L (98-107) mmol/L Carbon Dioxide 39 H (22-30) mmol/L BUN 22 H (9-20) mg/dL Glucose 125 H (74-99) mg/dL POC Glucose (mg/dL) 144 H (75-99) mg/dL 12/07/20 12/07/20 12/07/20 Range/Units 11:52 16:41 20:47 WBC (3.8-10.6) k/uL Hgb (13.0-17.5) gm/dL Neutrophils # (1.3-7.7) k/uL Sodium (137-145) mmol/L Chloride (98-107) mmol/L Carbon Dioxide (22-30) mmol/L BUN (9-20) mg/dL Glucose (74-99) mg/dL POC Glucose (mg/dL) 152 H 150 H 176 H (75-99) mg/dL Assessment and Plan Assessment: Atrial fibrillation with rapid ventricular rate. Started back on Cardizem drip. changed to PO ,Heart rate is elevated. Added digoxin. Chronic persistent atrial fibrillation long-term anticoagulation has been discontinued due to risk of bleeding with brain metastases Acute on chronic CHF with diastolic dysfunction. Acute COPD exacerbation. improved. 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 DVT prophylaxis with Lovenox. Plan: Patient will be continued on breathing treatments. Started back on Cardizem dri p. Changed to po. Continue with metoprolol XL 100 mg daily and Lasix 40 mg twice daily. 2-D echocardiogram was done. Long-term anticoagulation has been held due to risk of bleeding with brain metastases. Pulmonary and cardiology is on board. Continued with pain management with [place] 5 GI and DVT prophylaxis. Further recommendations based on the clinical course. Time with Patient: Greater than 30
--- NOTE | 2020-12-08 21:37 | P.PN ---
Subjective Progress Note Date: 12/08/20 Principal diagnosis: Chest pain Atrial fibrillation with controlled ventricular rate Acute COPD exacerbation Patient came in with complaints palpitations or shortness of breath and chest pressure like sensation. Patient states that he has had increasing dyspnea over the past 2 days. Patient also states that he feels very weak today. Patient also states that he has been coughing up blood for the past few days. Patient was recently diagnosed with a lung tumor and metastatic disease with brain metastases. Patient states that he has undergone radiation therapy. Patient has a history of atrial fibrillation, and he was recently taken off of his Eliquis secondary to his metastatic disease. Patient admits to having left hip pain, which he states is chronic and unchanged. Patient denies having any other site of pain. Patient denies fever or chills, trauma or injury, headache, focal numbness/weakness/neuro deficit, visual changes, neck/back pain, chest pain, palpitations, syncope, abdominal pain, nausea/vomiting/diarrhea, bloody or melanotic stool, dysuria or urinary symptoms, decreased urine output, leg or calf swelling or pain, or any other symptoms or complaints. Patient had a mildly decreased EF of around 45%. Patient is presently on Cardizem patient w ith heart rate came down from 140s to 106 patient continues to be in atrial fibrillation will be evaluated by cardiology. Patient is presently not in heart failure exacerbation of COPD exacerbation patient is presently insisting steroids as well on an oral Lasix at this time. 12/02/2020 Patient is currently sitting in the chair. Shortness of breath is getting better. Exertional dyspnea. Patient is being continued on IV steroids and breathing treatments. Heart rate is controlled patient remained in atrial fibrillation. 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 2-D echocardiogram showed trace MR and trace TR and no pericardial effusion. Technically difficult study with suboptimal views. Unable [place] ejection fraction. Otherwise patient is afebrile. Tolerating oral diet. No cough or sputum production. Patient is being continued on Lasix 40 mg twice daily 12/03/2020 Patient is currently sitting the chair comfortably. Breathing status is better. Otherwise heart rate is still elevated. Cardiology has seen the patient and was started on digoxin. IV status will be changed to by mouth. Continue with breathing treatments and follow closely. Anticipate discharge in next 24 hours with better heart rate control. 12/04/20 Patient is currently sitting up in the states. Patient otherwise remains in atrial fibrillation with rapid ventricular rate. Cardizem drip has been restarted. Heart rate is in 120s and the patient is also hypotensive. Patient otherwise denied any chest pain or worsening shortness of breath. Continued on bronchodilators. Patient also IV Lasix. Monitor blood pressure closely. Patient has been afebrile. No nausea vomiting. Denied any lightheadedness. Pulmonary and cardiology is on board. 12/05/2020 Patient currently sitting in the chair. Still complaining of shortness of breath. Also heart rate is elevated and is on Cardizem drip. Which is being titrated down. Patient is also having bilateral lower activity swelling and we continued on IV Lasix as blood pressure tolerates. No nausea vomiting or abdominal pain. No fever no chills. Pulmonary and cardiology is on board. 12/06/2020 Patient is currently sitting in a chair still having exertional dyspnea and bilateral lower extremity swelling. Chest x-ray showed chronic emphysematous changes and cardiomegaly with small left pleural effusion. And left suprahilar neoplasm. Patient continues to be on A. fib but rate is improving. Cardizem drip has been discontinued and patient was started on oral Cardizem. Otherwise patient is being continued on IV Lasix. Will Juan C wrap bilateral lower extremities due to significant edema and oozing fluid. Patient remains afebrile. No complaints of chest pain. No nausea vomiting or abdominal pain or diarrhea. No dysuria or hematuria.. 12/07/2020 Patient is currently sitting in the chair. Breathing status is better today compared to yesterday. Leg swelling is still present but improved. Remains on A. fib with RVR. Currently on 3 L oxygen via nasal cannula. Laboratory data showed WBC 13.7, hemoglobin 12.4 and platelets 238 Sodium 132, potassium 3.5, bicarbonate 39, BUN 22 and creatinine 0.73 Patient is being cannula Lasix and p.o. Cardizem. 12/08/2020 Patient is currently sitting in the chair comfortably. Leg swelling and breathing status is better today. Still on 3 l via nasal cannula. No cough or sputum production. Heart rate is better controlled at 100. Patient is being continued digoxin, Cardizem by mouth increase the dose and IV Lasix 40 mg every 12 hourly. Patient was started on Diamox due to elevated bicarb level 42 BUN 25 and creatinine 0.81 WBC 15.0, hemoglobin 12.1 platelets 253 and neutrophils 12.9 Cardiology and pulmonary is on board. Current medications reviewed. Objective - Vital Signs Vital signs: Vital Signs Temp 98.4 F 12/08/20 12:11 Pulse 104 H 12/08/20 15:38 Resp 20 12/08/20 12:11 BP 102/62 12/08/20 12:11 Pulse Ox 93 L 12/08/20 20:05 Intake & Output 12/08/20 12/08/20 12/09/20 06:59 18:59 06:59 Intake Total 20 680 Output Total 775 1300 Balance -755 -620 Weight 123.3 kg Intake: IV 20 20 Invasive Line 3 20 20 Oral 660 Output: Urine 775 1300 Other: Voiding Method Toilet Urinal - Exam PHYSICAL EXAMINATION: Patient is lying in the bed comfortably, no acute distress, awake alert and oriented. Obese.. HEENT: Normocephalic. Neck is supple. Pupils reactive. Nostrils clear. Oral ca vity is moist. Ears reveal no drainage. Neck reveals no JVD, carotid bruits, or thyromegaly. CHEST EXAMINATION: Trachea is central. Symmetrical expansion. Bibasilar diminished air entry and scattere crackles.. CARDIAC: Normal S1, S2 with no gallops. No murmurs , irregularly irregular rhythm. ABDOMEN: Soft. Bowel sounds normal. No organomegaly. No abdominal bruits. Extremities: 2+ bilateral lower extremity edema. No clubbing or cyanosis Neurologically awake, alert, oriented x3 with well-coordinated movements. No focal deficits noted Skin: No rash or skin lesions. Psychiatric: Coperative. Nonsuicidal Musculoskeletal: No joint swelling or deformity. Normal range of motion. - Labs CBC & Chem 7: 12/08/20 08:35 12/08/20 08:35 Labs: Abnormal Lab Results - Last 24 Hours (Table) 12/08/20 12/08/20 12/08/20 Range/Units 06:22 08:35 08:35 WBC 15.0 H (3.8-10.6) k/uL Hgb 12.2 L (13.0-17.5) gm/dL Hct 38.6 L (39.0-53.0) % Neutrophils # 12.9 H (1.3-7.7) k/uL Sodium 134 L (137-145) mmol/L Chloride 89 L (98-107) mmol/L Carbon Dioxide 42 H* (22-30) mmol/L BUN 25 H (9-20) mg/dL Glucose 161 H (74-99) mg/dL POC Glucose (mg/dL) 109 H (75-99) mg/dL 12/08/20 12/08/20 12/08/20 Range/Units 12:02 16:57 20:01 WBC (3.8-10.6) k/uL Hgb (13.0-17.5) gm/dL Hct (39.0-53.0) % Neutrophils # (1.3-7.7) k/uL Sodium (137-145) mmol/L Chloride (98-107) mmol/L Carbon Dioxide (22-30) mmol/L BUN (9-20) mg/dL Glucose (74-99) mg/dL POC Glucose (mg/dL) 124 H 148 H 170 H (75-99) mg/dL Assessment and Plan Assessment: Atrial fibrillation with rapid ventricular rate. Started back on Cardizem drip. changed to PO ,Heart rate is elevated. Added digoxin. Chronic persistent atrial fibrillation long-term anticoagulation has been discontinued due to risk of bleeding with brain metastases Acute on chronic CHF with diastolic dysfunction. Acute COPD exacerbation. improved. 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 DVT prophylaxis with Lovenox. Plan: Patient will be continued on breathing treatments. Started back on Cardizem drip. Changed to po. Continue with metoprolol XL 100 mg daily and Lasix 40 mg twice daily. 2-D echocardiogram was done. Long-term anticoagulation has been held due to risk of bleeding with brain metastases. Pulmonary and cardiology is on board. Continued with pain management with [place] and DVT prophylaxis. Further recommendations based on the clinical course. Time with Patient: Greater than 30
[2020-12-09 06:16] LABS: Glucose,Whole Blood 114 mg/dL (75-99)
[2020-12-09] MEDS: SUCRALFATE 1 GM TAB PO SCH ×4 (06:41→21:34)
[2020-12-09] MEDS: INSULIN ASPART (NovoLOG) 100 UNIT/ML VIAL SQ SCH ×4 (06:41→21:35)
[2020-12-09] MEDS: HYDROcodone/APAP 10-325MG 1 EACH TAB PO PRN ×3 (06:42→17:24)
[2020-12-09 07:51] LABS: African American GFR (CKD) >90 (>60 ml/min/1.73 sqM); Blood Urea Nitrogen 19 mg/dL (9-20); Calcium 8.8 mg/dL (8.4-10.2); Chloride 88 mmol/L (98-107); Glucose 110 mg/dL (74-99); Non-African American GFR(CKD) 87 (>60 ml/min/1.73 sqM); Potassium 3.6 mmol/L (3.5-5.1); Sodium 134 mmol/L (137-145)
[2020-12-09 07:58] LABS: Anion Gap 4 mmol/L; Carbon Dioxide 42 mmol/L (22-30)
[2020-12-09] MEDS: SYMBICORT 160-4.5 MCG INHALER INHALATION SCH ×2 (08:56→19:31)
[2020-12-09] MEDS: IPRATROPIUM-ALBUTEROL 3 ML NEB INHALATION SCH ×4 (08:56→19:31)
[2020-12-09 09:07] LABS: Digoxin 0.6 ng/mL
[2020-12-09] MEDS: ENOXAPARIN 40 MG/0.4 ML SYRINGE SQ SCH (09:58)
[2020-12-09] MEDS: guaiFENesin 600 MG TABLET.ER PO SCH ×2 (09:59→21:34)
[2020-12-09] MEDS: METOPROLOL SUCCINATE (ER) 100 MG TAB.ER.24H PO SCH (09:59)
[2020-12-09] MEDS: PANTOPRAZOLE 40 MG TABLET PO SCH (09:59)
[2020-12-09] MEDS: acetaZOLAMIDE 250 MG TAB PO SCH (09:59)
[2020-12-09] MEDS: DIGOXIN 250 MCG TAB PO SCH (09:59)
[2020-12-09] MEDS: POTASSIUM CHLORIDE ER 10 MEQ TAB.ER.PRT PO SCH ×2 (09:59→21:35)
[2020-12-09] MEDS: ASPIRIN 81 MG PO SCH (09:59)
[2020-12-09] MEDS: VITAMIN E (DL,TOCOPHERYL ACET) 400 UNIT CAP PO SCH (09:59)
[2020-12-09] MEDS: CHOLECALCIFEROL 1,000 UNIT TAB PO SCH (09:59)
[2020-12-09] MEDS: CALCIUM CARB-VIT D 500 MG-5 MCG TAB PO SCH ×4 (09:59→21:34)
[2020-12-09] MEDS: DILTIAZEM CD 300 MG CAP.ER.24H PO SCH (09:59)
[2020-12-09] MEDS: NYSTATIN 100,000 UNIT/ML SUSP 500,000 UNIT/5 ML CUP PO SCH ×3 (09:59→23:34)
[2020-12-09] MEDS: MULTIVITAMINS, THERA 1 EACH TAB PO SCH (09:59)
[2020-12-09] MEDS: FUROSEMIDE 10 MG/ML 4 ML VIAL IV SCH ×2 (10:00→21:34)
--- NOTE | 2020-12-09 10:24 | P.PN ---
Subjective Progress Note Date: 12/09/20 75-year-old male, admitted on 11/30/2020. The patient has a recent diagnosis of small cell lung cancer, with metastasis to the brain. The patient has had radiation treatments with Dr. David Sim. He is also seen one of the oncologists. In addition, he has a history of chronic atrial fibrillation and COPD. He was admitted with a diagnosis of increasing shortness of breath and lower extremity edema. My partner saw the patient first on Wednesday. The CT angiogram did show a significant tumor encasing the left upper lobe bronchus but there was no pulmonary embolism. From the pulmonary standpoint, the patient is feeling better today. He is on 4 L nasal cannula. Not receiving any IV fluids. He still in atrial fibrillation. His biggest complaint is that his feet are painful and swollen. On 12/04/2020 patient seen in follow-up on selective care unit, awake and alert, in no acute distress, still remains in A. fib with RVR, with a heart rate between 107-125 BPM. Is on 3 L of oxygen a pulse ox of 95%. Systolic blood pressure between 80s to 90s, and diastolic in 60s, patient has been afebrile. No new chest x-ray today, no, with chest pain, breath sounds are diminished, with no significant wheezing. He is on nebulized bronchodilators, he is on Cardizem infusion for heart rate control, he is on prophylactic dose of Lovenox, is on IV Lasix 40 mg every 12 hours, he is in negative fluid balance over the last 24 hours On 12/06/2020 patient seen in follow-up on selective care unit, he is calm and comfortable, sitting up in the recliner, he states he is breathing much easier, lung sounds significantly improved since admission, revealing just minimal crackles at bilateral bases, no rhonchi no wheezing, no crackles or chest pain, no hemoptysis, he states overall she is feeling much better since admission, he isn't currently on 3 L of oxygen with a pulse ox of 94%, his last chest x-ray yesterday showing chronic emphysematous changes and cardiomegaly with small left pleural effusion, and left suprahilar neoplasm. He remains in A. fib with a rate of 104 BPM, Cardizem drip has been discontinued but she has been transitioned over to oral Cardizem. Remains on IV Lasix 40 mg every 12 hours he is in -1.1 L net fluid balance over the last 24 hours. Progress note dated 12/07/2020. Currently, the patient seemed be doing a bit better. His primary issue is shortness of breath initially, that has improved. More recently he complaining of swelling of the legs and pain in the feet. The patient was initially admitted with atrial fibrillation and RVR, as well as CHF. He also has a history of recent diagnosis of small cell lung cancer, with metastasis to the brain. He has started radiation treatments with Dr. David Sim. He is also seen with the medical oncologist. In addition to the above, he has a history of COPD. Currently, he is on 3 L nasal cannula. His saturations are 93%. Blood pressure is 96/51. Temperature is 98.6. Lab data includes a white count of 13.7, hemoglobin 12.5, sodium 132, potassium 3.5, chloride 89, CO2 39, anion gap 4, BUN 22, and a creatinine of 0.73. Progress note dated 12/08/2020. Currently, the patient seems to be doing better. The patient has been weaned down to 3 L by nasal cannula. Saturations are 93%. Temperature is 98.4. Respiratory rate 20 and blood pressure is 102/62. The patient has a recent diagnosis of metastatic small cell lung cancer, with metastasis to the brain. He has started radiation treatments with Dr. David Sim. He was initially admitted with a diagnosis of atrial fibrillation and rapid ventricular response, as well as congestive heart failure. Laboratory data today includes a white count of 15, hemoglobin 12.2, hematocrit 38.6, and platelet count 253,000. Sodium 134, potassium 3.9, chlorides 89, CO2 42, anion gap 3, BUN 25, and creatinine 0.81. On 12/09/2020, the patient is still on 3 L of oxygen by nasal cannula. He continues to have congested cough.: Or sputum production. He remains in atrial fibrillation. He is on a combination of cardiorenal found milligrams by mouth daily, digoxin 0.25 mg by mouth daily and metoprolol XL 100 mg by mouth daily. His heart rate currently is in the order of 90-120, irregular, consistent with atrial fibrillation. He remains on Lovenox subcu 40 mg for DVT prophylaxis. He has received radiation therapy to his brain regarding his metastatic small cell lung cancer. He is on no anticoagulants for now. Lower extremity edema is improving and the patient is currently on Lasix 40 mg every 12 hours. He has hoarseness place which is probably related to a vocal cord paralysis as the patient has a large left hilar mass. Objective - Vital Signs Vital signs: Vital Signs Temp 97.1 F L 12/09/20 04:00 Pulse 100 12/09/20 09:09 Resp 18 12/09/20 04:00 BP 110/57 12/09/20 04:00 Pulse Ox 90 L 12/09/20 04:00 Intake & Output 12/08/20 12/09/20 12/09/20 18:59 06:59 18:59 Intake Total 680 20 Output Total 1300 1600 Balance -620 -1580 Weight 129 kg Intake: IV 20 Invasive Line 3 20 Oral 660 20 Output: Urine 1300 1600 Other: Voiding Method Urinal Urinal - Exam No acute distress, oriented 3. Nasal O2 in place at 3 L. HEENT examination is grossly unremarkable. Mucous membranes are moist. No oral lesions. Neck supple. Full range of motion. No adenopathy thyromegaly or neck vein distention. Cardiovascular examination reveals an irregular rhythm and rate. No murmur is noted. He is clearly in atrial fibrillation. Lungs reveal mild bibasilar crackles. No wheezes. A few scattered rhonchi. Breath sounds are equal bilaterally. Breath sounds are improved. Abdomen soft bowel sounds are heard. No masses or tenderness. Extremities reveal bilateral lower extremity edema. No cyanosis or clubbing. Skin is without rash or lesion. Neurologic examination is brief but nonfocal. - Labs CBC & Chem 7: 12/08/20 08:35 12/09/20 07:10 Labs: Abnormal Lab Results - Last 24 Hours (Table) 12/08/20 12/08/20 12/08/20 Range/Units 12:02 16:57 20:01 Sodium (137-145) mmol/L Chloride (98-107) mmol/L Carbon Dioxide (22-30) mmol/L Glucose (74-99) mg/dL POC Glucose (mg/dL) 124 H 148 H 170 H (75-99) mg/dL 12/09/20 12/09/20 Range/Units 06:14 07:10 Sodium 134 L (137-145) mmol/L Chloride 88 L (98-107) mmol/L Carbon Dioxide 42 H* (22-30) mmol/L Glucose 110 H (74-99) mg/dL POC Glucose (mg/dL) 114 H (75-99) mg/dL Assessment and Plan Plan: 1 Shortness of breath, multifactorial, related to underlying atrial fibrillation with rapid ventricular response, chronic obstructive pulmonary disease exacerbation, and small cell lung cancer with metastasis to the brain. 2 Small left pleural effusion. 3 Atrial fibrillation with rapid ventricular response. Still tachycardic although less compared to yesterday. He is on a combination of digoxin, Cardizem and metoprolol. 4 Metastatic small cell lung cancer, currently undergoing chemotherapy and radiation therapy. 5 Morbid obesity. 6 History of chronic tobacco use. 7 Benign essential hypertension. 8 Chronic systolic congestive heart failure, with an ejection fraction of 45%. 10 History of obstructive sleep apnea syndrome, currently on CPAP. 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 Plan: Continue same treatment of diuretics Rate control per cardiology regarding his atrial fibrillation Continue radiation therapy to his brain Oncology to follow-up on his metastatic small cell lung cancer Will follow
[2020-12-09 10:32] VITALS: BMI 38.5
[2020-12-09 11:52] LABS: Glucose,Whole Blood 160 mg/dL (75-99)
--- NOTE | 2020-12-09 13:11 | P.PN ---
Subjective Progress Note Date: 12/09/20 HISTORY OF PRESENT ILLNESS: 12/04/2020 Patient examined at the bedside. He denies chest pain or pressure. He denies shortness of breath. He denies palpitations. He remains in atrial fibrillation with uncontrolled ventricular rate. Currently on a Cardizem drip at 5 mg an hour. He is also receiving metoprolol and Digoxin. Patient's blood pressure is borderline with a systolic in the 90s. 12/05/2020 Patient examined this morning at the bedside. Patient remains in afib with u ncontrolled ventricular rate. He is on a cardizem drip at 15mg/hr. he denies shortness of breath or chest pain. He remains on IV Lasix. Patient states he is urinating frequently. Blood pressure 98/55. 12/06/2020 Patient examined at the bedside. Patient currently denies shortness of breath. He continues to report a cough. He denies chest pain or pressure. His Cardizem drip has been weaned off. He remains in atrial fibrillation with controlled ventricular rate. He continues to have lower extremity edema, although it appears improved from yesterday. Patient sitting in the chair with his legs down. Encouraged patient to elevate lower extremities while in the chair. 12/09/2020 Patient examined this morning at the bedside. Patient denies shortness of breath. He continues to report a nonproductive cough. He denies chest pain or pressure. He states that his lower extremity edema is improved. He currently has his bilateral lower extremities wrapped with Juan C bandages. Patient remains in atrial fibrillation with mildly uncontrolled rates this morning. However he has not received his morning medications at the time of my examination per nursing. PHYSICAL EXAM: VITAL SIGNS: Reviewed. GENERAL: Well-developed in no acute distress. NECK: Supple. No JVD or thyromegaly LUNGS: Respirations even and unlabored. Lungs diminished with scattered rhonchi. Patient on 4 L nasal cannula HEART: Tachycardic. Irregular rate and rhythm. S1 and S2 heard. EXTREMITIES: Normal range of motion. No clubbing or cyanosis. Peripheral pulses intact. 2+ bilateral lower extremity edema ASSESSMENT: Chronic persistent atrial fibrillation with rapid ventricular rate, not on anticoagulation due to brain metastasis and risk of bleeding Borderline hypotension, improving Acute exacerbation of chronic systolic congestive heart failure, ejection frac tion 45% Small cell lung cancer with brain metastases Chronic obstructive pulmonary disease Hypertension Former nicotine dependence PLAN: Patient with mildly uncontrolled rates this morning. However he has not received his morning medications per nursing. Will continue current medication regimen at this time and follow his heart rates. Will make modifications as needed Continue telemetry monitoring Continue current cardiac medications Continue IV Lasix Daily weight Accurate I&O Monitor kidney function Possible discharge in the next 24-48 hours Nurse practitioner note has been reviewed by physician. Signing provider agrees with the documented findings, assessment, and plan of care. Objective - Vital Signs Vital signs: Vital Signs Temp 97.1 F L 12/09/20 04:00 Pulse 100 12/09/20 09:09 Resp 18 12/09/20 04:00 BP 110/57 12/09/20 04:00 Pulse Ox 90 L 12/09/20 04:00 Intake & Output 12/08/20 12/09/20 12/09/20 18:59 06:59 18:59 Intake Total 680 20 Output Total 1300 1600 Balance -620 -1580 Weight 129 kg 129 kg Intake: IV 20 Invasive Line 3 20 Oral 660 20 Output: Urine 1300 1600 Other: Voiding Method Urinal Urinal - Labs CBC & Chem 7: 12/08/20 08:35 12/09/20 07:10 Labs: Abnormal Lab Results - Last 24 Hours (Table) 12/08/20 12/08/20 12/09/20 Range/Units 16:57 20:01 06:14 Sodium (137-145) mmol/L Chloride (98-107) mmol/L Carbon Dioxide (22-30) mmol/L Glucose (74-99) mg/dL POC Glucose (mg/dL) 148 H 170 H 114 H (75-99) mg/dL 12/09/20 12/09/20 Range/Units 07:10 11:48 Sodium 134 L (137-145) mmol/L Chloride 88 L (98-107) mmol/L Carbon Dioxide 42 H* (22-30) mmol/L Glucose 110 H (74-99) mg/dL POC Glucose (mg/dL) 160 H (75-99) mg/dL
[2020-12-09 16:58] LABS: Glucose,Whole Blood 115 mg/dL (75-99)
[2020-12-09 20:46] LABS: Glucose,Whole Blood 191 mg/dL (75-99)
[2020-12-09] MEDS: MELATONIN 3 MG TABLET PO SCH (21:34)
[2020-12-10] MEDS: HYDROcodone/APAP 10-325MG 1 EACH TAB PO PRN ×4 (00:03→20:23)
[2020-12-10 06:13] LABS: Glucose,Whole Blood 126 mg/dL (75-99)
[2020-12-10] MEDS: INSULIN ASPART (NovoLOG) 100 UNIT/ML VIAL SQ SCH ×4 (06:34→20:24)
[2020-12-10] MEDS: SUCRALFATE 1 GM TAB PO SCH ×4 (07:02→20:24)
[2020-12-10] MEDS: NYSTATIN 100,000 UNIT/ML SUSP 500,000 UNIT/5 ML CUP PO SCH ×3 (08:00→20:24)
[2020-12-10] MEDS: ENOXAPARIN 40 MG/0.4 ML SYRINGE SQ SCH (08:00)
[2020-12-10] MEDS: FUROSEMIDE 10 MG/ML 4 ML VIAL IV SCH (08:01)
[2020-12-10] MEDS: VITAMIN E (DL,TOCOPHERYL ACET) 400 UNIT CAP PO SCH (08:03)
[2020-12-10] MEDS: MULTIVITAMINS, THERA 1 EACH TAB PO SCH (08:04)
[2020-12-10] MEDS: DIGOXIN 250 MCG TAB PO SCH (08:04)
[2020-12-10] MEDS: CHOLECALCIFEROL 1,000 UNIT TAB PO SCH (08:08)
[2020-12-10] MEDS: ASPIRIN 81 MG PO SCH (08:08)
[2020-12-10] MEDS: CALCIUM CARB-VIT D 500 MG-5 MCG TAB PO SCH ×4 (08:08→20:24)
[2020-12-10] MEDS: DILTIAZEM CD 300 MG CAP.ER.24H PO SCH (08:09)
[2020-12-10] MEDS: POTASSIUM CHLORIDE ER 10 MEQ TAB.ER.PRT PO SCH ×2 (08:09→20:23)
[2020-12-10] MEDS: METOPROLOL SUCCINATE (ER) 100 MG TAB.ER.24H PO SCH (08:09)
[2020-12-10] MEDS: guaiFENesin 600 MG TABLET.ER PO SCH ×2 (08:10→20:23)
[2020-12-10] MEDS: PANTOPRAZOLE 40 MG TABLET PO SCH (08:11)
[2020-12-10] MEDS: SYMBICORT 160-4.5 MCG INHALER INHALATION SCH ×2 (08:16→20:30)
[2020-12-10] MEDS: IPRATROPIUM-ALBUTEROL 3 ML NEB INHALATION SCH ×4 (08:16→20:30)
[2020-12-10 08:31] LABS: Basophils # (A) 0.1 k/uL (0-0.2); Basophils % (A) 1 %; Eosinophils % (A) 0 %; HCT 38.3 % (39.0-53.0); HGB 12.3 gm/dL (13.0-17.5); Hypochromasia Slight; Lymphocytes # (A) 0.9 k/uL (1.0-4.8); Lymphocytes % (A) 6 %; MCH 28.1 pg (25.0-35.0); MCV 87.6 fL (80.0-100.0); Mean Platelet Volume 7.4; Monocytes # (A) 0.8 k/uL (0-1.0); Monocytes % (A) 5 %; Neutrophils # (A) 13.7 k/uL (1.3-7.7); Neutrophils % (A) 87 %; Platelet Count 275 k/uL (150-450); RBC 4.38 m/uL (4.30-5.90); RDW 15.1 % (11.5-15.5); WBC 15.7 k/uL (3.8-10.6)
[2020-12-10 08:36] LABS: African American GFR (CKD) >90 (>60 ml/min/1.73 sqM); Blood Urea Nitrogen 23 mg/dL (9-20); Calcium 9.2 mg/dL (8.4-10.2); Chloride 87 mmol/L (98-107); Glucose 128 mg/dL (74-99); Non-African American GFR(CKD) 79 (>60 ml/min/1.73 sqM); Potassium 3.5 mmol/L (3.5-5.1); Sodium 132 mmol/L (137-145)
[2020-12-10 08:44] LABS: Anion Gap 6 mmol/L
[2020-12-10 08:46] LABS: Carbon Dioxide 39 mmol/L (22-30)
--- NOTE | 2020-12-10 10:25 | P.PN ---
Subjective Progress Note Date: 12/10/20 75-year-old male, admitted on 11/30/2020. The patient has a recent diagnosis of small cell lung cancer, with metastasis to the brain. The patient has had radiation treatments with Dr. David Sim. He is also seen one of the oncologists. In addition, he has a history of chronic atrial fibrillation and COPD. He was admitted with a diagnosis of increasing shortness of breath and lower extremity edema. My partner saw the patient first on Wednesday. The CT angiogram did show a significant tumor encasing the left upper lobe bronchus but there was no pulmonary embolism. From the pulmonary standpoint, the patient is feeling better today. He is on 4 L nasal cannula. Not receiving any IV fluids. He still in atrial fibrillation. His biggest complaint is that his feet are painful and swollen. On 12/04/2020 patient seen in follow-up on selective care unit, awake and alert, in no acute distress, still remains in A. fib with RVR, with a heart rate between 107-125 BPM. Is on 3 L of oxygen a pulse ox of 95%. Systolic blood pressure between 80s to 90s, and diastolic in 60s, patient has been afebrile. No new chest x-ray today, no, with chest pain, breath sounds are diminished, with no significant wheezing. He is on nebulized bronchodilators, he is on Cardizem infusion for heart rate control, he is on prophylactic dose of Lovenox, is on IV Lasix 40 mg every 12 hours, he is in negative fluid balance over the last 24 hours On 12/06/2020 patient seen in follow-up on selective care unit, he is calm and comfortable, sitting up in the recliner, he states he is breathing much easier, lung sounds significantly improved since admission, revealing just minimal crackles at bilateral bases, no rhonchi no wheezing, no crackles or chest pain, no hemoptysis, he states overall she is feeling much better since admission, he isn't currently on 3 L of oxygen with a pulse ox of 94%, his last chest x-ray yesterday showing chronic emphysematous changes and cardiomegaly with small left pleural effusion, and left suprahilar neoplasm. He remains in A. fib with a rate of 104 BPM, Cardizem drip has been discontinued but she has been transitioned over to oral Cardizem. Remains on IV Lasix 40 mg every 12 hours he is in -1.1 L net fluid balance over the last 24 hours. Progress note dated 12/07/2020. Currently, the patient seemed be doing a bit better. His primary issue is shortness of breath initially, that has improved. More recently he complaining of swelling of the legs and pain in the feet. The patient was initially admitted with atrial fibrillation and RVR, as well as CHF. He also has a history of recent diagnosis of small cell lung cancer, with metastasis to the brain. He has started radiation treatments with Dr. David Sim. He is also seen with the medical oncologist. In addition to the above, he has a history of COPD. Currently, he is on 3 L nasal cannula. His saturations are 93%. Blood pressure is 96/51. Temperature is 98.6. Lab data includes a white count of 13.7, hemoglobin 12.5, sodium 132, potassium 3.5, chloride 89, CO2 39, anion gap 4, BUN 22, and a creatinine of 0.73. Progress note dated 12/08/2020. Currently, the patient seems to be doing better. The patient has been weaned down to 3 L by nasal cannula. Saturations are 93%. Temperature is 98.4. Respiratory rate 20 and blood pressure is 102/62. The patient has a recent diagnosis of metastatic small cell lung cancer, with metastasis to the brain. He has started radiation treatments with Dr. David Sim. He was initially admitted with a diagnosis of atrial fibrillation and rapid ventricular response, as well as congestive heart failure. Laboratory data today includes a white count of 15, hemoglobin 12.2, hematocrit 38.6, and platelet count 253,000. Sodium 134, potassium 3.9, chlorides 89, CO2 42, anion gap 3, BUN 25, and creatinine 0.81. On 12/09/2020, the patient is still on 3 L of oxygen by nasal cannula. He continues to have congested cough.: Or sputum production. He remains in atrial fibrillation. He is on a combination of cardiorenal found milligrams by mouth daily, digoxin 0.25 mg by mouth daily and metoprolol XL 100 mg by mouth daily. His heart rate currently is in the order of 90-120, irregular, consistent with atrial fibrillation. He remains on Lovenox subcu 40 mg for DVT prophylaxis. He has received radiation therapy to his brain regarding his metastatic small cell lung cancer. He is on no anticoagulants for now. Lower extremity edema is improving and the patient is currently on Lasix 40 mg every 12 hours. He has hoarseness place which is probably related to a vocal cord paralysis as the patient has a large left hilar mass. On today's evaluation of 12/10/2020 on seeing the patient for a follow-up. The patient currently is on 3 L of osteomyelitis cannula and his pulse is around 92%. His heart rate is under better control and his current heart rate is in ranging between 9200 beats. His white cell count is at 15.7. Rest of the blood work and electrolytes are all within normal limits. The patient currently is on Lasix 40 mg every 12 hours. The patient is on a combination of Cardizem 300 mg by mouth daily, metoprolol 100 mg by mouth daily and ejection 0.25 mg by mouth daily for rate control. He is also on Lovenox 40 mg subcu for DVT prophylaxis. His voice remains hoarse. No nausea. No vomiting. No abdominal pain. No chest pain. No other complaints otherwise for now. He is a case of metastatic small cell lung cancer. He has completed radiation therapy to his brain. He has not received systemic chemotherapy yet. Objective - Vital Signs Vital signs: Vital Signs Temp 96.9 F L 12/10/20 08:00 Pulse 100 12/10/20 08:27 Resp 18 12/10/20 08:00 BP 105/58 12/10/20 08:00 Pulse Ox 92 L 12/10/20 08:00 Intake & Output 12/09/20 12/10/20 12/10/20 18:59 06:59 18:59 Intake Total 1040 20 240 Output Total 900 Balance 140 20 240 Weight 129 kg 129 kg Intake: IV 20 20 Invasive Line 4 20 20 Oral 1020 240 Output: Urine 900 Other: Voiding Method Urinal # Voids 1 1 # Bowel Movements 0 - Exam No acute distress, oriented 3. Nasal O2 in place at 3 L. HEENT examination is grossly unremarkable. Mucous membranes are moist. No oral lesions. Neck supple. Full range of motion. No adenopathy thyromegaly or neck vein distention. Cardiovascular examination reveals an irregular rhythm and rate. No murmur is noted. He is clearly in atrial fibrillation. Lungs reveal mild bibasilar crackles. No wheezes. A few scattered rhonchi. Breath sounds are equal bilaterally. Breath sounds are improved. Abdomen soft bowel sounds are heard. No masses or tenderness. Extremities reveal bilateral lower extremity edema. No cyanosis or clubbing. Skin is without rash or lesion. Neurologic examination is brief but nonfocal. - Labs CBC & Chem 7: 12/10/20 07:51 12/10/20 07:51 Labs: Abnormal Lab Results - Last 24 Hours (Table) 12/09/20 12/09/20 12/09/20 Range/Units 11:48 16:52 20:45 WBC (3.8-10.6) k/uL Hgb (13.0-17.5) gm/dL Hct (39.0-53.0) % Neutrophils # (1.3-7.7) k/uL Lymphocytes # (1.0-4.8) k/uL Sodium (137-145) mmol/L Chloride (98-107) mmol/L Carbon Dioxide (22-30) mmol/L BUN (9-20) mg/dL Glucose (74-99) mg/dL POC Glucose (mg/dL) 160 H 115 H 191 H (75-99) mg/dL 12/10/20 12/10/20 12/10/20 Range/Units 06:12 07:51 07:51 WBC 15.7 H (3.8-10.6) k/uL Hgb 12.3 L (13.0-17.5) gm/dL Hct 38.3 L (39.0-53.0) % Neutrophils # 13.7 H (1.3-7.7) k/uL Lymphocytes # 0.9 L (1.0-4.8) k/uL Sodium 132 L (137-145) mmol/L Chloride 87 L (98-107) mmol/L Carbon Dioxide 39 H (22-30) mmol/L BUN 23 H (9-20) mg/dL Glucose 128 H (74-99) mg/dL POC Glucose (mg/dL) 126 H (75-99) mg/dL Assessment and Plan Plan: 1 Shortness of breath, multifactorial, related to underlying atrial fibrillation with rapid ventricular response, chronic obstructive pulmonary disease exacerbation, and small cell lung cancer with metastasis to the brain. 2 Small left pleural effusion. 3 Atrial fibrillation with rapid ventricular response. Still tachycardic al though less compared to yesterday. He is on a combination of digoxin, Cardizem and metoprolol. Rate is under better control and cardiology is on the case. The patient is not receiving any form of long-term anticoagulants for now. 4 Metastatic small cell lung cancer, currently undergoing chemotherapy and radiation therapy. 5 Morbid obesity. 6 History of chronic tobacco use. 7 Benign essential hypertension. 8 Chronic systolic congestive heart failure, with an ejection fraction of 45%. 10 History of obstructive sleep apnea syndrome, currently on CPAP. 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 Plan: Continue same treatment of diuretics and switch this patient to oral diuretics 40 mg by mouth daily. Rate control per cardiology regarding his atrial fibrillation Continue radiation therapy to his brain Oncology to follow-up on his metastatic small cell lung cancer overall pulmonary status is stable. He continues to have rales in the lung bases. He is to follow-up with oncology regarding his metastatic small cell lung cancer. Will follow
[2020-12-10 12:00] LABS: Glucose,Whole Blood 135 mg/dL (75-99)
--- NOTE | 2020-12-10 14:23 | CDI ---
Documentation Clarification Form Date: 12/10/2020 02:21 PM CDS: Alysa Michel, WAQAS, CCDS Admit Date: 12/02/2020 13:49 PM Patient Name: Yariel Hancock Discharge Date: ATTENTION: The Clinical Documentation Specialists (CDI) and [facility] Coding Staff appreciate your assistance in clarifying documentation. Please respond to the clarification below the line at the bottom and electronically sign. The CDI & [facility] Coding staff will review the response and follow-up if needed. Please note: Queries are made part of the Legal Health Record. If you have any questions, please contact the author of this message via ITS. Dear Dr. Reinaldo Espino: Conflicting documentation has been found in the medical record: Per the 12/01 History & Physical: "Congestive heart failure chronic systolic dysfunction EF of around 45-50% patient is presently euvolemic at this time. Per the 12/01 Cardiology Consult: "Chronic systolic heart failure, EF 45%, currently euvolemic." Per the 12/04 Cardiology Progress Note: "Acute exacerbation of chronic systolic CHF with EF 45%." Per the 12/06 Attending Progress Note and subsequent Progress Notes: "Chronic persistent atrial fibrillation long-term anticoagulation has been discontinued due to risk of bleeding with brain metastases. Acute on chronic CHF with diastolic dysfunction." History/Risk Factors: CHF, COPD, GERD, Sleep apnea, Former smoker. Clinical Indicators: Presented to the ED on 11/30 with SOB, coughing & weakness. Recently diagnosed with lung cancer & metastatic disease to the brain. ED Impression: Atrial fibrillation w/RVR. 11/30 VS: T 98, P 142^, R 20 (SOB), BP 78/65, PO 89 RA 11/30 LAB: APTT 21.0*, Cl 97*, CO2 39^, BUN 23^, Glucose 121^, Alk Phos 282^, BNP 369 11/30 CXR: Pulmonary fibrotic changes. Cardiomegaly. Left side perihilar infiltrate and consolidation improved compared to last exam 11/30 CT Chest: There are 2 small left pleural effusion. 12/05 CXR: Chronic emphysematous change and cardiomegaly with small left pleural effusion, left suprahilar neoplasm. 12/02 ECHO: Technically difficult study. Unable to comment on EF, Trace MR, Trace TR, No pericardial effusion. 01/04/2019 MIA: Left ventricle has normal size & systolic function. Treatment 11/30: IV fluid 500 mls @ 999 mls/hr q31M, IV Cardizem, O2 4Lnc, 12/01: po Lasix, IV Solumedrol, INH Duoneb. 12/03 INH INH Symbicort, IV Cardizem Drip Bolus, IV Lasix. In your opinion, what is the most clinically appropriate diagnosis for this patient? Acute on Chronic Systolic Congestive Heart Failure Acute on Chronic Diastolic Congestive Heart Failure Acute on Chronic Combined Systolic & Diastolic Heart Failure Other, please specify: Unable to determine (Last Revision: February 2018) Acute on Chronic Diastolic and systolic Congestive Heart Failure MTDD
--- NOTE | 2020-12-10 14:58 | P.PN ---
Subjective Progress Note Date: 12/10/20 HISTORY OF PRESENT ILLNESS: 12/04/2020 Patient examined at the bedside. He denies chest pain or pressure. He denies shortness of breath. He denies palpitations. He remains in atrial fibrillation with uncontrolled ventricular rate. Currently on a Cardizem drip at 5 mg an hour. He is also receiving metoprolol and Digoxin. Patient's blood pressure is borderline with a systolic in the 90s. 12/05/2020 Patient examined this morning at the bedside. Patient remains in afib with u ncontrolled ventricular rate. He is on a cardizem drip at 15mg/hr. he denies shortness of breath or chest pain. He remains on IV Lasix. Patient states he is urinating frequently. Blood pressure 98/55. 12/06/2020 Patient examined at the bedside. Patient currently denies shortness of breath. He continues to report a cough. He denies chest pain or pressure. His Cardizem drip has been weaned off. He remains in atrial fibrillation with controlled ventricular rate. He continues to have lower extremity edema, although it appears improved from yesterday. Patient sitting in the chair with his legs down. Encouraged patient to elevate lower extremities while in the chair. 12/09/2020 Patient examined this morning at the bedside. Patient denies shortness of breath. He continues to report a nonproductive cough. He denies chest pain or pressure. He states that his lower extremity edema is improved. He currently has his bilateral lower extremities wrapped with Juan C bandages. Patient remains in atrial fibrillation with mildly uncontrolled rates this morning. However he has not received his morning medications at the time of my examination per nursing. 12/10/2020 Patient examined at the bedside. He currently denies shortness of breath. He denies chest pain or pressure. Patient's lower extremity edema is improving. He remains on IV Lasix. Creatinine 0.96. Patients heart rate remains controlled. PHYSICAL EXAM: VITAL SIGNS: Reviewed. GENERAL: Well-developed in no acute distress. NECK: Supple. No JVD or thyromegaly LUNGS: Respirations even and unlabored. Lungs diminished with scattered rhonchi. Patient on 4 L nasal cannula HEART: Irregular rate and rhythm. S1 and S2 heard. EXTREMITIES: Normal range of motion. No clubbing or cyanosis. Peripheral pulses intact. 2+ bilateral lower extremity edema ASSESSMENT: Chronic persistent atrial fibrillation with rapid ventricular rate, not on anticoagulation due to brain metastasis and risk of bleeding Borderline hypotension, improving Acute exacerbation of chronic systolic congestive heart failure, ejection fraction 45% Small cell lung cancer with brain metastases Chronic obstructive pulmonary disease Hypertension Former nicotine dependence PLAN: Continue telemetry monitoring Continue current cardiac medications Discontinue IV Lasix. Transition to oral Lasix 80 mg by mouth twice a day Daily weight Accurate I&O Monitor kidney function Possible discharge in the next 24 hours Nurse practitioner note has been reviewed by physician. Signing provider agrees with the documented findings, assessment, and plan of care. Objective - Vital Signs Vital signs: Vital Signs Temp 96.9 F L 12/10/20 08:00 Pulse 89 12/10/20 12:00 Resp 18 12/10/20 12:00 BP 91/53 12/10/20 12:00 Pulse Ox 90 L 12/10/20 12:00 Intake & Output 12/09/20 12/10/20 12/10/20 18:59 06:59 18:59 Intake Total 1040 20 240 Output Total 900 Balance 140 20 240 Weight 129 kg 129 kg Intake: IV 20 20 Invasive Line 4 20 20 Oral 1020 240 Output: Urine 900 Other: Voiding Method Urinal Urinal # Voids 1 1 # Bowel Movements 0 - Labs CBC & Chem 7: 12/10/20 07:51 12/10/20 07:51 Labs: Abnormal Lab Results - Last 24 Hours (Table) 12/09/20 12/09/20 12/10/20 Range/Units 16:52 20:45 06:12 WBC (3.8-10.6) k/uL Hgb (13.0-17.5) gm/dL Hct (39.0-53.0) % Neutrophils # (1.3-7.7) k/uL Lymphocytes # (1.0-4.8) k/uL Sodium (137-145) mmol/L Chloride (98-107) mmol/L Carbon Dioxide (22-30) mmol/L BUN (9-20) mg/dL Glucose (74-99) mg/dL POC Glucose (mg/dL) 115 H 191 H 126 H (75-99) mg/dL 12/10/20 12/10/20 12/10/20 Range/Units 07:51 07:51 11:53 WBC 15.7 H (3.8-10.6) k/uL Hgb 12.3 L (13.0-17.5) gm/dL Hct 38.3 L (39.0-53.0) % Neutrophils # 13.7 H (1.3-7.7) k/uL Lymphocytes # 0.9 L (1.0-4.8) k/uL Sodium 132 L (137-145) mmol/L Chloride 87 L (98-107) mmol/L Carbon Dioxide 39 H (22-30) mmol/L BUN 23 H (9-20) mg/dL Glucose 128 H (74-99) mg/dL POC Glucose (mg/dL) 135 H (75-99) mg/dL
[2020-12-10 16:59] LABS: Glucose,Whole Blood 143 mg/dL (75-99)
[2020-12-10] MEDS: FUROSEMIDE 80 MG TAB PO SCH (17:49)
[2020-12-10 20:23] LABS: Glucose,Whole Blood 165 mg/dL (75-99)
[2020-12-10] MEDS: MELATONIN 3 MG TABLET PO SCH (20:23)
[2020-12-11] MEDS: INSULIN ASPART (NovoLOG) 100 UNIT/ML VIAL SQ SCH ×2 (06:25→13:14)
[2020-12-11 06:26] LABS: Glucose,Whole Blood 118 mg/dL (75-99)
[2020-12-11] MEDS: SUCRALFATE 1 GM TAB PO SCH ×2 (06:28→13:13)
[2020-12-11] MEDS: HYDROcodone/APAP 10-325MG 1 EACH TAB PO PRN ×2 (06:28→13:13)
[2020-12-11] MEDS ORDERED: CHOLECALCIFEROL 25 MCG (1000 IU) TABLET PO SCH (09:00)
[2020-12-11] MEDS: ASPIRIN 81 MG PO SCH (09:08)
[2020-12-11] MEDS: METOPROLOL SUCCINATE (ER) 100 MG TAB.ER.24H PO SCH (09:08)
[2020-12-11] MEDS: PANTOPRAZOLE 40 MG TABLET PO SCH (09:09)
[2020-12-11] MEDS: MULTIVITAMINS, THERA 1 EACH TAB PO SCH (09:09)
[2020-12-11] MEDS: FUROSEMIDE 80 MG TAB PO SCH (09:09)
[2020-12-11] MEDS: CALCIUM CARB-VIT D 500 MG-5 MCG TAB PO SCH ×2 (09:09→13:14)
[2020-12-11] MEDS: guaiFENesin 600 MG TABLET.ER PO SCH (09:09)
[2020-12-11] MEDS: POTASSIUM CHLORIDE ER 10 MEQ TAB.ER.PRT PO SCH (09:09)
[2020-12-11] MEDS: DIGOXIN 250 MCG TAB PO SCH (09:10)
[2020-12-11] MEDS: DILTIAZEM CD 300 MG CAP.ER.24H PO SCH (09:10)
[2020-12-11] MEDS: ENOXAPARIN 40 MG/0.4 ML SYRINGE SQ SCH (09:10)
[2020-12-11] MEDS: VITAMIN E (DL,TOCOPHERYL ACET) 400 UNIT CAP PO SCH (09:11)
[2020-12-11] MEDS: NYSTATIN 100,000 UNIT/ML SUSP 500,000 UNIT/5 ML CUP PO SCH (09:11)
[2020-12-11] MEDS: IPRATROPIUM-ALBUTEROL 3 ML NEB INHALATION SCH ×3 (09:17→16:00)
[2020-12-11 09:18] VITALS: RESP 18; TEMP 97.2
[2020-12-11] MEDS: SYMBICORT 160-4.5 MCG INHALER INHALATION SCH (09:18)
[2020-12-11 11:34] LABS: Glucose,Whole Blood 146 mg/dL (75-99)
[2020-12-11 13:19] VITALS: BP 97/54
--- NOTE | 2020-12-11 13:26 | P.PN ---
Subjective Progress Note Date: 12/09/20 Principal diagnosis: Chest pain Atrial fibrillation with controlled ventricular rate Acute COPD exacerbation Patient came in with complaints palpitations or shortness of breath and chest pressure like sensation. Patient states that he has had increasing dyspnea over the past 2 days. Patient also states that he feels very weak today. Patient also states that he has been coughing up blood for the past few days. Patient was recently diagnosed with a lung tumor and metastatic disease with brain metastases. Patient states that he has undergone radiation therapy. Patient has a history of atrial fibrillation, and he was recently taken off of his Eliquis secondary to his metastatic disease. Patient admits to having left hip pain, which he states is chronic and unchanged. Patient denies having any other site of pain. Patient denies fever or chills, trauma or injury, headache, focal numbness/weakness/neuro deficit, visual changes, neck/back pain, chest pain, palpitations, syncope, abdominal pain, nausea/vomiting/diarrhea, bloody or melanotic stool, dysuria or urinary symptoms, decreased urine output, leg or calf swelling or pain, or any other symptoms or complaints. Patient had a mildly decreased EF of around 45%. Patient is presently on Cardizem patient w ith heart rate came down from 140s to 106 patient continues to be in atrial fibrillation will be evaluated by cardiology. Patient is presently not in heart failure exacerbation of COPD exacerbation patient is presently insisting steroids as well on an oral Lasix at this time. 12/02/2020 Patient is currently sitting in the chair. Shortness of breath is getting better. Exertional dyspnea. Patient is being continued on IV steroids and breathing treatments. Heart rate is controlled patient remained in atrial fibrillation. 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 2-D echocardiogram showed trace MR and trace TR and no pericardial effusion. Technically difficult study with suboptimal views. Unable [place] ejection fraction. Otherwise patient is afebrile. Tolerating oral diet. No cough or sputum production. Patient is being continued on Lasix 40 mg twice daily 12/03/2020 Patient is currently sitting the chair comfortably. Breathing status is better. Otherwise heart rate is still elevated. Cardiology has seen the patient and was started on digoxin. IV status will be changed to by mouth. Continue with breathing treatments and follow closely. Anticipate discharge in next 24 hours with better heart rate control. 12/04/20 Patient is currently sitting up in the states. Patient otherwise remains in atrial fibrillation with rapid ventricular rate. Cardizem drip has been restarted. Heart rate is in 120s and the patient is also hypotensive. Patient otherwise denied any chest pain or worsening shortness of breath. Continued on bronchodilators. Patient also IV Lasix. Monitor blood pressure closely. Patient has been afebrile. No nausea vomiting. Denied any lightheadedness. Pulmonary and cardiology is on board. 12/05/2020 Patient currently sitting in the chair. Still complaining of shortness of breath. Also heart rate is elevated and is on Cardizem drip. Which is being titrated down. Patient is also having bilateral lower activity swelling and we continued on IV Lasix as blood pressure tolerates. No nausea vomiting or abdominal pain. No fever no chills. Pulmonary and cardiology is on board. 12/06/2020 Patient is currently sitting in a chair still having exertional dyspnea and bilateral lower extremity swelling. Chest x-ray showed chronic emphysematous changes and cardiomegaly with small left pleural effusion. And left suprahilar neoplasm. Patient continues to be on A. fib but rate is improving. Cardizem drip has been discontinued and patient was started on oral Cardizem. Otherwise patient is being continued on IV Lasix. Will Juan C wrap bilateral lower extremities due to significant edema and oozing fluid. Patient remains afebrile. No complaints of chest pain. No nausea vomiting or abdominal pain or diarrhea. No dysuria or hematuria.. 12/07/2020 Patient is currently sitting in the chair. Breathing status is better today compared to yesterday. Leg swelling is still present but improved. Remains on A. fib with RVR. Currently on 3 L oxygen via nasal cannula. Laboratory data showed WBC 13.7, hemoglobin 12.4 and platelets 238 Sodium 132, potassium 3.5, bicarbonate 39, BUN 22 and creatinine 0.73 Patient is being cannula Lasix and p.o. Cardizem. 12/08/2020 Patient is currently sitting in the chair comfortably. Leg swelling and breathing status is better today. Still on 3 l via nasal cannula. No cough or sputum production. Heart rate is better controlled at 100. Patient is being continued digoxin, Cardizem by mouth increase the dose and IV Lasix 40 mg every 12 hourly. Patient was started on Diamox due to elevated bicarb level 42 BUN 25 and creatinine 0.81 WBC 15.0, hemoglobin 12.1 platelets 253 and neutrophils 12.9 Cardiology and pulmonary is on board. 12/09/2020 Patient is currently sitting received. Still having shortness of breath and leg swelling but improving. Patient is still tachycardic. Continued on digoxin, metoprolol and IV Lasix. Cardizem dose was increased. Lower activity swelling is improving. Currently on anticoagulation with Lovenox. Patient otherwise denied any complaints of chest pain. No nausea vomiting or abdominal pain or diarrhea. Tolerating oral diet. Current medications reviewed. Objective - Vital Signs Vital signs: Vital Signs Temp 97.1 F L 12/09/20 04:00 Pulse 100 12/09/20 09:09 Resp 18 12/09/20 04:00 BP 110/57 12/09/20 04:00 Pulse Ox 90 L 12/09/20 04:00 Intake & Output 12/08/20 12/09/20 12/09/20 18:59 06:59 18:59 Intake Total 680 20 Output Total 1300 1600 Balance -620 -1580 Weight 129 kg 129 kg Intake: IV 20 Invasive Line 3 20 Oral 660 20 Output: Urine 1300 1600 Other: Voiding Method Urinal Urinal - Exam PHYSICAL EXAMINATION: Patient is lying in the bed comfortably, no acute distress, awake alert and oriented. Obese.. HEENT: Normocephalic. Neck is supple. Pupils reactive. Nostrils clear. Oral cavity is moist. Ears reveal no drainage. Neck reveals no JVD, carotid bruits, or thyromegaly. CHEST EXAMINATION: Trachea is central. Symmetrical expansion. Bibasilar diminished air entry and scattere crackles.. CARDIAC: Normal S1, S2 with no gallops. No murmurs , irregularly irregular rhythm. ABDOMEN: Soft. Bowel sounds normal. No organomegaly. No abdominal bruits. Extremities: 2+ bilateral lower extremity edema. No clubbing or cyanosis Neurologically awake, alert, oriented x3 with well-coordinated movements. No focal deficits noted Skin: No rash or skin lesions. Psychiatric: Coperative. Nonsuicidal Musculoskeletal: No joint swelling or deformity. Normal range of motion. - Labs CBC & Chem 7: 12/10/20 07:51 12/11/20 08:35 Labs: Abnormal Lab Results - Last 24 Hours (Table) 12/08/20 12/08/20 12/09/20 Range/Units 16:57 20:01 06:14 Sodium (137-145) mmol/L Chloride (98-107) mmol/L Carbon Dioxide (22-30) mmol/L Glucose (74-99) mg/dL POC Glucose (mg/dL) 148 H 170 H 114 H (75-99) mg/dL 12/09/20 12/09/20 Range/Units 07:10 11:48 Sodium 134 L (137-145) mmol/L Chloride 88 L (98-107) mmol/L Carbon Dioxide 42 H* (22-30) mmol/L Glucose 110 H (74-99) mg/dL POC Glucose (mg/dL) 160 H (75-99) mg/dL Assessment and Plan Assessment: Atrial fibrillation with rapid ventricular rate. Started back on Cardizem drip. changed to PO ,Heart rate is elevated. Added digoxin. Continued on metoprolol. Chronic persistent atrial fibrillation long-term anticoagulation has been discontinued due to risk of bleeding with brain metastases Acute on chronic CHF with diastolic dysfunction. Acute COPD exacerbation. improved. 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 DVT prophylaxis with Lovenox. Plan: Patient will be continued on breathing treatments. Started back on Cardizem drip. Changed to po. Continue with metoprolol XL 100 mg daily and Lasix IV 40 mg twice daily. 2-D echocardiogram was done. Long-term anticoagulation has been held due to risk of bleeding with brain metastases. Pulmonary and cardiology is on board. Continued with pain management with [place] 5 GI and DVT prophylaxis. Further recommendations based on the clinical course. Time with Patient: Greater than 30
--- NOTE | 2020-12-11 13:28 | P.PN ---
Subjective Progress Note Date: 12/10/20 Principal diagnosis: Chest pain Atrial fibrillation with controlled ventricular rate Acute COPD exacerbation Patient came in with complaints palpitations or shortness of breath and chest pressure like sensation. Patient states that he has had increasing dyspnea over the past 2 days. Patient also states that he feels very weak today. Patient also states that he has been coughing up blood for the past few days. Patient was recently diagnosed with a lung tumor and metastatic disease with brain metastases. Patient states that he has undergone radiation therapy. Patient has a history of atrial fibrillation, and he was recently taken off of his Eliquis secondary to his metastatic disease. Patient admits to having left hip pain, which he states is chronic and unchanged. Patient denies having any other site of pain. Patient denies fever or chills, trauma or injury, headache, focal numbness/weakness/neuro deficit, visual changes, neck/back pain, chest pain, palpitations, syncope, abdominal pain, nausea/vomiting/diarrhea, bloody or melanotic stool, dysuria or urinary symptoms, decreased urine output, leg or calf swelling or pain, or any other symptoms or complaints. Patient had a mildly decreased EF of around 45%. Patient is presently on Cardizem patient w ith heart rate came down from 140s to 106 patient continues to be in atrial fibrillation will be evaluated by cardiology. Patient is presently not in heart failure exacerbation of COPD exacerbation patient is presently insisting steroids as well on an oral Lasix at this time. 12/02/2020 Patient is currently sitting in the chair. Shortness of breath is getting better. Exertional dyspnea. Patient is being continued on IV steroids and breathing treatments. Heart rate is controlled patient remained in atrial fibrillation. 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 2-D echocardiogram showed trace MR and trace TR and no pericardial effusion. Technically difficult study with suboptimal views. Unable [place] ejection fraction. Otherwise patient is afebrile. Tolerating oral diet. No cough or sputum production. Patient is being continued on Lasix 40 mg twice daily 12/03/2020 Patient is currently sitting the chair comfortably. Breathing status is better. Otherwise heart rate is still elevated. Cardiology has seen the patient and was started on digoxin. IV status will be changed to by mouth. Continue with breathing treatments and follow closely. Anticipate discharge in next 24 hours with better heart rate control. 12/04/20 Patient is currently sitting up in the states. Patient otherwise remains in atrial fibrillation with rapid ventricular rate. Cardizem drip has been restarted. Heart rate is in 120s and the patient is also hypotensive. Patient otherwise denied any chest pain or worsening shortness of breath. Continued on bronchodilators. Patient also IV Lasix. Monitor blood pressure closely. Patient has been afebrile. No nausea vomiting. Denied any lightheadedness. Pulmonary and cardiology is on board. 12/05/2020 Patient currently sitting in the chair. Still complaining of shortness of breath. Also heart rate is elevated and is on Cardizem drip. Which is being titrated down. Patient is also having bilateral lower activity swelling and we continued on IV Lasix as blood pressure tolerates. No nausea vomiting or abdominal pain. No fever no chills. Pulmonary and cardiology is on board. 12/06/2020 Patient is currently sitting in a chair still having exertional dyspnea and bilateral lower extremity swelling. Chest x-ray showed chronic emphysematous changes and cardiomegaly with small left pleural effusion. And left suprahilar neoplasm. Patient continues to be on A. fib but rate is improving. Cardizem drip has been discontinued and patient was started on oral Cardizem. Otherwise patient is being continued on IV Lasix. Will Juan C wrap bilateral lower extremities due to significant edema and oozing fluid. Patient remains afebrile. No complaints of chest pain. No nausea vomiting or abdominal pain or diarrhea. No dysuria or hematuria.. 12/07/2020 Patient is currently sitting in the chair. Breathing status is better today compared to yesterday. Leg swelling is still present but improved. Remains on A. fib with RVR. Currently on 3 L oxygen via nasal cannula. Laboratory data showed WBC 13.7, hemoglobin 12.4 and platelets 238 Sodium 132, potassium 3.5, bicarbonate 39, BUN 22 and creatinine 0.73 Patient is being cannula Lasix and p.o. Cardizem. 12/08/2020 Patient is currently sitting in the chair comfortably. Leg swelling and breathing status is better today. Still on 3 l via nasal cannula. No cough or sputum production. Heart rate is better controlled at 100. Patient is being continued digoxin, Cardizem by mouth increase the dose and IV Lasix 40 mg every 12 hourly. Patient was started on Diamox due to elevated bicarb level 42 BUN 25 and creatinine 0.81 WBC 15.0, hemoglobin 12.1 platelets 253 and neutrophils 12.9 Cardiology and pulmonary is on board. 12/09/2020 Patient is currently sitting received. Still having shortness of breath and leg swelling but improving. Patient is still tachycardic. Continued on digoxin, metoprolol and IV Lasix. Cardizem dose was increased. Lower activity swelling is improving. Currently on anticoagulation with Lovenox. Patient otherwise denied any complaints of chest pain. No nausea vomiting or abdominal pain or diarrhea. Tolerating oral diet. 12/10/2020 Jaquelin castro is currently sitting in a chair comfortably. Leg swelling is improving. Less short of breath today. Otherwise heart rate is fairly controlled at 100 and is on Cardizem, metoprolol and his oxygen. IV Lasix is being changed to by mouth today. Laboratory data showed WBC 15.7, hemoglobin 12.3 and platelets 275 Sodium 132, potassium 3.5, bicarb is 39 BUN 23 and creatinine 0.96 and blood s ugar is controlled. Cardiology and pulmonary is on board. Anticipate discharge in next 24 hours wit h marked clinical improvement and better heart rate control. Current medications reviewed. Objective - Vital Signs Vital signs: Vital Signs Temp 98.3 F 12/10/20 20:29 Pulse 99 12/10/20 20:40 Resp 18 12/10/20 20:40 BP 110/56 12/10/20 20:29 Pulse Ox 91 L 12/10/20 20:29 Intake & Output 12/10/20 12/10/20 12/11/20 06:59 18:59 06:59 Intake Total 20 1080 Balance 20 1080 Weight 129 kg Intake: IV 20 Invasive Line 4 20 Oral 1080 Other: Voiding Method Urinal Urinal Toilet # Voids 1 4 1 - Exam PHYSICAL EXAMINATION: Patient is lying in the bed comfortably, no acute distress, awake alert and oriented. Obese.. HEENT: Normocephalic. Neck is supple. Pupils reactive. Nostrils clear. Oral cavity is moist. Ears reveal no drainage. Neck reveals no JVD, carotid bruits, or thyromegaly. CHEST EXAMINATION: Trachea is central. Symmetrical expansion. Bibasilar diminished air entry and scattere crackles.. CARDIAC: Normal S1, S2 with no gallops. No murmurs , irregularly irregular rhythm. ABDOMEN: Soft. Bowel sounds normal. No organomegaly. No abdominal bruits. Extremities: 2+ bilateral lower extremity edema. No clubbing or cyanosis Neurologically awake, alert, oriented x3 with well-coordinated movements. No focal deficits noted Skin: No rash or skin lesions. Psychiatric: Coperative. Nonsuicidal Musculoskeletal: No joint swelling or deformity. Normal range of motion. - Labs CBC & Chem 7: 12/10/20 07:51 12/11/20 08:35 Labs: Abnormal Lab Results - Last 24 Hours (Table) 12/10/20 12/10/20 12/10/20 Range/Units 06:12 07:51 07:51 WBC 15.7 H (3.8-10.6) k/uL Hgb 12.3 L (13.0-17.5) gm/dL Hct 38.3 L (39.0-53.0) % Neutrophils # 13.7 H (1.3-7.7) k/uL Lymphocytes # 0.9 L (1.0-4.8) k/uL Sodium 132 L (137-145) mmol/L Chloride 87 L (98-107) mmol/L Carbon Dioxide 39 H (22-30) mmol/L BUN 23 H (9-20) mg/dL Glucose 128 H (74-99) mg/dL POC Glucose (mg/dL) 126 H (75-99) mg/dL 12/10/20 12/10/20 12/10/20 Range/Units 11:53 16:58 20:21 WBC (3.8-10.6) k/uL Hgb (13.0-17.5) gm/dL Hct (39.0-53.0) % Neutrophils # (1.3-7.7) k/uL Lymphocytes # (1.0-4.8) k/uL Sodium (137-145) mmol/L Chloride (98-107) mmol/L Carbon Dioxide (22-30) mmol/L BUN (9-20) mg/dL Glucose (74-99) mg/dL POC Glucose (mg/dL) 135 H 143 H 165 H (75-99) mg/dL Assessment and Plan Assessment: Atrial fibrillation with rapid ventricular rate. Started back on Cardizem drip. changed to PO ,Heart rate is elevated. Added digoxin. Continued on metoprolol. Chronic persistent atrial fibrillation long-term anticoagulation has been discontinued due to risk of bleeding with brain metastases Acute on chronic CHF with diastolic dysfunction. Acute COPD exacerbation. improved. 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 DVT prophylaxis with Lovenox. Plan: Patient will be continued on breathing treatments. Started back on Cardizem drip. Changed to po. Continue with metoprolol XL 100 mg daily and Lasix IV 40 mg twice daily. IV Lasix changed to 80 mg twice a day. 2-D echocardiogram was done. Long-term anticoagulation has been held due to risk of bleeding with brain metastases. Pulmonary and cardiology is on board. Continued with pain management with [place] 5 GI and DVT prophylaxis. Further recommendations based on the clinical course. Time with Patient: Greater than 30
--- NOTE | 2020-12-11 13:47 | P.PN ---
Subjective Progress Note Date: 12/11/20 HISTORY OF PRESENT ILLNESS: 12/04/2020 Patient examined at the bedside. He denies chest pain or pressure. He denies shortness of breath. He denies palpitations. He remains in atrial fibrillation with uncontrolled ventricular rate. Currently on a Cardizem drip at 5 mg an hour. He is also receiving metoprolol and Digoxin. Patient's blood pressure is borderline with a systolic in the 90s. 12/05/2020 Patient examined this morning at the bedside. Patient remains in afib with u ncontrolled ventricular rate. He is on a cardizem drip at 15mg/hr. he denies shortness of breath or chest pain. He remains on IV Lasix. Patient states he is urinating frequently. Blood pressure 98/55. 12/06/2020 Patient examined at the bedside. Patient currently denies shortness of breath. He continues to report a cough. He denies chest pain or pressure. His Cardizem drip has been weaned off. He remains in atrial fibrillation with controlled ventricular rate. He continues to have lower extremity edema, although it appears improved from yesterday. Patient sitting in the chair with his legs down. Encouraged patient to elevate lower extremities while in the chair. 12/09/2020 Patient examined this morning at the bedside. Patient denies shortness of breath. He continues to report a nonproductive cough. He denies chest pain or pressure. He states that his lower extremity edema is improved. He currently has his bilateral lower extremities wrapped with Juan C bandages. Patient remains in atrial fibrillation with mildly uncontrolled rates this morning. However he has not received his morning medications at the time of my examination per nursing. 12/10/2020 Patient examined at the bedside. He currently denies shortness of breath. He denies chest pain or pressure. Patient's lower extremity edema is improving. He remains on IV Lasix. Creatinine 0.96. Patients heart rate remains controlled. 12/11/2020 Patient examined at the bedside. He denies chest pain or pressure. He denies shortness of breath. Patient's lower extremity edema continues to improve. He remains on oral Lasix. Vital signs are stable. PHYSICAL EXAM: VITAL SIGNS: Reviewed. GENERAL: Well-developed in no acute distress. NECK: Supple. No JVD or thyromegaly LUNGS: Respirations even and unlabored. Lungs diminished with scattered rhonchi. HEART: Irregular rate and rhythm. S1 and S2 heard. EXTREMITIES: Normal range of motion. No clubbing or cyanosis. Peripheral pulses intact. 1-2+ bilateral lower extremity edema ASSESSMENT: Chronic persistent atrial fibrillation with rapid ventricular rate, not on anticoagulation due to brain metastasis and risk of bleeding Borderline hypotension, improving Acute exacerbation of chronic systolic congestive heart failure, ejection fraction 45% Small cell lung cancer with brain metastases Chronic obstructive pulmonary disease Hypertension Former nicotine dependence PLAN: Continue current cardiac medications Patient is stable for discharge home today from a cardiac perspective. Will defer to internal medicine Nurse practitioner note has been reviewed by physician. Signing provider agrees with the documented findings, assessment, and plan of care. Objective - Vital Signs Vital signs: Vital Signs Temp 97.2 F L 12/11/20 08:00 Pulse 108 H 12/11/20 13:14 Resp 18 12/11/20 12:00 BP 97/54 12/11/20 12:00 Pulse Ox 93 L 12/11/20 12:00 Intake & Output 12/10/20 12/11/20 12/11/20 18:59 06:59 18:59 Intake Total 1080 Balance 1080 Intake: Oral 1080 Other: Voiding Method Urinal Toilet Toilet # Voids 4 1 1 - Labs CBC & Chem 7: 12/10/20 07:51 12/11/20 08:35 Labs: Abnormal Lab Results - Last 24 Hours (Table) 12/10/20 12/10/20 12/11/20 Range/Units 16:58 20:21 06:25 Sodium (137-145) mmol/L Chloride (98-107) mmol/L Carbon Dioxide (22-30) mmol/L BUN (9-20) mg/dL Glucose (74-99) mg/dL POC Glucose (mg/dL) 143 H 165 H 118 H (75-99) mg/dL 12/11/20 12/11/20 Range/Units 08:35 11:32 Sodium 131 L (137-145) mmol/L Chloride 89 L (98-107) mmol/L Carbon Dioxide 39 H (22-30) mmol/L BUN 26 H (9-20) mg/dL Glucose 152 H (74-99) mg/dL POC Glucose (mg/dL) 146 H (75-99) mg/dL
[2020-12-11 16:03] VITALS: PULSE 100
== END 2020-12-11 16:22 | disposition home or self-care (01) | DRG 308 ==
LOC: EC 15:14 → 1SOBS 17:53 → OBSVTOIN 12-02 13:49 → 3SCARD 12-03 19:50
PROVIDERS: ADMIT Hospitalist; ATTEND Hospitalist
DX: I48.21 Permanent atrial fibrillation (principal); I50.43 Acute on chronic combined systolic (congestive) and diastolic (congestive) heart failure; J96.21 Acute and chronic respiratory failure with hypoxia; N17.9 Acute kidney failure, unspecified; J44.1 Chronic obstructive pulmonary disease with (acute) exacerbation; E87.1 Hypo-osmolality and hyponatremia; C34.12 Malignant neoplasm of upper lobe, left bronchus or lung; C79.31 Secondary malignant neoplasm of brain; J38.00 Paralysis of vocal cords and larynx, unspecified; I11.0 Hypertensive heart disease with heart failure; I95.9 Hypotension, unspecified; Z20.822 Contact with and (suspected) exposure to COVID-19; I73.9 Peripheral vascular disease, unspecified; E66.01 Morbid (severe) obesity due to excess calories; G89.29 Other chronic pain; G47.33 Obstructive sleep apnea (adult) (pediatric); K21.9 Gastro-esophageal reflux disease without esophagitis; M54.5 Low back pain; M25.552 Pain in left hip; F17.200 Nicotine dependence, unspecified, uncomplicated; Z68.38 Body mass index [BMI] 38.0-38.9, adult; Z71.3 Dietary counseling and surveillance; Z79.899 Other long term (current) drug therapy; Z79.82 Long term (current) use of aspirin; Z98.890 Other specified postprocedural states; Z92.3 Personal history of irradiation; Z82.49 Family history of ischemic heart disease and other diseases of the circulatory system
CPT/HCPCS: 36415; 71045; 71275; 80048; 80053; 80162; 81003; 83605; 83735; 83880; 84443; 84484; 85025; 85610; 85730; 87635; 93005; 93306; 94640; 94760; 96361; 96374; 96376; 99285

== ENCOUNTER 2020-12-30 19:02 | Inpatient (IN) | payer MEDICARE ==
--- NOTE | 2020-12-30 19:12 | ED ---
Chest Pain HPI - General Stated Complaint: Chest pain Time Seen by Provider: 12/30/20 19:02 Source: patient, EMS, RN notes reviewed Mode of arrival: EMS Limitations: altered mental status - History of Present Illness Initial Comments: This is a 75-year-old male with a history of chronic atrial fibrillation and history of recently diagnosed lung cancer with brain metastases who was brought in by EMS today due to chest pain it's been going on pretty much all day across his chest moderate in severity. On arrival here he did finally gone away. No fevers chills sweats he does feel weak. He was noted be hypotensive with a blood pressure 87/42 and contact with EMS he was given IV fluids repeat was 125/77) IV fluid. No other complaints or modifying factors she was recently hospitalized. MD Complaint: chest pain - Related Data Home Medications Medication Instructions Recorded Confirmed Fish Oil/Dha/Epa [Fish Oil 1,200 1 cap PO DAILY 03/05/15 12/30/20 mg Fish Oil] HYDROcodone/APAP 10-325MG [[place] 1 tab PO Q6H PRN 03/05/15 12/30/20 10-325] Multivitamins, Thera [Multivitamin 1 tab PO DAILY 03/05/15 12/30/20 (formulary)] Potassium Chloride [Klor-Con 10] 10 meq PO BID 03/05/15 12/30/20 Calcium Carbonate/Vitamin D3 1 tab PO QID 05/11/18 12/30/20 [Calcium 600-Vit D3 5 Mcg (200 Iu)] Garlic 1 tab PO DAILY 05/11/18 12/30/20 Aspirin [Adult Low Dose Aspirin EC] 81 mg PO DAILY 12/30/18 12/30/20 Albuterol Sulfate [Ventolin HFA] 2 puff INHALATION RT-Q6H PRN 10/30/20 12/30/20 Cholecalciferol [Vitamin D3 (25 1,000 unit PO DAILY 10/30/20 12/30/20 Mcg = 1000 Iu)] Metoprolol Succinate [Toprol XL] 100 mg PO DAILY 10/30/20 12/30/20 Acetaminophen Tab [Tylenol] 1,000 mg PO Q6HR PRN 11/30/20 12/30/20 Fluticasone Nasal [employer] [Flonase 1 spray EA NOSTRIL DAILY PRN 11/30/20 12/30/20 Nasal [employer]] LORazepam [Ativan] 0.5 mg PO TID PRN 11/30/20 12/30/20 Nystatin 100,000 Unit/ml Susp 5 ml PO QID PRN 11/30/20 12/30/20 [Mycostatin Oral Susp] Ondansetron HCl [Zofran] 4 mg PO Q4H PRN 11/30/20 12/30/20 Sucralfate [Carafate] 1 gm PO ACHS 11/30/20 12/30/20 Kools Solution 5 ml PO QID PRN 12/30/20 12/30/20 Morphine Sulfate ER [Ms Contin] 30 mg PO BID 12/30/20 12/30/20 Sennosides/Docusate Sodium 1 tab PO HS 12/30/20 12/30/20 [Senna-S 8.6-50 mg Tablet] fentaNYL 12MCG/HR PATCH [Duragesic 1 patch TRANSDERM Q72H 12/30/20 12/30/20 12MCG/HR] levETIRAcetam [Keppra] 750 mg PO BID 12/30/20 12/30/20 polyethylene glycoL 3350 [Miralax] 17 gm PO DAILY 12/30/20 12/30/20 Previous Rx's Medication Instructions Recorded Pantoprazole [Protonix] 40 mg PO DAILY #30 tab 11/02/20 Digoxin [Lanoxin] 250 mcg PO DAILY #30 tab 12/11/20 Diltiazem Cd [Cardizem CD] 300 mg PO DAILY #30 cap.er.24h 12/11/20 Furosemide [Lasix] 80 mg PO BID@0900,1600 #60 tab 12/11/20 Allergies Allergy/AdvReac Type Severity Reaction Status Date / Time No Known Allergies Allergy Verified 12/30/20 20:22 Review of Systems ROS Statement: Those systems with pertinent positive or pertinent negative responses have been documented in the HPI. ROS Other: All systems not noted in ROS Statement are negative. EKG Findings - EKG Results: EKG: interpreted by ERMD EKG shows: atrial fibrillation (Rate 62 QRS 88 QT since QTC 372/[address] configuration artifact present) Past Medical History Past Medical History: Cancer, COPD, GERD/Reflux, Musculoskeletal Disorder, Skin Disorder, Sleep Apnea/CPAP/BIPAP Additional Past Medical History / Comment(s): irregular heart rhythm,SOB,SWELLING IN [place]. ANKLES OFF & ON, SNORES ALOT. LOWER BACK PAIN,generalized sores on skin, cancer of the brain History of Any Multi-Drug Resistant Organisms: None Reported Past Surgical History: Orthopedic Surgery Additional Past Surgical History / Comment(s): ARTHROSCOPIC RT KNEE 2013 , CTR LEFT WRIST Past Anesthesia/Blood Transfusion Reactions: No Reported Reaction Past Psychological History: No Psychological Hx Reported Smoking Status: Former smoker Past Alcohol Use History: None Reported Past Drug Use History: None Reported - Past Family History Mother Family Medical History: Congestive Heart Failure (CHF) Father Family Medical History: Coronary Artery Disease (CAD) Additional Family Medical History / Comment(s): CABG Brother(s) Family Medical History: Coronary Artery Disease (CAD) Additional Family Medical History / Comment(s): CABG General Exam - General Exam Comments Initial Comments: This is a well-developed molars awake alert oriented 3 male Limitations: altered mental status General appearance: alert, lethargic Head exam: Present: atraumatic, normocephalic, normal inspection Eye exam: Present: normal appearance, PERRL, EOMI. Absent: scleral icterus, conjunctival injection, periorbital swelling ENT exam: Present: mucous membranes dry Neck exam: Present: normal inspection, full ROM, other (No stridor JVD or bruits). Absent: tenderness, meningismus, lymphadenopathy Respiratory exam: Present: decreased breath sounds. Absent: respiratory distress, wheezes, rales, rhonchi, stridor Cardiovascular Exam: Present: irregular rhythm. Absent: systolic murmur, diastolic murmur, rubs, gallop, clicks GI/Abdominal exam: Present: soft, normal bowel sounds. Absent: distended, tenderness, guarding, rebound, rigid Extremities exam: Present: normal inspection, full ROM, normal capillary refill. Absent: tenderness, pedal edema, joint swelling, calf tenderness Back exam: Present: normal inspection Neurological exam: Present: alert, oriented X3, CN II-XII intact Psychiatric exam: Present: normal affect, normal mood Skin exam: Present: warm, dry, intact, normal color. Absent: rash Course Vital Signs 12/30/20 12/30/20 19:05 20:00 Temperature 99.3 F Pulse Rate 68 73 Respiratory 18 18 Rate Blood Pressure 90/53 97/74 O2 Sat by Pulse 94 L 94 L Oximetry - Reevaluation(s) Reevaluation #1: 12/30/20 20:52 Due to the patient's current history of cancer with brain metastases heparin will be withheld Chest Pain MDM - MDM I did review the x-ray there is evidence of increased markings. Concern for postobstructive pneumonitis I did discuss findings with the patient family as well as Dr. Chen the patient be admitted place an IV antibiotics also cardiology consultation due to the elevated troponin. Disposition Clinical Impression: Pneumonitis, Metastatic primary lung cancer, Elevated troponin, Chest pain, Neutropenia, Febrile illness, acute Disposition: ADMITTED IP TO THIS HOSP Condition: Fair Referrals: Guille Knapp DO [Primary Care Provider] - 1-2 days
[2020-12-30 19:35] LABS: Anisocytosis Slight; HCT 31.3 % (39.0-53.0); MCH 27.4 pg (25.0-35.0); MCHC 31.7 g/dL (31.0-37.0); Mean Platelet Volume 9.1; RBC 3.62 m/uL (4.30-5.90); RDW 17.5 % (11.5-15.5)
[2020-12-30 19:39] LABS: Partial Thromboplastin Time 17.7 sec (22.0-30.0)
[2020-12-30 19:40] LABS: HGB 9.9 gm/dL (13.0-17.5); MCV 86.5 fL (80.0-100.0)
[2020-12-30 19:41] LABS: Calcium 8.6 mg/dL (8.4-10.2); Magnesium 1.8 mg/dL (1.6-2.3); Potassium 4.3 mmol/L (3.5-5.1); Total Bilirubin 0.6 mg/dL (0.2-1.3); Total Protein 5.6 g/dL (6.3-8.2)
[2020-12-30 19:58] LABS: Band Neutrophils % 5 %; Lymphocytes # (M) 1.03 k/uL (1.0-4.8); Metamyelocytes # (M) 0.08 k/uL (0); Metamyelocytes % 4 %; Monocytes # (M) 0.34 k/uL (0-1.0); Myelocytes # (M) 0.02 k/uL (0); Myelocytes % 1 %; Neutrophils % (M) 20 %; Nucleated Red Blood Cells 8 /100 WBC (0-0); Polychromasia Present; Total Cells Counted 200; WBC 1.9 k/uL (3.8-10.6)
[2020-12-30 19:59] LABS: Platelet Count 58 k/uL (150-450)
--- NOTE | 2020-12-30 20:00 | XR ---
EXAMINATION TYPE: XR chest 2V DATE OF EXAM: 12/30/2020 COMPARISON: 12/06/2020. HISTORY: Chest pain. TECHNIQUE: Frontal and lateral views of the chest are obtained. FINDINGS: There is mild interstitial edema with associated hazy opacity. No pleural effusion, or pne umothorax seen. The cardiac silhouette size is markedly enlarged. The osseous structures are intac t. IMPRESSION: Mild interstitial edema/atelectasis.
[2020-12-30] MEDS ORDERED: PNEUMONIA PROTOCOL UTILIZED 1 EACH MISC PO PRN (20:52)
[2020-12-30] MEDS ORDERED: CEFEPIME 2 GM in SODIUM CHLORIDE 0.9% 100 ML IVPB STA (20:55)
[2020-12-30] MEDS ORDERED: NYSTATIN 100,000 UNIT/ML SUSP 500,000 UNIT/5 ML CUP PO PRN (20:56)
[2020-12-30] MEDS ORDERED: FLUTICASONE 50MCG/SPRAY NASAL 16GM EA NOSTRIL PRN (20:56)
[2020-12-30] MEDS ORDERED: [UNRECOGNIZED DRUG - OTHER] PO PRN (20:56)
[2020-12-30] MEDS: SODIUM CHLORIDE 0.9% 1,000 ML IV SCH (21:27)
[2020-12-30] MEDS ORDERED: MORPHINE SULFATE ER 30 MG TABLET PO SCH (21:30)
[2020-12-30] MEDS: SUCRALFATE 1 GM TAB PO SCH (21:54)
[2020-12-30] MEDS: POTASSIUM CHLORIDE ER 10 MEQ TAB.ER.PRT PO SCH (21:54)
[2020-12-30] MEDS: SENNOSIDES-DOCUSATE SODIUM 1 EACH TAB PO SCH (21:55)
[2020-12-30] MEDS ORDERED: MAG HYDROX/AL HYDROX/SIMETH 30 ML, LIDOCAINE VISCOUS 30 ML, diphenhydrAMINE ELIXIR 75 M... PO PRN ×4 (22:00)
[2020-12-30] MEDS: HYDROcodone/APAP 10-325MG 1 EACH TAB PO PRN (22:05)
[2020-12-30] MEDS: LORazepam 0.5 MG TAB PO PRN (23:43)
[2020-12-30] MEDS: CALCIUM CARB-VIT D 500 MG-5 MCG TAB PO SCH (23:43)
[2020-12-31] MEDS ORDERED: IPRATROPIUM-ALBUTEROL 3 ML NEB INHALATION SCH
[2020-12-31] MEDS ORDERED: IPRATROPIUM-ALBUTEROL 3 ML NEB INHALATION PRN (02:24)
[2020-12-31] MEDS: HYDROcodone/APAP 10-325MG 1 EACH TAB PO PRN ×2 (03:28→17:46)
[2020-12-31] MEDS: SUCRALFATE 1 GM TAB PO SCH ×4 (06:37→20:48)
[2020-12-31] MEDS: PANTOPRAZOLE 40 MG TABLET PO SCH (06:37)
[2020-12-31] MEDS: IPRATROPIUM-ALBUTEROL 3 ML NEB INHALATION SCH ×4 (08:56→21:26)
[2020-12-31] MEDS ORDERED: NON FORMULARY DRUG (Garlic [Garlic] 1 EACH Tablet) PO SCH (09:00)
[2020-12-31] MEDS ORDERED: NON FORMULARY DRUG (Fish Oil/Dha/Epa [Fish Oil 1,200 Mg Fish Oil] 1 EACH Capsule) PO SCH (09:00)
[2020-12-31] MEDS: polyethylene glycoL 3350 17 GM POWD.PACK PO SCH (09:00)
[2020-12-31 09:11] LABS: Anisocytosis Slight; HCT 31.4 % (39.0-53.0); HGB 9.9 gm/dL (13.0-17.5); Hypochromasia Slight; MCH 27.8 pg (25.0-35.0); MCHC 31.6 g/dL (31.0-37.0); Mean Platelet Volume 9.8; RBC 3.57 m/uL (4.30-5.90); RDW 17.5 % (11.5-15.5)
[2020-12-31 09:18] LABS: ALT 81 U/L (4-49); AST 38 U/L (17-59); African American GFR (CKD) >90 (>60 ml/min/1.73 sqM); Albumin 2.9 g/dL (3.5-5.0); Alkaline Phosphatase 196 U/L (38-126); Anion Gap 4 mmol/L; Bilirubin, Delta 0.3 mg/dL (0.0-0.2); Bilirubin,Unconjugated 0.3 mg/dL (0.0-1.1); Blood Urea Nitrogen 18 mg/dL (9-20); Calcium 8.7 mg/dL (8.4-10.2); Carbon Dioxide 35 mmol/L (22-30); Chloride 101 mmol/L (98-107); Glucose 106 mg/dL (74-99); Magnesium 1.7 mg/dL (1.6-2.3); Non-African American GFR(CKD) 86 (>60 ml/min/1.73 sqM); Potassium 3.8 mmol/L (3.5-5.1); Sodium 140 mmol/L (137-145); Total Bilirubin 0.6 mg/dL (0.2-1.3); Total Protein 5.4 g/dL (6.3-8.2)
[2020-12-31 09:19] LABS: Platelet Count 58 k/uL (150-450)
[2020-12-31] MEDS: SODIUM CHLORIDE 0.9% 1,000 ML IV SCH ×2 (09:21→17:28)
[2020-12-31] MEDS: ASPIRIN 81 MG PO SCH (09:33)
[2020-12-31] MEDS: METOPROLOL SUCCINATE (ER) 100 MG TAB.ER.24H PO SCH (09:33)
[2020-12-31] MEDS: FUROSEMIDE 80 MG TAB PO SCH ×2 (09:33→17:27)
[2020-12-31] MEDS: CALCIUM CARB-VIT D 500 MG-5 MCG TAB PO SCH ×4 (09:34→20:48)
[2020-12-31] MEDS: POTASSIUM CHLORIDE ER 10 MEQ TAB.ER.PRT PO SCH ×2 (09:34→20:48)
[2020-12-31] MEDS: CHOLECALCIFEROL 25 MCG (1000 IU) TABLET PO SCH (09:34)
[2020-12-31] MEDS: CEFEPIME 2 GM in SODIUM CHLORIDE 0.9% 100 ML IVPB SCH ×2 (09:34→17:28)
[2020-12-31 10:23] LABS: Band Neutrophils % 4 %; Eosinophils # (M) 0.03 k/uL (0-0.7); Lymphocytes # (M) 1.27 k/uL (1.0-4.8); Metamyelocytes # (M) 0.22 k/uL (0); Metamyelocytes % 8 %; Monocytes # (M) 0.35 k/uL (0-1.0); Myelocytes # (M) 0.27 k/uL (0); Myelocytes % 10 %; Neutrophils % (M) 20 %; Nucleated Red Blood Cells 5 /100 WBC (0-0); Promyelocytes # (M) 0.03 k/uL (0); Promyelocytes % 1 %; Total Cells Counted 200; WBC 2.7 k/uL (3.8-10.6)
--- NOTE | 2020-12-31 10:23 | P.HPIM ---
History of Present Illness This is a pleasant 75 years old male with past medical history of cancer of the brain which is mildly multiple metastatic-appearing lesions from primary lung cancer, COPD, GERD, sleep apnea on CPAP/BiPAP, chronic low back pain, A. fib and RVR He presents because of dyspnea of 2 days' duration associated with some dry coughing which is stopped since admission as per patient. Although patient has been admitted with chest pain as per ED notes however when I asked the patient this morning he denies any chest pain to me on admission or currently. He looks tired but denies any abdominal pain, no nausea vomiting, no change in urine or bowel habits. No headache. No new weakness or numbness. Patient status at this line he stays in chair most of the time and he can walk with a walker within his room usually. He states he stopped smoking and he denies alcohol or illicit drugs He could not remember the name of his cancer doctor but states that he follows up with Dr. milan He states that usually he gets radiotherapy for example to the brain wasn't sure when he got his last radiotherapy expecting it to be 2 weeks ago. And he denies getting chemotherapy when I asked him although patient was noticed to have some alopecia Vital showing patient is afebrile, he is saturating 93% on 2 L oxygen via nasal cannula. Blood pressure 95/44 which is at baseline Labs showing pancytopenia with WBC of 1.9, hemoglobin 9.9 and platelet count 58. And low neutrophil 0.4 with Count of 0.76K. INR Is 1.0. Creatinine and Electrolytes Are within the Reference Range. Troponin Is Slightly Elevated at 0.05 and 0.05 AST is normal at 45 ALT is a slightly elevated at 88 EKG showed atrial fibrillation at [address]-T changes. Chest x-ray: Mild interstitial edema/atelectasis In the emergency room patient was started on cefepime and [place] 100 mL per hour. Consult to cardiology was placed Review of Systems CONSTITUTIONAL: No fever, no malaise, no fatigue. HEENT: No recent visual problems or hearing problems. Denied any sore throat. CARDIOVASCULAR: No orthopnea, PND, no palpitations, no syncope. PULMONARY: No chest wall tenderness, no hemoptysis. GASTROINTESTINAL: No diarrhea, no nausea, no vomiting, no abdominal pain. Normoactive bowel sounds. NEUROLOGICAL: No headaches, no weakness, no numbness. HEMATOLOGICAL: Denies any bleeding or petechiae. GENITOURINARY: Denies any burning micturition, frequency, or urgency. MUSCULOSKELETAL/RHEUMATOLOGICAL: Denies any joint pain, swelling, or any muscle pain. ENDOCRINE: Denies any polyuria or polydipsia. Past Medical History Past Medical History: Cancer, COPD, GERD/Reflux, Musculoskeletal Disorder, Skin Disorder, Sleep Apnea/CPAP/BIPAP Additional Past Medical History / Comment(s): irregular heart rhythm,SOB,SWELLING IN [place]. ANKLES OFF & ON, SNORES ALOT. LOWER BACK PAIN,generalized sores on skin, cancer of the brain History of Any Multi-Drug Resistant Organisms: None Reported Past Surgical History: Orthopedic Surgery Additional Past Surgical History / Comment(s): ARTHROSCOPIC RT KNEE 2013 , CTR LEFT WRIST Past Anesthesia/Blood Transfusion Reactions: No Reported Reaction Smoking Status: Former smoker - Past Family History Mother Family Medical History: Congestive Heart Failure (CHF) Father Family Medical History: Coronary Artery Disease (CAD) Additional Family Medical History / Comment(s): CABG Brother(s) Family Medical History: Coronary Artery Disease (CAD) Additional Family Medical History / Comment(s): CABG Medications and Allergies Home Medications Medication Instructions Recorded Confirmed Type Fish Oil/Dha/Epa [Fish Oil 1,200 1 cap PO DAILY 03/05/15 12/30/20 History mg Fish Oil] HYDROcodone/APAP 10-325MG [[place] 1 tab PO Q6H PRN 03/05/15 12/30/20 History 10-325] Multivitamins, Thera [Multivitamin 1 tab PO DAILY 03/05/15 12/30/20 History (formulary)] Potassium Chloride [Klor-Con 10] 10 meq PO BID 03/05/15 12/30/20 History Calcium Carbonate/Vitamin D3 1 tab PO QID 05/11/18 12/30/20 History [Calcium 600-Vit D3 5 Mcg (200 Iu)] Garlic 1 tab PO DAILY 05/11/18 12/30/20 History Aspirin [Adult Low Dose Aspirin EC] 81 mg PO DAILY 12/30/18 12/30/20 History Albuterol Sulfate [Ventolin HFA] 2 puff INHALATION RT-Q6H PRN 10/30/20 12/30/20 History Cholecalciferol [Vitamin D3 (25 1,000 unit PO DAILY 10/30/20 12/30/20 History Mcg = 1000 Iu)] Metoprolol Succinate [Toprol XL] 100 mg PO DAILY 10/30/20 12/30/20 History Pantoprazole [Protonix] 40 mg PO DAILY #30 tab 11/02/20 12/30/20 Rx Acetaminophen Tab [Tylenol] 1,000 mg PO Q6HR PRN 11/30/20 12/30/20 History Fluticasone Nasal [place] [Flonase 1 spray EA NOSTRIL DAILY PRN 11/30/20 12/30/20 History Nasal [place]] LORazepam [Ativan] 0.5 mg PO TID PRN 11/30/20 12/30/20 History Nystatin 100,000 Unit/ml Susp 5 ml PO QID PRN 11/30/20 12/30/20 History [Mycostatin Oral Susp] Ondansetron HCl [Zofran] 4 mg PO Q4H PRN 11/30/20 12/30/20 History Sucralfate [Carafate] 1 gm PO ACHS 11/30/20 12/30/20 History Digoxin [Lanoxin] 250 mcg PO DAILY #30 tab 12/11/20 12/30/20 Rx Diltiazem Cd [Cardizem CD] 300 mg PO DAILY #30 cap.er.24h 12/11/20 12/30/20 Rx Furosemide [Lasix] 80 mg PO BID@0900,1600 #60 tab 12/11/20 12/30/20 Rx Kools Solution 5 ml PO QID PRN 12/30/20 12/30/20 History Morphine Sulfate ER [Ms Contin] 30 mg PO BID 12/30/20 12/30/20 History Sennosides/Docusate Sodium 1 tab PO HS 12/30/20 12/30/20 History [Senna-S 8.6-50 mg Tablet] fentaNYL 12MCG/HR PATCH [Duragesic 1 patch TRANSDERM Q72H 12/30/20 12/30/20 History 12MCG/HR] levETIRAcetam [Keppra] 750 mg PO BID 12/30/20 12/30/20 History polyethylene glycoL 3350 [Miralax] 17 gm PO DAILY 12/30/20 12/30/20 History Allergies Allergy/AdvReac Type Severity Reaction Status Date / Time morphine Allergy Rash/Hives Verified 12/30/20 21:34 Physical Exam Vitals: Vital Signs Temp Pulse Pulse Resp BP BP Pulse Ox 12/31/20 04:00 99.0 F 73 18 95/44 93 L 12/31/20 02:00 69 16 12/30/20 22:55 96.7 F L 69 16 121/57 98 12/30/20 22:00 68 18 98/54 96 12/30/20 21:30 97.8 F 61 18 96/49 94 L 12/30/20 20:00 73 18 97/74 94 L 12/30/20 19:05 99.3 F 68 18 90/53 94 L Intake and Output 12/30/20 12/31/20 12/31/20 22:59 06:59 14:59 Output Total 400 Balance -400 Output: Urine 400 Other: Voiding Method Urinal # Voids 1 Weight 119.295 kg -GENERAL: The patient is alert and oriented x3, in mild acute respiratory distress. Obese HEENT: Pupils are round and equally reacting to light. EOMI. No scleral icterus. No conjunctival pallor. Normocephalic, atraumatic. No pharyngeal erythema. No thyromegaly. CARDIOVASCULAR: S1 and S2 present. No murmurs, rubs, or gallops. -PULMONARY: Chest is clear to auscultation, no wheezing or crackles. Mildly Tachypneic ABDOMEN: Soft, nontender, nondistended, normoactive bowel sounds. No palpable organomegaly. MUSCULOSKELETAL: No joint swelling or deformity. EXTREMITIES: No cyanosis, clubbing, or pedal edema. NEUROLOGICAL: Gross neurological examination did not reveal any focal deficits. SKIN: No rashes. No petechiae Results CBC & Chem 7: 12/31/20 08:37 12/31/20 08:37 Labs: Abnormal Lab Results - Last 24 Hours (Table) 12/30/20 12/30/20 12/30/20 Range/Units 19:13 19:13 19:13 WBC 1.9 L (3.8-10.6) k/uL RBC 3.62 L (4.30-5.90) m/uL Hgb 9.9 L D (13.0-17.5) gm/dL Hct 31.3 L (39.0-53.0) % RDW 17.5 H (11.5-15.5) % Plt Count 58 L D (150-450) k/uL Neutrophils # (Manual) 0.40 L* (1.3-7.7) k/uL Metamyelocytes # (Man) 0.08 H (0) k/uL Myelocytes # (Manual) 0.02 H (0) k/uL Nucleated RBCs 8 H (0-0) /100 WBC APTT 17.7 L (22.0-30.0) sec Carbon Dioxide 36 H (22-30) mmol/L BUN 22 H (9-20) mg/dL Glucose 126 H (74-99) mg/dL ALT 88 H (4-49) U/L Alkaline Phosphatase 207 H (38-126) U/L Creatine Kinase 27 L (55-170) U/L Troponin I (0.000-0.034) ng/mL Total Protein 5.6 L (6.3-8.2) g/dL Albumin 3.0 L (3.5-5.0) g/dL 12/30/20 12/30/20 Range/Units 19:13 22:06 WBC (3.8-10.6) k/uL RBC (4.30-5.90) m/uL Hgb (13.0-17.5) gm/dL Hct (39.0-53.0) % RDW (11.5-15.5) % Plt Count (150-450) k/uL Neutrophils # (Manual) (1.3-7.7) k/uL Metamyelocytes # (Man) (0) k/uL Myelocytes # (Manual) (0) k/uL Nucleated RBCs (0-0) /100 WBC APTT (22.0-30.0) sec Carbon Dioxide (22-30) mmol/L BUN (9-20) mg/dL Glucose (74-99) mg/dL ALT (4-49) U/L Alkaline Phosphatase (38-126) U/L Creatine Kinase (55-170) U/L Troponin I 0.053 H* 0.054 H* (0.000-0.034) ng/mL Total Protein (6.3-8.2) g/dL Albumin (3.5-5.0) g/dL Thrombosis Risk Factor Assmnt - Choose All That Apply Any of the Below Risk Factors Present?: Yes Each Factor Represents 1 point: Obesity (BMI >25) Other Risk Factors: Yes Each Risk Factor Represents 2 Points: Age 61-74 years Other congenital or acquired thrombophilia - If yes, enter type in comment: No Thrombosis Risk Factor Assessment Total Risk Factor Score: 3 Thrombosis Risk Factor Assessment Level: Moderate Risk Assessment and Plan Assessment: Dyspnea with elevated troponin. 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 Undergoing radiotherapy Chronic hypoxic respiratory failure on 3L oxygen via nasal cannula Chronic persistent atrial fibrillation, not on anticoagulation due to risk of bleeding from a brain metastasis. Chronic systolic cardiomyopathy with ejection fraction 45-50% COPD History of GERD Sleep apnea on CPAP/BiPAP Chronic low back pain Obesity with BMI of 35.7 Plan: this is a pleasant 75 years old male who presents with dyspnea and elevated troponin. Patient is continued on aspirin 81 mg. Cardiology consult. Check serial cardiac enzymes. Social consult pulmonary service since he is been evalu ated during previous admission. Continue with gentle hydration Also consult oncology team for history of lung cancer with brain metastasis and pancytopenia . Patient with no fever but he was started on cefepime. We will follow up the culture and vitals were closely . Check a pro-calcitonin Labs and medication were reviewed.. Continue same treatment. Continue with symptomatic treatment. Resume home medication. Monitor lytes and vitals. DVT and GI prophylaxis. Further recommendations depends on the clinical course of the patient DVT prophylaxis: Subcutaneous heparin GI Prophylaxis: Ppi PT/OT:hold or now Prognosis is guarded
[2020-12-31 10:26] LABS: Poikilocytosis (M) Present; Polychromasia Present
[2020-12-31] MEDS ORDERED: HEPARIN SODIUM,PORCINE 5,000 UNIT/ML 1 ML VIAL SQ SCH ×2 (10:30→21:00)
[2020-12-31] MEDS ORDERED: FILGRASTIM-SNDZ 480 MCG/0.8 ML SYRINGE SQ ONE (11:00)
--- NOTE | 2020-12-31 13:18 | XR ---
EXAMINATION TYPE: XR chest 2V DATE OF EXAM: 12/31/2020 COMPARISON: Chest x-ray from yesterday. CTA chest December 01, 2020. HISTORY: Pneumonia. TECHNIQUE: Frontal and lateral views of the chest are obtained. FINDINGS: There is chronic parenchymal change with tiny left pleural effusion improved from prior. L eft hilar fullness corresponds to known neoplasm extending superiorly and anteriorly. The cardiac matt houette size remains enlarged. The osseous structures remain intact. IMPRESSION: Chronic changes and cardiomegaly with left-sided neoplasm redemonstrated. No new focal i nfiltrate clearly seen.
[2020-12-31] MEDS: DIGOXIN 250 MCG TAB PO SCH (13:38)
[2020-12-31] MEDS: DILTIAZEM CD 300 MG CAP.ER.24H PO SCH (13:38)
[2020-12-31] MEDS: MULTIVITAMINS, THERA 1 EACH TAB PO SCH (13:38)
--- NOTE | 2020-12-31 13:49 | P.CRDCN ---
History of Present Illness Consult date: 12/31/20 History of present illness: CHIEF COMPLAINT: Chest pain HISTORY OF PRESENT ILLNESS: This is a 75-year-old male with a past medical history significant for age of fibrillation, COPD, GERD, and lung cancer with metastasis to the brain. Patient follows in the office with Dr. Langston. We have been asked to see the patient in consultation for chest pain. Patient examined this morning at the bedside. Patient was recently hospitalized secondary to A. fib with RVR and heart failure. Patient states he resumed chemotherapy after he was discharged from the hospital. He is unsure exactly what day he had his last chemotherapy. He reports feeling short of breath for the last 2-3 days. This morning he states his breathing feels back to his baseline. He denies having any chest pain or pressure. Patient states he does not believe he was having chest pain yesterday either. DIAGNOSTICS: EKG reveals atrial fibrillation with controlled ventricular rate Chest xray mild interstitial edema/atelectasis Laboratory data: WBC 2.7. Hemoglobin 9.9. Platelet count 58. Sodium 140. Potassium 3.8. UN 18. Creatinine 0.87. BNP 1430. Troponin 0.053. 0.054. 0.038. Current home cardiac medications include aspirin 81 mg daily, Cardizem 300 mg daily, metoprolol 100 mg daily, digoxin 250mcg daily, and Lasix 80 mg twice a day REVIEW OF SYSTEMS: At the time of my exam: CONSTITUTIONAL: Denies fever or chills. HEENT: Denies blurred vision, vision changes, or eye pain. Denies hemoptysis CARDIOVASCULAR: Denies chest pain, orthopnea, PND or palpitations RESPIRATORY: No shortness of breath. GASTROINTESTINAL: Denies abdominal pain. Denies nausea or vomiting. HEMATOLOGIC: Denies bleeding disorders. GENITOURINARY: Denies any blood in urine. SKIN: Denies pruitis. Denies rash. PHYSICAL EXAM: VITAL SIGNS: Reviewed. GENERAL: Well-developed in no acute distress. HEENT: Head is normocephalic. Pupils are equal, round. Sclerae anicteric. Mucous membranes of the mouth are moist. Neck supple. No JVD or thyromegaly LUNGS: Respirations even and unlabored. Lungs diminished, bilaterally. HEART: Irregular rate and rhythm. S1 and S2 heard. ABDOMEN: Soft. Nondistended. Nontender. EXTREMITIES: Normal range of motion. No clubbing or cyanosis. Peripheral pulses intact. No lower extremity edema NEUROLOGIC: Awake and alert. Oriented x 3. ASSESSMENT: Shortness of breath Lung cancer with brain metastasis Abnormal troponins, likely secondary to type II [place] due to oxygen supply demand mismatch, no evidence of acute coronary syndrome Chronic persistent atrial fibrillation, not on anticoagulation due to brain metastasis and risk of bleeding Chronic systolic heart failure, EF 45%, currently euvolemic Hypertension GERD Nicotine dependence PLAN: No need to repeat echocardiogram at this time Resume home cardiac medications Continue telemetry monitoring Pulmonary consulted. Await evaluation Further recommendations pending patient's course Nurse practitioner note has been reviewed by physician. Signing provider agrees with the documented findings, assessment, and plan of care. Past Medical History Past Medical History: Cancer, COPD, GERD/Reflux, Musculoskeletal Disorder, Skin Disorder, Sleep Apnea/CPAP/BIPAP Additional Past Medical History / Comment(s): irregular heart rhythm,SOB,SWELLING IN [place]. ANKLES OFF & ON, SNORES ALOT. LOWER BACK PAIN,generalized sores on skin, cancer of the brain History of Any Multi-Drug Resistant Organisms: None Reported Past Surgical History: Orthopedic Surgery Additional Past Surgical History / Comment(s): ARTHROSCOPIC RT KNEE 2012 , CTR LEFT WRIST Past Anesthesia/Blood Transfusion Reactions: No Reported Reaction Smoking Status: Former smoker - Past Family History Mother Family Medical History: Congestive Heart Failure (CHF) Father Family Medical History: Coronary Artery Disease (CAD) Additional Family Medical History / Comment(s): CABG Brother(s) Family Medical History: Coronary Artery Disease (CAD) Additional Family Medical History / Comment(s): CABG Medications and Allergies Home Medications Medication Instructions Recorded Confirmed Type Fish Oil/Dha/Epa [Fish Oil 1,200 1 cap PO DAILY 03/05/15 12/30/20 History mg Fish Oil] HYDROcodone/APAP 10-325MG [[place] 1 tab PO Q6H PRN 03/05/15 12/30/20 History 10-325] Multivitamins, Thera [Multivitamin 1 tab PO DAILY 03/05/15 12/30/20 History (formulary)] Potassium Chloride [Klor-Con 10] 10 meq PO BID 03/05/15 12/30/20 History Calcium Carbonate/Vitamin D3 1 tab PO QID 05/11/18 12/30/20 History [Calcium 600-Vit D3 5 Mcg (200 Iu)] Garlic 1 tab PO DAILY 05/11/18 12/30/20 History Aspirin [Adult Low Dose Aspirin EC] 81 mg PO DAILY 12/30/18 12/30/20 History Albuterol Sulfate [Ventolin HFA] 2 puff INHALATION RT-Q6H PRN 10/30/20 12/30/20 History Cholecalciferol [Vitamin D3 (25 1,000 unit PO DAILY 10/30/20 12/30/20 History Mcg = 1000 Iu)] Metoprolol Succinate [Toprol XL] 100 mg PO DAILY 10/30/20 12/30/20 History Pantoprazole [Protonix] 40 mg PO DAILY #30 tab 11/02/20 12/30/20 Rx Acetaminophen Tab [Tylenol] 1,000 mg PO Q6HR PRN 11/30/20 12/30/20 History Fluticasone Nasal [place] [Flonase 1 spray EA NOSTRIL DAILY PRN 11/30/20 12/30/20 History Nasal [place]] LORazepam [Ativan] 0.5 mg PO TID PRN 11/30/20 12/30/20 History Nystatin 100,000 Unit/ml Susp 5 ml PO QID PRN 11/30/20 12/30/20 History [Mycostatin Oral Susp] Ondansetron HCl [Zofran] 4 mg PO Q4H PRN 11/30/20 12/30/20 History Sucralfate [Carafate] 1 gm PO ACHS 11/30/20 12/30/20 History Digoxin [Lanoxin] 250 mcg PO DAILY #30 tab 12/11/20 12/30/20 Rx Diltiazem Cd [Cardizem CD] 300 mg PO DAILY #30 cap.er.24h 12/11/20 12/30/20 Rx Furosemide [Lasix] 80 mg PO BID@0900,1600 #60 tab 12/11/20 12/30/20 Rx Kools Solution 5 ml PO QID PRN 12/30/20 12/30/20 History Morphine Sulfate ER [Ms Contin] 30 mg PO BID 12/30/20 12/30/20 History Sennosides/Docusate Sodium 1 tab PO HS 12/30/20 12/30/20 History [Senna-S 8.6-50 mg Tablet] fentaNYL 12MCG/HR PATCH [Duragesic 1 patch TRANSDERM Q72H 12/30/20 12/30/20 History 12MCG/HR] levETIRAcetam [Keppra] 750 mg PO BID 12/30/20 12/30/20 History polyethylene glycoL 3350 [Miralax] 17 gm PO DAILY 12/30/20 12/30/20 History Allergies Allergy/AdvReac Type Severity Reaction Status Date / Time morphine Allergy Rash/Hives Verified 12/30/20 21:34 Physical Exam Vitals: Vital Signs Temp Pulse Pulse Resp BP BP Pulse Ox 12/31/20 12:05 64 12/31/20 11:58 97.6 F 76 24 92/42 96 12/31/20 11:56 65 12/31/20 09:06 68 12/31/20 08:57 66 12/31/20 08:00 97.7 F 65 20 96/49 95 12/31/20 04:00 99.0 F 73 18 95/44 93 L 12/31/20 02:00 69 16 12/30/20 22:55 96.7 F L 69 16 121/57 98 12/30/20 22:00 68 18 98/54 96 12/30/20 21:30 97.8 F 61 18 96/49 94 L 12/30/20 20:00 73 18 97/74 94 L 12/30/20 19:05 99.3 F 68 18 90/53 94 L Intake and Output 12/30/20 12/31/20 12/31/20 22:59 06:59 14:59 Output Total 400 Balance -400 Output: Urine 400 Other: Voiding Method Urinal # Voids 1 Weight 119.295 kg 122.2 kg Results 12/31/20 08:37 12/31/20 08:37 Cardiac Enzymes 12/30/20 12/30/20 12/30/20 Range/Units 19:13 19:13 22:06 AST 45 (17-59) U/L Troponin I 0.053 H* 0.054 H* (0.000-0.034) ng/mL 12/31/20 12/31/20 Range/Units 08:37 08:37 AST 38 (17-59) U/L Troponin I 0.038 H* (0.000-0.034) ng/mL Coagulation 12/30/20 Range/Units 19:13 PT 11.0 (9.0-12.0) sec APTT 17.7 L (22.0-30.0) sec CBC 12/30/20 12/31/20 Range/Units 19:13 08:37 WBC 1.9 L 2.7 L (3.8-10.6) k/uL RBC 3.62 L 3.57 L (4.30-5.90) m/uL Hgb 9.9 L D 9.9 L (13.0-17.5) gm/dL Hct 31.3 L 31.4 L (39.0-53.0) % Plt Count 58 L D 58 L (150-450) k/uL Comprehensive Metabolic Panel 12/30/20 12/31/20 Range/Units 19:13 08:37 Sodium 140 140 (137-145) mmol/L Potassium 4.3 3.8 (3.5-5.1) mmol/L Chloride 99 101 (98-107) mmol/L Carbon Dioxide 36 H 35 H (22-30) mmol/L BUN 22 H 18 (9-20) mg/dL Creatinine 0.98 0.87 (0.66-1.25) mg/dL Glucose 126 H 106 H (74-99) mg/dL Calcium 8.6 8.7 (8.4-10.2) mg/dL Unconjugated Bilirubin 0.3 (0.0-1.1) mg/dL AST 45 38 (17-59) U/L ALT 88 H 81 H (4-49) U/L Alkaline Phosphatase 207 H 196 H (38-126) U/L Total Protein 5.6 L 5.4 L (6.3-8.2) g/dL Albumin 3.0 L 2.9 L (3.5-5.0) g/dL Current Medications Generic Name Dose Route Start Last Admin Trade Name Freq PRN Reason Stop Dose Admin Acetaminophen 1,000 mg 12/30/20 20:56 Acetaminophen Tab 500 Mg Tab PO Q6HR PRN Mild Pain or Fever > 100.5 Hydrocodone Bitart/Acetaminophen 1 each 12/30/20 20:56 12/31/20 03:28 Hydrocodone/Apap 10-325mg 1 Each Tab PO 1 each Q6H PRN Administration Pain Albuterol/Ipratropium 3 ml 12/31/20 02:24 Ipratropium-Albuterol 3 Ml Neb INHALATION RT-QID PRN Shortness Of Breath Or Wheezing Albuterol/Ipratropium 3 ml 12/31/20 08:00 12/31/20 11:56 Ipratropium-Albuterol 3 Ml Neb INHALATION 3 ml RT-QID LION Administration Aspirin 81 mg 12/31/20 09:00 12/31/20 09:33 Aspirin 81 Mg PO 81 mg DAILY LION Administration Calcium Carbonate 1 each 12/30/20 22:00 12/31/20 09:34 Calcium Carb-Vit D 500 Mg-5 Mcg Tab PO 1 each QID LION Administration Cholecalciferol 25 mcg 12/31/20 09:00 12/31/20 09:34 Cholecalciferol 25 Mcg (1000 Iu) Tablet PO 25 mcg DAILY LION Administration Al Hydroxide/Mg Hydroxide 30 0 ml 12/30/20 22:00 ml/ Lidocaine HCl 30 ml/ PO Diphenhydramine HCl 75 mg/ QID PRN Nystatin 3,000,000 unit THRUSH Digoxin 250 mcg 12/31/20 09:00 Digoxin 250 Mcg Tab PO DAILY LION Diltiazem HCl 300 mg 12/31/20 09:00 Diltiazem Cd 300 Mg Cap.Er.24h PO DAILY [facility] Fentanyl 1 patch 12/31/20 09:00 12/31/20 09:35 Fentanyl 12mcg/Hr Patch TRANSDERM 1 patch Q72H LION Administration Protocol Fluticasone Propionate 1 spray 12/30/20 20:56 Fluticasone 50mcg/[place] Nasal 16gm EA NOSTRIL DAILY PRN Allergy Symptoms Furosemide 80 mg 12/31/20 09:00 12/31/20 09:33 Furosemide 80 Mg Tab PO 80 mg BID@0900,1600 LION Administration Heparin Sodium (Porcine) 5,000 unit 12/31/20 21:00 Heparin Sodium,Porcine 5,000 Unit/Ml 1 Ml Vial SQ Q12HR LION Sodium Chloride 1,000 mls @ 75 mls/hr 12/30/20 21:00 12/31/20 09:21 Saline 0.9% IV 100 mls/hr .[id number] LION Administration Cefepime HCl 2 gm/ Sodium 100 mls @ 200 mls/hr 12/31/20 08:00 12/31/20 09:34 Chloride IVPB 200 mls/hr Q8HR LION Administration Levetiracetam 750 mg 12/30/20 21:30 12/31/20 09:33 Levetiracetam 750 Mg Tab PO 750 mg BID LION Administration Lorazepam 0.5 mg 12/30/20 20:56 12/30/20 23:43 Lorazepam 0.5 Mg Tab PO 0.5 mg TID PRN Administration Anxiety Metoprolol Succinate 100 mg 12/31/20 09:00 12/31/20 09:33 Metoprolol Succinate (Er) 100 Mg Tab.Er.24h PO 100 mg DAILY LION Administration Miscellaneous Information 1 each 12/30/20 20:52 Pneumonia Protocol Utilized 1 Each Misc PO ONCE PRN Per Protocol Multivitamins 1 each 12/31/20 09:00 Multivitamins, Thera 1 Each Tab PO DAILY LION Nystatin 500,000 unit 12/30/20 20:56 Nystatin 100,000 Unit/Ml Susp 500,000 Unit/5 Ml Cup PO QID PRN THRUSH Ondansetron HCl 4 mg 12/30/20 20:56 Ondansetron 4 Mg Tab PO Q4H PRN Nausea And Vomiting Pantoprazole Sodium 40 mg 12/31/20 07:30 12/31/20 06:37 Pantoprazole 40 Mg Tablet PO 40 mg AC-BRKFST LION Administration Polyethylene Glycol 17 gm 12/31/20 09:00 Polyethylene Glycol 3350 17 Gm Powd.Pack PO DAILY LION Potassium Chloride 10 meq 12/30/20 21:30 12/31/20 09:34 Potassium Chloride Er 10 Meq Tab.Er.Prt PO 10 meq BID LION Administration Senna/Docusate Sodium 1 each 12/30/20 21:30 12/30/20 21:55 Sennosides-Docusate Sodium 1 Each Tab PO 1 each HS LION Administration Sucralfate 1 gm 12/30/20 21:30 12/31/20 06:37 Sucralfate 1 Gm Tab PO 1 gm ACHS LION Administration Intake and Output 12/30/20 12/31/20 12/31/20 22:59 06:59 14:59 Output Total 400 Balance -400 Output: Urine 400 Other: Voiding Method Urinal # Voids 1 Weight 119.295 kg 122.2 kg Patient Weight 01/01/21 06:59 Weight 122.2 kg 12/31/20 08:37 12/31/20 08:37
--- NOTE | 2020-12-31 14:18 | CT ---
EXAMINATION TYPE: CT angio chest DATE OF EXAM: 12/31/2020 1:32 PM COMPARISON: 12/01/2020 HISTORY: Shortness of breath CT DLP: 701.8 mGycm Automated exposure control for dose reduction was used. CONTRAST: CTA scan of the thorax is performed with IV Contrast, patient injected with 100, wasted 18 ml mL of I sovue 370, pulmonary embolism protocol. . FINDINGS: LUNGS: There is multilobulated 7 x 5.5 cm mass in the anterior aspect left upper lobe. This involves the left pulmonary hilum and anterior mediastinum. There is narrowing of the left upper lobe bronchus . There is encasement of the left upper lobe bronchus. There is small left pleural effusion. Hyperinf lation is compatible with COPD. 6 mm apical pleural-based density likely postinflammatory in the righ t upper lobe. Tree-in-bud pattern seen within the superior segment right lower lobe is nonspecific bu t likely postinflammatory. MEDIASTINUM: There is a filling defect within a secondary branch of the right pulmonary artery compat ible with acute pulmonary embolism extending into the distal branches. Aorta of normal caliber. Heart is enlarged. Report was called to the patient's nurse Teresita 12/31/2020 at 1409. OTHER: Splenic granuloma noted. There are chronic rib deformities most typical remote trauma. Hypert rophic and degenerative changes of the spine noted. Endplate deformities are seen at multiple levels. Suspect there is some lucency involving at least 2 upper thoracic segment suspicious for pathologic mild compression fractures. IMPRESSION: 1. No acute pulmonary embolism involving the right pulmonary artery secondary and distal branches. 2. Persistent mediastinal adenopathy and left upper lobe lung mass compatible with the patient's hist ory of malignancy. 3. There is interval development of mild compression deformities involving 2 upper thoracic segments are primarily involving the superior endplate. Metastases in the differential diagnosis.
[2020-12-31] MEDS ORDERED: HEPARIN SODIUM,PORCINE 5,000 UNIT/ML 1 ML VIAL IV PRN (14:33)
--- NOTE | 2020-12-31 15:11 | P.PN ---
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 Patient had received radiation treatments for his brain metastasis, and he states he finished his chemotherapy 2 weeks ago. Has a history of chronic A. fib, hypertension, chronic systolic CHF with ejection fraction of 45%, COPD on home oxygen at 3 L/m, sleep apnea, former smoker, chronic lower back pain. Patient recently had an admission to this hospital from December 02 through 12/11/2020 for a diagnosis of atrial fibrillation with rapid ventricular rate, acute on chronic CHF with diastolic dysfunction, at that time patient's Eliquis was discontinued in view of risk of bleeding with brain metastasis. On 12/30/2000 patient comes in to the hospital with complaints of increased shortness of breath, not feeling well, and based on the ER documentation patient was also having some chest pain at that time that was continuous throughout much of the day across his chest and was moderate in severity. The chest pain resolved by the time the patient arrived in the emergency department he denied any cough, phlegm production, denied any hemoptysis, no fever chills, no night sweats. His blood pressure was low at 87/42 and he did receive IV fluids. Denied any urinary symptoms, denies any nausea vomiting or diarrhea. Chest x-ray showed mild interstitial edema/atelectasis. EKG showed A. fib with nonspecific ST abnormality, controlled rate is 62. Lab data revealed pancytopenia white count of 1.9, hemoglobin is 9.9, platelet count of 58, INR is 1, electrolytes are unr emarkable weak suction of CO2 of 36 which is chronically elevated related to his history of obstructive sleep apnea, BUN of 22 creatinine 0.98, AST was 45, ALT was 88, alkaline phosphatase was 207, 3 sets of troponins were mildly elevated at 0.053, 0.054, and 0.038, proBNP was 1430, COVID 19 was negative. Patient was started on cefepime for empiric antibiotic coverage, blood cultures have been se nt, pro-calcitonin was added, she continues on IV hydration with 0.9 normal saline at [address] angios of the chest was completed showing filling defect within the secondary branch of the right pulmonary artery compatible with acute pulmonary embolism extending into the distal branches. There was persistent mediastinal adenopathy and left upper lobe lung mass compatible with the patient's history of malignancy. There was interval development of mild compression deformities involving to upper thoracic segments involving the superior endplate with metastasis in the differential diagnosis. He was started on heparin infusion for acute pulmonary embolism Objective - Vital Signs Vital signs: Vital Signs Temp 97.6 F 12/31/20 11:58 Pulse 64 12/31/20 12:05 Resp 24 12/31/20 11:58 BP 92/42 12/31/20 11:58 Pulse Ox 96 12/31/20 11:58 Intake & Output 12/30/20 12/31/20 12/31/20 18:59 06:59 18:59 Output Total 400 650 Balance -400 -650 Weight 119.295 kg 122.2 kg Output: Urine 400 650 Other: Voiding Method Urinal # Voids 1 - Exam GENERAL EXAM: Alert, 75-year-old white male, appears chronically ill, weak, patient has a hoarse voice, he sitting on the commode, he is on 3 L of oxygen, he is satting 96%, comfortable in no apparent distress. HEAD: Normocephalic/atraumatic. Patient has darkened skin from recent history o f radiation therapy to the brain, patient has areas of patchy alopecia EYES: Normal reaction of pupils, equal size. Conjunctiva pink, sclera white. NOSE: Clear with pink turbinates. THROAT: No erythema or exudates. NECK: No masses, no JVD, no thyroid enlargement, no adenopathy. CHEST: No chest wall deformity. Symmetrical expansion. LUNGS: Equal air entry with no crackles, wheeze, rhonchi or dullness. CVS: IRRegular rate and rhythm, normal S1 and S2, no gallops, no murmurs, no rubs ABDOMEN: Soft, nontender. No hepatosplenomegaly, normal bowel sounds, no guarding or rigidity. EXTREMITIES: No clubbing, mild pretibial edema, no cyanosis, 2+ pulses and upper and lower extremities. MUSCULOSKELETAL: Muscle strength and tone normal. SPINE: No scoliosis or deformity SKIN: No rashes CENTRAL NERVOUS SYSTEM: Alert and oriented -3. No focal deficits, tone is normal in all 4 extremities. PSYCHIATRIC: Alert and oriented -3. Appropriate affect. Intact judgment and insight. - Labs CBC & Chem 7: 12/31/20 08:37 12/31/20 08:37 Labs: Abnormal Lab Results - Last 24 Hours (Table) 12/30/20 12/30/20 12/30/20 Range/Units 19:13 19:13 19:13 WBC 1.9 L (3.8-10.6) k/uL RBC 3.62 L (4.30-5.90) m/uL Hgb 9.9 L D (13.0-17.5) gm/dL Hct 31.3 L (39.0-53.0) % RDW 17.5 H (11.5-15.5) % Plt Count 58 L D (150-450) k/uL Neutrophils # (Manual) 0.40 L* (1.3-7.7) k/uL Metamyelocytes # (Man) 0.08 H (0) k/uL Myelocytes # (Manual) 0.02 H (0) k/uL Promyelocytes # (Man) (0) k/uL Nucleated RBCs 8 H (0-0) /100 WBC APTT 17.7 L (22.0-30.0) sec Carbon Dioxide 36 H (22-30) mmol/L BUN 22 H (9-20) mg/dL Glucose 126 H (74-99) mg/dL Delta Bilirubin (0.0-0.2) mg/dL ALT 88 H (4-49) U/L Alkaline Phosphatase 207 H (38-126) U/L Creatine Kinase 27 L (55-170) U/L Troponin I (0.000-0.034) ng/mL Total Protein 5.6 L (6.3-8.2) g/dL Albumin 3.0 L (3.5-5.0) g/dL 12/30/20 12/30/20 12/31/20 Range/Units 19:13 22:06 08:37 WBC 2.7 L (3.8-10.6) k/uL RBC 3.57 L (4.30-5.90) m/uL Hgb 9.9 L (13.0-17.5) gm/dL Hct 31.4 L (39.0-53.0) % RDW 17.5 H (11.5-15.5) % Plt Count 58 L (150-450) k/uL Neutrophils # (Manual) 0.60 L (1.3-7.7) k/uL Metamyelocytes # (Man) 0.22 H (0) k/uL Myelocytes # (Manual) 0.27 H (0) k/uL Promyelocytes # (Man) 0.03 H (0) k/uL Nucleated RBCs 5 H (0-0) /100 WBC APTT (22.0-30.0) sec Carbon Dioxide (22-30) mmol/L BUN (9-20) mg/dL Glucose (74-99) mg/dL Delta Bilirubin (0.0-0.2) mg/dL ALT (4-49) U/L Alkaline Phosphatase (38-126) U/L Creatine Kinase (55-170) U/L Troponin I 0.053 H* 0.054 H* (0.000-0.034) ng/mL Total Protein (6.3-8.2) g/dL Albumin (3.5-5.0) g/dL 12/31/20 12/31/20 Range/Units 08:37 08:37 WBC (3.8-10.6) k/uL RBC (4.30-5.90) m/uL Hgb (13.0-17.5) gm/dL Hct (39.0-53.0) % RDW (11.5-15.5) % Plt Count (150-450) k/uL Neutrophils # (Manual) (1.3-7.7) k/uL Metamyelocytes # (Man) (0) k/uL Myelocytes # (Manual) (0) k/uL Promyelocytes # (Man) (0) k/uL Nucleated RBCs (0-0) /100 WBC APTT (22.0-30.0) sec Carbon Dioxide 35 H (22-30) mmol/L BUN (9-20) mg/dL Glucose 106 H (74-99) mg/dL Delta Bilirubin 0.3 H (0.0-0.2) mg/dL ALT 81 H (4-49) U/L Alkaline Phosphatase 196 H (38-126) U/L Creatine Kinase (55-170) U/L Troponin I 0.038 H* (0.000-0.034) ng/mL Total Protein 5.4 L (6.3-8.2) g/dL Albumin 2.9 L (3.5-5.0) g/dL Assessment and Plan Plan: Assessment: #1. Chest pain, related to acute pulmonary embolism, CTA chest showed a filling defect in the secondary branch of the right pulmonary artery compatible with acute PE extending into the distal branches #2. 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 Hypotension, likely related to hypovolemia, improved with hydration #4. Mild troponin leak #5. Left upper lobe multilobulated mass with narrowing of the left upper lobe bronchus, and encasement of the left upper lobe bronchus, related to recently diagnosed metastatic small cell lung cancer #6. Advanced COPD on home oxygen #7. Chronic A. fib was recently taken off chronic anticoagulation in view of the risk of bleeding with brain metastasis #8. History of sleep apnea on CPAP therapy #9. Chronic low back pain #10. GERD/reflux #11. Former smoker Plan: Continue current antibiotics, blood cultures have been sent and are pending at this time, continue IV hydration, patient has been started on IV heparin for acute pulmonary embolism. His breathing seems to be close to his baseline, continue bronchodilators, continue antibiotics, COVID 19 was negative. We'll await results of the blood cultures, patient has had no fever or chills, no significant pulmonary symptoms. We'll continue to follow, we'll send a pro-calcitonin level. I performed a history & physical examination of the patient and discussed their management with my nurse practitioner, Estefany Calle. I reviewed the nurse practitioner's note and agree with the documented findings and plan of care. Lung sounds are positive for diminished breath sounds. The findings and the impression was discussed with the patient. I attest to the documentation by the nurse practitioner. Time with Patient: Greater than 30
[2020-12-31] MEDS: HEPARIN SOD,PORK IN 0.45% NACL 25,000 UNIT in 0.45% NACL 1 250ML.BAG IV SCH (15:15)
[2020-12-31 15:17] LABS: INR 1.1 (<1.2); Partial Thromboplastin Time 22.2 sec (22.0-30.0); Prothrombin Time 11.4 sec (9.0-12.0)
[2020-12-31 15:19] LABS: Anisocytosis Slight; HCT 30.8 % (39.0-53.0); HGB 9.9 gm/dL (13.0-17.5); Hypochromasia Slight; MCH 28.3 pg (25.0-35.0); MCHC 32.1 g/dL (31.0-37.0); MCV 87.9 fL (80.0-100.0); Mean Platelet Volume 8.8; RDW 17.6 % (11.5-15.5)
[2020-12-31 15:53] LABS: Band Neutrophils % 9 %; Eosinophils # (M) 0.03 k/uL (0-0.7); Lymphocytes # (M) 1.34 k/uL (1.0-4.8); Metamyelocytes # (M) 0.08 k/uL (0); Metamyelocytes % 3 %; Monocytes # (M) 0.25 k/uL (0-1.0); Myelocytes # (M) 0.08 k/uL (0); Myelocytes % 3 %; Neutrophils % (M) 29 %; Nucleated Red Blood Cells 3 /100 WBC (0-0); Total Cells Counted 200; WBC 2.8 k/uL (3.8-10.6)
[2020-12-31 15:54] LABS: Platelet Count 68 k/uL (150-450); Polychromasia Present
--- NOTE | 2020-12-31 15:55 | US ---
EXAMINATION TYPE: US venous doppler duplex LE BI DATE OF EXAM: 12/31/2020 3:35 PM COMPARISON: NONE CLINICAL HISTORY: r/o DVT. PE, hx of cancer SIDE PERFORMED: Bilateral TECHNIQUE: The lower extremity deep venous system is examined utilizing real time linear array sonog manuel with graded compression, doppler sonography and color-flow sonography. VESSELS IMAGED: Common Femoral Vein Deep Femoral Vein Greater Saphenous Vein * Femoral Vein Popliteal Vein Small Saphenous Vein * Proximal Calf Veins (* superficial vessels) Right Leg: Negative for DVT Left Leg: Negative for DVT Grayscale, color doppler, spectral doppler imaging performed of the deep veins of the bilateral lower extremities. There is normal flow, compressibility, vascular waveforms. IMPRESSION: No ultrasound evidence for acute DVT in either lower extremity.
--- NOTE | 2020-12-31 16:50 | P.CONS ---
History of Present Illness - Reason for Consult Consult date: 12/31/20 pancytopenia, small cell lung cancer on treatment Requesting physician: Danny E Sheet - Chief Complaint fever, BISI, cough - History of Present Illness Mr. Hancock is a very pleasant 75-year-old male patient of Dr. Millan who presented to the emergency department 10/30/20 with complaints of persistent shortness of breath, fatigue and syncopal episodes. PMH chronic atrial fibrillation, COPD, apnea and tobacco dependence. Patient's confirmed periods of disorientation and confusion. Chest x-ray revealed a large right upper lobe opacity. CT of chest revealed 11 x 8 cm right upper lobe mass, brain CT performed showed metastatic disease. Patient had bronchoscopy 11/01/20 showing small cell lung cancer. Patient completed whole brain radiation. He has had 2 cycles of carbo/FLIGHT DIRECTOR/tecentric, 12/19/20, next treatment due 01/07/21. He lost his voice the day of the lung biopsy, stable. He was seen 12/26/20 for treatment f/u. He had pain in the eyes for 2 days after treatment, had to close shades and his eyes to tolerate, symptoms are not persistent, no vision changes-being referred to Opthamology. He had complaints at that time of fatigue, activity intolerance. He states that he had just been to see his [employer] with good report. He was brought to the ER by his with fever, shortness of breath, weakness and chest pain. Found to have resting tachycardia. Trop elevated. CTA positive for PE in the right lower lobe, started on heparin drip. WBC 2.7 with ANC 600, dose of G-CSF given with CBC follow-up in the morning. Platelets are 58,000, hemoglobin is 9.9. He denies oral irritation, difficulty swallowing, breathing is not much better since admission, chest pain is not present at rest, no nausea, vomiting, abdominal pain or cramping, indigestion or heartburn, acute changes in bowel or bladder habits, swelling in the legs, or other pain Review of Systems 14 point review of systems is negative except as stated in HPI Past Medical History Past Medical History: Cancer, COPD, GERD/Reflux, Musculoskeletal Disorder, Skin Disorder, Sleep Apnea/CPAP/BIPAP Additional Past Medical History / Comment(s): irregular heart rhythm,SOB,SWEL LING IN [place]. ANKLES OFF & ON, SNORES ALOT. LOWER BACK PAIN,generalized sores on skin, cancer of the brain History of Any Multi-Drug Resistant Organisms: None Reported Past Surgical History: Orthopedic Surgery Additional Past Surgical History / Comment(s): ARTHROSCOPIC RT KNEE 2012 , CTR LEFT WRIST Past Anesthesia/Blood Transfusion Reactions: No Reported Reaction Smoking Status: Former smoker - Past Family History Mother Family Medical History: Congestive Heart Failure (CHF) Father Family Medical History: Coronary Artery Disease (CAD) Additional Family Medical History / Comment(s): CABG Brother(s) Family Medical History: Coronary Artery Disease (CAD) Additional Family Medical History / Comment(s): CABG Medications and Allergies Home Medications Medication Instructions Recorded Confirmed Type Fish Oil/Dha/Epa [Fish Oil 1,200 1 cap PO DAILY 03/05/15 12/30/20 History mg Fish Oil] HYDROcodone/APAP 10-325MG [Circle 1 tab PO Q6H PRN 03/05/15 12/30/20 History 10-325] Multivitamins, Thera [Multivitamin 1 tab PO DAILY 03/05/15 12/30/20 History (formulary)] Potassium Chloride [Klor-Con 10] 10 meq PO BID 03/05/15 12/30/20 History Calcium Carbonate/Vitamin D3 1 tab PO QID 05/11/18 12/30/20 History [Calcium 600-Vit D3 5 Mcg (200 Iu)] Garlic 1 tab PO DAILY 05/11/18 12/30/20 History Aspirin [Adult Low Dose Aspirin EC] 81 mg PO DAILY 12/30/18 12/30/20 History Albuterol Sulfate [Ventolin HFA] 2 puff INHALATION RT-Q6H PRN 10/30/20 12/30/20 History Cholecalciferol [Vitamin D3 (25 1,000 unit PO DAILY 10/30/20 12/30/20 History Mcg = 1000 Iu)] Metoprolol Succinate [Toprol XL] 100 mg PO DAILY 10/30/20 12/30/20 History Pantoprazole [Protonix] 40 mg PO DAILY #30 tab 11/02/20 12/30/20 Rx Acetaminophen Tab [Tylenol] 1,000 mg PO Q6HR PRN 11/30/20 12/30/20 History Fluticasone Nasal [place] [Flonase 1 spray EA NOSTRIL DAILY PRN 11/30/20 12/30/20 History Nasal [place]] LORazepam [Ativan] 0.5 mg PO TID PRN 11/30/20 12/30/20 History Nystatin 100,000 Unit/ml Susp 5 ml PO QID PRN 11/30/20 12/30/20 History [Mycostatin Oral Susp] Ondansetron HCl [Zofran] 4 mg PO Q4H PRN 11/30/20 12/30/20 History Sucralfate [Carafate] 1 gm PO ACHS 11/30/20 12/30/20 History Digoxin [Lanoxin] 250 mcg PO DAILY #30 tab 12/11/20 12/30/20 Rx Diltiazem Cd [Cardizem CD] 300 mg PO DAILY #30 cap.er.24h 12/11/20 12/30/20 Rx Furosemide [Lasix] 80 mg PO BID@0900,1600 #60 tab 12/11/20 12/30/20 Rx Kools Solution 5 ml PO QID PRN 12/30/20 12/30/20 History Morphine Sulfate ER [Ms Contin] 30 mg PO BID 12/30/20 12/30/20 History Sennosides/Docusate Sodium 1 tab PO HS 12/30/20 12/30/20 History [Senna-S 8.6-50 mg Tablet] fentaNYL 12MCG/HR PATCH [Duragesic 1 patch TRANSDERM Q72H 12/30/20 12/30/20 History 12MCG/HR] levETIRAcetam [Keppra] 750 mg PO BID 12/30/20 12/30/20 History polyethylene glycoL 3350 [Miralax] 17 gm PO DAILY 12/30/20 12/30/20 History Allergies Allergy/AdvReac Type Severity Reaction Status Date / Time morphine Allergy Rash/Hives Verified 12/30/20 21:34 Physical Exam Vitals: Vital Signs Temp Pulse Pulse Resp BP BP Pulse Ox 12/31/20 08:00 97.7 F 65 20 96/49 95 12/31/20 04:00 99.0 F 73 18 95/44 93 L 12/31/20 02:00 69 16 12/30/20 22:55 96.7 F L 69 16 121/57 98 12/30/20 22:00 68 18 98/54 96 12/30/20 21:30 97.8 F 61 18 96/49 94 L 12/30/20 20:00 73 18 97/74 94 L 12/30/20 19:05 99.3 F 68 18 90/53 94 L Intake and Output 12/30/20 12/31/20 12/31/20 22:59 06:59 14:59 Output Total 400 Balance -400 Output: Urine 400 Other: Voiding Method Urinal # Voids 1 Weight 119.295 kg - Constitutional General appearance: cooperative, no acute distress, obese - EENT Eyes: anicteric sclerae, EOMI ENT: hearing grossly normal, pharyngeal erythema - Neck Neck: no lymphadenopathy - Respiratory Respiratory: right: diminished, left: CTA - Cardiovascular Rhythm: irregularly irregular Heart sounds: normal: S1, S2 Abnormal Heart Sounds: no systolic murmur, no diastolic murmur, no rub, no S3 Gallop, no S4 Gallop, no click, no other leg Peripheral Edema: bilateral: Trace - Gastrointestinal General gastrointestinal: no absent bowel sounds, no decreased bowel sounds, no distended, no hepatomegaly, no hyperactive bowel sounds, normal bowel sounds, no organomegaly, no rigid, no scaphoid, soft, no splenomegaly, no tenderness, no umbilical hernia, no ventral hernia - Integumentary Integumentary: normal - Neurologic Neurologic: CNII-XII intact - Musculoskeletal Musculoskeletal: generalized weakness - Psychiatric Psychiatric: A&O x's 3, appropriate affect, intact judgment & insight Results CBC & Chem 7: 12/31/20 14:51 12/31/20 08:37 Labs: Abnormal Lab Results - Last 24 Hours (Table) 12/30/20 12/30/20 12/30/20 Range/Units 19:13 19:13 19:13 WBC 1.9 L (3.8-10.6) k/uL RBC 3.62 L (4.30-5.90) m/uL Hgb 9.9 L D (13.0-17.5) gm/dL Hct 31.3 L (39.0-53.0) % RDW 17.5 H (11.5-15.5) % Plt Count 58 L D (150-450) k/uL Neutrophils # (Manual) 0.40 L* (1.3-7.7) k/uL Metamyelocytes # (Man) 0.08 H (0) k/uL Myelocytes # (Manual) 0.02 H (0) k/uL Nucleated RBCs 8 H (0-0) /100 WBC APTT 17.7 L (22.0-30.0) sec Carbon Dioxide 36 H (22-30) mmol/L BUN 22 H (9-20) mg/dL Glucose 126 H (74-99) mg/dL ALT 88 H (4-49) U/L Alkaline Phosphatase 207 H (38-126) U/L Creatine Kinase 27 L (55-170) U/L Troponin I (0.000-0.034) ng/mL Total Protein 5.6 L (6.3-8.2) g/dL Albumin 3.0 L (3.5-5.0) g/dL 12/30/20 12/30/20 Range/Units 19:13 22:06 WBC (3.8-10.6) k/uL RBC (4.30-5.90) m/uL Hgb (13.0-17.5) gm/dL Hct (39.0-53.0) % RDW (11.5-15.5) % Plt Count (150-450) k/uL Neutrophils # (Manual) (1.3-7.7) k/uL Metamyelocytes # (Man) (0) k/uL Myelocytes # (Manual) (0) k/uL Nucleated RBCs (0-0) /100 WBC APTT (22.0-30.0) sec Carbon Dioxide (22-30) mmol/L BUN (9-20) mg/dL Glucose (74-99) mg/dL ALT (4-49) U/L Alkaline Phosphatase (38-126) U/L Creatine Kinase (55-170) U/L Troponin I 0.053 H* 0.054 H* (0.000-0.034) ng/mL Total Protein (6.3-8.2) g/dL Albumin (3.5-5.0) g/dL Chest x-ray: report reviewed CT scan - chest: report reviewed Venous US: report reviewed Assessment and Plan (1) Small cell lung cancer Narrative/Plan: Patient is status post 2 cycles of treatment. In general poor tolerance. Plan a follow-up with Primary Oncologist before resuming any further therapy. Tx will be held until his current condition is stabilized and he has had the opportunity to rehabilitate, as needed, to recover from acute illness and have a PS adequate to cont cancer therapy. Current Visit: Yes Status: Acute Priority: High Code(s): C34.90 - MALIGNANT NEOPLASM OF UNSP PART OF UNSP BRONCHUS OR LUNG SNOMED Code(s): 617378758 (2) Antineoplastic chemotherapy induced pancytopenia Narrative/Plan: Did give a one-time dose of G-CSF for ANC of 600. Platelets 58,000, adequate to begin heparin drip for newly diagnosed right lower lobe PE. Hemoglobin 9.9 and admit, no transfusion at this time. Daiy CBC while inpt Current Visit: Yes Status: Acute Priority: Medium Code(s): D61.810 - ANTINEOPLASTIC CHEMOTHERAPY INDUCED PANCYTOPENIA; T45.1X5A - ADVERSE EFFECT OF ANTINEOPLASTIC AND IMMUNOSUP DRUGS, INIT SNOMED Code(s): 711385651932353 (3) Pulmonary embolism Narrative/Plan: Started on a heparin drip. Bilateral lower extremity Dopplers are negative for DVT. We will see if patient's respiratory status has improved in the a.m. Current Visit: Yes Status: Acute Priority: High Code(s): I26.99 - OTHER PULMONARY EMBOLISM WITHOUT ACUTE COR PULMONALE SNOMED Code(s): 05485978 (4) Brain metastases Narrative/Plan: Just recently completed treatment. Follow up . No evidence currently to suggest exacerbation or progression. Current Visit: No Status: Chronic Priority: Medium Code(s): C79.31 - SECONDARY MALIGNANT NEOPLASM OF BRAIN SNOMED Code(s): 63962608
[2020-12-31] MEDS: SENNOSIDES-DOCUSATE SODIUM 1 EACH TAB PO SCH (20:48)
[2021-01-01] MEDS: HYDROcodone/APAP 10-325MG 1 EACH TAB PO PRN ×3 (00:03→16:35)
[2021-01-01] MEDS: LORazepam 0.5 MG TAB PO PRN ×3 (00:03→20:41)
[2021-01-01] MEDS: CEFEPIME 2 GM in SODIUM CHLORIDE 0.9% 100 ML IVPB SCH ×4 (00:04→23:00)
[2021-01-01] MEDS: PANTOPRAZOLE 40 MG TABLET PO SCH (06:38)
[2021-01-01] MEDS: SUCRALFATE 1 GM TAB PO SCH ×4 (06:38→20:41)
[2021-01-01] MEDS: IPRATROPIUM-ALBUTEROL 3 ML NEB INHALATION SCH ×4 (08:53→19:50)
[2021-01-01] MEDS: polyethylene glycoL 3350 17 GM POWD.PACK PO SCH (09:17)
[2021-01-01] MEDS: ACETAMINOPHEN TAB 500 MG TAB PO PRN (09:18)
[2021-01-01] MEDS: MULTIVITAMINS, THERA 1 EACH TAB PO SCH (09:19)
[2021-01-01] MEDS: FUROSEMIDE 80 MG TAB PO SCH ×2 (09:19→16:35)
[2021-01-01] MEDS: POTASSIUM CHLORIDE ER 10 MEQ TAB.ER.PRT PO SCH ×2 (09:19→20:41)
[2021-01-01] MEDS: ASPIRIN 81 MG PO SCH (09:19)
[2021-01-01] MEDS: CHOLECALCIFEROL 25 MCG (1000 IU) TABLET PO SCH (09:19)
[2021-01-01] MEDS: METOPROLOL SUCCINATE (ER) 100 MG TAB.ER.24H PO SCH (09:19)
[2021-01-01] MEDS: CALCIUM CARB-VIT D 500 MG-5 MCG TAB PO SCH ×4 (09:20→20:41)
[2021-01-01] MEDS: DIGOXIN 250 MCG TAB PO SCH (09:20)
[2021-01-01] MEDS: DILTIAZEM CD 300 MG CAP.ER.24H PO SCH (09:20)
[2021-01-01] MEDS: SODIUM CHLORIDE 0.9% 1,000 ML IV SCH (09:30)
[2021-01-01] MEDS: HEPARIN SOD,PORK IN 0.45% NACL 25,000 UNIT in 0.45% NACL 1 250ML.BAG IV SCH (10:38)
--- NOTE | 2021-01-01 10:55 | XR ---
EXAMINATION TYPE: XR chest 1V DATE OF EXAM: 01/01/2021 COMPARISON: 12/31/2020 HISTORY: 75 year-old male shortness of breath TECHNIQUE: Single frontal view of the chest is obtained. FINDINGS: Heart mildly enlarged. Mild hyperinflation. Focal left suprahilar opacity persists. Some patchy densi ty continues to extend up to the periphery of the left upper lobe. Old right lateral rib fracture def ormity. No new consolidation or sizable effusion. IMPRESSION: 1. Stable mild cardiomegaly. 2. Known left hilar mass. Patchy opacity continues to extend from here to the periphery of the left u pper lobe and could represent pneumonia in the correct clinical setting.
[2021-01-01] MEDS ORDERED: FUROSEMIDE 10 MG/ML 4 ML VIAL IV STA (11:23)
[2021-01-01 11:37] LABS: Anisocytosis Slight; HCT 30.1 % (39.0-53.0); HGB 9.6 gm/dL (13.0-17.5); Hypochromasia Slight; MCHC 31.9 g/dL (31.0-37.0); MCV 87.8 fL (80.0-100.0); Mean Platelet Volume 9.3; RBC 3.43 m/uL (4.30-5.90); RDW 17.7 % (11.5-15.5)
[2021-01-01] MEDS: predniSONE 20 MG TAB PO SCH (11:38)
[2021-01-01 11:46] LABS: Platelet Count 85 k/uL (150-450)
[2021-01-01 12:25] LABS: Calcium 8.9 mg/dL (8.4-10.2); Potassium 3.9 mmol/L (3.5-5.1)
[2021-01-01 12:38] LABS: Band Neutrophils % 14 %; Lymphocytes # (M) 1.79 k/uL (1.0-4.8); Metamyelocytes # (M) 0.48 k/uL (0); Metamyelocytes % 4 %; Monocytes # (M) 0.95 k/uL (0-1.0); Myelocytes # (M) 0.71 k/uL (0); Myelocytes % 6 %; Neutrophils % (M) 54 %; Nucleated Red Blood Cells 2 /100 WBC (0-0); Total Cells Counted 200; WBC 11.9 k/uL (3.8-10.6)
[2021-01-01 12:39] LABS: Poikilocytosis (M) Present; Polychromasia Present
--- NOTE | 2021-01-01 13:16 | P.PN ---
Subjective This is a pleasant 75 years old male with past medical history of cancer of the brain which is mildly multiple metastatic-appearing lesions from primary lung cancer, COPD, GERD, sleep apnea on CPAP/BiPAP, chronic low back pain, A. fib and RVR He presents because of dyspnea of 2 days' duration associated with some dry coughing which is stopped since admission as per patient. Although patient has been admitted with chest pain as per ED notes however when I asked the patient this morning he denies any chest pain to me on admission or currently. He looks tired but denies any abdominal pain, no nausea vomiting, no change in urine or bowel habits. No headache. No new weakness or numbness. Patient status at this line he stays in chair most of the time and he can walk with a walker within his room usually. He states he stopped smoking and he denies alcohol or illicit drugs He could not remember the name of his cancer doctor but states that he follows up with Dr. milan He states that usually he gets radiotherapy for example to the brain wasn't sure when he got his last radiotherapy expecting it to be 2 weeks ago. And he denies getting chemotherapy when I asked him although patient was noticed to have some alopecia Vital showing patient is afebrile, he is saturating 93% on 2 L oxygen via nasal cannula. Blood pressure 95/44 which is at baseline Labs showing pancytopenia with WBC of 1.9, hemoglobin 9.9 and platelet count 58. And low neutrophil 0.4 with Count of 0.76K. INR Is 1.0. Creatinine and Electrolytes Are within the Reference Range. Troponin Is Slightly Elevated at 0.05 and 0.05 AST is normal at 45 ALT is a slightly elevated at 88 EKG showed atrial fibrillation at [address]-T changes. Chest x-ray: Mild interstitial edema/atelectasis In the emergency room patient was started on cefepime and [place] 100 mL per hour. Consult to cardiology was placed 01/01/2021 Patient is still dyspneic today.No significant chest pain or coughing. He is saturating 93% on 3 to oxygen via nasal cannula Postoperative vitals are stable WBC went up to 11.9 after he got 1 dose of G-CSF hemoglobin and platelets are stable, hemoglobin 9.6 and platelet improved to 85K. Yesterday CTA of the chest was showed right PE and patient was started on heparin drip by senior controller team. Doppler of lower extremity is negative for DVT He remains on heparin drip started yesterday by senior controller team. Today I explained to him the benefits and risk of heparin drip including but not limited to intracranial hemorrhage and he verbalized understanding and acceptance As per oncology team he was getting chemotherapy which might explain why he had pancytopenia on admission Manager [employer]airy evaluated the patient and diagnosed him with type 2 HI secondary to supply demand mismatch with no need for further cardiac workup. Also patient remains on antibiotics of cefepime with elevated pro-calcitonin Patient will benefit from ECF upon discharge. EKG from today showed atrial fibrillation at [address]-T changes Review of Systems CONSTITUTIONAL: No fever, no malaise, no fatigue. HEENT: No recent visual problems or hearing problems. Denied any sore throat. CARDIOVASCULAR: No orthopnea, PND, no palpitations, no syncope. PULMONARY: No chest wall tenderness, no hemoptysis. GASTROINTESTINAL: No diarrhea, no nausea, no vomiting, no abdominal pain. Normoactive bowel sounds. NEUROLOGICAL: No headaches, no weakness, no numbness. Active Medications Generic Name Dose Route Start Last Admin Trade Name Freq PRN Reason Stop Dose Admin Acetaminophen 1,000 mg 12/30/20 20:56 01/01/21 09:18 Acetaminophen Tab 500 Mg Tab PO 1,000 mg Q6HR PRN Administration Mild Pain or Fever > 100.5 Hydrocodone Bitart/Acetaminophen 1 each 12/30/20 20:56 01/01/21 06:39 Hydrocodone/Apap 10-325mg 1 Each Tab PO 1 each Q6H PRN Administration Pain Albuterol/Ipratropium 3 ml 12/31/20 02:24 Ipratropium-Albuterol 3 Ml Neb INHALATION RT-QID PRN Shortness Of Breath Or Wheezing Albuterol/Ipratropium 3 ml 12/31/20 08:00 01/01/21 11:51 Ipratropium-Albuterol 3 Ml Neb INHALATION 3 ml RT-QID LION Administration Aspirin 81 mg 12/31/20 09:00 01/01/21 09:19 Aspirin 81 Mg PO 81 mg DAILY LION Administration Calcium Carbonate 1 each 12/30/20 22:00 01/01/21 11:39 Calcium Carb-Vit D 500 Mg-5 Mcg Tab PO 1 each QID LION Administration Cholecalciferol 25 mcg 12/31/20 09:00 01/01/21 09:19 Cholecalciferol 25 Mcg (1000 Iu) Tablet PO 25 mcg DAILY LION Administration Al Hydroxide/Mg Hydroxide 30 0 ml 12/30/20 22:00 ml/ Lidocaine HCl 30 ml/ PO Diphenhydramine HCl 75 mg/ QID PRN Nystatin 3,000,000 unit THRUSH Digoxin 250 mcg 12/31/20 09:00 01/01/21 09:20 Digoxin 250 Mcg Tab PO 250 mcg DAILY LION Administration Diltiazem HCl 300 mg 12/31/20 09:00 01/01/21 09:20 Diltiazem Cd 300 Mg Cap.Er.24h PO 300 mg DAILY LION Administration Fentanyl 1 patch 12/31/20 09:00 12/31/20 09:35 Fentanyl 12mcg/Hr Patch TRANSDERM 1 patch Q72H LION Administration Protocol Fluticasone Propionate 1 spray 12/30/20 20:56 Fluticasone 50mcg/Velpen Nasal 16gm EA NOSTRIL DAILY PRN Allergy Symptoms Furosemide 80 mg 12/31/20 09:00 01/01/21 09:19 Furosemide 80 Mg Tab PO 80 mg BID@0900,1600 LION Administration Heparin Sodium (Porcine) 0 unit 12/31/20 14:33 01/01/21 00:05 Heparin Sodium,Porcine 5,000 Unit/Ml 1 Ml Vial IV 4,000 unit PER PROTOCOL PRN Administration Low PTT Protocol Cefepime HCl 2 gm/ Sodium 100 mls @ 200 mls/hr 12/31/20 08:00 01/01/21 09:17 Chloride IVPB 200 mls/hr Q8HR LION Administration Heparin Sodium/Sodium Chloride 250 mls @ 9.996 mls/hr 12/31/20 14:45 01/01/21 10:38 25,000 unit/ Sodium Chloride IV 11.18 units/kg/hr .Q24H LION 13.662 mls/hr Administration Protocol 8.18 UNITS/KG/HR Levetiracetam 750 mg 12/30/20 21:30 01/01/21 09:19 Levetiracetam 750 Mg Tab PO 750 mg BID LION Administration Lorazepam 0.5 mg 12/30/20 20:56 01/01/21 10:15 Lorazepam 0.5 Mg Tab PO 0.5 mg TID PRN Administration Anxiety Metoprolol Succinate 100 mg 12/31/20 09:00 01/01/21 09:19 Metoprolol Succinate (Er) 100 Mg Tab.Er.24h PO 100 mg DAILY LION Administration Miscellaneous Information 1 each 12/30/20 20:52 Pneumonia Protocol Utilized 1 Each Misc PO ONCE PRN Per Protocol Multivitamins 1 each 12/31/20 09:00 01/01/21 09:19 Multivitamins, Thera 1 Each Tab PO 1 each DAILY LION Administration Nystatin 500,000 unit 12/30/20 20:56 Nystatin 100,000 Unit/Ml Susp 500,000 Unit/5 Ml Cup PO QID PRN THRUSH Ondansetron HCl 4 mg 12/30/20 20:56 Ondansetron 4 Mg Tab PO Q4H PRN Nausea And Vomiting Pantoprazole Sodium 40 mg 12/31/20 07:30 01/01/21 06:38 Pantoprazole 40 Mg Tablet PO 40 mg AC-BRKFST LION Administration Polyethylene Glycol 17 gm 12/31/20 09:00 01/01/21 09:17 Polyethylene Glycol 3350 17 Gm Powd.Pack PO 17 gm DAILY LION Administration Potassium Chloride 10 meq 12/30/20 21:30 01/01/21 09:19 Potassium Chloride Er 10 Meq Tab.Er.Prt PO 10 meq BID LION Administration Prednisone 40 mg 01/01/21 11:30 01/01/21 11:38 Prednisone 20 Mg Tab PO 40 mg DAILY LION Administration Senna/Docusate Sodium 1 each 12/30/20 21:30 12/31/20 20:48 Sennosides-Docusate Sodium 1 Each Tab PO 1 each HS LION Administration Sucralfate 1 gm 12/30/20 21:30 01/01/21 11:39 Sucralfate 1 Gm Tab PO 1 gm ACHS LION Administration Objective - Vital Signs Vital signs: Vital Signs Temp 98.5 F 01/01/21 08:00 Pulse 74 01/01/21 12:01 Resp 18 01/01/21 11:57 BP 100/50 01/01/21 11:57 Pulse Ox 93 L 01/01/21 11:57 Intake & Output 12/31/20 01/01/21 01/01/21 18:59 06:59 18:59 Intake Total 1299.98 87.465 270.273 Output Total 1400 500 Balance -100.02 -412.535 270.273 Weight 122.2 kg 122.4 kg Intake: Intake, IV Titration 819.98 87.465 145.273 Amount Cefepime 2 gm In Sodium 100 Chloride 0.9% 100 ml @ 200 mls/hr IVPB Q8HR LION Rx#:[id number] Heparin Sod,Pork in 0.45% 19.98 87.465 145.273 NaCl 25,000 unit In 0.45 % NaCl 1 250ml.bag @ 8.18 UNITS/KG/HR 9.996 mls/hr IV .Q24H LION Rx#: [id number] Sodium Chloride 0.9% 1, 700 000 ml @ 75 mls/hr IV . [id number] LION Rx#:[id number] Oral 480 125 Output: Urine 1400 500 Other: Voiding Method Urinal Urinal # Voids 1 1 # Bowel Movements 1 - Exam -GENERAL: The patient is alert and oriented x3, in mild acute respiratory distress. Obese HEENT: Pupils are round and equally reacting to light. EOMI. No scleral icterus. No conjunctival pallor. Normocephalic, atraumatic. No pharyngeal erythema. No thyromegaly. CARDIOVASCULAR: S1 and S2 present. No murmurs, rubs, or gallops. -PULMONARY: Chest is clear to auscultation, no wheezing or crackles. Mildly Tachypneic ABDOMEN: Soft, nontender, nondistended, normoactive bowel sounds. No palpable organomegaly. MUSCULOSKELETAL: No joint swelling or deformity. EXTREMITIES: No cyanosis, clubbing, or pedal edema. NEUROLOGICAL: Gross neurological examination did not reveal any focal deficits. SKIN: No rashes. No petechiae - Labs CBC & Chem 7: 01/01/21 10:19 01/01/21 10:19 Labs: Abnormal Lab Results - Last 24 Hours (Table) 12/31/20 12/31/20 12/31/20 Range/Units 08:37 14:51 22:35 WBC 2.8 L (3.8-10.6) k/uL RBC 3.50 L (4.30-5.90) m/uL Hgb 9.9 L (13.0-17.5) gm/dL Hct 30.8 L (39.0-53.0) % RDW 17.6 H (11.5-15.5) % Plt Count 68 L (150-450) k/uL Neutrophils # (Manual) 1.00 L (1.3-7.7) k/uL Metamyelocytes # (Man) 0.08 H (0) k/uL Myelocytes # (Manual) 0.08 H (0) k/uL Nucleated RBCs 3 H (0-0) /100 WBC APTT 33.2 H (22.0-30.0) sec Carbon Dioxide (22-30) mmol/L Glucose (74-99) mg/dL Procalcitonin 0.51 H (0.02-0.09) ng/mL 01/01/21 01/01/21 01/01/21 Range/Units 10:19 10:19 10:19 WBC 11.9 H (3.8-10.6) k/uL RBC 3.43 L (4.30-5.90) m/uL Hgb 9.6 L (13.0-17.5) gm/dL Hct 30.1 L (39.0-53.0) % RDW 17.7 H (11.5-15.5) % Plt Count 85 L (150-450) k/uL Neutrophils # (Manual) 8.00 H (1.3-7.7) k/uL Metamyelocytes # (Man) 0.48 H (0) k/uL Myelocytes # (Manual) 0.71 H (0) k/uL Nucleated RBCs 2 H (0-0) /100 WBC APTT 54.1 H (22.0-30.0) sec Carbon Dioxide 32 H (22-30) mmol/L Glucose 129 H (74-99) mg/dL Procalcitonin (0.02-0.09) ng/mL Microbiology - Last 24 Hours (Table) 12/30/20 21:00 Blood Culture - Preliminary Blood No Growth after 24 hours 12/30/20 21:15 Blood Culture - Preliminary Blood No Growth after 24 hours Assessment and Plan Assessment: Acute right pulmonary embolism Possible left upper postobstructive pneumonia Pancytopenia secondary to chemotherapy improvement Elevated troponin, secondary to type II HI per manager trust no further workup History of lung cancer with ROBERT mass, 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 Undergoing radiotherapy Chronic hypoxic respiratory failure on 3L oxygen via nasal cannula Chronic persistent atrial fibrillation, not on anticoagulation due to risk of bleeding from a brain metastasis. Chronic systolic cardiomyopathy with ejection fraction 45-50% COPD History of GERD Sleep apnea on CPAP/BiPAP Chronic low back pain Obesity with BMI of 35.7 Plan: this is a pleasant 75 years old male who presents with PE and possible pneumonia. Heparin drip with hematology and pulmonary team on the case. Co ntinue with cefepime and follow-up culture results. Cardiology team on the case.. Continue with gentle hydration Follow-up with oncology team for history of lung cancer with brain metastasis and pancytopenia . Patient with no fever but he was started on cefepime. We will follow up the culture and vitals were closely . Check a pro-calcitonin Labs and medication were reviewed.. Continue same treatment. Continue with symptomatic treatment. Resume home medication. Monitor lytes and vitals. DVT and GI prophylaxis. Further recommendations depends on the clinical course of the patient DVT prophylaxis: heparin GI Prophylaxis: Ppi PT/OT: Subacute rehab Prognosis is guarded
--- NOTE | 2021-01-01 14:38 | P.PN ---
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 Patient had received radiation treatments for his brain metastasis, and he states he finished his chemotherapy 2 weeks ago. Has a history of chronic A. fib, hypertension, chronic systolic CHF with ejection fraction of 45%, COPD on home oxygen at 3 L/m, sleep apnea, former smoker, chronic lower back pain. Patient recently had an admission to this hospital from December 02 through 12/11/2020 for a diagnosis of atrial fibrillation with rapid ventricular rate, acute on chronic CHF with diastolic dysfunction, at that time patient's Eliquis was discontinued in view of risk of bleeding with brain metastasis. On 12/30/2000 patient comes in to the hospital with complaints of increased shortness of breath, not feeling well, and based on the ER documentation patient was also having some chest pain at that time that was continuous throughout much of the day across his chest and was moderate in severity. The chest pain resolved by the time the patient arrived in the emergency department he denied any cough, phlegm production, denied any hemoptysis, no fever chills, no night sweats. His blood pressure was low at 87/42 and he did receive IV fluids. Denied any urinary symptoms, denies any nausea vomiting or diarrhea. Chest x-ray showed mild interstitial edema/atelectasis. EKG showed A. fib with nonspecific ST abnormality, controlled rate is 62. Lab data revealed pancytopenia white count of 1.9, hemoglobin is 9.9, platelet count of 58, INR is 1, electrolytes are unr emarkable weak suction of CO2 of 36 which is chronically elevated related to his history of obstructive sleep apnea, BUN of 22 creatinine 0.98, AST was 45, ALT was 88, alkaline phosphatase was 207, 3 sets of troponins were mildly elevated at 0.053, 0.054, and 0.038, proBNP was 1430, COVID 19 was negative. Patient was started on cefepime for empiric antibiotic coverage, blood cultures have been se nt, pro-calcitonin was added, she continues on IV hydration with 0.9 normal saline at [address] angios of the chest was completed showing filling defect within the secondary branch of the right pulmonary artery compatible with acute pulmonary embolism extending into the distal branches. There was persistent mediastinal adenopathy and left upper lobe lung mass compatible with the patient's history of malignancy. There was interval development of mild compression deformities involving to upper thoracic segments involving the superior endplate with metastasis in the differential diagnosis. He was started on heparin infusion for acute pulmonary embolism On 01/01/2021 patient seen in follow-up on selective care unit. Nursing staff reports patient is being slightly more short of breath today, but his cough is dry, no chest congestion, no hemoptysis no complaints of chest pain, lung sounds reveal some wheezing bilaterally, some limited crackles at the bases. He is already on oral Lasix, is covered with antibiotics, and receiving IV fluids at 75 ML per hour, he has lower extremity edema, lower extremity Dopplers were completed showing no evidence of DVT, he continues on heparin infusion for evidence of small PE in the secondary branch of the right pulmonary artery. Has had no fever or chills, today's labs have been reviewed, showing white blood cell count of 11.9, hemoglobin is 9.6, platelet count is 85, CO2 32, BUN 15 creatinine 0.9. Patient is on cefepime for empiric antibiotic coverage, medical oncology is following, patient received's are 0, his blood counts are improving. Objective - Vital Signs Vital signs: Vital Signs Temp 98.5 F 01/01/21 08:00 Pulse 82 01/01/21 13:55 Resp 18 01/01/21 13:55 BP 100/50 01/01/21 11:57 Pulse Ox 93 L 01/01/21 11:57 Intake & Output 12/31/20 01/01/21 01/01/21 18:59 06:59 18:59 Intake Total 1299.98 87.465 270.273 Output Total 1400 500 350 Balance -100.02 -412.535 -79.727 Weight 122.2 kg 122.4 kg Intake: Intake, IV Titration 819.98 87.465 145.273 Amount Cefepime 2 gm In Sodium 100 Chloride 0.9% 100 ml @ 200 mls/hr IVPB Q8HR [facility] Rx#:[id number] Heparin Sod,Pork in 0.45% 19.98 87.465 145.273 NaCl 25,000 unit In 0.45 % NaCl 1 250ml.bag @ 8.18 UNITS/KG/HR 9.996 mls/hr IV .Q24H [facility] Rx#: [id number] Sodium Chloride 0.9% 1, 700 000 ml @ 75 mls/hr IV . [id number] [facility] Rx#:[id number] Oral 480 125 Output: Urine 1400 500 350 Other: Voiding Method Urinal Urinal # Voids 1 1 # Bowel Movements 1 - Exam GENERAL EXAM: Alert, 75-year-old white male, appears chronically ill, weak, patient has a hoarse voice, he sitting on the commode, he is on 3 L of oxygen, he is satting 95%, comfortable in no apparent distress. HEAD: Normocephalic/atraumatic. Patient has darkened skin from recent history of radiation therapy to the brain, patient has areas of patchy alopecia EYES: Normal reaction of pupils, equal size. Conjunctiva pink, sclera white. NOSE: Clear with pink turbinates. THROAT: No erythema or exudates. NECK: No masses, no JVD, no thyroid enlargement, no adenopathy. CHEST: No chest wall deformity. Symmetrical expansion. LUNGS: Equal air entry with no crackles, wheeze, rhonchi or dullness. CVS: IRRegular rate and rhythm, normal S1 and S2, no gallops, no murmurs, no rubs ABDOMEN: Soft, nontender. No hepatosplenomegaly, normal bowel sounds, no guarding or rigidity. EXTREMITIES: No clubbing, mild pretibial edema, no cyanosis, 2+ pulses and upper and lower extremities. MUSCULOSKELETAL: Muscle strength and tone normal. SPINE: No scoliosis or deformity SKIN: No rashes CENTRAL NERVOUS SYSTEM: Alert and oriented -3. No focal deficits, tone is normal in all 4 extremities. PSYCHIATRIC: Alert and oriented -3. Appropriate affect. Intact judgment and insight. - Labs CBC & Chem 7: 01/01/21 10:19 01/01/21 10:19 Labs: Abnormal Lab Results - Last 24 Hours (Table) 12/31/20 12/31/20 12/31/20 Range/Units 08:37 14:51 22:35 WBC 2.8 L (3.8-10.6) k/uL RBC 3.50 L (4.30-5.90) m/uL Hgb 9.9 L (13.0-17.5) gm/dL Hct 30.8 L (39.0-53.0) % RDW 17.6 H (11.5-15.5) % Plt Count 68 L (150-450) k/uL Neutrophils # (Manual) 1.00 L (1.3-7.7) k/uL Metamyelocytes # (Man) 0.08 H (0) k/uL Myelocytes # (Manual) 0.08 H (0) k/uL Nucleated RBCs 3 H (0-0) /100 WBC APTT 33.2 H (22.0-30.0) sec Carbon Dioxide (22-30) mmol/L Glucose (74-99) mg/dL Procalcitonin 0.51 H (0.02-0.09) ng/mL 01/01/21 01/01/21 01/01/21 Range/Units 10:19 10:19 10:19 WBC 11.9 H (3.8-10.6) k/uL RBC 3.43 L (4.30-5.90) m/uL Hgb 9.6 L (13.0-17.5) gm/dL Hct 30.1 L (39.0-53.0) % RDW 17.7 H (11.5-15.5) % Plt Count 85 L (150-450) k/uL Neutrophils # (Manual) 8.00 H (1.3-7.7) k/uL Metamyelocytes # (Man) 0.48 H (0) k/uL Myelocytes # (Manual) 0.71 H (0) k/uL Nucleated RBCs 2 H (0-0) /100 WBC APTT 54.1 H (22.0-30.0) sec Carbon Dioxide 32 H (22-30) mmol/L Glucose 129 H (74-99) mg/dL Procalcitonin (0.02-0.09) ng/mL Microbiology - Last 24 Hours (Table) 12/30/20 21:00 Blood Culture - Preliminary Blood No Growth after 24 hours 12/30/20 21:15 Blood Culture - Preliminary Blood No Growth after 24 hours Assessment and Plan Plan: Assessment: #1. Dyspnea, related to COPD exacerbation #2. Chest pain, related to acute pulmonary embolism, CTA chest showed a filling defect in the secondary branch of the right pulmonary artery compatible with acute PE extending into the distal branches #3. 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 Patient received esophageal, his counts are improving on today's labs #4. Hypotension, likely related to hypovolemia, improved with hydration #5. Mild troponin leak #6. Left upper lobe multilobulated mass with narrowing of the left upper lobe bronchus, and encasement of the left upper lobe bronchus, related to recently diagnosed metastatic small cell lung cancer #7. Advanced COPD on home oxygen #8. Chronic A. fib was recently taken off chronic anticoagulation in view of the risk of bleeding with brain metastasis #9. History of sleep apnea on CPAP therapy #10. Chronic low back pain #11. GERD/reflux #12. Former smoker Plan: Chest x-ray has been reviewed showing no acute consolidation or sizable effusion, we'll cut back on IV fluids, will give an additional dose of IV Lasix 40 mg, prednisone 40 mg daily, patient is covered with antibiotics, discussed CODE STATUS with the patient who wishes to remain a full code and is agreeable to placement on mechanical ventilator if need be. We'll continue following the patient, follow-up chest x-ray in the morning. Anticoagulation per medical oncology, patient could probably be switched to oral anticoagulation. I performed a history & physical examination of the patient and discussed their management with my nurse practitioner, Estefany Calle. I reviewed the nurse practitioner's note and agree with the documented findings and plan of care. Lung sounds are positive for diminished breath sounds. The findings and the impression was discussed with the patient. I attest to the documentation by the nurse practitioner. Time with Patient: Less than 30
--- NOTE | 2021-01-01 15:03 | P.PN ---
Subjective Progress Note Date: 01/01/21 Principal diagnosis: PNA, fever. SCLC, on treatment In f/u today pt sitting at bedside, taking his pills in applesauce. He started to shake and c/o "don't feel right". His breathing became more labored and he was laid down with some small improvement in his condition. Objective - Vital Signs Vital signs: Vital Signs Temp 98.5 F 01/01/21 08:00 Pulse 82 01/01/21 09:02 Resp 18 01/01/21 08:00 BP 106/56 01/01/21 08:00 Pulse Ox 94 L 01/01/21 08:00 Intake & Output 12/31/20 01/01/21 01/01/21 18:59 06:59 18:59 Intake Total 1299.98 87.465 Output Total 1400 500 Balance -100.02 -412.535 Weight 122.2 kg 122.4 kg Intake: Intake, IV Titration 819.98 87.465 Amount Cefepime 2 gm In Sodium 100 Chloride 0.9% 100 ml @ 200 mls/hr IVPB Q8HR [facility] Rx#:[id number] Heparin Sod,Pork in 0.45% 19.98 87.465 NaCl 25,000 unit In 0.45 % NaCl 1 250ml.bag @ 8.18 UNITS/KG/HR 9.996 mls/hr IV .Q24H [facility] Rx#: [id number] Sodium Chloride 0.9% 1, 700 000 ml @ 75 mls/hr IV . [id number] [facility] Rx#:[id number] Oral 480 Output: Urine 1400 500 Other: Voiding Method Urinal Urinal # Voids 1 1 # Bowel Movements 1 - Constitutional General appearance: Present: cooperative, obese, severe distress - EENT Eyes: Present: anicteric sclerae, EOMI ENT: Present: hearing grossly normal - Respiratory Respiratory: bilateral: rales - Cardiovascular Rhythm: irregularly irregular - Peripheral edema leg Peripheral Edema: bilateral: Trace - Gastrointestinal General gastrointestinal: Present: normal bowel sounds, soft - Neurologic Neurologic: Present: CNII-XII intact - Musculoskeletal Musculoskeletal: Present: generalized weakness - Psychiatric Psychiatric: Present: A&O x's 3, appropriate affect, intact judgment & insight - Labs CBC & Chem 7: 01/01/21 10:19 01/01/21 10:19 Labs: Abnormal Lab Results - Last 24 Hours (Table) 12/31/20 12/31/20 12/31/20 Range/Units 08:37 14:51 22:35 WBC 2.8 L (3.8-10.6) k/uL RBC 3.50 L (4.30-5.90) m/uL Hgb 9.9 L (13.0-17.5) gm/dL Hct 30.8 L (39.0-53.0) % RDW 17.6 H (11.5-15.5) % Plt Count 68 L (150-450) k/uL Neutrophils # (Manual) 1.00 L (1.3-7.7) k/uL Metamyelocytes # (Man) 0.08 H (0) k/uL Myelocytes # (Manual) 0.08 H (0) k/uL Nucleated RBCs 3 H (0-0) /100 WBC APTT 33.2 H (22.0-30.0) sec Procalcitonin 0.51 H (0.02-0.09) ng/mL Microbiology - Last 24 Hours (Table) 12/30/20 21:00 Blood Culture - Preliminary Blood No Growth after 24 hours 12/30/20 21:15 Blood Culture - Preliminary Blood No Growth after 24 hours - Imaging and Cardiology Chest x-ray: report reviewed Assessment and Plan (1) Small cell lung cancer Narrative/Plan: Patient is status post 2 cycles of treatment. In general poor tolerance. Plan a follow-up with Primary Oncologist before resuming any further therapy. Tx will be held until his current condition is stabilized and he has had the opportunity to rehabilitate, as needed, to recover from acute illness and have a PS adequate to cont cancer therapy. Current Visit: Yes Status: Acute Priority: High Code(s): C34.90 - MALIGNANT NEOPLASM OF UNSP PART OF UNSP BRONCHUS OR LUNG SNOMED Code(s): 848293780 (2) Antineoplastic chemotherapy induced pancytopenia Narrative/Plan: Did give a one-time dose of G-CSF for ANC of 600. ANC 8000 today, no additional doses of GCSF Platelets 85,000. Cont heparin drip for newly diagnosed right lower lobe PE. Hemoglobin 9.6, no transfusion at this time. Daily CBC while inpt Current Visit: Yes Status: Acute Priority: Medium Code(s): D61.810 - ANTINEOPLASTIC CHEMOTHERAPY INDUCED PANCYTOPENIA; T45.1X5A - ADVERSE EFFECT OF ANTINEOPLASTIC AND IMMUNOSUP DRUGS, INIT SNOMED Code(s): 694382970527645 (3) Pulmonary embolism Narrative/Plan: Started on a heparin drip. Bilateral lower extremity Dopplers are negative for DVT. Plan for DOAC closer to DC Current Visit: Yes Status: Acute Priority: High Code(s): I26.99 - OTHER PULMONARY EMBOLISM WITHOUT ACUTE COR PULMONALE SNOMED Code(s): 75822626 (4) Brain metastases Narrative/Plan: Just recently completed treatment. Follow up . No evidence currently to suggest exacerbation or progression. Current Visit: No Status: Chronic Priority: Medium Code(s): C79.31 - SECONDARY MALIGNANT NEOPLASM OF BRAIN SNOMED Code(s): 97882573 Plan: Attests: I have performed H&P and developed impression and plan of care of patient, discussed with dictator. I agree with dictated note, documented as a scribe.
--- NOTE | 2021-01-01 16:07 | P.PN ---
Subjective Progress Note Date: 01/01/21 CHIEF COMPLAINT: Chest pain HISTORY OF PRESENT ILLNESS: 12/31/2020 This is a 75-year-old male with a past medical history significant for age of fibrillation, COPD, GERD, and lung cancer with metastasis to the brain. Patient follows in the office with Dr. Langston. We have been asked to see the patient in consultation for chest pain. Patient examined this morning at the bedside. Patient was recently hospitalized secondary to A. fib with RVR and heart failur e. Patient states he resumed chemotherapy after he was discharged from the hospital. He is unsure exactly what day he had his last chemotherapy. He reports feeling short of breath for the last 2-3 days. This morning he states his breathing feels back to his baseline. He denies having any chest pain or pressure. Patient states he does not believe he was having chest pain yesterday either. 01/01/2021 Patient examined this morning at the bedside. Patient denies chest pain or pressure. He reports shortness of breath. Patient underwent CTA yesterday revealing pulmonary emboli. He has been started on IV heparin. PHYSICAL EXAM: VITAL SIGNS: Reviewed. GENERAL: Well-developed in no acute distress. HEENT: Head is normocephalic. Pupils are equal, round. Sclerae anicteric. Mucous membranes of the mouth are moist. Neck supple. No JVD or thyromegaly LUNGS: Respirations even and unlabored. Lungs diminished, bilaterally. HEART: Irregular rate and rhythm. S1 and S2 heard. ABDOMEN: Soft. Nondistended. Nontender. EXTREMITIES: Normal range of motion. No clubbing or cyanosis. Peripheral pulses intact. Trace bilateral extremity edema NEUROLOGIC: Awake and alert. Oriented x 3. ASSESSMENT: Shortness of breath Lung cancer with brain metastasis Acute pulmonary emboli Abnormal troponins, likely secondary to type II [place] due to oxygen supply demand mismatch, no evidence of acute coronary syndrome Chronic persistent atrial fibrillation, not on anticoagulation due to brain metastasis and risk of bleeding Chronic systolic heart failure, EF 45%, currently euvolemic Hypertension GERD Nicotine dependence PLAN: Pulmonary following. Appreciate input Continue IV heparin per hematology Continue additional cardiac medications Further recommendations pending patient's course Nurse practitioner note has been reviewed by physician. Signing provider agrees with the documented findings, assessment, and plan of care. Objective - Vital Signs Vital signs: Vital Signs Temp 97.6 F 01/01/21 15:59 Pulse 73 01/01/21 15:59 Resp 26 H 01/01/21 15:59 BP 98/56 01/01/21 15:59 Pulse Ox 96 01/01/21 15:59 Intake & Output 12/31/20 01/01/21 01/01/21 18:59 06:59 18:59 Intake Total 1299.98 87.465 395.273 Output Total 1400 500 350 Balance -100.02 -412.535 45.273 Weight 122.2 kg 122.4 kg Intake: Intake, IV Titration 819.98 87.465 145.273 Amount Cefepime 2 gm In Sodium 100 Chloride 0.9% 100 ml @ 200 mls/hr IVPB Q8HR [facility] Rx#:[id number] Heparin Sod,Pork in 0.45% 19.98 87.465 145.273 NaCl 25,000 unit In 0.45 % NaCl 1 250ml.bag @ 8.18 UNITS/KG/HR 9.996 mls/hr IV .Q24H [facility] Rx#: [id number] Sodium Chloride 0.9% 1, 700 000 ml @ 75 mls/hr IV . [id number] [facility] Rx#:[id number] Oral 480 250 Output: Urine 1400 500 350 Other: Voiding Method Urinal Urinal # Voids 1 1 # Bowel Movements 1 - Labs CBC & Chem 7: 01/01/21 10:19 01/01/21 10:19 Labs: Abnormal Lab Results - Last 24 Hours (Table) 12/31/20 12/31/20 01/01/21 Range/Units 08:37 22:35 10:19 WBC 11.9 H (3.8-10.6) k/uL RBC 3.43 L (4.30-5.90) m/uL Hgb 9.6 L (13.0-17.5) gm/dL Hct 30.1 L (39.0-53.0) % RDW 17.7 H (11.5-15.5) % Plt Count 85 L (150-450) k/uL Neutrophils # (Manual) 8.00 H (1.3-7.7) k/uL Metamyelocytes # (Man) 0.48 H (0) k/uL Myelocytes # (Manual) 0.71 H (0) k/uL Nucleated RBCs 2 H (0-0) /100 WBC APTT 33.2 H (22.0-30.0) sec Carbon Dioxide (22-30) mmol/L Glucose (74-99) mg/dL Procalcitonin 0.51 H (0.02-0.09) ng/mL 01/01/21 01/01/21 Range/Units 10:19 10:19 WBC (3.8-10.6) k/uL RBC (4.30-5.90) m/uL Hgb (13.0-17.5) gm/dL Hct (39.0-53.0) % RDW (11.5-15.5) % Plt Count (150-450) k/uL Neutrophils # (Manual) (1.3-7.7) k/uL Metamyelocytes # (Man) (0) k/uL Myelocytes # (Manual) (0) k/uL Nucleated RBCs (0-0) /100 WBC APTT 54.1 H (22.0-30.0) sec Carbon Dioxide 32 H (22-30) mmol/L Glucose 129 H (74-99) mg/dL Procalcitonin (0.02-0.09) ng/mL Microbiology - Last 24 Hours (Table) 12/30/20 21:00 Blood Culture - Preliminary Blood No Growth after 24 hours 12/30/20 21:15 Blood Culture - Preliminary Blood No Growth after 24 hours
[2021-01-01] MEDS: SENNOSIDES-DOCUSATE SODIUM 1 EACH TAB PO SCH (20:41)
[2021-01-02] MEDS: HEPARIN SOD,PORK IN 0.45% NACL 25,000 UNIT in 0.45% NACL 1 250ML.BAG IV SCH (06:16)
[2021-01-02] MEDS: ACETAMINOPHEN TAB 500 MG TAB PO PRN (06:24)
[2021-01-02] MEDS: PANTOPRAZOLE 40 MG TABLET PO SCH (06:31)
[2021-01-02] MEDS: SUCRALFATE 1 GM TAB PO SCH ×4 (06:31→20:55)
--- NOTE | 2021-01-02 07:38 | XR ---
EXAMINATION TYPE: XR chest 1V portable DATE OF EXAM: 01/02/2021 COMPARISON: 01/01/2021 INDICATION: Short of breath TECHNIQUE: Single frontal view of the chest is obtained. FINDINGS: The heart size is mildly prominent. The pulmonary vasculature is prominent. There is a left upper lobe infiltrate. Left lower lobe infiltrate is present. IMPRESSION: 1. Left upper and lower lobe infiltrates, stable. Correlate for pneumonia. Atypical pulmonary edema c ould be considered. Atypical pneumonia could be considered.
[2021-01-02] MEDS: IPRATROPIUM-ALBUTEROL 3 ML NEB INHALATION SCH ×4 (08:01→20:00)
[2021-01-02] MEDS: CEFEPIME 2 GM in SODIUM CHLORIDE 0.9% 100 ML IVPB SCH ×3 (08:08→23:14)
[2021-01-02] MEDS: FUROSEMIDE 80 MG TAB PO SCH ×2 (08:15→14:52)
[2021-01-02] MEDS: ASPIRIN 81 MG PO SCH (08:16)
[2021-01-02] MEDS: POTASSIUM CHLORIDE ER 10 MEQ TAB.ER.PRT PO SCH ×2 (08:16→20:55)
[2021-01-02] MEDS: predniSONE 20 MG TAB PO SCH (08:16)
[2021-01-02] MEDS: HYDROcodone/APAP 10-325MG 1 EACH TAB PO PRN ×3 (08:16→20:59)
[2021-01-02] MEDS: MULTIVITAMINS, THERA 1 EACH TAB PO SCH (08:16)
[2021-01-02] MEDS: CHOLECALCIFEROL 25 MCG (1000 IU) TABLET PO SCH (08:16)
[2021-01-02] MEDS: METOPROLOL SUCCINATE (ER) 100 MG TAB.ER.24H PO SCH (08:16)
[2021-01-02] MEDS: DIGOXIN 250 MCG TAB PO SCH (08:17)
[2021-01-02] MEDS: CALCIUM CARB-VIT D 500 MG-5 MCG TAB PO SCH ×4 (08:17→20:54)
[2021-01-02] MEDS: polyethylene glycoL 3350 17 GM POWD.PACK PO SCH (08:17)
[2021-01-02] MEDS: DILTIAZEM CD 300 MG CAP.ER.24H PO SCH (08:17)
--- NOTE | 2021-01-02 13:32 | P.PN ---
Subjective Progress Note Date: 01/02/21 CHIEF COMPLAINT: Chest pain HISTORY OF PRESENT ILLNESS: 12/31/2020 This is a 75-year-old male with a past medical history significant for age of fibrillation, COPD, GERD, and lung cancer with metastasis to the brain. Patient follows in the office with Dr. Langston. We have been asked to see the patient in consultation for chest pain. Patient examined this morning at the bedside. Patient was recently hospitalized secondary to A. fib with RVR and heart failur e. Patient states he resumed chemotherapy after he was discharged from the hospital. He is unsure exactly what day he had his last chemotherapy. He reports feeling short of breath for the last 2-3 days. This morning he states his breathing feels back to his baseline. He denies having any chest pain or pressure. Patient states he does not believe he was having chest pain yesterday either. 01/01/2021 Patient examined this morning at the bedside. Patient denies chest pain or pressure. He reports shortness of breath. Patient underwent CTA yesterday revealing pulmonary emboli. He has been started on IV heparin. 01/02/2021 Patient examined this morning. He is sitting up in the chair. He denies chest pain or pressure. He reports mild shortness of breath. He remains on IV heparin. Blood pressure 91/42. Heart rate in the 70s and 80s. He is afebrile. He is on 3 L nasal cannula with oxygen saturations greater then 92%. Chest x- ray completed reveals left upper and lower infiltrates. Correlate for pneumonia. PHYSICAL EXAM: VITAL SIGNS: Reviewed. GENERAL: Well-developed in no acute distress. HEENT: Head is normocephalic. Pupils are equal, round. Sclerae anicteric. Mucous membranes of the mouth are moist. Neck supple. No JVD or thyromegaly LUNGS: Respirations even and unlabored. Lungs diminished, bilaterally. HEART: Irregular rate and rhythm. S1 and S2 heard. ABDOMEN: Soft. Nondistended. Nontender. EXTREMITIES: Normal range of motion. No clubbing or cyanosis. Peripheral pulses intact. Trace bilateral extremity edema NEUROLOGIC: Awake and alert. Oriented x 3. ASSESSMENT: Shortness of breath Lung cancer with brain metastasis Acute pulmonary emboli Abnormal troponins, likely secondary to type II [place] due to oxygen supply demand mismatch, no evidence of acute coronary syndrome Chronic persistent atrial fibrillation, not on anticoagulation due to brain metastasis and risk of bleeding Chronic systolic heart failure, EF 45%, currently euvolemic Hypertension GERD Nicotine dependence PLAN: Pulmonary following. Appreciate input Continue IV heparin. Transition to oral anticoagulation per hematology. Continue additional cardiac medications Further recommendations pending patient's course Nurse practitioner note has been reviewed by physician. Signing provider agrees with the documented findings, assessment, and plan of care. Objective - Vital Signs Vital signs: Vital Signs Temp 97.6 F 01/02/21 11:36 Pulse 72 01/02/21 12:30 Resp 20 01/02/21 11:36 BP 91/42 01/02/21 11:36 Pulse Ox 96 01/02/21 11:36 Intake & Output 01/01/21 01/02/21 01/02/21 18:59 06:59 18:59 Intake Total 520.273 350 540 Output Total 350 1175 Balance 170.273 -825 540 Weight 122.6 kg Intake: Intake, IV Titration 145.273 350 Amount Cefepime 2 gm In Sodium 100 Chloride 0.9% 100 ml @ 200 mls/hr IVPB Q8HR [facility] Rx#:[id number] Heparin Sod,Pork in 0.45% 145.273 250 NaCl 25,000 unit In 0.45 % NaCl 1 250ml.bag @ 8.18 UNITS/KG/HR 9.996 mls/hr IV .Q24H [facility] Rx#: [id number] Oral 375 540 Output: Urine 350 1175 Other: Voiding Method Urinal Urinal # Voids 1 - Labs CBC & Chem 7: 01/01/21 10:19 01/01/21 10:19 Labs: Microbiology - Last 24 Hours (Table) 12/30/20 21:00 Blood Culture - Preliminary Blood No Growth after 48 hours 12/30/20 21:15 Blood Culture - Preliminary Blood No Growth after 48 hours
[2021-01-02 13:34] LABS: Anisocytosis Slight; HCT 29.4 % (39.0-53.0); HGB 9.5 gm/dL (13.0-17.5); Hypochromasia Slight; MCH 28.3 pg (25.0-35.0); MCHC 32.4 g/dL (31.0-37.0); MCV 87.3 fL (80.0-100.0); Mean Platelet Volume 8.8; Platelet Count 119 k/uL (150-450); RBC 3.37 m/uL (4.30-5.90); RDW 18.2 % (11.5-15.5); WBC 16.2 k/uL (3.8-10.6)
--- NOTE | 2021-01-02 13:55 | P.PN ---
Subjective Progress Note Date: 01/02/21 Principal diagnosis: PNA, fever. SCLC, on treatment In f/u today pt sitting in chair, looks way better then yesterday. He is very weak and has mild/moderate degree of activity intolerance. Denies difficulty in breathing at rest, does not feel palpitations, denies chest pain, no other c/o. Objective - Vital Signs Vital signs: Vital Signs Temp 97.6 F 01/02/21 11:36 Pulse 72 01/02/21 12:30 Resp 20 01/02/21 11:36 BP 91/42 01/02/21 11:36 Pulse Ox 96 01/02/21 11:36 Intake & Output 01/01/21 01/02/21 01/02/21 18:59 06:59 18:59 Intake Total 520.273 350 540 Output Total 350 1175 Balance 170.273 -825 540 Weight 122.6 kg Intake: Intake, IV Titration 145.273 350 Amount Cefepime 2 gm In Sodium 100 Chloride 0.9% 100 ml @ 200 mls/hr IVPB Q8HR [facility] Rx#:[id number] Heparin Sod,Pork in 0.45% 145.273 250 NaCl 25,000 unit In 0.45 % NaCl 1 250ml.bag @ 8.18 UNITS/KG/HR 9.996 mls/hr IV .Q24H [facility] Rx#: [id number] Oral 375 540 Output: Urine 350 1175 Other: Voiding Method Urinal Urinal # Voids 1 - Constitutional General appearance: Present: cooperative, no acute distress, obese - EENT Eyes: Present: anicteric sclerae, EOMI ENT: Present: hearing grossly normal - Peripheral edema leg Peripheral Edema: bilateral: 1+ - Neurologic Neurologic: Present: CNII-XII intact - Musculoskeletal Musculoskeletal: Present: generalized weakness - Psychiatric Psychiatric: Present: A&O x's 3, appropriate affect, intact judgment & insight - Labs CBC & Chem 7: 01/02/21 12:39 01/01/21 10:19 Labs: Abnormal Lab Results - Last 24 Hours (Table) 01/02/21 01/02/21 Range/Units 12:39 12:39 WBC 16.2 H (3.8-10.6) k/uL RBC 3.37 L (4.30-5.90) m/uL Hgb 9.5 L (13.0-17.5) gm/dL Hct 29.4 L (39.0-53.0) % RDW 18.2 H (11.5-15.5) % Plt Count 119 L (150-450) k/uL APTT 71.1 H (22.0-30.0) sec Microbiology - Last 24 Hours (Table) 12/30/20 21:00 Blood Culture - Preliminary Blood No Growth after 48 hours 12/30/20 21:15 Blood Culture - Preliminary Blood No Growth after 48 hours Assessment and Plan (1) Small cell lung cancer Narrative/Plan: Patient is status post 2 cycles of treatment. In general poor tolerance. Plan a follow-up with Primary Oncologist before resuming any further therapy. Tx will be held until his current condition is stabilized and he has had the opportunity to rehabilitate, as needed, to recover from acute illness and have a PS adequate to cont cancer therapy. Current Visit: Yes Status: Acute Priority: High Code(s): C34.90 - MALIGNA NT NEOPLASM OF UNSP PART OF UNSP BRONCHUS OR LUNG SNOMED Code(s): 607284643 (2) Antineoplastic chemotherapy induced pancytopenia Narrative/Plan: Did give a one-time dose of G-CSF for ANC of 600. WBC adequate, no additional doses of GCSF Platelets 119,000. Hemoglobin 9.5, stable, no transfusion at this time. Daily CBC while inpt Current Visit: Yes Status: Acute Priority: Medium Code(s): D61.810 - ANTINEOPLASTIC CHEMOTHERAPY INDUCED PANCYTOPENIA; T45.1X5A - ADVERSE EFFECT OF ANTINEOPLASTIC AND IMMUNOSUP DRUGS, INIT SNOMED Code(s): 441180916304251 (3) Pulmonary embolism Narrative/Plan: Started on a heparin drip. Bilateral lower extremity Dopplers are negative for DVT. Plans to start eliquis tonight, DC heparin at time of 1st dose. Rx sent to pharmacy for copay verification. Discussed with Contract Management Specialist Current Visit: Yes Status: Acute Priority: High Code(s): I26.99 - OTHER PULMONARY EMBOLISM WITHOUT ACUTE COR PULMONALE SNOMED Code(s): 54532731 (4) Brain metastases Narrative/Plan: Just recently completed XRT treatment. Follow up . No evidence c urrently to suggest exacerbation or progression. Current Visit: No Status: Chronic Priority: Medium Code(s): C79.31 - SECONDARY MALIGNANT NEOPLASM OF BRAIN SNOMED Code(s): 55260273
[2021-01-02 14:16] LABS: Band Neutrophils % 7 %; Lymphocytes # (M) 1.62 k/uL (1.0-4.8); Metamyelocytes # (M) 0.49 k/uL (0); Metamyelocytes % 3 %; Myelocytes # (M) 0.65 k/uL (0); Myelocytes % 4 %; Neutrophils % (M) 70 %; Nucleated Red Blood Cells 0 /100 WBC (0-0); Total Cells Counted 200
[2021-01-02 14:17] LABS: Poikilocytosis (M) Present
[2021-01-02 14:43] LABS: Calcium 9.2 mg/dL (8.4-10.2); Potassium 3.8 mmol/L (3.5-5.1)
[2021-01-02] MEDS: LORazepam 0.5 MG TAB PO PRN ×2 (14:52→20:59)
[2021-01-02] MEDS: ONDANSETRON 4 MG TAB PO PRN (14:52)
--- NOTE | 2021-01-02 16:07 | P.PN ---
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 Patient had received radiation treatments for his brain metastasis, and he states he finished his chemotherapy 2 weeks ago. Has a history of chronic A. fib, hypertension, chronic systolic CHF with ejection fraction of 45%, COPD on home oxygen at 3 L/m, sleep apnea, former smoker, chronic lower back pain. Patient recently had an admission to this hospital from December 02 through 12/11/2020 for a diagnosis of atrial fibrillation with rapid ventricular rate, acute on chronic CHF with diastolic dysfunction, at that time patient's Eliquis was discontinued in view of risk of bleeding with brain metastasis. On 12/30/2000 patient comes in to the hospital with complaints of increased shortness of breath, not feeling well, and based on the ER documentation patient was also having some chest pain at that time that was continuous throughout much of the day across his chest and was moderate in severity. The chest pain resolved by the time the patient arrived in the emergency department he denied any cough, phlegm production, denied any hemoptysis, no fever chills, no night sweats. His blood pressure was low at 87/42 and he did receive IV fluids. Denied any urinary symptoms, denies any nausea vomiting or diarrhea. Chest x-ray showed mild interstitial edema/atelectasis. EKG showed A. fib with nonspecific ST abnormality, controlled rate is 62. Lab data revealed pancytopenia white count of 1.9, hemoglobin is 9.9, platelet count of 58, INR is 1, electrolytes are unr emarkable weak suction of CO2 of 36 which is chronically elevated related to his history of obstructive sleep apnea, BUN of 22 creatinine 0.98, AST was 45, ALT was 88, alkaline phosphatase was 207, 3 sets of troponins were mildly elevated at 0.053, 0.054, and 0.038, proBNP was 1430, COVID 19 was negative. Patient was started on cefepime for empiric antibiotic coverage, blood cultures have been se nt, pro-calcitonin was added, she continues on IV hydration with 0.9 normal saline at [address] angios of the chest was completed showing filling defect within the secondary branch of the right pulmonary artery compatible with acute pulmonary embolism extending into the distal branches. There was persistent mediastinal adenopathy and left upper lobe lung mass compatible with the patient's history of malignancy. There was interval development of mild compression deformities involving to upper thoracic segments involving the superior endplate with metastasis in the differential diagnosis. He was started on heparin infusion for acute pulmonary embolism On 01/01/2021 patient seen in follow-up on selective care unit. Nursing staff reports patient is being slightly more short of breath today, but his cough is dry, no chest congestion, no hemoptysis no complaints of chest pain, lung sounds reveal some wheezing bilaterally, some limited crackles at the bases. He is already on oral Lasix, is covered with antibiotics, and receiving IV fluids at 75 ML per hour, he has lower extremity edema, lower extremity Dopplers were completed showing no evidence of DVT, he continues on heparin infusion for evidence of small PE in the secondary branch of the right pulmonary artery. Has had no fever or chills, today's labs have been reviewed, showing white blood cell count of 11.9, hemoglobin is 9.6, platelet count is 85, CO2 32, BUN 15 creatinine 0.9. Patient is on cefepime for empiric antibiotic coverage, medical oncology is following, patient received's are 0, his blood counts are improving. On 12/02/2020 patient seen in follow-up on selective care unit, he is breathing easier today, less tachypneic, less dyspneic, less wheezy on today's exam, he sitting up in the chair, is currently on 3 L of oxygen his pulse ox is 96%, he has been afebrile, hemodynamically stable, no cough, his lung sounds reveal diminished breath sounds at the bases, no wheezing on today's exam. Patient continues on oral diuretics, yesterday he received an extra dose of IV Lasix, he is on oral prednisone, breathing treatments, he is in -654 mL fluid balance over the last 24 hours, he still has some residual lower extremity edema, continues on oral Lasix. Today's chest x-ray shows left upper and lower lobe infiltrates that are stable in appearance, and atypical pulmonary edema. he had no chills, no chest discomfort. Today's lab work has been reviewed . White blood cell count of 16.2, hemoglobin is 9.5, platelet count is 119, electrolytes are unremarkable, with the exception of CO2 which is at 33, BUN is 18 and creatinine is 1.08. States he is breathing easier today. Objective - Vital Signs Vital signs: Vital Signs Temp 98.3 F 01/02/21 14:55 Pulse 75 01/02/21 14:55 Resp 20 01/02/21 14:55 BP 94/44 01/02/21 14:55 Pulse Ox 96 01/02/21 14:55 Intake & Output 01/01/21 01/02/21 01/02/21 18:59 06:59 18:59 Intake Total 520.273 350 540 Output Total 350 1175 400 Balance 170.273 -825 140 Weight 122.6 kg Intake: Intake, IV Titration 145.273 350 Amount Cefepime 2 gm In Sodium 100 Chloride 0.9% 100 ml @ 200 mls/hr IVPB Q8HR [facility] Rx#:[id number] Heparin Sod,Pork in 0.45% 145.273 250 NaCl 25,000 unit In 0.45 % NaCl 1 250ml.bag @ 8.18 UNITS/KG/HR 9.996 mls/hr IV .Q24H [facility] Rx#: [id number] Oral 375 540 Output: Urine 350 1175 400 Other: Voiding Method Urinal Urinal # Voids 1 - Exam GENERAL EXAM: Alert, 75-year-old white male, appears chronically ill, weak, patient has a hoarse voice, he sitting on the commode, he is on 3 L of oxygen, he is satting 96%, comfortable in no apparent distress. HEAD: Normocephalic/atraumatic. Patient has darkened skin from recent history of radiation therapy to the brain, patient has areas of patchy alopecia EYES: Normal reaction of pupils, equal size. Conjunctiva pink, sclera white. NOSE: Clear with pink turbinates. THROAT: No erythema or exudates. NECK: No masses, no JVD, no thyroid enlargement, no adenopathy. CHEST: No chest wall deformity. Symmetrical expansion. LUNGS: Equal air entry with no crackles, wheeze, rhonchi or dullness. CVS: IRRegular rate and rhythm, normal S1 and S2, no gallops, no murmurs, no rubs ABDOMEN: Soft, nontender. No hepatosplenomegaly, normal bowel sounds, no guarding or rigidity. EXTREMITIES: No clubbing, mild pretibial edema, no cyanosis, 2+ pulses and upper and lower extremities. MUSCULOSKELETAL: Muscle strength and tone normal. SPINE: No scoliosis or deformity SKIN: No rashes CENTRAL NERVOUS SYSTEM: Alert and oriented -3. No focal deficits, tone is normal in all 4 extremities. PSYCHIATRIC: Alert and oriented -3. Appropriate affect. Intact judgment and insight. - Labs CBC & Chem 7: 01/02/21 12:39 01/02/21 12:39 Labs: Abnormal Lab Results - Last 24 Hours (Table) 01/02/21 01/02/21 01/02/21 Range/Units 12:39 12:39 12:39 WBC 16.2 H (3.8-10.6) k/uL RBC 3.37 L (4.30-5.90) m/uL Hgb 9.5 L (13.0-17.5) gm/dL Hct 29.4 L (39.0-53.0) % RDW 18.2 H (11.5-15.5) % Plt Count 119 L (150-450) k/uL Neutrophils # (Manual) 12.40 H (1.3-7.7) k/uL Monocytes # (Manual) 1.30 H (0-1.0) k/uL Metamyelocytes # (Man) 0.49 H (0) k/uL Myelocytes # (Manual) 0.65 H (0) k/uL APTT 71.1 H (22.0-30.0) sec Carbon Dioxide 33 H (22-30) mmol/L Glucose 115 H (74-99) mg/dL Microbiology - Last 24 Hours (Table) 12/30/20 21:00 Blood Culture - Preliminary Blood No Growth after 48 hours 12/30/20 21:15 Blood Culture - Preliminary Blood No Growth after 48 hours Assessment and Plan Plan: Assessment: #1. Dyspnea, related to COPD exacerbation #2. Chest pain, related to acute pulmonary embolism, CTA chest showed a filling defect in the secondary branch of the right pulmonary artery compatible with acute PE extending into the distal branches #3. 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 Patient received esophageal, his counts are improving on today's labs #4. Hypotension, likely related to hypovolemia, improved with hydration #5. Mild troponin leak #6. Left upper lobe multilobulated mass with narrowing of the left upper lobe bronchus, and encasement of the left upper lobe bronchus, related to recently diagnosed metastatic small cell lung cancer #7. Advanced COPD on home oxygen #8. Chronic A. fib was recently taken off chronic anticoagulation in view of the risk of bleeding with brain metastasis #9. History of sleep apnea on CPAP therapy #10. Chronic low back pain #11. GERD/reflux #12. Former smoker Plan: Patient is breathing easier, continue current medical treatment, continue oral diuretics, steroids, breathing treatments, patient is maintaining negative fluid balance, no fever or chills. He has been switched to oral anticoagulation, continues on empiric antibiotics, no fever or chills, blood cultures have shown no growth. we'll continue to follow I performed a history & physical examination of the patient and discussed their management with my nurse practitioner, Estefany Calle. I reviewed the nurse practitioner's note and agree with the documented findings and plan of care. Lung sounds are positive for diminished breath sounds. The findings and the impression was discussed with the patient. I attest to the documentation by the nurse practitioner. Time with Patient: Less than 30
--- NOTE | 2021-01-02 18:34 | P.PN ---
Subjective This is a pleasant 75 years old male with past medical history of cancer of the brain which is mildly multiple metastatic-appearing lesions from primary lung cancer, COPD, GERD, sleep apnea on CPAP/BiPAP, chronic low back pain, A. fib and RVR He presents because of dyspnea of 2 days' duration associated with some dry coughing which is stopped since admission as per patient. Although patient has been admitted with chest pain as per ED notes however when I asked the patient this morning he denies any chest pain to me on admission or currently. He looks tired but denies any abdominal pain, no nausea vomiting, no change in urine or bowel habits. No headache. No new weakness or numbness. Patient status at this line he stays in chair most of the time and he can walk with a walker within his room usually. He states he stopped smoking and he denies alcohol or illicit drugs He could not remember the name of his cancer doctor but states that he follows up with Dr. milan He states that usually he gets radiotherapy for example to the brain wasn't sure when he got his last radiotherapy expecting it to be 2 weeks ago. And he denies getting chemotherapy when I asked him although patient was noticed to have some alopecia Vital showing patient is afebrile, he is saturating 93% on 2 L oxygen via nasal cannula. Blood pressure 95/44 which is at baseline Labs showing pancytopenia with WBC of 1.9, hemoglobin 9.9 and platelet count 58. And low neutrophil 0.4 with Count of 0.76K. INR Is 1.0. Creatinine and Electrolytes Are within the Reference Range. Troponin Is Slightly Elevated at 0.05 and 0.05 AST is normal at 45 ALT is a slightly elevated at 88 EKG showed atrial fibrillation at [address]-T changes. Chest x-ray: Mild interstitial edema/atelectasis In the emergency room patient was started on cefepime and [place] 100 mL per hour. Consult to cardiology was placed 01/01/2021 Patient is still dyspneic today.No significant chest pain or coughing. He is saturating 93% on 3 to oxygen via nasal cannula Postoperative vitals are stable WBC went up to 11.9 after he got 1 dose of G-CSF hemoglobin and platelets are stable, hemoglobin 9.6 and platelet improved to 85K. Yesterday CTA of the chest was showed right PE and patient was started on heparin drip by director integrated team. Doppler of lower extremity is negative for DVT He remains on heparin drip started yesterday by director integrated team. Today I explained to him the benefits and risk of heparin drip including but not limited to intracranial hemorrhage and he verbalized understanding and acceptance As per oncology team he was getting chemotherapy which might explain why he had pancytopenia on admission [employer] evaluated the patient and diagnosed him with type 2 OK secondary to supply demand mismatch with no need for further cardiac workup. Also patient remains on antibiotics of cefepime with elevated pro-calcitonin Patient will benefit from ECF upon discharge. EKG from today showed atrial fibrillation at [address]-T changes 01/02/2021 Patient is a breathing easier, he is awake and sitting at bedside. Fluids were stopped, and dependent on prednisone 40 mg today his IV heparin was switched to Eliquis by director integrated at 10 mg twice a day X7 days followed by 5 mg twice a day Tomorrow we'll check forcalcitonin as well as hemoglobin Patient is improving and may consider him for discharge in 24-48 hours Objective - Vital Signs Vital signs: Vital Signs Temp 98.3 F 01/02/21 14:55 Pulse 70 01/02/21 17:14 Resp 20 01/02/21 14:55 BP 94/44 01/02/21 14:55 Pulse Ox 96 01/02/21 14:55 Intake & Output 01/01/21 01/02/21 01/02/21 18:59 06:59 18:59 Intake Total 520.273 350 676.848 Output Total 350 1175 400 Balance 170.273 -825 276.848 Weight 122.6 kg Intake: Intake, IV Titration 145.273 350 136.848 Amount Cefepime 2 gm In Sodium 100 Chloride 0.9% 100 ml @ 200 mls/hr IVPB Q8HR [facility] Rx#:[id number] Heparin Sod,Pork in 0.45% 145.273 250 136.848 NaCl 25,000 unit In 0.45 % NaCl 1 250ml.bag @ 8.18 UNITS/KG/HR 9.996 mls/hr IV .Q24H [facility] Rx#: [id number] Oral 375 540 Output: Urine 350 1175 400 Other: Voiding Method Urinal Urinal # Voids 1 - Exam -GENERAL: The patient is alert and oriented x3, in mild acute respiratory distress. Obese HEENT: Pupils are round and equally reacting to light. EOMI. No scleral icterus. No conjunctival pallor. Normocephalic, atraumatic. No pharyngeal erythema. No thyromegaly. CARDIOVASCULAR: S1 and S2 present. No murmurs, rubs, or gallops. -PULMONARY: Chest is clear to auscultation, no wheezing or crackles. Mildly Tachypneic ABDOMEN: Soft, nontender, nondistended, normoactive bowel sounds. No palpable organomegaly. MUSCULOSKELETAL: No joint swelling or deformity. EXTREMITIES: No cyanosis, clubbing, or pedal edema. NEUROLOGICAL: Gross neurological examination did not reveal any focal deficits. SKIN: No rashes. No petechiae - Labs CBC & Chem 7: 01/02/21 12:39 01/02/21 12:39 Labs: Abnormal Lab Results - Last 24 Hours (Table) 01/02/21 01/02/21 01/02/21 Range/Units 12:39 12:39 12:39 WBC 16.2 H (3.8-10.6) k/uL RBC 3.37 L (4.30-5.90) m/uL Hgb 9.5 L (13.0-17.5) gm/dL Hct 29.4 L (39.0-53.0) % RDW 18.2 H (11.5-15.5) % Plt Count 119 L (150-450) k/uL Neutrophils # (Manual) 12.40 H (1.3-7.7) k/uL Monocytes # (Manual) 1.30 H (0-1.0) k/uL Metamyelocytes # (Man) 0.49 H (0) k/uL Myelocytes # (Manual) 0.65 H (0) k/uL APTT 71.1 H (22.0-30.0) sec Carbon Dioxide 33 H (22-30) mmol/L Glucose 115 H (74-99) mg/dL Microbiology - Last 24 Hours (Table) 12/30/20 21:00 Blood Culture - Preliminary Blood No Growth after 48 hours 12/30/20 21:15 Blood Culture - Preliminary Blood No Growth after 48 hours Assessment and Plan Assessment: Acute right pulmonary embolism Possible left upper postobstructive pneumonia Pancytopenia secondary to chemotherapy improvement Elevated troponin, secondary to type II OK per attendant arcade no further workup History of lung cancer with ROBERT mass, 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 Undergoing radiotherapy Chronic hypoxic respiratory failure on 3L oxygen via nasal cannula Chronic persistent atrial fibrillation, not on anticoagulation due to risk of bleeding from a brain metastasis. Chronic systolic cardiomyopathy with ejection fraction 45-50% COPD History of GERD Sleep apnea on CPAP/BiPAP Chronic low back pain Obesity with BMI of 35.7 Plan: this is a pleasant 75 years old male who presents with PE and possible pneumonia. Stop heparin erdrip and start Eliquis p hematology and pulmonary team on the case. Continue with cefepime and follow-up culture results. Cardiology team on the case.. Discontinue IV Follow-up with oncology team for history of lung cancer with brain metastasis and pancytopenia . Patient with no fever but he was started on cefepime. We will follow up the culture and vitals were closely . Labs and medication were reviewed.. Continue same treatment. Continue with symptomatic treatment. Resume home medication. Monitor lytes and vitals. DVT and GI prophylaxis. Further recommendations depends on the clinical course of the patient DVT prophylaxis: heparin GI Prophylaxis: Ppi PT/OT: Subacute rehab Prognosis is guarded
[2021-01-02] MEDS: APIXABAN 5 MG TAB PO SCH (20:54)
[2021-01-02] MEDS: SENNOSIDES-DOCUSATE SODIUM 1 EACH TAB PO SCH (20:55)
[2021-01-03] MEDS: PANTOPRAZOLE 40 MG TABLET PO SCH (07:03)
[2021-01-03] MEDS: SUCRALFATE 1 GM TAB PO SCH ×4 (07:03→20:37)
[2021-01-03 07:29] LABS: Anisocytosis Slight; HCT 29.5 % (39.0-53.0); HGB 9.7 gm/dL (13.0-17.5); Hypochromasia Slight; MCH 28.8 pg (25.0-35.0); MCHC 32.9 g/dL (31.0-37.0); MCV 87.6 fL (80.0-100.0); Mean Platelet Volume 8.3; Platelet Count 114 k/uL (150-450); RBC 3.37 m/uL (4.30-5.90); RDW 18.1 % (11.5-15.5)
[2021-01-03] MEDS: IPRATROPIUM-ALBUTEROL 3 ML NEB INHALATION SCH ×4 (08:04→20:15)
[2021-01-03 08:16] LABS: Band Neutrophils % 3 %; Lymphocytes # (M) 1.19 k/uL (1.0-4.8); Metamyelocytes % 2 %; Monocytes # (M) 1.19 k/uL (0-1.0); Myelocytes # (M) 0.75 k/uL (0); Myelocytes % 5 %; Neutrophils % (M) 75 %; Nucleated Red Blood Cells 1 /100 WBC (0-0); Total Cells Counted 200; WBC 14.9 k/uL (3.8-10.6)
[2021-01-03 08:17] LABS: Poikilocytosis (M) Present
[2021-01-03] MEDS: MULTIVITAMINS, THERA 1 EACH TAB PO SCH (08:59)
[2021-01-03] MEDS: CHOLECALCIFEROL 25 MCG (1000 IU) TABLET PO SCH (09:00)
[2021-01-03] MEDS: METOPROLOL SUCCINATE (ER) 100 MG TAB.ER.24H PO SCH (09:00)
[2021-01-03] MEDS: APIXABAN 5 MG TAB PO SCH ×2 (09:00→20:36)
[2021-01-03] MEDS: ASPIRIN 81 MG PO SCH (09:00)
[2021-01-03] MEDS: ONDANSETRON 4 MG TAB PO PRN (09:00)
[2021-01-03] MEDS: predniSONE 20 MG TAB PO SCH (09:00)
[2021-01-03] MEDS: LORazepam 0.5 MG TAB PO PRN (09:00)
[2021-01-03] MEDS: CEFEPIME 2 GM in SODIUM CHLORIDE 0.9% 100 ML IVPB SCH ×3 (09:01→22:50)
[2021-01-03] MEDS: FUROSEMIDE 80 MG TAB PO SCH ×2 (09:01→16:02)
[2021-01-03] MEDS: POTASSIUM CHLORIDE ER 10 MEQ TAB.ER.PRT PO SCH ×2 (09:01→20:36)
[2021-01-03] MEDS: DILTIAZEM CD 300 MG CAP.ER.24H PO SCH (09:23)
[2021-01-03] MEDS: DIGOXIN 250 MCG TAB PO SCH (09:23)
[2021-01-03] MEDS: polyethylene glycoL 3350 17 GM POWD.PACK PO SCH (09:23)
[2021-01-03] MEDS: CALCIUM CARB-VIT D 500 MG-5 MCG TAB PO SCH ×4 (09:24→20:37)
--- NOTE | 2021-01-03 12:52 | P.PN ---
Subjective Progress Note Date: 01/03/21 Principal diagnosis: PNA, fever. SCLC, on treatment In f/u today pt sitting in chair, can not stay awake for a conversation. Objective - Vital Signs Vital signs: Vital Signs Temp 97.7 F 01/03/21 12:00 Pulse 81 01/03/21 12:00 Resp 20 01/03/21 12:00 BP 96/54 01/03/21 12:00 Pulse Ox 96 01/03/21 12:00 Intake & Output 01/02/21 01/03/21 01/03/21 18:59 06:59 18:59 Intake Total 1216.848 63.756 420 Output Total 400 300 950 Balance 816.848 -236.244 -530 Weight 121.9 kg Intake: Intake, IV Titration 136.848 63.756 Amount Heparin Sod,Pork in 0.45% 136.848 63.756 NaCl 25,000 unit In 0.45 % NaCl 1 250ml.bag @ 8.18 UNITS/KG/HR 9.996 mls/hr IV .Q24H [facility] Rx#: [id number] Oral 1080 420 Output: Urine 400 300 950 Other: Voiding Method Urinal # Voids 2 - Constitutional General appearance: Present: morbidly obese - EENT ENT: Present: hearing grossly normal - Respiratory Details: resp are shallow, unlabored - Cardiovascular Heart sounds: normal: S1, S2 - Peripheral edema leg Peripheral Edema: right: Trace, left: 1+ - Musculoskeletal Musculoskeletal: Present: generalized weakness - Labs CBC & Chem 7: 01/03/21 07:13 01/02/21 12:39 Labs: Abnormal Lab Results - Last 24 Hours (Table) 01/02/21 01/02/21 01/02/21 Range/Units 12:39 12:39 12:39 WBC 16.2 H (3.8-10.6) k/uL RBC 3.37 L (4.30-5.90) m/uL Hgb 9.5 L (13.0-17.5) gm/dL Hct 29.4 L (39.0-53.0) % RDW 18.2 H (11.5-15.5) % Plt Count 119 L (150-450) k/uL Neutrophils # (Manual) 12.40 H (1.3-7.7) k/uL Monocytes # (Manual) 1.30 H (0-1.0) k/uL Metamyelocytes # (Man) 0.49 H (0) k/uL Myelocytes # (Manual) 0.65 H (0) k/uL Nucleated RBCs (0-0) /100 WBC APTT 71.1 H (22.0-30.0) sec Carbon Dioxide 33 H (22-30) mmol/L Glucose 115 H (74-99) mg/dL 01/03/21 Range/Units 07:13 WBC 14.9 H (3.8-10.6) k/uL RBC 3.37 L (4.30-5.90) m/uL Hgb 9.7 L (13.0-17.5) gm/dL Hct 29.5 L (39.0-53.0) % RDW 18.1 H (11.5-15.5) % Plt Count 114 L (150-450) k/uL Neutrophils # (Manual) 11.60 H (1.3-7.7) k/uL Monocytes # (Manual) 1.19 H (0-1.0) k/uL Metamyelocytes # (Man) 0.30 H (0) k/uL Myelocytes # (Manual) 0.75 H (0) k/uL Nucleated RBCs 1 H (0-0) /100 WBC APTT (22.0-30.0) sec Carbon Dioxide (22-30) mmol/L Glucose (74-99) mg/dL Microbiology - Last 24 Hours (Table) 12/30/20 21:00 Blood Culture - Preliminary Blood No Growth after 72 hours 12/30/20 21:15 Blood Culture - Preliminary Blood No Growth after 72 hours Assessment and Plan (1) Small cell lung cancer Narrative/Plan: Patient is status post 2 cycles of treatment. In general poor tolerance. Plan a follow-up with Primary Oncologist before resuming any further therapy. Tx will be held until his current condition is stabilized and he has had the opportunity to rehabilitate, as needed, to recover from acute illness and have a PS adequate to cont cancer therapy. Current Visit: Yes Status: Acute Priority: High Code(s): C34.90 - MALIGNANT NEOPLASM OF UNSP PART OF UNSP BRONCHUS OR LUNG SNOMED Code(s): 034203770 (2) Antineoplastic chemotherapy induced pancytopenia Narrative/Plan: Did give a one-time dose of G-CSF for ANC of 600. WBC adequate, no additional doses of GCSF Platelets 114,000. Hemoglobin 9.7, stable, no transfusion at this time. Daily CBC while inpt Current Visit: Yes Status: Acute Priority: Medium Code(s): D61.810 - ANTINEOPLASTIC CHEMOTHERAPY INDUCED PANCYTOPENIA; T45.1X5A - ADVERSE EFFECT OF ANTINEOPLASTIC AND IMMUNOSUP DRUGS, INIT SNOMED Code(s): 371126858042271 (3) Pulmonary embolism Narrative/Plan: Eliquis started. Rx sent to pharmacy for copay verification, no notes on verification yet. Current Visit: Yes Status: Acute Priority: High Code(s): I26.99 - OTHER PULMONARY EMBOLISM WITHOUT ACUTE COR PULMONALE SNOMED Code(s): 07509386 (4) Brain metastases Narrative/Plan: Just recently completed XRT treatment. Follow up . Looks as though there is post treatment imaging sched for 01/14. Current Visit: No Status: Chronic Priority: Medium Code(s): C79.31 - SECONDARY MALIGNANT NEOPLASM OF BRAIN SNOMED Code(s): 49577400
--- NOTE | 2021-01-03 13:17 | P.PN ---
Subjective Progress Note Date: 01/03/21 CHIEF COMPLAINT: Chest pain HISTORY OF PRESENT ILLNESS: 12/31/2020 This is a 75-year-old male with a past medical history significant for age of fibrillation, COPD, GERD, and lung cancer with metastasis to the brain. Patient follows in the office with Dr. Langston. We have been asked to see the patient in consultation for chest pain. Patient examined this morning at the bedside. Patient was recently hospitalized secondary to A. fib with RVR and heart failur e. Patient states he resumed chemotherapy after he was discharged from the hospital. He is unsure exactly what day he had his last chemotherapy. He reports feeling short of breath for the last 2-3 days. This morning he states his breathing feels back to his baseline. He denies having any chest pain or pressure. Patient states he does not believe he was having chest pain yesterday either. 01/01/2021 Patient examined this morning at the bedside. Patient denies chest pain or pressure. He reports shortness of breath. Patient underwent CTA yesterday revealing pulmonary emboli. He has been started on IV heparin. 01/02/2021 Patient examined this morning. He is sitting up in the chair. He denies chest pain or pressure. He reports mild shortness of breath. He remains on IV heparin. Blood pressure 91/42. Heart rate in the 70s and 80s. He is afebrile. He is on 3 L nasal cannula with oxygen saturations greater then 92%. Chest x- ray completed reveals left upper and lower infiltrates. Correlate for pneumonia. 01/03/2021 Patient examined this morning sitting up in the chair. He should reports feeling tired this morning. He denies chest pain or pressure. He reports mild shortness of breath. Patient apparently had an episode of emesis this morning after breakfast. He has been transitioned to Eliquis for his pulmonary emboli. Blood pressure this morning is low with a systolic in the 80-90s. PHYSICAL EXAM: VITAL SIGNS: Reviewed. GENERAL: Well-developed in no acute distress. HEENT: Head is normocephalic. Pupils are equal, round. Sclerae anicteric. Mucous membranes of the mouth are moist. Neck supple. No JVD or thyromegaly LUNGS: Respirations even and unlabored. Lungs diminished, bilaterally. HEART: Irregular rate and rhythm. S1 and S2 heard. ABDOMEN: Soft. Nondistended. Nontender. EXTREMITIES: Normal range of motion. No clubbing or cyanosis. Peripheral pulses intact. Trace bilateral extremity edema NEUROLOGIC: Awake and alert. Oriented x 3. ASSESSMENT: Shortness of breath Lung cancer with brain metastasis Acute pulmonary emboli Abnormal troponins, likely secondary to type II CA due to oxygen supply demand mismatch, no evidence of acute coronary syndrome Chronic persistent atrial fibrillation, not previously on anticoagulation due to brain metastasis and risk of bleeding Chronic systolic heart failure, EF 45%, currently euvolemic Hypertension GERD Nicotine dependence PLAN: Pulmonary and oncology following Continue Eliquis for anticoagulation Continue additional cardiac medications Further recommendations pending patient's course Nurse practitioner note has been reviewed by physician. Signing provider agrees with the documented findings, assessment, and plan of care. Objective - Vital Signs Vital signs: Vital Signs Temp 97.7 F 01/03/21 12:00 Pulse 81 01/03/21 12:00 Resp 20 01/03/21 12:00 BP 96/54 01/03/21 12:00 Pulse Ox 96 01/03/21 12:00 Intake & Output 01/02/21 01/03/21 01/03/21 18:59 06:59 18:59 Intake Total 1216.848 63.756 420 Output Total 400 300 950 Balance 816.848 -236.244 -530 Weight 121.9 kg Intake: Intake, IV Titration 136.848 63.756 Amount Heparin Sod,Pork in 0.45% 136.848 63.756 NaCl 25,000 unit In 0.45 % NaCl 1 250ml.bag @ 8.18 UNITS/KG/HR 9.996 mls/hr IV .Q24H [facility] Rx#: [id number] Oral 1080 420 Output: Urine 400 300 950 Other: Voiding Method Urinal # Voids 2 - Labs CBC & Chem 7: 01/03/21 07:13 01/02/21 12:39 Labs: Abnormal Lab Results - Last 24 Hours (Table) 01/02/21 01/02/21 01/02/21 Range/Units 12:39 12:39 12:39 WBC 16.2 H (3.8-10.6) k/uL RBC 3.37 L (4.30-5.90) m/uL Hgb 9.5 L (13.0-17.5) gm/dL Hct 29.4 L (39.0-53.0) % RDW 18.2 H (11.5-15.5) % Plt Count 119 L (150-450) k/uL Neutrophils # (Manual) 12.40 H (1.3-7.7) k/uL Monocytes # (Manual) 1.30 H (0-1.0) k/uL Metamyelocytes # (Man) 0.49 H (0) k/uL Myelocytes # (Manual) 0.65 H (0) k/uL Nucleated RBCs (0-0) /100 WBC APTT 71.1 H (22.0-30.0) sec Carbon Dioxide 33 H (22-30) mmol/L Glucose 115 H (74-99) mg/dL 01/03/21 Range/Units 07:13 WBC 14.9 H (3.8-10.6) k/uL RBC 3.37 L (4.30-5.90) m/uL Hgb 9.7 L (13.0-17.5) gm/dL Hct 29.5 L (39.0-53.0) % RDW 18.1 H (11.5-15.5) % Plt Count 114 L (150-450) k/uL Neutrophils # (Manual) 11.60 H (1.3-7.7) k/uL Monocytes # (Manual) 1.19 H (0-1.0) k/uL Metamyelocytes # (Man) 0.30 H (0) k/uL Myelocytes # (Manual) 0.75 H (0) k/uL Nucleated RBCs 1 H (0-0) /100 WBC APTT (22.0-30.0) sec Carbon Dioxide (22-30) mmol/L Glucose (74-99) mg/dL Microbiology - Last 24 Hours (Table) 12/30/20 21:00 Blood Culture - Preliminary Blood No Growth after 72 hours 12/30/20 21:15 Blood Culture - Preliminary Blood No Growth after 72 hours
--- NOTE | 2021-01-03 14:58 | XR ---
EXAMINATION TYPE: XR KUB portable DATE OF EXAM: 01/03/2021 COMPARISON: NONE HISTORY: Pain TECHNIQUE: Single supine KUB image of the abdomen is obtained FINDINGS: Small bowel demonstrates no evidence for dilatation or air fluid levels. Gas and fecal material is seen in non-distended colon. No convincing evidence for pneumoperitoneum. No unusual calcifications. The lung bases are clear. The osseous structures are intact. IMPRESSION: 1. Overall nonobstructive bowel gas pattern.
[2021-01-03] MEDS ORDERED: SENNOSIDES 8.6 MG TAB PO PRN (15:32)
[2021-01-03] MEDS ORDERED: SENNOSIDES 8.6 MG TAB PO STA (15:32)
--- NOTE | 2021-01-03 15:48 | P.PN ---
Subjective Progress Note Date: 01/03/21 Principal diagnosis: Weakness, shortness of breath 75-year-old white male patient known to our practice, was recently diagnosed in October 2020 with small cell lung cancer with brain metastasis. Patient had received radiation treatments for his brain metastasis, and he states he finished his chemotherapy 2 weeks ago. Has a history of chronic A. fib, hypertension, chronic systolic CHF with ejection fraction of 45%, COPD on home oxygen at 3 L/m, sleep apnea, former smoker, chronic lower back pain. Patient recently had an admission to this hospital from December 02 through 12/11/2020 for a diagnosis of atrial fibrillation with rapid ventricular rate, acute on chronic CHF with diastolic dysfunction, at that time patient's Eliquis was discontinued in view of risk of bleeding with brain metastasis. On 12/30/2000 patient comes in to the hospital with complaints of increased shortness of breath, not feeling well, and based on the ER documentation patient was also having some chest pain at that time that was continuous throughout much of the day across his chest and was moderate in severity. The chest pain resolved by the time the patient arrived in the emergency department he denied any cough, phlegm production, denied any hemoptysis, no fever chills, no night sweats. His blood pressure was low at 87/42 and he did receive IV fluids. Denied any urinary symptoms, denies any nausea vomiting or diarrhea. Chest x-ray showed mild interstitial edema/atelectasis. EKG showed A. fib with nonspecific ST abnormality, controlled rate is 62. Lab data revealed pancytopenia white count of 1.9, hemoglobin is 9.9, platelet count of 58, INR is 1, electrolytes are unr emarkable weak suction of CO2 of 36 which is chronically elevated related to his history of obstructive sleep apnea, BUN of 22 creatinine 0.98, AST was 45, ALT was 88, alkaline phosphatase was 207, 3 sets of troponins were mildly elevated at 0.053, 0.054, and 0.038, proBNP was 1430, COVID 19 was negative. Patient was started on cefepime for empiric antibiotic coverage, blood cultures have been se nt, pro-calcitonin was added, she continues on IV hydration with 0.9 normal saline at [address] angios of the chest was completed showing filling defect within the secondary branch of the right pulmonary artery compatible with acute pulmonary embolism extending into the distal branches. There was persistent mediastinal adenopathy and left upper lobe lung mass compatible with the patient's history of malignancy. There was interval development of mild compression deformities involving to upper thoracic segments involving the superior endplate with metastasis in the differential diagnosis. He was started on heparin infusion for acute pulmonary embolism On 01/01/2021 patient seen in follow-up on selective care unit. Nursing staff reports patient is being slightly more short of breath today, but his cough is dry, no chest congestion, no hemoptysis no complaints of chest pain, lung sounds reveal some wheezing bilaterally, some limited crackles at the bases. He is already on oral Lasix, is covered with antibiotics, and receiving IV fluids at 75 ML per hour, he has lower extremity edema, lower extremity Dopplers were completed showing no evidence of DVT, he continues on heparin infusion for evidence of small PE in the secondary branch of the right pulmonary artery. Has had no fever or chills, today's labs have been reviewed, showing white blood cell count of 11.9, hemoglobin is 9.6, platelet count is 85, CO2 32, BUN 15 creatinine 0.9. Patient is on cefepime for empiric antibiotic coverage, medical oncology is following, patient received's are 0, his blood counts are improving. On 12/02/2020 patient seen in follow-up on selective care unit, he is breathing easier today, less tachypneic, less dyspneic, less wheezy on today's exam, he sitting up in the chair, is currently on 3 L of oxygen his pulse ox is 96%, he has been afebrile, hemodynamically stable, no cough, his lung sounds reveal diminished breath sounds at the bases, no wheezing on today's exam. Patient continues on oral diuretics, yesterday he received an extra dose of IV Lasix, he is on oral prednisone, breathing treatments, he is in -654 mL fluid balance over the last 24 hours, he still has some residual lower extremity edema, continues on oral Lasix. Today's chest x-ray shows left upper and lower lobe infiltrates that are stable in appearance, and atypical pulmonary edema. he had no chills, no chest discomfort. Today's lab work has been reviewed . White blood cell count of 16.2, hemoglobin is 9.5, platelet count is 119, electrolytes are unremarkable, with the exception of CO2 which is at 33, BUN is 18 and creatinine is 1.08. States he is breathing easier today. On 01/03/2021 patient seen in follow-up on selective care unit, he is feeling and looking much better today, less wheezy, less dyspneic, he is on 2 L of oxygen pulse ox 96%, he's been afebrile, blood pressure 96/54, and cooperative chest pain, no cough, lung sounds are diminished at the bases, no rhonchi or wheezing. He continues on oral diuretics, he is on empiric medicine the form of cefepime, and she is on oral prednisone 40 mg daily, today's labs have been reviewed, showing Levitz Mendon 14.9, hemoglobin is 9.7, blood cultures show no growth thus far. Objective - Vital Signs Vital signs: Vital Signs Temp 97.7 F 01/03/21 12:00 Pulse 81 01/03/21 12:00 Resp 20 01/03/21 12:00 BP 96/54 01/03/21 12:00 Pulse Ox 96 01/03/21 12:00 Intake & Output 01/02/21 01/03/21 01/03/21 18:59 06:59 18:59 Intake Total 1216.848 63.756 420 Output Total 400 300 950 Balance 816.848 -236.244 -530 Weight 121.9 kg Intake: Intake, IV Titration 136.848 63.756 Amount Heparin Sod,Pork in 0.45% 136.848 63.756 NaCl 25,000 unit In 0.45 % NaCl 1 250ml.bag @ 8.18 UNITS/KG/HR 9.996 mls/hr IV .Q24H [facility] Rx#: [id number] Oral 1080 420 Output: Urine 400 300 950 Other: Voiding Method Urinal # Voids 2 - Exam GENERAL EXAM: Alert, 75-year-old white male, appears chronically ill, weak, patient has a hoarse voice, he sitting on the commode, he is on 3 L of oxygen, he is satting 96%, comfortable in no apparent distress. HEAD: Normocephalic/atraumatic. Patient has darkened skin from recent history of radiation therapy to the brain, patient has areas of patchy alopecia EYES: Normal reaction of pupils, equal size. Conjunctiva pink, sclera white. NOSE: Clear with pink turbinates. THROAT: No erythema or exudates. NECK: No masses, no JVD, no thyroid enlargement, no adenopathy. CHEST: No chest wall deformity. Symmetrical expansion. LUNGS: Equal air entry with no crackles, wheeze, rhonchi or dullness. CVS: IRRegular rate and rhythm, normal S1 and S2, no gallops, no murmurs, no rubs ABDOMEN: Soft, nontender. No hepatosplenomegaly, normal bowel sounds, no guarding or rigidity. EXTREMITIES: No clubbing, mild pretibial edema, no cyanosis, 2+ pulses and upper and lower extremities. MUSCULOSKELETAL: Muscle strength and tone normal. SPINE: No scoliosis or deformity SKIN: No rashes CENTRAL NERVOUS SYSTEM: Alert and oriented -3. No focal deficits, tone is normal in all 4 extremities. PSYCHIATRIC: Alert and oriented -3. Appropriate affect. Intact judgment and insight. - Labs CBC & Chem 7: 01/03/21 07:13 01/02/21 12:39 Labs: Abnormal Lab Results - Last 24 Hours (Table) 01/03/21 Range/Units 07:13 WBC 14.9 H (3.8-10.6) k/uL RBC 3.37 L (4.30-5.90) m/uL Hgb 9.7 L (13.0-17.5) gm/dL Hct 29.5 L (39.0-53.0) % RDW 18.1 H (11.5-15.5) % Plt Count 114 L (150-450) k/uL Neutrophils # (Manual) 11.60 H (1.3-7.7) k/uL Monocytes # (Manual) 1.19 H (0-1.0) k/uL Metamyelocytes # (Man) 0.30 H (0) k/uL Myelocytes # (Manual) 0.75 H (0) k/uL Nucleated RBCs 1 H (0-0) /100 WBC Microbiology - Last 24 Hours (Table) 12/30/20 21:00 Blood Culture - Preliminary Blood No Growth after 72 hours 12/30/20 21:15 Blood Culture - Preliminary Blood No Growth after 72 hours Assessment and Plan Plan: Assessment: #1. Dyspnea, related to COPD exacerbation #2. Chest pain, related to acute pulmonary embolism, CTA chest showed a filling defect in the secondary branch of the right pulmonary artery compatible with acute PE extending into the distal branches #3. 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 Patient received esophageal, his counts are improving on today's labs #4. Hypotension, likely related to hypovolemia, improved with hydration #5. Mild troponin leak #6. Left upper lobe multilobulated mass with narrowing of the left upper lobe bronchus, and encasement of the left upper lobe bronchus, related to recently diagnosed metastatic small cell lung cancer #7. Advanced COPD on home oxygen #8. Chronic A. fib was recently taken off chronic anticoagulation in view of the risk of bleeding with brain metastasis #9. History of sleep apnea on CPAP therapy #10. Chronic low back pain #11. GERD/reflux #12. Former smoker Plan: Continue current medical treatment, continue oral Lasix, prednisone, no acute events overnight, patient has been started on oral anticoagulation, continue ruth athing treatments. Empiric antibiotics, cultures are negative thus far, no fever or chills. Pulmonary service will sign off in follow-up on the as-needed basis. Please feel free to contact us if there is any change in patient's pulmonary status I performed a history & physical examination of the patient and discussed their management with my nurse practitioner, Estefany Calle. I reviewed the nurse practitioner's note and agree with the documented findings and plan of care. Lung sounds are positive for diminished breath sounds. The findings and the impression was discussed with the patient. I attest to the documentation by the nurse practitioner. Time with Patient: Less than 30
[2021-01-03] MEDS: HYDROcodone/APAP 10-325MG 1 EACH TAB PO PRN (16:01)
[2021-01-03] MEDS: SENNOSIDES-DOCUSATE SODIUM 1 EACH TAB PO SCH (20:36)
[2021-01-04] MEDS: LORazepam 0.5 MG TAB PO PRN ×2 (02:51→21:17)
--- NOTE | 2021-01-04 03:18 | P.PN ---
Subjective This is a pleasant 75 years old male with past medical history of cancer of the brain which is mildly multiple metastatic-appearing lesions from primary lung cancer, COPD, GERD, sleep apnea on CPAP/BiPAP, chronic low back pain, A. fib and RVR He presents because of dyspnea of 2 days' duration associated with some dry coughing which is stopped since admission as per patient. Although patient has been admitted with chest pain as per ED notes however when I asked the patient this morning he denies any chest pain to me on admission or currently. He looks tired but denies any abdominal pain, no nausea vomiting, no change in urine or bowel habits. No headache. No new weakness or numbness. Patient status at this line he stays in chair most of the time and he can walk with a walker within his room usually. He states he stopped smoking and he denies alcohol or illicit drugs He could not remember the name of his cancer doctor but states that he follows up with Dr. milan He states that usually he gets radiotherapy for example to the brain wasn't sure when he got his last radiotherapy expecting it to be 2 weeks ago. And he denies getting chemotherapy when I asked him although patient was noticed to have some alopecia Vital showing patient is afebrile, he is saturating 93% on 2 L oxygen via nasal cannula. Blood pressure 95/44 which is at baseline Labs showing pancytopenia with WBC of 1.9, hemoglobin 9.9 and platelet count 58. And low neutrophil 0.4 with Count of 0.76K. INR Is 1.0. Creatinine and Electrolytes Are within the Reference Range. Troponin Is Slightly Elevated at 0.05 and 0.05 AST is normal at 45 ALT is a slightly elevated at 88 EKG showed atrial fibrillation at [address]-T changes. Chest x-ray: Mild interstitial edema/atelectasis In the emergency room patient was started on cefepime and [place] 100 mL per hour. Consult to cardiology was placed 01/01/2021 Patient is still dyspneic today.No significant chest pain or coughing. He is saturating 93% on 3 to oxygen via nasal cannula Postoperative vitals are stable WBC went up to 11.9 after he got 1 dose of G-CSF hemoglobin and platelets are stable, hemoglobin 9.6 and platelet improved to 85K. Yesterday CTA of the chest was showed right PE and patient was started on heparin drip by spool cleaner team. Doppler of lower extremity is negative for DVT He remains on heparin drip started yesterday by spool cleaner team. Today I explained to him the benefits and risk of heparin drip including but not limited to intracranial hemorrhage and he verbalized understanding and acceptance As per oncology team he was getting chemotherapy which might explain why he had pancytopenia on admission Field Operations Technician evaluated the patient and diagnosed him with type 2 ME secondary to supply demand mismatch with no need for further cardiac workup. Also patient remains on antibiotics of cefepime with elevated pro-calcitonin Patient will benefit from ECF upon discharge. EKG from today showed atrial fibrillation at [address]-T changes 01/02/2021 Patient is a breathing easier, he is awake and sitting at bedside. Fluids were stopped, and dependent on prednisone 40 mg today his IV heparin was switched to Eliquis by spool cleaner at 10 mg twice a day X7 days followed by 5 mg twice a day Tomorrow we'll check forcalcitonin as well as hemoglobin Patient is improving and may consider him for discharge in 24-48 hours 01/03/2021 This is a pleasant patient presents with right flank PE and is currently on Eliquis therapeutic dose and his breathing is improving. Prednisone added by urban planner He is complaining of from constipation for 2 days and states he vomited once, he feels nausea but no abdominal pain, KUB is negative for obstructive gas pattern, he is currently on MiraLAX and Senokot was admitted Oncology on the case for history of left small lung cancer with metastasis to the brain. And for his PE as well Patient also with possible postobstructive pneumonia, he is more sleepy today therefore we will change his cefepime to Zosyn and keep monitoring Patient will benefit from ECF for subacute rehab upon discharge Objective - Vital Signs Vital signs: Vital Signs Temp 97.7 F 01/03/21 12:00 Pulse 81 01/03/21 12:00 Resp 20 01/03/21 12:00 BP 96/54 01/03/21 12:00 Pulse Ox 96 01/03/21 12:00 Intake & Output 01/02/21 01/03/21 01/03/21 18:59 06:59 18:59 Intake Total 1216.848 63.756 420 Output Total 400 300 950 Balance 816.848 -236.244 -530 Weight 121.9 kg Intake: Intake, IV Titration 136.848 63.756 Amount Heparin Sod,Pork in 0.45% 136.848 63.756 NaCl 25,000 unit In 0.45 % NaCl 1 250ml.bag @ 8.18 UNITS/KG/HR 9.996 mls/hr IV .Q24H [facility] Rx#: [id number] Oral 1080 420 Output: Urine 400 300 950 Other: Voiding Method Urinal # Voids 2 - Exam -GENERAL: The patient is alert and oriented x3, in mild acute respiratory distress. Obese HEENT: Pupils are round and equally reacting to light. EOMI. No scleral icterus. No conjunctival pallor. Normocephalic, atraumatic. No pharyngeal erythema. No thyromegaly. CARDIOVASCULAR: S1 and S2 present. No murmurs, rubs, or gallops. -PULMONARY: Chest is clear to auscultation, no wheezing or crackles. Mildly Tachypneic ABDOMEN: Soft, nontender, nondistended, normoactive bowel sounds. No palpable organomegaly. MUSCULOSKELETAL: No joint swelling or deformity. EXTREMITIES: No cyanosis, clubbing, or pedal edema. NEUROLOGICAL: Gross neurological examination did not reveal any focal deficits. SKIN: No rashes. No petechiae - Labs CBC & Chem 7: 01/03/21 07:13 01/02/21 12:39 Labs: Abnormal Lab Results - Last 24 Hours (Table) 01/03/21 Range/Units 07:13 WBC 14.9 H (3.8-10.6) k/uL RBC 3.37 L (4.30-5.90) m/uL Hgb 9.7 L (13.0-17.5) gm/dL Hct 29.5 L (39.0-53.0) % RDW 18.1 H (11.5-15.5) % Plt Count 114 L (150-450) k/uL Neutrophils # (Manual) 11.60 H (1.3-7.7) k/uL Monocytes # (Manual) 1.19 H (0-1.0) k/uL Metamyelocytes # (Man) 0.30 H (0) k/uL Myelocytes # (Manual) 0.75 H (0) k/uL Nucleated RBCs 1 H (0-0) /100 WBC Microbiology - Last 24 Hours (Table) 12/30/20 21:00 Blood Culture - Preliminary Blood No Growth after 72 hours 12/30/20 21:15 Blood Culture - Preliminary Blood No Growth after 72 hours Assessment and Plan Assessment: Acute right pulmonary embolism Possible left upper postobstructive pneumonia Pancytopenia secondary to chemotherapy improvement Elevated troponin, secondary to type II ME per cartridge gauger no further workup History of lung cancer with ROBERT mass, 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 Undergoing radiotherapy Chronic hypoxic respiratory failure on 3L oxygen via nasal cannula Chronic persistent atrial fibrillation, not on anticoagulation due to risk of bleeding from a brain metastasis. Chronic systolic cardiomyopathy with ejection fraction 45-50% COPD History of GERD Sleep apnea on CPAP/BiPAP Chronic low back pain Obesity with BMI of 35.7 Plan: this is a pleasant 75 years old male who presents with PE and possible p neumonia. Continue with Eliquis per hematology and pulmonary team on the case. And cefepime to [facility] pulmonary service signed off. Cardiology followed with patient. Oncology team on the case Follow-up with oncology team for history of lung cancer with brain metastasis and pancytopenia . Labs and medication were reviewed.. Continue same treatment. Continue with symptomatic treatment. Resume home medication. Monitor lytes and vitals. DVT and GI prophylaxis. Further recommendations depends on the clinical course of the patient DVT prophylaxis: heparin GI Prophylaxis: Ppi PT/OT: Subacute rehab Prognosis is guarded
[2021-01-04] MEDS: SUCRALFATE 1 GM TAB PO SCH ×4 (06:43→21:16)
[2021-01-04] MEDS: PANTOPRAZOLE 40 MG TABLET PO SCH (06:43)
[2021-01-04] MEDS: IPRATROPIUM-ALBUTEROL 3 ML NEB INHALATION SCH ×4 (08:05→19:10)
[2021-01-04] MEDS ORDERED: FAMOTIDINE 20 MG TAB PO SCH (09:00)
--- NOTE | 2021-01-04 09:41 | P.PN ---
Subjective Progress Note Date: 01/04/21 This is a pleasant 75-year-old gentleman with past medical history significant for atrial fibrillation, COPD, GERD, lung cancer with metastasis to the brain. He follows with Dr. Maher in the office. During this admission patient did complain of some chest pain and we are consulted to see the patient. CT of the chest showed evidence of pulmonary emboli. He is currently anticoagulated on Eliquis. From a cardiac standpoint he is feeling fairly well. He denies any shortness of breath or chest discomfort. Continues to have some lower extremity edema but feels this is stable. His main complaint this morning his nausea and vomiting. This recent documented vital signs show some improvement in his blood pressure at 100/72. His heart rate is stable in the 80s. He is afebrile. Oxygen saturation 97% on 5 L via nasal cannula. Objective - Vital Signs Vital signs: Vital Signs Temp 97.6 F 01/04/21 02:00 Pulse 88 01/04/21 02:00 Resp 19 01/04/21 02:00 BP 100/72 01/04/21 02:00 Pulse Ox 97 01/04/21 02:00 Intake & Output 01/03/21 01/04/21 01/04/21 18:59 06:59 18:59 Intake Total 600 400 Output Total 1700 870 Balance -1100 -470 Weight 122.2 kg Intake: Oral 600 400 Output: Urine 1700 870 Other: Voiding Method Urinal # Voids 2 1 - Exam PHYSICAL EXAMINATION: HEENT: Head is atraumatic, normocephalic. Pupils equal, round. Neck is supple. There is no elevated jugular venous pressure. HEART EXAMINATION: Heart sounds irregularly irregular, S1 and S2 normal. No murmur or gallop heard. CHEST EXAMINATION: Lungs reveal diminished air entry bilaterally. No chest wall tenderness is noted on palpation or with deep breathing. ABDOMEN: Soft, nontender. Bowel sounds are heard. No organomegaly noted. Patient with nausea and emesis this morning. EXTREMITIES: 1+ peripheral pulses with evidence of mild peripheral edema and no calf tenderness noted. NEUROLOGIC patient is awake, alert and oriented x3. . - Labs CBC & Chem 7: 01/03/21 07:13 01/02/21 12:39 Labs: Abnormal Lab Results - Last 24 Hours (Table) 02/12/21 Range/Units 07:13 Procalcitonin 0.70 H (0.02-0.09) ng/mL Microbiology - Last 24 Hours (Table) 12/30/20 21:15 Blood Culture - Preliminary Blood No Growth after 96 hours 12/30/20 21:00 Blood Culture - Preliminary Blood No Growth after 96 hours Assessment and Plan Assessment: #1 acute pulmonary emboli #2 lung cancer with brain metastasis #3 abnormal troponins, likely secondary to type II [place] due to oxygen supply demand mismatch, no evidence of acute coronary syndrome #4 chronic persistent atrial fibrillation #5 chronic systolic heart failure, EF 45% #6 hypertension with hypotension #7 GERD #8 nicotine dependence Plan: From cardiology's perspective, medications were reviewed and we will continue the same. We will continue to follow the patient provide further recommendations accordingly. The above dictated assessment and findings were discussed with signing physician. The impression and plan of care have been directed as dictated. Deonna Qiu, Nurse Practitioner, acting as scribe for signing physician.
[2021-01-04] MEDS: polyethylene glycoL 3350 17 GM POWD.PACK PO SCH (09:42)
[2021-01-04] MEDS: PIPERACILLIN-TAZOBACTAM 3.375 GM in SODIUM CHLORIDE 0.9% 100 ML IVPB SCH ×3 (09:43→23:25)
[2021-01-04] MEDS: METOPROLOL SUCCINATE (ER) 100 MG TAB.ER.24H PO SCH (09:43)
[2021-01-04] MEDS: MULTIVITAMINS, THERA 1 EACH TAB PO SCH (09:44)
[2021-01-04] MEDS: DILTIAZEM CD 300 MG CAP.ER.24H PO SCH (09:44)
[2021-01-04] MEDS: DIGOXIN 250 MCG TAB PO SCH (09:44)
[2021-01-04] MEDS: POTASSIUM CHLORIDE ER 10 MEQ TAB.ER.PRT PO SCH ×2 (09:44→21:16)
[2021-01-04] MEDS: CHOLECALCIFEROL 25 MCG (1000 IU) TABLET PO SCH (09:44)
[2021-01-04] MEDS: APIXABAN 5 MG TAB PO SCH ×2 (09:44→21:17)
[2021-01-04] MEDS: FUROSEMIDE 80 MG TAB PO SCH ×2 (09:44→18:40)
[2021-01-04] MEDS: predniSONE 20 MG TAB PO SCH (09:44)
[2021-01-04] MEDS: CALCIUM CARB-VIT D 500 MG-5 MCG TAB PO SCH ×4 (09:44→21:16)
[2021-01-04] MEDS: ASPIRIN 81 MG PO SCH (09:44)
[2021-01-04] MEDS: HYDROcodone/APAP 10-325MG 1 EACH TAB PO PRN ×2 (11:05→18:21)
[2021-01-04] MEDS ORDERED: ALBUTEROL HFA INHALER INHALATION PRN (16:23)
--- NOTE | 2021-01-04 17:38 | PN ---
PROGRESS NOTE DATE OF SERVICE: 01/04/2021 This 75-year-old gentleman admitted with acute right pulmonary embolism. The patient also had possible left upper lobe postobstructive pneumonia. The patient also had pancytopenia secondary to chemotherapy. Multiple consultants are following the patient closely. Dr. iWlson has seen the patient. The patient continues to be confused. The patient also had some chest pain, COPD exacerbation. PAST MEDICAL HISTORY: Reviewed. Review of systems could not be taken. The patient is mildly confused. CURRENT MEDICATIONS: Reviewed and include: Tylenol, [place], albuterol, Eliquis, aspirin, Lovenox, Lanoxin, Cardizem, Pepcid. Doses reviewed. PHYSICAL EXAM: Patient is alert, oriented x2. Pulse 82, blood pressure 88/51, respiration 18, temperature 97.2, pulse ox 98% on 3 L. HEENT: Conjunctivae normal. NECK: No JVD. CARDIOVASCULAR: S1, S2 muffled. RESPIRATORY SYSTEM: Breath sounds diminished at the bases. A few scattered rhonchi and crackles. ABDOMEN: Soft, obese, nontender. LEGS: No edema. No swelling. NERVOUS SYSTEM: Diffusely weak. LAB STUDIES: WBC 14.2, hemoglobin 9.7. Procalcitonin only 0.7. ASSESSMENT: 1. Chronic obstructive pulmonary disease acute exacerbation with acute left upper lobe postobstructive pneumonia with possible sepsis, present on admission. 2. Acute right pulmonary embolism. 3. Pancytopenia, secondary to chemotherapy. 4. Non-small cell lung cancer. 5. Elevated troponin secondary to type 2 myocardial infarction per Cardiology. No further workup. 6. History of lung cancer with left upper lobe mass lesion. 7. Change in mental status, metabolic encephalopathy. 8. Multiple brain METS, undergoing radiation therapy. 9. Chronic hypoxic respiratory failure. 10.Chronic persistent atrial fibrillation. 11.Chronic congestive heart failure with chronic systolic dysfunction ejection fraction 45-50 percent with cardiomyopathy. 12.Chronic obstructive pulmonary disease. 13.Gastroesophageal reflux disease. 14.Obstructive sleep apnea. 15.Chronic back pain, degenerative joint disease. 16.Obesity with body mass index of 35.7. RECOMMENDATIONS AND DISCUSSION: I recommend to continue current medications, continue to monitor. Symptomatic treatment. Otherwise at this time, I recommend continue with empiric antibiotics. The cultures are negative so far. Follow closely with multiple consultants. Recommend a CT brain. Otherwise PT, OT evaluation. Consider possible ECF rehab. Guarded prognosis because of multiple complex medical issues. Further recommendations to follow. Will recommend Protonix. Avoid anticoagulation because of the brain METS. MMODL / IJN: [id number] /
--- NOTE | 2021-01-04 17:40 | CT ---
EXAMINATION TYPE: CT brain wo con DATE OF EXAM: 01/04/2021 COMPARISON: 10/31/2020. HISTORY: Altered mental status. CT DLP: 1162.4 mGycm Automated exposure control for dose reduction was used. FINDINGS: There is no acute intracranial hemorrhage, midline shift or hydrocephalus. There is moderate white ma tter disease. There is mild parenchymal volume loss. The paranasal sinuses and mastoid air cells are adequately aerated. The calvarium is intact. IMPRESSION: NO ACUTE INTRACRANIAL ABNORMALITY. Known multiple enhancing intraparenchymal lesions are better depicted on the contrast enhanced CT.
[2021-01-04] MEDS: SENNOSIDES-DOCUSATE SODIUM 1 EACH TAB PO SCH (21:16)
[2021-01-05] MEDS: IPRATROPIUM-ALBUTEROL 3 ML NEB INHALATION SCH ×4 (08:04→19:41)
[2021-01-05] MEDS: PANTOPRAZOLE 40 MG TABLET PO SCH (08:11)
[2021-01-05] MEDS: ASPIRIN 81 MG PO SCH (08:12)
[2021-01-05] MEDS: SUCRALFATE 1 GM TAB PO SCH ×4 (08:12→20:41)
[2021-01-05] MEDS: METOPROLOL SUCCINATE (ER) 100 MG TAB.ER.24H PO SCH (08:12)
[2021-01-05] MEDS: POTASSIUM CHLORIDE ER 10 MEQ TAB.ER.PRT PO SCH ×2 (08:12→20:41)
[2021-01-05] MEDS: predniSONE 20 MG TAB PO SCH (08:12)
[2021-01-05] MEDS: CHOLECALCIFEROL 25 MCG (1000 IU) TABLET PO SCH (08:12)
[2021-01-05] MEDS: APIXABAN 5 MG TAB PO SCH ×2 (08:12→20:41)
[2021-01-05] MEDS: MULTIVITAMINS, THERA 1 EACH TAB PO SCH (08:12)
[2021-01-05] MEDS: CALCIUM CARB-VIT D 500 MG-5 MCG TAB PO SCH ×4 (08:12→20:41)
[2021-01-05] MEDS: PIPERACILLIN-TAZOBACTAM 3.375 GM in SODIUM CHLORIDE 0.9% 100 ML IVPB SCH ×3 (08:13→23:33)
[2021-01-05] MEDS: DIGOXIN 250 MCG TAB PO SCH (08:13)
[2021-01-05] MEDS: polyethylene glycoL 3350 17 GM POWD.PACK PO SCH (08:13)
[2021-01-05] MEDS: DILTIAZEM CD 300 MG CAP.ER.24H PO SCH (08:13)
[2021-01-05] MEDS: FUROSEMIDE 80 MG TAB PO SCH ×2 (08:13→16:37)
[2021-01-05] MEDS: HYDROcodone/APAP 10-325MG 1 EACH TAB PO PRN ×2 (08:21→18:24)
[2021-01-05 09:59] LABS: HGB 9.7 g/dL (13.0-17.0); MCH 27.6 pg (27.0-32.0); MCHC 30.3 g/dL (32.0-37.0); MCV 90.9 fL (80.0-97.0); Mean Platelet Volume 11.5 fL (9.5-12.2); Platelet Count 169 X 10*3/uL (140-440); RBC 3.52 X 10*6/uL (4.40-5.60); RDW 18.1 % (11.5-14.5); WBC 14.83 X 10*3/uL (4.50-10.00)
[2021-01-05 10:10] LABS: African American GFR (CKD) 57.4 (60.0-200.0); Anion Gap 10.5 mmol/L (4.00-12.00); Calcium 9.2 mg/dL (8.7-10.3); Carbon Dioxide 34.5 mmol/L (21.6-31.8); Non-African American GFR(CKD) 49.5 (60.0-200.0); Potassium 3.4 mmol/L (3.5-5.5)
[2021-01-05] MEDS ORDERED: POTASSIUM CHLORIDE ER 20 MEQ TAB.ER PO STA (10:36)
--- NOTE | 2021-01-05 11:13 | P.PN ---
Subjective Progress Note Date: 01/05/21 History of present illness: This is a pleasant 75-year-old gentleman with past medical history significant for atrial fibrillation, COPD, GERD, lung cancer with metastasis to the brain. He follows with Dr. Maher in the office. During this admission patient did complain of some chest pain and we are consulted to see the patient. CT of the chest showed evidence of pulmonary emboli. He is currently anticoagulated on Eliquis. From a cardiac standpoint he is feeling fairly well. He denies any shortness of breath or chest discomfort. Continues to have some lower extremity edema but feels this is stable. In this morning, patient complains of nausea and vomiting. He is also concerned this morning that he was given the wrong pain medication and his nurse is looking into this. He is on home O2 at 3 L. Pulse ox is currently 85% on 3 L. He has been afebrile, heart rate 70s, blood pressure 102/64. Physical examination: Gen: This is a obese 75-year-old male. He is sitting up in a r ecliner, legs are elevated. He appears to be in no acute distress at rest. HEENT: Head is atraumatic, normocephalic. Pupils equal, round. Sclerae is anicteric. NECK: Supple. No JVD. No lymphadenopathy. No thyromegaly. LUNGS: Clear to auscultation. No wheezes or rhonchi. No intercostal retraction s. HEART: Irregular rate and rhythm. No murmur. ABDOMEN: Soft. Bowel sounds are present. No masses. No tenderness. EXTREMITIES: Mild bilateral pedal edema. Dorsalis pedis +1 bilaterally. NEUROLOGICAL: Patient is awake, alert and oriented x3. Cranial nerves 2 through 12 are grossly intact. Assessment: Acute pulmonary emboli Lung cancer with brain metastasis Abnormal troponins, likely secondary to type II CO due to oxygen supply demand mismatch, no evidence of acute coronary syndrome Chronic persistent atrial fibrillation Chronic systolic heart failure, EF 45% Hypertension with hypotension GERD Nicotine dependence Plan: Tinea current cardiac medications Patient will have follow-up with Dr. Langston in the office at time of discharge Further recommendations to follow based upon clinical course Nurse practitioner note has been reviewed, I agree with documented findings and plan of care. Patient was seen and examined. Objective - Vital Signs Vital signs: Vital Signs Temp 97.9 F 01/05/21 07:52 Pulse 78 01/05/21 08:13 Resp 20 01/05/21 09:00 BP 102/64 01/05/21 07:52 Pulse Ox 95 01/05/21 07:52 Intake & Output 01/04/21 01/05/21 01/05/21 18:59 06:59 18:59 Intake Total 660 100 Output Total 850 Balance 660 -850 100 Intake: Oral 660 100 Output: Urine 850 Other: Voiding Method Urinal # Voids 2 - Labs CBC & Chem 7: 01/05/21 06:03 01/05/21 06:03 Labs: Abnormal Lab Results - Last 24 Hours (Table) 01/05/21 01/05/21 Range/Units 06:03 06:03 WBC 14.83 H (4.50-10.00) X 10*3/uL RBC 3.52 L (4.40-5.60) X 10*6/uL Hgb 9.7 L (13.0-17.0) g/dL Hct 32.0 L (39.6-50.0) % MCHC 30.3 L (32.0-37.0) g/dL RDW 18.1 H (11.5-14.5) % Absolute Nucleated RBC 0.22 H (0.00-0.00) X 10*3/uL NRBC/100 WBC Diff 1.5 H (0.0-0.0) /100 WBCS Potassium 3.4 L (3.5-5.5) mmol/L Carbon Dioxide 34.5 H (21.6-31.8) mmol/L BUN 28.0 H (9.0-27.0) mg/dL Est GFR (CKD-EPI)AfAm 57.4 L (60.0-200.0) Est GFR (CKD-EPI)NonAf 49.5 L (60.0-200.0) Microbiology - Last 24 Hours (Table) 12/30/20 21:00 Blood Culture - Preliminary Blood No Growth after 120 hours 12/30/20 21:15 Blood Culture - Preliminary Blood No Growth after 120 hours
[2021-01-05] MEDS: THIAMINE 100 MG TAB PO SCH (11:36)
[2021-01-05] MEDS: FOLIC ACID 1 MG TAB PO SCH (11:36)
[2021-01-05 12:20] LABS: Anisocytosis (M) 2+; Basophils # (M) 0 X 10*3/uL (0.00-0.10); Eosinophils # (M) 0 X 10*3/uL (0.04-0.35); Lymphocytes # (M) 0.89 X 10*3/uL (0.90-5.00); Metamyelocytes % 5 % (0-0); Monocytes # (M) 1.04 X 10*3/uL (0.20-1.00); Myelocytes % 4 % (0-0); Neutrophils # (M) 11.57 X 10*3/uL (2.00-8.90); Neutrophils % (M) 78 %
--- NOTE | 2021-01-05 17:52 | XR ---
EXAMINATION TYPE: XR chest 1V portable DATE OF EXAM: 01/05/2021 COMPARISON: 01/02/2021. HISTORY: Shortness of breath. Pneumonia follow-up. TECHNIQUE: Single frontal view of the chest is obtained. FINDINGS: There is decreased left upper lung opacity with small residual. There are persistent mild left greater than right bibasilar hazy opacities. No pleural effusion, or pneumothorax seen. The car diac silhouette size is within normal limits. The osseous structures are intact. IMPRESSION: Decreasing left upper lobe opacity with small residual. Grossly unchanged mild bibasilar opacities.
--- NOTE | 2021-01-05 18:19 | PN ---
PROGRESS NOTE DATE OF SERVICE: January 05, 2021 This 75-year-old gentleman admitted with acute right pulmonary embolism also had left upper lobe mass lesion and postobstructive pneumonia. The patient also had brain METS which was treated previously. The CT scan of the brain was repeated, showed no acute intracranial abnormality. Please note, which was done without contrast. Hematology/Oncology following the patient closely. The patient is mildly confused. Past medical history reviewed. REVIEW OF SYSTEMS: CARDIOVASCULAR SYSTEM: No angina. RESPIRATION as mentioned earlier. GI as mentioned earlier. as mentioned earlier. NERVOUS SYSTEM: As mentioned earlier. CURRENT MEDICATIONS: Reviewed and include: Tylenol, [place], albuterol, Eliquis, aspirin, [place] with vitamin D, Cardizem, Lanoxin. Doses are reviewed. PHYSICAL EXAM: Patient is alert, oriented x2. Pulse 75. Blood pressure 82/50, respiration 18, temperature 97.5, pulse ox is 95 percent on 3 L. HEENT: Conjunctivae normal. NECK: No JVD. CARDIOVASCULAR: S1, S2 muffled. RESPIRATION: Breath sounds diminished in the bases. A few scattered rhonchi. No crackles. ABDOMEN: Soft. Nontender. NERVOUS SYSTEM: No focal deficits. LAB STUDIES: WBC 14.2, hemoglobin 9.7, sodium 141, potassium 3.4. Procalcitonin 0.7. ASSESSMENT: 1. Chronic obstructive pulmonary disease acute exacerbation with acute left upper lobe postobstructive pneumonia with possible sepsis, present on admission. 2. Acute right pulmonary embolism, on anticoagulation. 3. Pancytopenia secondary to chemotherapy. 4. [id number] lung cancer, left. 5. Elevated troponin secondary to type 2 myocardial infarction per Cardiology. No further workup. 6. History of lung cancer with left upper lobe mass lesion. 7. Change in mental status, acute metabolic encephalopathy. 8. Multiple brain METS, undergoing radiation therapy. 9. Chronic hypoxic respiratory failure. 10.Chronic persistent atrial fibrillation. 11.Chronic congestive heart failure with chronic systolic dysfunction, ejection fraction 45 to 50% with cardiomyopathy. 12.Chronic obstructive pulmonary disease. 13.Gastroesophageal reflux disease. 14.Obstructive sleep apnea. 15.Chronic back pain, degenerative joint disease. 16.Obesity with body mass index of 34.7. 17.FULL CODE. RECOMMENDATIONS AND DISCUSSION: This 75-year-old woman who presented with multiple complex medical issues, we will monitor the patient closely, continue the current medications, management and symptomatic treatment. Continue the empiric antibiotics. Continue the rest of medications. Closely follow with Hematology/Oncology and as well as Cardiology and Pulmonology. Guarded prognosis because of multiple complex medical issues. Further recommendations to follow. The most recent chest x-ray which was done on Jan 02 was reviewed. I would recommend repeat x-ray tomorrow. MMODL / IJN: [id number] /
[2021-01-05] MEDS: SENNOSIDES-DOCUSATE SODIUM 1 EACH TAB PO SCH (20:41)
[2021-01-05] MEDS: ONDANSETRON 4 MG TAB PO PRN (23:39)
[2021-01-05] MEDS: LORazepam 0.5 MG TAB PO PRN (23:39)
[2021-01-06] MEDS: HYDROcodone/APAP 10-325MG 1 EACH TAB PO PRN ×2 (06:28→13:29)
[2021-01-06] MEDS: POTASSIUM CHLORIDE ER 10 MEQ TAB.ER.PRT PO SCH ×2 (08:54→20:05)
[2021-01-06] MEDS: polyethylene glycoL 3350 17 GM POWD.PACK PO SCH (08:54)
[2021-01-06] MEDS: PANTOPRAZOLE 40 MG TABLET PO SCH ×2 (08:55→15:49)
[2021-01-06] MEDS: CHOLECALCIFEROL 25 MCG (1000 IU) TABLET PO SCH (08:55)
[2021-01-06] MEDS: APIXABAN 5 MG TAB PO SCH ×2 (08:55→20:05)
[2021-01-06] MEDS: MULTIVITAMINS, THERA 1 EACH TAB PO SCH (08:55)
[2021-01-06] MEDS: CALCIUM CARB-VIT D 500 MG-5 MCG TAB PO SCH ×4 (08:55→20:05)
[2021-01-06] MEDS: ASPIRIN 81 MG PO SCH (08:55)
[2021-01-06] MEDS: SUCRALFATE 1 GM TAB PO SCH ×4 (08:55→20:05)
[2021-01-06] MEDS: METOPROLOL SUCCINATE (ER) 100 MG TAB.ER.24H PO SCH (08:55)
[2021-01-06] MEDS: predniSONE 20 MG TAB PO SCH (08:55)
[2021-01-06] MEDS: PIPERACILLIN-TAZOBACTAM 3.375 GM in SODIUM CHLORIDE 0.9% 100 ML IVPB SCH ×3 (08:56→23:17)
[2021-01-06] MEDS: DIGOXIN 250 MCG TAB PO SCH (08:56)
[2021-01-06] MEDS: FUROSEMIDE 80 MG TAB PO SCH ×2 (08:56→15:48)
[2021-01-06] MEDS: DILTIAZEM CD 300 MG CAP.ER.24H PO SCH (08:56)
[2021-01-06] MEDS: IPRATROPIUM-ALBUTEROL 3 ML NEB INHALATION SCH ×4 (09:09→19:14)
[2021-01-06 09:52] LABS: African American GFR (CKD) 52.8 (60.0-200.0); Anion Gap 8.2 mmol/L (4.00-12.00); BUN/Creat Ratio 19.33 Ratio (12.00-20.00); Calcium 8.9 mg/dL (8.7-10.3); Carbon Dioxide 34.8 mmol/L (21.6-31.8); Non-African American GFR(CKD) 45.5 (60.0-200.0); Potassium 3.6 mmol/L (3.5-5.5)
[2021-01-06] MEDS: ONDANSETRON 4 MG TAB PO PRN ×2 (10:36→15:47)
[2021-01-06] MEDS: THIAMINE 100 MG TAB PO SCH (10:52)
[2021-01-06] MEDS: FOLIC ACID 1 MG TAB PO SCH (10:52)
[2021-01-06 11:28] LABS: HCT 32.4 % (39.6-50.0); HGB 9.8 g/dL (13.0-17.0); MCH 27.5 pg (27.0-32.0); MCHC 30.2 g/dL (32.0-37.0); Mean Platelet Volume 11.2 fL (9.5-12.2); Platelet Count 230 X 10*3/uL (140-440); RBC 3.56 X 10*6/uL (4.40-5.60); RDW 18.3 % (11.5-14.5); WBC 15.01 X 10*3/uL (4.50-10.00)
[2021-01-06 11:29] LABS: Anisocytosis (M) 2+; Basophils # (M) 0 X 10*3/uL (0.00-0.10); Eosinophils # (M) 0 X 10*3/uL (0.04-0.35); Lymphocytes # (M) 1.65 X 10*3/uL (0.90-5.00); Metamyelocytes % 5 % (0-0); Monocytes # (M) 1.35 X 10*3/uL (0.20-1.00); Myelocytes % 3 % (0-0); Neutrophils # (M) 10.81 X 10*3/uL (2.00-8.90); Neutrophils % (M) 72 %
[2021-01-06 12:43] VITALS: BMI 36.5
--- NOTE | 2021-01-06 15:58 | PN ---
PROGRESS NOTE DATE OF SERVICE: 01/06/2021 This 75-year-old gentleman who was admitted with COPD acute exacerbation with acute left upper lobe postobstructive pneumonia with possible sepsis is being closely monitored. The patient has right pulmonary embolism. Patient is on anticoagulation. No chest pain. No palpitations. No fever. The most recent chest x-ray showed significant lesions on the left side at this time. The patient continues to be confused. The patient also complains of weakness also. PAST MEDICAL HISTORY: Reviewed. REVIEW OF SYSTEMS: CARDIOVASCULAR SYSTEM: No angina. RESPIRATORY SYSTEM: As mentioned earlier. GI: As mentioned earlier. : No dysuria. NERVOUS SYSTEM: As mentioned earlier. CURRENT MEDICATIONS: Current medications are reviewed and include Tylenol, [place], albuterol, Eliquis, aspirin, Lanoxin, Cardizem CD, Duragesic patch and doses are reviewed. PHYSICAL EXAMINATION: Patient is alert and oriented x3. Pulse 86, blood pressure 98/64, respiration 20, temperature 97.8, pulse ox 96% on 3 L. HEENT: Conjunctivae normal. NECK: No jugular venous distention. CARDIOVASCULAR: S1, S2 muffled. RESPIRATORY: Breath sounds diminished at the bases. Scattered rhonchi and crackles. ABDOMEN: Soft, nontender. LEGS: No edema, no swelling. NERVOUS SYSTEM: No focal deficits. LABS: WBC 15, hemoglobin 9.8. Other labs are noted. Microbiology negative so far. ASSESSMENT: 1. Chronic obstructive pulmonary disease acute exacerbation with acute left upper lobe postobstructive pneumonia with possible sepsis present on admission. 2. Acute right pulmonary embolism, on anticoagulation. 3. Pancytopenia secondary to chemotherapy. 4. [id number] lung cancer, left, history recently. 5. Elevated troponin secondary to type 2 myocardial infarction per Cardiology, no further workup. 6. History of lung cancer with left upper lobe mass lesion. 7. Change in mental status, acute metabolic encephalopathy. 8. Multiple brain metastasis, undergoing radiation therapy. 9. Chronic hypoxic respiratory failure. 10.Chronic persistent atrial fibrillation. 11.Congestive heart failure with chronic systolic dysfunction, ejection fraction 45% to 50% with cardiomyopathy. 12.Chronic obstructive pulmonary disease. 13.Gastroesophageal reflux disease. 14.Obstructive sleep apnea. 15.Chronic back pain, degenerative joint disease. 16.Obesity with body mass index of 34.7. 17.FULL CODE. RECOMMENDATIONS AND DISCUSSION: Recommend to continue current medications, continue with monitoring and symptomatic treatment. Otherwise at this time I would recommend to continue the bronchodilators. Continue with anticoagulation. Closely follow with Hematology, Oncology. PT, OT evaluation. The patient is extremely weak. Consider ECF rehab. Otherwise, prognosis guarded. Further recommendations to follow. JUDSON / LADYN: [id number] /
--- NOTE | 2021-01-06 17:15 | P.PN ---
Subjective Progress Note Date: 01/06/21 Principal diagnosis: PNA, fever. SCLC, on treatment In f/u today pt sitting in chair, he is much more alert then previous, he is oriented, he walked 40 paces with PT/OT with walker, he is having some intermittent voniting, relates more to poor taste. No chest pain. Objective - Vital Signs Vital signs: Vital Signs Temp 97.8 F 01/06/21 08:00 Pulse 88 01/06/21 09:22 Resp 20 01/06/21 08:00 BP 98/64 01/06/21 08:00 Pulse Ox 96 01/06/21 08:00 Intake & Output 01/05/21 01/06/21 01/06/21 18:59 06:59 18:59 Intake Total 640 Balance 640 Weight 122.2 kg Intake: Oral 640 Other: Voiding Method Urinal Urinal # Voids 3 3 # Bowel Movements 1 - Constitutional General appearance: Present: cooperative, morbidly obese, no acute distress - EENT Eyes: Present: anicteric sclerae, EOMI ENT: Present: hearing grossly normal, normal oropharynx - Respiratory Respiratory: bilateral: diminished - Cardiovascular Rhythm: irregularly irregular Heart sounds: normal: S1, S2 Abnormal Heart Sounds: Absent: systolic murmur, diastolic murmur, rub, S3 Gallop, S4 Gallop, click, other - Peripheral edema leg Peripheral Edema: bilateral: 1+ - Gastrointestinal General gastrointestinal: Present: normal bowel sounds, soft - Neurologic Neurologic: Present: CNII-XII intact - Musculoskeletal Musculoskeletal: Present: generalized weakness, strength equal bilaterally - Psychiatric Psychiatric: Present: A&O x's 3, appropriate affect, intact judgment & insight - Labs CBC & Chem 7: 01/06/21 06:44 01/06/21 06:44 Labs: Abnormal Lab Results - Last 24 Hours (Table) 01/06/21 01/06/21 Range/Units 06:44 06:44 WBC 15.01 H (4.50-10.00) X 10*3/uL RBC 3.56 L (4.40-5.60) X 10*6/uL Hgb 9.8 L (13.0-17.0) g/dL Hct 32.4 L (39.6-50.0) % MCHC 30.2 L (32.0-37.0) g/dL RDW 18.3 H (11.5-14.5) % Absolute Nucleated RBC 0.32 H (0.00-0.00) X 10*3/uL Metamyelocytes % 5 H (0-0) % Myelocytes % 3 H (0-0) % Neutrophils # (Manual) 10.81 H (2.00-8.90) X 10*3/uL Monocytes # (Manual) 1.35 H (0.20-1.00) X 10*3/uL Eosinophils # (Manual) 0 L (0.04-0.35) X 10*3/uL NRBC/100 WBC Diff 2.1 H (0.0-0.0) /100 WBCS Carbon Dioxide 34.8 H (21.6-31.8) mmol/L BUN 29.0 H (9.0-27.0) mg/dL Est GFR (CKD-EPI)AfAm 52.8 L (60.0-200.0) Est GFR (CKD-EPI)NonAf 45.5 L (60.0-200.0) Microbiology - Last 24 Hours (Table) 12/30/20 21:00 Blood Culture - Final Blood No Growth after 144 hours 12/30/20 21:15 Blood Culture - Final Blood No Growth after 144 hours - Imaging and Cardiology Chest x-ray: report reviewed CT Scan - head: report reviewed Assessment and Plan (1) Small cell lung cancer Narrative/Plan: Patient is status post 2 cycles of treatment. In general poor tolerance. Plan a follow-up with Primary Oncologist before resuming any further therapy. Tx will be held until his current condition is stabilized and he has had the opportunity to rehabilitate, as needed, to recover from acute illness and have a PS adequate to cont cancer therapy. Current Visit: Yes Status: Acute Priority: High Code(s): C34.90 - MALIGNANT NEOPLASM OF UNSP PART OF UNSP BRONCHUS OR LUNG SNOMED Code(s): 191312878 (2) Antineoplastic chemotherapy induced pancytopenia Narrative/Plan: Did give a one-time dose of G-CSF for ANC of 600. WBC adequate, no additional doses of GCSF Platelets 230,000. Hemoglobin 9.8, stable, no transfusion at this time. Daily CBC while inpt Current Visit: Yes Status: Acute Priority: Medium Code(s): D61.810 - ANTINEOPLASTIC CHEMOTHERAPY INDUCED PANCYTOPENIA; T45.1X5A - ADVERSE EFFECT OF ANTINEOPLASTIC AND IMMUNOSUP DRUGS, INIT SNOMED Code(s): 674609196855710 (3) Pulmonary embolism Narrative/Plan: Eliquis started. Rx sent to pharmacy for copay verification, no notes on verification yet. Hgb stable Treated brain mets Current Visit: Yes Status: Acute Priority: High Code(s): I26.99 - OTHER PULMONARY EMBOLISM WITHOUT ACUTE COR PULMONALE SNOMED Code(s): 85509622 (4) Brain metastases Narrative/Plan: Just recently completed XRT treatment. Follow up . CT head no acute abnormalities Current Visit: No Status: Chronic Priority: Medium Code(s): C79.31 - SECONDARY MALIGNANT NEOPLASM OF BRAIN SNOMED Code(s): 98435549 (5) Adrenal insufficiency due to cancer therapy Narrative/Plan: Specifically immunotherapy. Pt had low cortisol level documented in the ofc. Rechecking. Pt on pred. Will see if he needs additional medication support. Thyroid studies as well. Current Visit: Yes Status: Acute Priority: Medium Code(s): E27.3 - DRUG- INDUCED ADRENOCORTICAL INSUFFICIENCY SNOMED Code(s): 351547467 Plan: Pt c/o constipation and nausea. Medications added for supportive care of the same.
[2021-01-06] MEDS: SENNOSIDES-DOCUSATE SODIUM 1 EACH TAB PO SCH (20:05)
[2021-01-07] MEDS: HYDROcodone/APAP 10-325MG 1 EACH TAB PO PRN ×2 (05:21→20:39)
[2021-01-07] MEDS: IPRATROPIUM-ALBUTEROL 3 ML NEB INHALATION SCH ×4 (07:33→20:15)
[2021-01-07] MEDS: PIPERACILLIN-TAZOBACTAM 3.375 GM in SODIUM CHLORIDE 0.9% 100 ML IVPB SCH ×3 (09:39→23:12)
[2021-01-07] MEDS: FUROSEMIDE 80 MG TAB PO SCH ×2 (09:40→16:09)
[2021-01-07] MEDS: MULTIVITAMINS, THERA 1 EACH TAB PO SCH (09:40)
[2021-01-07] MEDS: SUCRALFATE 1 GM TAB PO SCH ×4 (09:40→20:39)
[2021-01-07] MEDS: DILTIAZEM CD 300 MG CAP.ER.24H PO SCH (09:40)
[2021-01-07] MEDS: PANTOPRAZOLE 40 MG TABLET PO SCH ×2 (09:41→17:29)
[2021-01-07] MEDS: DIGOXIN 250 MCG TAB PO SCH (09:41)
[2021-01-07] MEDS: predniSONE 20 MG TAB PO SCH (09:41)
[2021-01-07] MEDS: POTASSIUM CHLORIDE ER 10 MEQ TAB.ER.PRT PO SCH ×2 (09:41→20:39)
[2021-01-07] MEDS: METOPROLOL SUCCINATE (ER) 100 MG TAB.ER.24H PO SCH (09:42)
[2021-01-07] MEDS: CALCIUM CARB-VIT D 500 MG-5 MCG TAB PO SCH ×4 (09:42→20:39)
[2021-01-07] MEDS: CHOLECALCIFEROL 25 MCG (1000 IU) TABLET PO SCH (09:42)
[2021-01-07] MEDS: APIXABAN 5 MG TAB PO SCH ×2 (09:43→20:39)
[2021-01-07] MEDS: ASPIRIN 81 MG PO SCH (09:43)
[2021-01-07 11:47] LABS: HCT 31.3 % (39.6-50.0); HGB 9.5 g/dL (13.0-17.0); MCH 27.9 pg (27.0-32.0); MCHC 30.4 g/dL (32.0-37.0); MCV 91.8 fL (80.0-97.0); Mean Platelet Volume 10.8 fL (9.5-12.2); Platelet Count 267 X 10*3/uL (140-440); RBC 3.41 X 10*6/uL (4.40-5.60); RDW 18.9 % (11.5-14.5); WBC 14.03 X 10*3/uL (4.50-10.00)
[2021-01-07] MEDS: polyethylene glycoL 3350 17 GM POWD.PACK PO SCH (11:50)
[2021-01-07 12:33] LABS: T4, Free (Free Thyroxine) 1.1 ng/dL (0.80-1.80)
[2021-01-07 12:37] LABS: African American GFR (CKD) 52.8 (60.0-200.0); Anion Gap 11.6 mmol/L (4.00-12.00); Calcium 8.7 mg/dL (8.7-10.3); Carbon Dioxide 33.4 mmol/L (21.6-31.8); Non-African American GFR(CKD) 45.5 (60.0-200.0); Potassium 3.4 mmol/L (3.5-5.5)
[2021-01-07] MEDS: THIAMINE 100 MG TAB PO SCH (13:11)
[2021-01-07] MEDS: FOLIC ACID 1 MG TAB PO SCH (13:11)
[2021-01-07 13:25] LABS: Anisocytosis (M) 2+; Basophils # (M) 0 X 10*3/uL (0.00-0.10); Eosinophils # (M) 0 X 10*3/uL (0.04-0.35); Lymphocytes # (M) 1.12 X 10*3/uL (0.90-5.00); Metamyelocytes % 2 % (0-0); Monocytes # (M) 1.54 X 10*3/uL (0.20-1.00); Myelocytes % 2 % (0-0); Neutrophils % (M) 77 %
--- NOTE | 2021-01-07 15:28 | P.PN ---
Subjective Progress Note Date: 01/07/21 This is a 75-year-old male who was recently admitted with chronic obstructive pulmonary disease, acute exacerbation with acute left upper lobe postobstructive pneumonia with possible sepsis and being closely monitored. Patient being followed by multiple medical consultations including oncology, cardiology and pulmonary. Patient is maintained on IV antibiotic therapy and will continue and most likely transition to oral antibiotics upon discharge. Patient is maintained on oral prednisone and will continue along with bronchodilator treatments. Eliquis coverage was verified and patient was started on anticoagulant. Patient mentation appears to be improved. Need to continue to encourage oral intake as his intake has been poor and patient states it is lack of taste and will eat more when he goes home. Patient continues to be weak and was seen and evaluated by PT/OT therapy recommending rehab although patient is refusing and is agreeable with home care with family at home. Patient will be following up with radiation oncology in the outpatient setting. Review of systems: Constitutional: No reports of fatigue, fever, or chills Cardiovascular: No reports of chest pain or palpitations Respiratory: No reports of worsening shortness of breath GI: No reports of nausea, vomiting, or diarrhea, reports poor oral intake due to lack of taste : No reports of dysuria or retention Neurovascular: Reports intermittent weakness All medications have been reviewed Active Medications Acetaminophen (Acetaminophen Tab 500 Mg Tab) 1,000 mg PO Q6HR PRN PRN Reason: Mild Pain or Fever > 100.5 Last Admin: 01/02/21 06:24 Dose: 1,000 mg Documented by: Hydrocodone Bitart/Acetaminophen (Hydrocodone/Apap 10-325mg 1 Each Tab) 1 each PO Q6H PRN PRN Reason: Pain Last Admin: 01/07/21 05:21 Dose: 1 each Documented by: Albuterol/Ipratropium (Ipratropium-Albuterol 3 Ml Neb) 3 ml INHALATION RT-QID PRN PRN Reason: Shortness Of Breath Or Wheezing Albuterol/Ipratropium (Ipratropium-Albuterol 3 Ml Neb) 3 ml INHALATION RT-QID [facility] Last Admin: 01/07/21 12:13 Dose: 3 ml Documented by: Apixaban (Apixaban 5 Mg Tab) 10 mg PO BID [facility] Stop: 01/09/21 09:01 Last Admin: 01/07/21 09:43 Dose: 10 mg Documented by: Aspirin (Aspirin 81 Mg) 81 mg PO DAILY [facility] Last Admin: 01/07/21 09:43 Dose: 81 mg Documented by: Calcium Carbonate (Calcium Carb-Vit D 500 Mg-5 Mcg Tab) 1 each PO QID [facility] Last Admin: 01/07/21 13:10 Dose: 1 each Documented by: Cholecalciferol (Cholecalciferol 25 Mcg (1000 Iu) Tablet) 25 mcg PO DAILY [facility] Last Admin: 01/07/21 09:42 Dose: 25 mcg Documented by: Al Hydroxide/Mg Hydroxide 30 ml/ Lidocaine HCl 30 ml/Diphenhydramine HCl 75 mg/N ystatin 3,000,000 unit 0 ml PO QID PRN PRN Reason: THRUSH Last Admin: 01/03/21 09:01 Dose: 5 ml Documented by: Digoxin (Digoxin 250 Mcg Tab) 250 mcg PO DAILY [facility] Last Admin: 01/07/21 09:41 Dose: 250 mcg Documented by: Diltiazem HCl (Diltiazem Cd 300 Mg Cap.Er.24h) 300 mg PO DAILY [facility] Last Admin: 01/07/21 09:40 Dose: 300 mg Documented by: Fentanyl (Fentanyl 12mcg/Hr Patch) 1 patch TRANSDERM Q72H [facility]; Protocol Last Admin: 01/06/21 09:35 Dose: 1 patch Documented by: Fluticasone Propionate (Fluticasone 50mcg/[place] Nasal 16gm) 1 spray EA NOSTRIL DAILY PRN PRN Reason: Allergy Symptoms Folic Acid (Folic Acid 1 Mg Tab) 1 mg PO DAILY@1200 [facility] Last Admin: 01/07/21 13:11 Dose: 1 mg Documented by: Furosemide (Furosemide 80 Mg Tab) 80 mg PO BID@0900,1600 [facility] Last Admin: 01/07/21 09:40 Dose: 80 mg Documented by: Piperacillin Sod/Tazobactam (Sod 3.375 gm/ Sodium Chloride) 100 mls @ 25 mls/hr IVPB Q8HR [facility] Last Admin: 01/07/21 09:39 Dose: 25 mls/hr Documented by: Levetiracetam (Levetiracetam 750 Mg Tab) 750 mg PO BID [facility] Last Admin: 01/07/21 09:41 Dose: 750 mg Documented by: Lorazepam (Lorazepam 0.5 Mg Tab) 0.5 mg PO TID PRN PRN Reason: Anxiety Last Admin: 01/05/21 23:39 Dose: 0.5 mg Documented by: Metoprolol Succinate (Metoprolol Succinate (Er) 100 Mg Tab.Er.24h) 100 mg PO DAILY [facility] Last Admin: 01/07/21 09:42 Dose: 100 mg Documented by: Miscellaneous Information (Pneumonia Protocol Utilized 1 Each Misc) 1 each PO ONCE PRN PRN Reason: Per Protocol Multivitamins (Multivitamins, Thera 1 Each Tab) 1 each PO DAILY [facility] Last Admin: 01/07/21 09:40 Dose: 1 each Documented by: Nystatin (Nystatin 100,000 Unit/Ml Susp 500,000 Unit/5 Ml Cup) 500,000 unit PO QID PRN PRN Reason: THRUSH Ondansetron HCl (Ondansetron 4 Mg Tab) 4 mg PO Q4H PRN PRN Reason: Nausea And Vomiting Last Admin: 01/06/21 15:47 Dose: 4 mg Documented by: Pantoprazole Sodium (Pantoprazole 40 Mg Tablet) 40 mg PO AC-BID [facility] Last Admin: 01/07/21 09:41 Dose: 40 mg Documented by: Polyethylene Glycol (Polyethylene Glycol 3350 17 Gm Powd.Pack) 17 gm PO DAILY [facility] Last Admin: 01/07/21 11:50 Dose: Not Given Documented by: Potassium Chloride (Potassium Chloride Er 10 Meq Tab.Er.Prt) 10 meq PO BID [facility] Last Admin: 01/07/21 09:41 Dose: 10 meq Documented by: Prednisone (Prednisone 20 Mg Tab) 40 mg PO DAILY [facility] Last Admin: 01/07/21 09:41 Dose: 40 mg Documented by: Senna (Sennosides 8.6 Mg Tab) 8.6 mg PO BID PRN PRN Reason: Constipation Senna/Docusate Sodium (Sennosides-Docusate Sodium 1 Each Tab) 1 each PO HS [facility] Last Admin: 01/06/21 20:05 Dose: 1 each Documented by: Sucralfate (Sucralfate 1 Gm Tab) 1 gm PO ACHS [facility] Last Admin: 01/07/21 13:10 Dose: 1 gm Documented by: Thiamine HCl (Thiamine 100 Mg Tab) 100 mg PO DAILY@1200 [facility] Last Admin: 01/07/21 13:11 Dose: 100 mg Documented by: Objective - Vital Signs Vital signs: Vital Signs Temp 97.6 F 01/07/21 06:35 Pulse 79 01/07/21 07:43 Resp 18 01/07/21 06:35 BP 84/53 01/07/21 06:35 Pulse Ox 97 01/07/21 06:35 Intake & Output 01/06/21 01/07/21 01/07/21 18:59 06:59 18:59 Intake Total 240 Balance 240 Weight 122.2 kg Intake: Oral 240 Other: Voiding Method Urinal Urinal # Voids 3 - Exam Gen: This is a 75-year-old male sitting up in the chair awake, alert and oriented 3, well-developed, well-nourished, obese. Temp is 97.6F, pulse is 73, respirations are 18, blood pressure is 84/53, oxygen saturation is 97% on 3 L via nasal cannula. HEENT: Head is atraumatic, normocephalic. Pupils equal, round. Sclerae is anicteric. NECK: Supple. No JVD. No lymphadenopathy. No thyromegaly. LUNGS: Diminished breath sounds bilaterally with some scattered rhonchi and mild expiratory wheezing noted. No intercostal retractions. HEART: S1, S2 are muffled ABDOMEN: Soft. Obese. Bowel sounds are present. No masses. No tenderness. EXTREMITIES: No pedal edema. No calf tenderness. NEUROLOGICAL: Patient is awake, alert and oriented x3. Diffusely weak. No focal deficits noted - Labs CBC & Chem 7: 01/07/21 06:24 01/07/21 06:24 Labs: Abnormal Lab Results - Last 24 Hours (Table) 01/03/21 01/07/21 Range/Units 07:13 06:24 WBC 14.03 H (4.50-10.00) X 10*3/uL RBC 3.41 L (4.40-5.60) X 10*6/uL Hgb 9.5 L (13.0-17.0) g/dL Hct 31.3 L (39.6-50.0) % MCHC 30.4 L (32.0-37.0) g/dL RDW 18.9 H (11.5-14.5) % Absolute Nucleated RBC 0.29 H (0.00-0.00) X 10*3/uL NRBC/100 WBC Diff 2.1 H (0.0-0.0) /100 WBCS Procalcitonin 0.70 H (0.02-0.09) ng/mL Assessment and Plan Assessment: Chronic obstructive pulmonary disease, acute exacerbation with acute left upper lobe postobstructive pneumonia with possible sepsis, present on admission Acute right pulmonary embolism, on anticoagulation Pancytopenia secondary to chemotherapy Non-small cell lung cancer, left, history recently Elevated troponin secondary to type II myocardial infarction per cardiology, no further workup History of lung cancer with left upper lobe mass lesion Change in mental status, acute metabolic encephalopathy Multiple brain metastasis, undergoing radiation therapy Chronic hypoxic respiratory failure Chronic persistent atrial fibrillation Congestive heart failure with chronic systolic dysfunction, ejection fraction 45% to 50% with cardiomyopathy Chronic obstructive pulmonary disease Gastroesophageal reflux disease Obstructive sleep apnea Chronic back pain, degenerative joint disease Obesity with a body mass index of 36.5 Full code Recommendations and discussion: Recommend to continue with current medications, management, and symptomatic treatment. Multiple medical consultations following including oncology and cardiology. Patient is maintained on IV antibiotic therapy and will continue and will transition to oral Augmentin on discharge. PT/OT evaluated the patient recommending subacute rehab although patient is refusing and is agreeable to home care at home with family. Case management is following and working on arrangements for discharge planning needs. Patient will also be following up with radiation oncology in the outpatient setting. Patient was restarted on anticoagulation and will continue his coverage has been verified. Oncology also following. TSH and T4, T3 were ordered and pending at this time. Patient to continue with bronchodilators and steroids at this time. Due to multiple complex medical issues, prognosis is guarded. Further recommendations to follow. Anticipate discharge in 24 hours.
[2021-01-07] MEDS: SENNOSIDES-DOCUSATE SODIUM 1 EACH TAB PO SCH (20:39)
[2021-01-08] MEDS: HYDROcodone/APAP 10-325MG 1 EACH TAB PO PRN (02:55)
[2021-01-08] MEDS: IPRATROPIUM-ALBUTEROL 3 ML NEB INHALATION SCH ×2 (07:08→11:21)
[2021-01-08] MEDS: SUCRALFATE 1 GM TAB PO SCH ×2 (07:28→12:46)
[2021-01-08] MEDS: PIPERACILLIN-TAZOBACTAM 3.375 GM in SODIUM CHLORIDE 0.9% 100 ML IVPB SCH (07:29)
[2021-01-08] MEDS: PANTOPRAZOLE 40 MG TABLET PO SCH (07:29)
[2021-01-08] MEDS: APIXABAN 5 MG TAB PO SCH (08:23)
[2021-01-08] MEDS: MULTIVITAMINS, THERA 1 EACH TAB PO SCH (08:24)
[2021-01-08] MEDS: CALCIUM CARB-VIT D 500 MG-5 MCG TAB PO SCH ×2 (08:24→12:46)
[2021-01-08] MEDS: FUROSEMIDE 80 MG TAB PO SCH (08:24)
[2021-01-08] MEDS: predniSONE 20 MG TAB PO SCH (08:24)
[2021-01-08] MEDS: CHOLECALCIFEROL 25 MCG (1000 IU) TABLET PO SCH (08:24)
[2021-01-08] MEDS: ASPIRIN 81 MG PO SCH (08:24)
[2021-01-08] MEDS: METOPROLOL SUCCINATE (ER) 100 MG TAB.ER.24H PO SCH (08:25)
[2021-01-08] MEDS: polyethylene glycoL 3350 17 GM POWD.PACK PO SCH (08:25)
[2021-01-08] MEDS: DIGOXIN 250 MCG TAB PO SCH (08:25)
[2021-01-08] MEDS: POTASSIUM CHLORIDE ER 10 MEQ TAB.ER.PRT PO SCH (08:25)
[2021-01-08] MEDS: DILTIAZEM CD 300 MG CAP.ER.24H PO SCH (08:25)
[2021-01-08 09:48] LABS: Anisocytosis Slight; Basophils # (A) 0.1 k/uL (0-0.2); Basophils % (A) 1 %; Eosinophils % (A) 0 %; HCT 34.3 % (39.0-53.0); HGB 10.9 gm/dL (13.0-17.5); Hypochromasia Slight; Lymphocytes # (A) 1.8 k/uL (1.0-4.8); Lymphocytes % (A) 14 %; MCH 28.7 pg (25.0-35.0); MCHC 31.7 g/dL (31.0-37.0); MCV 90.5 fL (80.0-100.0); Mean Platelet Volume 8.1; Monocytes % (A) 8 %; Neutrophils # (A) 9.1 k/uL (1.3-7.7); Neutrophils % (A) 75 %; RBC 3.79 m/uL (4.30-5.90); RDW 19.4 % (11.5-15.5)
[2021-01-08 09:59] LABS: Platelet Count 313 k/uL (150-450)
[2021-01-08 10:18] LABS: Band Neutrophils % 1 %; Lymphocytes # (M) 1.94 k/uL (1.0-4.8); Monocytes # (M) 1.09 k/uL (0-1.0); Neutrophils % (M) 75 %; Nucleated Red Blood Cells 1 /100 WBC (0-0); Total Cells Counted 200; WBC 12.1 k/uL (3.8-10.6)
[2021-01-08 10:19] LABS: Polychromasia Present
--- NOTE | 2021-01-08 11:58 | P.PN ---
Subjective Progress Note Date: 01/08/21 Principal diagnosis: PNA, fever. SCLC, on treatment In f/u today pt sitting in chair, he is walking with walker, his LOC is stable and much improved. No c/o today other then he takes too many pills Objective - Vital Signs Vital signs: Vital Signs Temp 98.5 F 01/08/21 07:17 Pulse 68 01/08/21 07:17 Resp 18 01/08/21 07:17 BP 101/57 01/08/21 07:17 Pulse Ox 98 01/08/21 07:17 Intake & Output 01/07/21 01/08/21 01/08/21 18:59 06:59 18:59 Intake Total 200 Output Total 200 275 Balance 200 -200 -275 Intake: Intake, IV Titration 200 Amount Piperacillin-Tazobactam 3 200 .375 gm In Sodium Chloride 0.9% 100 ml @ 25 mls/hr IVPB Q8HR [facility] Rx# :[id number] Output: Urine 200 275 Other: Voiding Method Urinal # Voids 1 1 - Constitutional General appearance: Present: cooperative, morbidly obese, no acute distress - EENT Eyes: Present: anicteric sclerae, EOMI ENT: Present: hearing grossly normal - Respiratory Respiratory: bilateral: CTA, diminished - Cardiovascular Rhythm: irregularly irregular Heart sounds: normal: S1, S2 - Peripheral edema leg Peripheral Edema: bilateral: 1+ - Gastrointestinal General gastrointestinal: Present: normal bowel sounds, soft - Neurologic Neurologic: Present: CNII-XII intact - Musculoskeletal Musculoskeletal: Present: generalized weakness, strength equal bilaterally - Psychiatric Psychiatric: Present: A&O x's 3, appropriate affect, intact judgment & insight - Labs CBC & Chem 7: 01/08/21 08:55 01/07/21 06:24 Labs: Abnormal Lab Results - Last 24 Hours (Table) 01/03/21 01/07/21 01/07/21 Range/Units 07:13 06:24 06:24 WBC 14.03 H (4.50-10.00) X 10*3/uL RBC 3.41 L (4.40-5.60) X 10*6/uL Hgb 9.5 L (13.0-17.0) g/dL Hct 31.3 L (39.6-50.0) % MCHC 30.4 L (32.0-37.0) g/dL RDW 18.9 H (11.5-14.5) % Absolute Nucleated RBC 0.29 H (0.00-0.00) X 10*3/uL Metamyelocytes % 2 H (0-0) % Myelocytes % 2 H (0-0) % Neutrophils # (Manual) 10.80 H (2.00-8.90) X 10*3/uL Monocytes # (Manual) 1.54 H (0.20-1.00) X 10*3/uL Eosinophils # (Manual) 0 L (0.04-0.35) X 10*3/uL NRBC/100 WBC Diff 2.1 H (0.0-0.0) /100 WBCS Potassium 3.4 L (3.5-5.5) mmol/L Carbon Dioxide 33.4 H (21.6-31.8) mmol/L BUN 30.0 H (9.0-27.0) mg/dL Est GFR (CKD-EPI)AfAm 52.8 L (60.0-200.0) Est GFR (CKD-EPI)NonAf 45.5 L (60.0-200.0) Procalcitonin 0.70 H (0.02-0.09) ng/mL 01/08/21 Range/Units 08:55 WBC 12.2 H (4.50-10.00) X 10*3/uL RBC 3.79 L (4.40-5.60) X 10*6/uL Hgb 10.9 L (13.0-17.0) g/dL Hct 34.3 L (39.6-50.0) % MCHC (32.0-37.0) g/dL RDW 19.4 H (11.5-14.5) % Absolute Nucleated RBC (0.00-0.00) X 10*3/uL Metamyelocytes % (0-0) % Myelocytes % (0-0) % Neutrophils # (Manual) (2.00-8.90) X 10*3/uL Monocytes # (Manual) (0.20-1.00) X 10*3/uL Eosinophils # (Manual) (0.04-0.35) X 10*3/uL NRBC/100 WBC Diff (0.0-0.0) /100 WBCS Potassium (3.5-5.5) mmol/L Carbon Dioxide (21.6-31.8) mmol/L BUN (9.0-27.0) mg/dL Est GFR (CKD-EPI)AfAm (60.0-200.0) Est GFR (CKD-EPI)NonAf (60.0-200.0) Procalcitonin (0.02-0.09) ng/mL Assessment and Plan (1) Small cell lung cancer Narrative/Plan: Patient is status post 2 cycles of treatment. In general poor tolerance. Plan a follow-up with Primary Oncologist before resuming any further therapy. Appt in DC summary Tx will be held until his current condition is stabilized and he has had the opportunity to rehabilitate, as needed, to recover from acute illness and have a PS adequate to cont cancer therapy. Current Visit: Yes Status: Acute Priority: High Code(s): C34.90 - MALIGNANT NEOPLASM OF UNSP PART OF UNSP BRONCHUS OR LUNG SNOMED Code(s): 484996521 (2) Antineoplastic chemotherapy induced pancytopenia Narrative/Plan: Did give a one-time dose of G-CSF for ANC of 600. WBC adequate, no additional doses of GCSF were given Platelets 313,000. Hemoglobin 10.9 Current Visit: Yes Status: Acute Priority: Medium Code(s): D61.810 - ANTINEOPLASTIC CHEMOTHERAPY INDUCED PANCYTOPENIA; T45.1X5A - ADVERSE EFFECT OF ANTINEOPLASTIC AND IMMUNOSUP DRUGS, INIT SNOMED Code(s): 009691992751331 (3) Pulmonary embolism Narrative/Plan: Eliquis started. Tolerated well so far. Hgb stable Treated brain mets Current Visit: Yes Status: Acute Priority: High Code(s): I26.99 - OTHER PULMONARY EMBOLISM WITHOUT ACUTE COR PULMONALE SNOMED Code(s): 56062310 (4) Brain metastases Narrative/Plan: Just recently completed XRT treatment. Follow up . CT head no acute abnormalities Current Visit: No Status: Chronic Priority: Medium Code(s): C79.31 - SECONDARY MALIGNANT NEOPLASM OF BRAIN SNOMED Code(s): 45797385 (5) Adrenal insufficiency due to cancer therapy Narrative/Plan: Specifically immunotherapy. Pt had low cortisol level documented in the ofc. Normal level inpt, on steroids. Will cont to monitor. He may need steroid treatment in the future. Thyroid studies WNL. Current Visit: Yes Status: Acute Priority: Medium Code(s): E27.3 - DRUG- INDUCED ADRENOCORTICAL INSUFFICIENCY SNOMED Code(s): 044633994 Plan: Cont supportive treatment of constipation and nausea.
[2021-01-08] MEDS: THIAMINE 100 MG TAB PO SCH (12:46)
[2021-01-08] MEDS: FOLIC ACID 1 MG TAB PO SCH (12:46)
[2021-01-08 15:12] VITALS: BP 96/58; PULSE 69; RESP 17; TEMP 98.1
--- NOTE | 2021-01-08 22:26 | DS ---
DISCHARGE SUMMARY DATE OF SERVICE: 01/08/2021 FINAL DIAGNOSES: 1. Chronic obstructive pulmonary disease, acute exacerbation, with acute left upper lobe postobstructive pneumonia with possible sepsis, present on admission. 2. Acute right pulmonary embolism, on anticoagulation. 3. Pancytopenia secondary to chemotherapy. 4. [id number] lung cancer, left side history recently. 5. Elevated troponin secondary to type 2 myocardial infarction. Per Cardiology, no further workup. 6. History of lung cancer with left upper lobe mass lesion. 7. Change in mental status, acute metabolic encephalopathy. 8. Multiple brain metastases, undergoing radiation therapy. 9. Chronic hypoxic respiratory failure. 10.Chronic persistent atrial fibrillation. 11.Congestive heart failure with chronic systolic dysfunction, ejection fraction 45% to 50%, with cardiomyopathy. 12.Chronic obstructive pulmonary disease. 13.Gastroesophageal reflux disease. 14.Obstructive sleep apnea. 15.Chronic back pain, degenerative joint disease. 16.Obesity with body mass index of 34.7. 17.FULL CODE. DISCHARGE DISPOSITION: The patient will be discharged in stable condition with guarded prognosis. Total time taken 35 minutes. HISTORY OF PRESENT ILLNESS: This 75-year-old gentleman with a past medical history of multiple medical problems, including COPD, acute exacerbation, also had multiple complex medical issues, as mentioned earlier. The patient was started on anticoagulation. Cardiology saw the patient. Pulmonary saw the patient as well. CT scan of the brain showed no acute findings. The patient will be discharged in stable condition. On exam, vitals are stable. CARDIOVASCULAR SYSTEM: S1, S2 muffled. ABDOMEN: Soft. NERVOUS SYSTEM: No focal deficit. DISCHARGE ADVICE AND MEDICATIONS: 1. Diet is cardiac. 2. Activity limited until followup. 3. Follow up with Dr. Knapp in 2-3 days. 4. Follow up with Dr. Sim as recommended. 5. Follow up with Dr. Millan as recommended. 6. Home care is also being arranged. 7. Ecotrin 81 mg p.o. daily. 8. Ativan 0.5 mg t.i.d. 9. Calcium carbonate 1 p.o. q.i.d. 10.Carafate 1 gram before meals and at bedtime. 11.Fentanyl patch 1 daily. 12.Fish oil daily. 13.Fluticasone p.r.n. 14.Garlic p.r.n. 15.Keppra 750 mg p.o. b.i.d. 16.Klor-Con 10 mEq p.o. b.i.d. 17.Kools Solution. 18.MiraLAX 17 grams p.o. daily. 19.Morphine sulfate. MS Contin 30 mg p.o. b.i.d. 20.Multivitamins 1 p.o. daily. 21.Nystatin p.r.n. 22.Elgin 10 mg q.6 p.r.n. 23.Senna 1 tablet at bedtime. 24.Toprol XL 100 mg p.o. daily. 25.Tylenol 1000 mg q.6 p.r.n. 26.Ventolin 2 puffs q.i.d. p.r.n. 27.Vitamin D3 1000 daily. 28.Augmentin 1 p.o. b.i.d. for 5 days. 29.Cardizem CD 300 mg p.o. daily. 30.DuoNeb q.i.d. and p.r.n. 31.Eliquis 5 mg p.o. b.i.d. 32.Folic acid 1 mg p.o. daily. 33.Lanoxin 0.25 mg p.o. daily. 34.Lasix 80 mg p.o. b.i.d. 35.Prednisone taper: 40 mg daily for 3 days; 30 mg daily for 3 days; 20 mg daily for 3 days; 10 mg daily for 3 days. 36.Protonix 40 mg p.o. daily. 37.Thiamine 100 mg p.o. daily. Once again, the patient will be discharged in stable condition with guarded prognosis. MMODL / IJN: [id number] /
== END 2021-01-08 15:41 | disposition home health service (06) | DRG 871 ==
LOC: EC 19:02 → 3SCARD 20:52 → 4SSUR 01-04 10:21
PROVIDERS: ADMIT Hospitalist; ATTEND Hospitalist
DX: A41.9 Sepsis, unspecified organism (principal); I26.99 Other pulmonary embolism without acute cor pulmonale; D61.810 Antineoplastic chemotherapy induced pancytopenia; I21.A1 Myocardial infarction type 2; J18.9 Pneumonia, unspecified organism; G93.41 Metabolic encephalopathy; J44.0 Chronic obstructive pulmonary disease with (acute) lower respiratory infection; C79.31 Secondary malignant neoplasm of brain; I48.19 Other persistent atrial fibrillation; J44.1 Chronic obstructive pulmonary disease with (acute) exacerbation; J98.11 Atelectasis; J96.11 Chronic respiratory failure with hypoxia; I42.9 Cardiomyopathy, unspecified; I50.22 Chronic systolic (congestive) heart failure; E27.40 Unspecified adrenocortical insufficiency; Z20.822 Contact with and (suspected) exposure to COVID-19; I11.0 Hypertensive heart disease with heart failure; I95.9 Hypotension, unspecified; R77.8 Other specified abnormalities of plasma proteins; T45.1X5A Adverse effect of antineoplastic and immunosuppressive drugs, initial encounter; K59.00 Constipation, unspecified; R59.0 Localized enlarged lymph nodes; L65.9 Nonscarring hair loss, unspecified; E66.9 Obesity, unspecified; G47.33 Obstructive sleep apnea (adult) (pediatric); K21.9 Gastro-esophageal reflux disease without esophagitis; G89.29 Other chronic pain; M54.5 Low back pain; Z68.35 Body mass index [BMI] 35.0-35.9, adult; Z79.82 Long term (current) use of aspirin; Z79.899 Other long term (current) drug therapy; Z85.118 Personal history of other malignant neoplasm of bronchus and lung; Z85.841 Personal history of malignant neoplasm of brain; Z87.891 Personal history of nicotine dependence; Z92.3 Personal history of irradiation; Z92.21 Personal history of antineoplastic chemotherapy; Z82.49 Family history of ischemic heart disease and other diseases of the circulatory system; Z99.81 Dependence on supplemental oxygen; Z79.52 Long term (current) use of systemic steroids; Z79.01 Long term (current) use of anticoagulants
CPT/HCPCS: 36415; 70450; 71045; 71046; 71275; 74018; 80048; 80053; 80076; 82533; 82550; 83735; 83880; 84145; 84439; 84443; 84484; 85025; 85610; 85730; 87040; 87635; 93005; 93970; 94640; 94760; 96365; 99285

== ENCOUNTER → 2021-01-14 | Outpatient (CLI) | payer MEDICARE ==
--- NOTE | 2021-01-14 17:21 | MR ---
EXAMINATION TYPE: MR brain wo/w con DATE OF EXAM: 01/14/2021 COMPARISON: 11/01/2020 HISTORY: 75-year-old male C79.31, Follow up for radiation treatment. Secondary malignant neoplasm of brain, liver, intrahepatic bile duct, malignant neoplasm of upper lobe, left bronchus or lung. Technique: Multiplanar, multisequence images of the brain were obtained before and after administrati on of 12 mL intravenous Gadavist gadolinium contrast. Diffusion-weighted imaging is performed. FINDINGS: DWI sequence is no evidence for acute or subacute infarct. Interval improvement in the previous intracranial metastases. Lesions have largely resolved. Within t he left thalamus, only vague 9 mm and 6 mm blush of enhancement is seen, axial image 47 and 45. T2 FL AIR signal has also improved here. Right ventral nirav lesion has improved. No significant residual edema is seen here or enhancement Left and right occipital lobe lesions no longer seen. Right frontal cortical and left paramedian fron toparietal lesions are no longer seen. No new enhancing lesion is seen. Moderate patchy and confluent T2 bright white matter changes in both cerebral hemispheres is unchange d. Moderate generalized supratentorial volume loss and secondary mild prominence to the ventricular syst em is unchanged. Major intracranial flow voids are intact. Midline structures are not gross abnormality. The craniocervical junction is normal. Partially visualized low T1-weighted signal within the C3 vertebral body, possible metastatic disease . 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 Mild mucosal thickening ethmoid air cells. Small amount of opacification within the inferior left mas toid air cells. Globes are intact. IMPRESSION: 1. Interval treatment response. The previously seen brain metastases have largely resolved. In the le ft thalamus, only a vague blush of enhancement remains. 2. Redemonstrated low T1 signal within the C3 vertebral body, possible osseous metastasis. 3. Moderate atrophy and patchy and confluent burden of chronic small vessel ischemic disease. No acut e intracranial abnormality seen.
== END | disposition home or self-care (01) ==
LOC: RADMRIMAIN 14:32
PROVIDERS: ATTEND Radiology Radiation Oncology
DX: C34.12 Malignant neoplasm of upper lobe, left bronchus or lung (principal); C79.31 Secondary malignant neoplasm of brain; C78.7 Secondary malignant neoplasm of liver and intrahepatic bile duct; G31.9 Degenerative disease of nervous system, unspecified; I67.82 Cerebral ischemia
CPT/HCPCS: 70553; A9585

== ENCOUNTER → 2021-01-16 | Outpatient (CLI) | payer MEDICARE ==
--- NOTE | 2021-01-16 13:43 | XR ---
EXAMINATION TYPE: XR cervical spine limited DATE OF EXAM: 01/16/2021 CLINICAL HISTORY: pain TECHNIQUE: 3 views of the cervical spine are submitted. COMPARISON: None. FINDINGS: There is satisfactory in alignment without evidence of acute fracture or dislocation. The pre-vertebral soft tissue appears within normal limits.Disc spaces are well preserved. The C1-C2 art iculation is unremarkable on the open mouth view. IMPRESSION: No acute fracture or dislocation is seen in the cervical spine.
== END | disposition home or self-care (01) ==
LOC: RADXRMAIN 13:12
PROVIDERS: ATTEND Internal Medicine Hematology & Oncology
DX: C34.92 Malignant neoplasm of unspecified part of left bronchus or lung (principal); C79.31 Secondary malignant neoplasm of brain; B37.0 Candidal stomatitis; I26.99 Other pulmonary embolism without acute cor pulmonale
CPT/HCPCS: 72040

== ENCOUNTER → 2021-02-07 | Outpatient (CLI) | payer MEDICARE ==
--- NOTE | 2021-02-08 02:39 | MR ---
EXAMINATION TYPE: MR brain wo/w con DATE OF EXAM: 02/07/2021 COMPARISON: 01/14/2021 HISTORY: Lung cancer, brain mets, neck pain. CONTRAST: Standard multiplanar, multisequence MRI departmental protocol utilizing 12 mL intravenous Gadavist ga dolinium contrast. There is cerebral cortical atrophy. There is no mass effect nor midline shift. There is no sign of in tracranial hemorrhage. Diffusion images show no evidence of an acute infarct. The brainstem is intact . On the T2 and FLAIR images there is patchy areas of increased signal in the white matter in both ce rebral hemispheres likely related to chronic small vessel ischemia. Unchanged. I see no pathologic enhancement. There is no evidence of orbital mass. IMPRESSION: Cerebral atrophy and chronic small vessel ischemia without change. No evidence of recurrent metastati c disease. No significant change compared to recent exam.
== END ==
LOC: RADMRIMAIN 19:31
PROVIDERS: ATTEND Internal Medicine Hematology & Oncology
DX: C34.90 Malignant neoplasm of unspecified part of unspecified bronchus or lung (principal); C79.31 Secondary malignant neoplasm of brain
CPT/HCPCS: 70553; A9585

== ENCOUNTER → 2021-02-14 | Outpatient (CLI) | payer MEDICARE ==
--- NOTE | 2021-02-16 08:10 | CT ---
EXAMINATION TYPE: CT ChestAbdPelvis w con DATE OF EXAM: 02/14/2021 COMPARISON: December 31, 2020 CTA chest as well as CT abdomen pelvis dated 11/01/2020 HISTORY: Lung cancer; mets to brain CT DLP: 2351.90 mGycm CONTRAST: CT scan of the chest, abdomen and pelvis is performed with Oral Contrast and with IV Contrast, patien t injected with 100 ml mL of Isovue 300. CT Chest: LUNGS: Persistent left suprahilar mass measuring 5.2 x 3.5 cm versus prior measurement of 5.3 x 3.2 c m. There is improving post obstructive volume loss left upper lobe. Small pleural effusions are noted as well as basilar compressive atelectasis. No additional pulmonary nodules or masses are seen at th is time. MEDIASTINUM: Thoracic aorta is of normal caliber. The heart is mildly enlarged. There is an anterio r mediastinal mass measuring 3.7 x 3.0 cm versus 3.7 x 3.0 cm previously. HILAR STRUCTURES: No evidence for mass. Stable left hilar adenopathy of 1.6 cm. OTHER: No significant abnormality. CONTRAST CT ABDOMEN AND PELVIS FINDINGS: LIVER/GB: No calcified gallstones. There is strandy attenuation adjacent to the gallbladder fundus. Inflammatory change of uncertain etiology is difficult to exclude. Correlate clinically. Previously noted hepatic lesions are poorly visualized on today's study suggesting treatment response. Biliary t ree is of normal caliber. PANCREAS: No inflammation. No distinct mass. SPLEEN: No splenic enlargement. No lesion seen. ADRENALS: No nodule. Stable and mild left adrenal thickening noted.. KIDNEYS/BLADDER: No hydronephrosis. No nephrolithiasis. Stable simple cyst lower pole right kidney. BOWEL: Normal appendix. Normal bowel caliber. No inflammation. Scattered sigmoid diverticulosis wit hout diverticulitis. GENITAL ORGANS: No gross abnormality. LYMPH NODES: No greater than 1cm abdominal or pelvic lymph nodes are appreciated. AORTA: No significant abnormality. OSSEOUS STRUCTURES: Sclerotic metastatic lesions are seen throughout multiple thoracic and lumbar seg ments. Mild interval loss of height inferior endplate of L3. Sacral and iliac lesions are also noted. OTHER: No significant additional abnormality is seen. IMPRESSION: 1. Stable left suprahilar mass but improving postobstructive the pneumonia or atelectasis left upper lobe. 2. Stable anterior mediastinal mass and left hilar adenopathy. 3. Previously noted hepatic lesions are poorly visualized on today's study suggesting possible treatm ent response. 4. Sclerotic metastatic disease throughout the visualized axial skeleton. Mild inferior endplate loss of height of L3. 5.There is strandy attenuation adjacent to the gallbladder fundus. Inflammatory change of uncertain e tiology is difficult to exclude. Correlate clinically.
== END | disposition home or self-care (01) ==
LOC: RADCTMAIN 12:30
PROVIDERS: ATTEND Internal Medicine Hematology & Oncology
DX: C34.92 Malignant neoplasm of unspecified part of left bronchus or lung (principal); C79.31 Secondary malignant neoplasm of brain; C79.51 Secondary malignant neoplasm of bone; R59.0 Localized enlarged lymph nodes
CPT/HCPCS: 82565; 84520; 71260; 74177; 36415; Q9967

== ENCOUNTER → 2021-04-08 | Outpatient (CLI) | payer MEDICARE ==
--- NOTE | 2021-04-09 06:21 | MR ---
EXAMINATION TYPE: MR brain wo/w con DATE OF EXAM: 04/08/2021 COMPARISON: MRI brain February 07, 2021 and older studies. HISTORY: Hx of metastatic cancer to brain, lt side weakness TECHNIQUE: Multiplanar, multisequence images of the brain and brainstem is performed without and with IV contras t, utilizing 10 mL intravenous Gadavist . FINDINGS: Diffusion weighted images demonstrate no evidence of a recent infarct or other diffusion abnormality. Mild to moderate diffuse ventricular and sulcal prominence is redemonstrated. Focal and confluent ar eas of T2 hyperintensity throughout the white matter are again seen. Midline structures demonstrate normal morphology. The craniocervical junction remains within normal limits. The dural venous sinuses appear patent. The visualized sinuses are clear and the globes are intact. Increasing prominence or fluid left mastoid air cells noted. Current study has more motion artifact degradation making evaluation suboptimal. New metastatic disea se is identified. I see at least 15 scattered lesions superiorly bilaterally. For reference roughly 7 lesions up to 5 mm in size noted axial image 64. Majority lesions showed new foci of T2 hyperintensi ty and rim enhancement. For reference there is a new 5 mm rim enhancing right cerebellar lesion axial image 23. For reference there is a new 4 mm right temporal lesion axial image 30. IMPRESSION: Significant metastatic neoplastic recurrence with at least 30 new Rim-enhancing lesions identified bilaterally on this study.
== END | disposition home or self-care (01) ==
LOC: RADMRIMAIN 14:39
PROVIDERS: ATTEND Radiology Radiation Oncology
DX: C79.31 Secondary malignant neoplasm of brain (principal); C78.7 Secondary malignant neoplasm of liver and intrahepatic bile duct; C34.12 Malignant neoplasm of upper lobe, left bronchus or lung; Z92.3 Personal history of irradiation
CPT/HCPCS: 70553; A9585

== ENCOUNTER → 2021-04-29 | Outpatient (CLI) | payer MEDICARE ==
--- NOTE | 2021-04-29 13:12 | CT ---
EXAMINATION TYPE: CT ChestAbdPelvis wo/w con DATE OF EXAM: 04/29/2021 COMPARISON: 02/14/2021 HISTORY: Secondary malignant neoplasm of brain CT DLP: 2986.5 mGycm Automated exposure control for dose reduction was used. CONTRAST: CT scan of the chest, abdomen and pelvis is performed with Oral Contrast and without and with IV Cont rast, patient injected with 100 ml mL of Isovue 300. FINDINGS: LUNGS: Persistent left suprahilar mass measuring 5.2 x 3.5 cm versus prior measurement of 5.2 x 3.5 c m. There is improving post obstructive volume loss left upper lobe. Small pleural effusions are noted as well as basilar compressive atelectasis. No additional pulmonary nodules or masses are seen at th is time. There is a small left pleural effusion. Right pretracheal lymphadenopathy measuring short ax is of 1.6 cm previously measured 1.3 cm. MEDIASTINUM: Thoracic aorta is of normal caliber. The heart is mildly enlarged. There is an anterior mediastinal mass measuring 3.7 x 3.0 cm versus 3.7 x 3.0 cm previously. Smaller 1.8 cm adjacent area of lymphadenopathy stable. Large calcification posterior mediastinum are noted. There is a tiny peric ardial effusion. LIVER/GB: No definite intrahepatic lesions are seen on today's exam. No gallstones. PANCREAS: No significant abnormality is seen. SPLEEN: No significant abnormality is seen. ADRENALS: Stable thickening left adrenal gland KIDNEYS: Bilateral renal hypodensities are most typical of cysts. BOWEL: Changes of diverticulosis. LYMPH NODES: There now is a lymph node in the peripancreatic region near the gastrohepatic ligament m easuring a short axis of 1.3 cm not definitively seen on prior exam OSSEOUS STRUCTURES: There is multilevel degenerative disc disease with grade 1 anterolisthesis L4 on L5. There are numerous areas of abnormal sclerosis involving the visualized skeletal system with find ings suggestive of metastases. Chronic rib fractures are noted. OTHER: Aorta of normal caliber. No free fluid or free air. IMPRESSION: 1. Stable anterior mediastinal and left hilar lung mass. 2. There is incremental 1 to 2 mm increase in size of the right pretracheal and second anterior media stinal lymph node as discussed and measured above. 3. There is a new lymph nodes seen in the peripancreatic region near the gastrohepatic ligament measu ring a short axis of 1.5 cm compatible with pathologic adenopathy. 4. Diffuse osseous metastases
== END | disposition home or self-care (01) ==
LOC: RADCTMAIN 10:01
PROVIDERS: ATTEND Radiology Radiation Oncology
DX: C79.31 Secondary malignant neoplasm of brain (principal); C79.51 Secondary malignant neoplasm of bone; R91.8 Other nonspecific abnormal finding of lung field
CPT/HCPCS: 82565; 84520; 71270; 74178; 36415; Q9967